=== PATIENT | female | born 1940 | race Caucasian/White ===

== ENCOUNTER 2021-11-22 10:44 | Outpatient (CLI) | payer MEDICARE, SELFPAY ==
--- NOTE | 2021-11-22 10:45 | CRLHL7_ITS ---
For Patients: As a result of the Century Cures Act, medical imaging exams and procedure reports are released immediately into your electronic medical record. You may view this report before your referring provider. If you have questions, please contact your health care provider. Indication: Follow-up right axillary lymph nodes Technique: Grayscale and color Doppler ultrasound of the right axilla performed Comparison: CT 08/29/2021 Findings: Decreased prominence right axillary lymph nodes noted. Two lymph nodes are visualized measuring 1.4 x 0.6 x 0.8 cm and 1.6 x 0.5 x 1.5 cm. Normal central fatty bossman noted. Normal vascularity. Impression: Normal-appearing right axillary lymph nodes, diminished compared to the prior study, likely representing reactive lymph nodes in the setting of COVID vaccine. Attention on subsequent CT surveillance examination is suggested. Dictated by Terrence Mcdaniel MD @ 11/22/2021 11:42:41 AM (Electronically Signed)
--- NOTE | 2021-11-22 11:30 | CRLHL7_ITS ---
For Patients: As a result of the Century Cures Act, medical imaging exams and procedure reports are released immediately into your electronic medical record. You may view this report before your referring provider. If you have questions, please contact your health care provider. Indication: Colorectal cancer follow-up Technique: Postcontrast CT chest, abdomen and pelvis. Oral water. 62 cc Isovue 370 intravenous contrast. Please note that all CT scans at this facility use dose modulation, iterative reconstruction, and/or weight-based dosing when appropriate to reduce radiation dose to as low as reasonably achievable. Comparison: 08/29/2021 Findings: In the chest, normal right axillary lymph nodes are now present. No concerning intrathoracic adenopathy. Stable appearance of the esophagus. No thyroid mass. No suspicious pulmonary nodule. No pleural effusion or infiltrate. No fracture. In the abdomen, stable benign lesions throughout the liver. Chronic stone associated with the gallbladder measuring 1 centimeter. Pancreas normal. Normal spleen. No adrenal mass. Nonobstructing stone left kidney measuring 8 millimeters. Left extrarenal pelvis. Normal left ureter. Right kidney absent. No retroperitoneal or mesenteric adenopathy. Vascular calcifications. No aneurysm. In the pelvis, stable appearance of the left lower quadrant ostomy with peristomal hernia containing non inflamed loops of bowel and omental fat. No bowel obstruction or free air. No free fluid or abscess. Bladder normal. Normal uterus. No adnexal lesion. No fracture. Stable benign bone island within L3. Impression: No evidence of metastatic disease. Normal right axillary lymph nodes. Please note that all CT scans at this facility use dose modulation, iterative reconstruction, and/or weight-based dosing when appropriate to reduce radiation dose to as low as reasonably achievable. Dictated by Terrence Mcdaniel MD @ 11/23/2021 9:01:24 AM (Electronically Signed)
--- NOTE | 2021-11-27 10:14 | ONC.NURNOTE ---
Authorization: User: Margaret HuitronTyler Maradiaga Date: 06/10/21 11:21 Type: Eligibility Determination Note... Request received from [facility] for prior authorization of Bevacizumab J9035. Patient carries Medicare [employer] as primary insurance. Per CMS.gov LCD O97046 no prior authorization is required as services are based on medical necessity and follow medicare guidelines
== END 2021-11-22 10:45 | disposition home or self-care (01) ==
LOC: US 10:47
PROVIDERS: PCP Physician Assistant Medical; Visit Provider Internal Medicine Hematology & Oncology
DX: C18.9 Malignant neoplasm of colon, unspecified (principal); R59.0 Localized enlarged lymph nodes
CPT/HCPCS: 71260; 74177; 76882; Q9967

== ENCOUNTER 2021-11-29 09:54 | Outpatient (RCR) | payer MEDICARE, SELFPAY ==
--- NOTE | 2021-11-29 11:10 | ONC.NURNOTE ---
Copied forward for dose/frequency clarification. Patient: Angle Kennedy : 1940 Age/Sex: 81/F Unit#: [id number] Account#: Multiple Room/Bed: User: Lulu Martinez Date: 04/21/21 18:53 Type: Clinical Nurse Specialist Note... Reentered treatment plan: avastin Cycles without avastin drug assigned. Treatment plan reentered, starting with cycle 7. Due 04/26/21. Avastin 7.5mg/kg q 4 weeks. Every other 2 week cycle discontinued/modified treatment plan to pt schedule.
--- NOTE | 2021-12-14 13:12 | ONC.NURNOTE ---
Lore seen by PCP today- noted untreated UTI from 11/27/21 UA done in the [facility] Ad Murray to start patient on Keflex as she has not responded to Nitrofuran in the past Ad was checking if there was a reason not to treat- lead technical writer states that she should go ahead and treat as seems appropriate
--- NOTE | 2021-12-15 10:19 | ONC.NURNOTE ---
Patient called and said that when she attempted to refill her capecitabine that a note popped up on the screen with an estimate of >$99,000. Instructed patient to call pharmacy to check on this, as may be an error. If she finds that this will be her charge to call our office back with the provider number to contact.
== END 2021-12-17 23:59 | disposition home or self-care (01) ==
LOC: CCIC 09:54
PROVIDERS: PCP Physician Assistant Medical; Visit Provider Internal Medicine Hematology & Oncology
DX: Z51.11 Encounter for antineoplastic chemotherapy (principal); C19 Malignant neoplasm of rectosigmoid junction; C78.7 Secondary malignant neoplasm of liver and intrahepatic bile duct; R59.0 Localized enlarged lymph nodes; I10 Essential (primary) hypertension; Z90.5 Acquired absence of kidney; Z93.3 Colostomy status; L27.1 Localized skin eruption due to drugs and medicaments taken internally
CPT/HCPCS: 96413; 99212; 99215; J9035

== ENCOUNTER 2022-01-23 08:11 | Outpatient (CLI) | payer MEDICARE, SELFPAY ==
[2022-01-23 14:19] LABS: Albumin* 4.8 g/dL (3.3-5.0); Chloride* 106 mmol/L (96-114); Potassium* 3.9 mmol/L (3.6-5.1); Sodium* 142 mmol/L (135-149)
[2022-01-23 14:21] LABS: Alkaline Phosphatase* 78 U/L (40-150); Aspartate Amino Transferase* 29 U/L (12-35); Bilirubin Total* 0.8 mg/dL (0.1-1.5); Blood Urea Nitrogen* 12 mg/dL (7-30); Carbon Dioxide* 24 mmol/L (20-32); Creatinine* 0.7 mg/dL (0.5-1.5); Estimated Glomerular Filt Rate 86 ml/min; Total Protein* 7.4 g/dL (6.0-8.3)
[2022-01-23 14:22] LABS: Alanine Aminotransferase* 17 U/L (4-35); Calcium* 9.5 mg/dL (8.4-10.6); Glucose* 125 mg/dL (60-115)
[2022-01-24 15:10] LABS: Carcinoembryonic Antigen 2.6 ng/mL
== END 2022-01-23 08:12 | disposition home or self-care (01) ==
PROVIDERS: PCP Physician Assistant Medical; Visit Provider Internal Medicine Hematology & Oncology
DX: C18.9 Malignant neoplasm of colon, unspecified (principal); R82.71 Bacteriuria
CPT/HCPCS: 80053; 82378; 87086; 87186

== ENCOUNTER 2022-02-14 09:45 | Outpatient (CLI) | payer MEDICARE, SELFPAY ==
[2022-02-14 10:25] LABS: Creatinine* 0.7 mg/dL (0.5-1.5); Estimated Glomerular Filt Rate 86 ml/min
== END 2022-02-14 09:46 | disposition home or self-care (01) ==
PROVIDERS: PCP Physician Assistant Medical; Visit Provider Internal Medicine Hematology & Oncology
DX: C19 Malignant neoplasm of rectosigmoid junction (principal); R59.0 Localized enlarged lymph nodes; K80.20 Calculus of gallbladder without cholecystitis without obstruction; C78.7 Secondary malignant neoplasm of liver and intrahepatic bile duct; Z90.5 Acquired absence of kidney
CPT/HCPCS: 36415; 71260; 74177; 82565; Q9967

== ENCOUNTER 2022-03-19 14:05 | Outpatient (REF) | payer MEDICARE, SELFPAY ==
[2022-03-19 15:30] LABS: Basophils Absolute Auto 0.01 K/uL (0.00-0.30); Basophils Percent Auto 0.2 % (0.0-3.0); Eosinophils Absolute Auto 0.01 K/uL (0.00-0.50); Eosinophils Percent Auto 0.2 % (0.0-7.0); Hematocrit 44.6 % (33.0-51.0); Hemoglobin* 14.6 gm/dL (12.0-16.0); Immature Granulocytes Abs Auto 0.02 K/uL (0.00-0.30); Lymphocytes Absolute Auto 1.43 K/uL (0.90-2.90); Lymphocytes Percent Auto 31.2 % (20-44); Mean Corpuscular HGB Conc 33 gm/dL (32-36); Mean Corpuscular Hemoglobin 34 pg (26-34); Mean Corpuscular Volume 103 fL (80-100); Monocytes Percent Auto 7.6 % (0.0-11.0); Neutrophils Absolute Auto 2.77 K/uL (1.7-7.0); Neutrophils Percent Auto 60.4 % (42.0-72.0); Platelet Count* 218 K/uL (140-440); RDW Coefficient of Variation % 16.5 % (11.5-15.5); Red Blood Count 4.35 m/uL (4.00-5.20); White Blood Count* 4.59 K/uL (4.50-11.00)
[2022-03-19 15:40] LABS: Slide Review Reflex No
[2022-03-19 15:42] LABS: Appearance Urine Clear (Clear); Bilirubin Urine Negative (Negative); Blood Urine Trace-lysed (Negative); Color Urine Yellow (Yellow); Glucose Urine Negative (Negative); Ketones Urine Negative (Negative); Leukocyte Esterase Urine 1+ (Negative); Nitrite Urine Positive (Negative); Protein Urine 2+ (Negative); Specific Gravity Urine <= 1.005 (1.000-1.030); Urobilinogen Urine 0.2 (0.2-1.0); pH Urine 5.5 (5.0-8.5)
[2022-03-19 15:48] LABS: Albumin* 4.7 g/dL (3.3-5.0)
[2022-03-19 15:49] LABS: Chloride* 107 mmol/L (96-114); Potassium* 3.6 mmol/L (3.6-5.1); Sodium* 142 mmol/L (135-149)
[2022-03-19 15:51] LABS: Aspartate Amino Transferase* 28 U/L (12-35); Bilirubin Total* 0.5 mg/dL (0.1-1.5); Carbon Dioxide* 25 mmol/L (20-32); Creatinine* 0.6 mg/dL (0.5-1.5); Estimated Glomerular Filt Rate 90 ml/min; Total Protein* 7.2 g/dL (6.0-8.3)
[2022-03-19 15:51] LABS: Bacteria Urine Moderate
[2022-03-19 15:52] LABS: Alanine Aminotransferase* 19 U/L (4-35); Alkaline Phosphatase* 76 U/L (40-150); Blood Urea Nitrogen* 12 mg/dL (7-30); Calcium* 9.5 mg/dL (8.4-10.6); Glucose* 113 mg/dL (60-115)
[2022-03-21 14:28] LABS: Carcinoembryonic Antigen 3.1 ng/mL
== END 2022-03-19 14:06 | disposition home or self-care (01) ==
LOC: NPINS 14:05
PROVIDERS: PCP Physician Assistant Medical; Visit Provider Internal Medicine Hematology & Oncology
DX: C19 Malignant neoplasm of rectosigmoid junction (principal); C18.9 Malignant neoplasm of colon, unspecified; N39.0 Urinary tract infection, site not specified; B96.20 Unspecified Escherichia coli [E. coli] as the cause of diseases classified elsewhere
CPT/HCPCS: 80053; 81003; 81015; 82378; 85025; 87086; 87186

== ENCOUNTER 2022-05-17 10:00 | Outpatient (RCR) | payer MEDICARE, SELFPAY ==
[2021-12-27 10:13] VITALS: BP 178/82; PULSE 81; RESP 16; TEMP 35.9; O2SAT 98
[2022-01-24 10:00] VITALS: BP 127/81; PULSE 73; RESP 16; TEMP 36.6; O2SAT 98
[2022-01-24] MEDS: 0.9 % SODIUM CHLORIDE 250 ml IV (10:45)
--- NOTE | 2022-01-24 10:50 | ONC.NURNOTE ---
Treatment plan modification: Avastin. Please note pt has been receiving avastin 7.5mg/m2 q 4 weeks. Her current treatment plan is a 21 day cycle. Cycles are being manually moved to 28 days.
[2022-02-19 14:01] LABS: Basophils Absolute Auto 0.01 K/uL (0.00-0.30); Basophils Percent Auto 0.2 % (0.0-3.0); Eosinophils Absolute Auto 0.02 K/uL (0.00-0.50); Eosinophils Percent Auto 0.4 % (0.0-7.0); Hematocrit 43.3 % (33.0-51.0); Hemoglobin* 14.2 gm/dL (12.0-16.0); Immature Granulocytes Abs Auto 0.04 K/uL (0.00-0.30); Lymphocytes Absolute Auto 1.43 K/uL (0.90-2.90); Lymphocytes Percent Auto 30.2 % (20-44); Mean Corpuscular HGB Conc 33 gm/dL (32-36); Mean Corpuscular Hemoglobin 34 pg (26-34); Mean Corpuscular Volume 104 fL (80-100); Monocytes Percent Auto 7.8 % (0.0-11.0); Neutrophils Absolute Auto 2.87 K/uL (1.7-7.0); Neutrophils Percent Auto 60.6 % (42.0-72.0); Platelet Count* 228 K/uL (140-440); RDW Coefficient of Variation % 16.4 % (11.5-15.5); Red Blood Count 4.18 m/uL (4.00-5.20); White Blood Count* 4.74 K/uL (4.50-11.00)
[2022-02-19 14:03] LABS: Slide Review Reflex No
[2022-02-19 14:17] LABS: Appearance Urine Clear (Clear); Bilirubin Urine Negative (Negative); Blood Urine Trace-intact (Negative); Color Urine Yellow (Yellow); Glucose Urine Negative (Negative); Ketones Urine Negative (Negative); Leukocyte Esterase Urine 1+ (Negative); Nitrite Urine Positive (Negative); Protein Urine 1+ (Negative); Specific Gravity Urine <= 1.005 (1.000-1.030); Urobilinogen Urine 0.2 (0.2-1.0); pH Urine 5.5 (5.0-8.5)
[2022-02-19 14:25] LABS: Bacteria Urine Many; RBC Urine 0-2 (0-2); Squamous Epithelial Cell Urine Few (None-Few)
[2022-02-19 15:22] LABS: Albumin* 4.6 g/dL (3.3-5.0); Chloride* 107 mmol/L (96-114); Potassium* 3.7 mmol/L (3.6-5.1); Sodium* 141 mmol/L (135-149)
[2022-02-19 15:24] LABS: Creatinine* 0.6 mg/dL (0.5-1.5); Estimated Glomerular Filt Rate 90 ml/min
[2022-02-19 15:25] LABS: Alanine Aminotransferase* 16 U/L (4-35); Alkaline Phosphatase* 80 U/L (40-150); Aspartate Amino Transferase* 26 U/L (12-35); Bilirubin Total* 0.6 mg/dL (0.1-1.5); Blood Urea Nitrogen* 14 mg/dL (7-30); Calcium* 9.6 mg/dL (8.4-10.6); Carbon Dioxide* 24 mmol/L (20-32); Glucose* 141 mg/dL (60-115); Total Protein* 7.2 g/dL (6.0-8.3)
[2022-02-21 10:52] LABS: Carcinoembryonic Antigen 2.9 ng/mL
[2022-02-21] MEDS: SODIUM CHLORIDE 0.9 % (FLUSH) 10 ML SYRINGE IVF (12:38)
[2022-02-21] MEDS: 0.9 % SODIUM CHLORIDE 250 ml IV (12:38)
--- NOTE | 2022-03-20 16:18 | ONC.NURNOTE ---
Pt called to review labs. Elevated urine protein to 2+; Avastin held for tomorrow. Nsg to review next steps with Dr. Mari and call pt back. Pt agreeable to this plan.
--- NOTE | 2022-03-21 12:05 | ONC.NURNOTE ---
Dr. Mari reviewed pt's labs and urine(which had 2+ protein). Per Dr. Mari, pt should hold the Avastin for 4 weeks, but can continue xeloda. Senior Java Software Engineer called pt with Dr. Mari's recommendation and pt verbalized understanding of plan of care.
[2022-04-16 14:05] LABS: Appearance Urine Cloudy (Clear); Bilirubin Urine Negative (Negative); Blood Urine Trace-intact (Negative); Color Urine Yellow (Yellow); Glucose Urine Negative (Negative); Ketones Urine Negative (Negative); Leukocyte Esterase Urine 1+ (Negative); Nitrite Urine Positive (Negative); Protein Urine 2+ (Negative); Specific Gravity Urine <= 1.005 (1.000-1.030); Urobilinogen Urine 0.2 (0.2-1.0); pH Urine 5.5 (5.0-8.5)
[2022-04-16 14:10] LABS: Basophils Absolute Auto 0.01 K/uL (0.00-0.30); Basophils Percent Auto 0.2 % (0.0-3.0); Eosinophils Absolute Auto 0.01 K/uL (0.00-0.50); Eosinophils Percent Auto 0.2 % (0.0-7.0); Hematocrit 44.6 % (33.0-51.0); Hemoglobin* 14.6 gm/dL (12.0-16.0); Immature Granulocytes Abs Auto 0.01 K/uL (0.00-0.30); Immature Granulocytes Pct Auto 0.2 %; Lymphocytes Absolute Auto 1.42 K/uL (0.90-2.90); Lymphocytes Percent Auto 28.1 % (20-44); Mean Corpuscular HGB Conc 33 gm/dL (32-36); Mean Corpuscular Hemoglobin 34 pg (26-34); Mean Corpuscular Volume 103 fL (80-100); Monocytes Percent Auto 7.9 % (0.0-11.0); Neutrophils Absolute Auto 3.21 K/uL (1.7-7.0); Neutrophils Percent Auto 63.4 % (42.0-72.0); Platelet Count* 213 K/uL (140-440); RDW Coefficient of Variation % 16.7 % (11.5-15.5); Red Blood Count 4.32 m/uL (4.00-5.20); White Blood Count* 5.06 K/uL (4.50-11.00)
[2022-04-16 14:13] LABS: Albumin* 4.6 g/dL (3.3-5.0); Chloride* 111 mmol/L (96-114)
[2022-04-16 14:14] LABS: Potassium* 3.5 mmol/L (3.6-5.1); Sodium* 144 mmol/L (135-149)
[2022-04-16 14:16] LABS: Alkaline Phosphatase* 68 U/L (40-150); Aspartate Amino Transferase* 26 U/L (12-35); Bilirubin Total* 0.7 mg/dL (0.1-1.5); Carbon Dioxide* 25 mmol/L (20-32); Creatinine* 0.7 mg/dL (0.5-1.5); Estimated Glomerular Filt Rate 86 ml/min; Total Protein* 7.1 g/dL (6.0-8.3)
[2022-04-16 14:17] LABS: Alanine Aminotransferase* 19 U/L (4-35); Blood Urea Nitrogen* 14 mg/dL (7-30); Calcium* 9.5 mg/dL (8.4-10.6); Glucose* 111 mg/dL (60-115); RBC Urine 0-2 (0-2)
[2022-04-16 14:18] LABS: Bacteria Urine Many; WBC Urine 50-100 (0-5)
[2022-04-16 14:27] LABS: Slide Review Reflex No
[2022-04-17 10:52] LABS: Carcinoembryonic Antigen 2.9 ng/mL
--- NOTE | 2022-04-18 09:16 | ONC.NURNOTE ---
Avastin to be held today per Dr Mari due to 2+ protein in her urine labs with in parameters to start the capecitabine denies any signs or symptoms of bladder infection no fever, urgency, frequency or pain
--- NOTE | 2022-04-18 13:23 | ONC.NURNOTE ---
Dr. Mari reviewed pt's urine results. Script sent to pt's pharmacy for Levaquin, order also entered for 24 hr urine. Coating And Embossing Unit Operator called pt to instruct her to start Levaquin and informed pt that 24 hour urine is needed. Pt will citrus picker 24 hr urine container from [facility]. Pt verbalized understanding of plan of care.
[2022-04-23 15:14] LABS: Total Protein Urine 43 mg/dL
[2022-04-23 15:16] LABS: Creatinine Urine 48.2 mg/dL
[2022-04-23 15:28] LABS: Collection Time Urine 24 Hours; Total Protein 24 Hour Urine 645 mg/dL; Total Volume 24 Hour Urine 1500 ml; Urine Creatinine mg/24 Hour 0 mg/Day (400-1300)
[2022-05-15 15:01] LABS: Appearance Urine Clear (Clear); Bilirubin Urine Negative (Negative); Blood Urine Negative (Negative); Color Urine Yellow (Yellow); Glucose Urine Negative (Negative); Ketones Urine Negative (Negative); Leukocyte Esterase Urine Negative (Negative); Nitrite Urine Negative (Negative); Protein Urine 2+ (Negative); Urobilinogen Urine 0.2 (0.2-1.0); pH Urine 5.5 (5.0-8.5)
[2022-05-15 15:03] LABS: Albumin* 4.5 g/dL (3.3-5.0); Chloride* 107 mmol/L (96-114)
[2022-05-15 15:04] LABS: Potassium* 3.4 mmol/L (3.6-5.1); Sodium* 141 mmol/L (135-149)
[2022-05-15 15:05] LABS: Basophils Absolute Auto 0.01 K/uL (0.00-0.30); Basophils Percent Auto 0.2 % (0.0-3.0); Eosinophils Absolute Auto 0.02 K/uL (0.00-0.50); Eosinophils Percent Auto 0.3 % (0.0-7.0); Hematocrit 42.9 % (33.0-51.0); Lymphocytes Absolute Auto 1.69 K/uL (0.90-2.90); Lymphocytes Percent Auto 29.5 % (20-44); Mean Corpuscular HGB Conc 33 gm/dL (32-36); Mean Corpuscular Hemoglobin 34 pg (26-34); Mean Corpuscular Volume 104 fL (80-100); Neutrophils Absolute Auto 3.43 K/uL (1.7-7.0); Platelet Count* 245 K/uL (140-440); RDW Coefficient of Variation % 16.6 % (11.5-15.5); Red Blood Count 4.14 m/uL (4.00-5.20); White Blood Count* 5.72 K/uL (4.50-11.00)
[2022-05-15 15:06] LABS: Alkaline Phosphatase* 70 U/L (40-150); Aspartate Amino Transferase* 26 U/L (12-35); Bilirubin Total* 0.6 mg/dL (0.1-1.5); Blood Urea Nitrogen* 12 mg/dL (7-30); Carbon Dioxide* 26 mmol/L (20-32); Creatinine* 0.6 mg/dL (0.5-1.5); Estimated Glomerular Filt Rate 89 ml/min; Total Protein* 6.9 g/dL (6.0-8.3)
[2022-05-15 15:07] LABS: Alanine Aminotransferase* 20 U/L (4-35); Calcium* 10.1 mg/dL (8.4-10.6); Glucose* 102 mg/dL (60-115)
[2022-05-15 15:21] LABS: Calcium Oxalate Crystals Urine Many; RBC Urine 0-2 (0-2); Slide Review Reflex No
[2022-05-15 15:22] LABS: Hyaline Casts Urine Few (None-Few)
--- NOTE | 2022-05-16 08:28 | ONC.NURNOTE ---
Patient called yesterday for lab results and they were not resulted. Called patient to let her know that protein is still 2+, so will continue to hold avastin at this time. Email sent to Dr. Leigh to find out if patient should be seen on his schedule tomorrow or will just discuss plan for patient over lunch hour tomorrow. Nursing to call patient with a plan if not going to be seen.
[2022-05-17 14:40] LABS: Carcinoembryonic Antigen 2.7 ng/mL
--- NOTE | 2022-05-25 09:42 | ONC.NURNOTE ---
Addendum entered by Inez Menjivar RN 06/11/22 11:12: Received a phone call from patient stating that she never received her capecitabine. She is requesting that our office contact [facility]. Informatics Application Analyst contacted them and was told that they will REORDER the drug STAT through another site since they currently are unable to obtain the drug. Informatics Application Analyst asked for a timeline and was told by end of day it should ship. Patient was given number to call and check on order this afternoon: [phone]. Addendum entered by Halley Giron RN 05/31/22 09:50: Several more calls to [facility] 05/30- sign writer letterer or painter was informed that RX has been moved out of insurance verification and is now eligiable to be set up for shipment for arrival tomorrow- patient was informed 05/31 Lore called this sign writer letterer or painter - capecitabine has not been shipped and per her online portal requires referral verification by provider Call to [facility]- capecitabine is on back order until 06/08/22- they are able to do a partial fill of #42 tabs but require patient consent Lore was given ph # to call to schedule delivery [phone] Original Note: Lore called, due for capecitabine refill and has not yet been able to reorder sign writer letterer or painter spoke with [facility]- due to the new year, next RX is under insurance verification, sign writer letterer or painter asked that it be expedited requires return call on Saturday Lore notified of this response discussed that she may need to hold off starting next cycle of cape if delivery is delayed
--- NOTE | 2022-06-12 10:17 | ONC.NURNOTE ---
[facility] was contacted - 49 minutes spent monument mason there has been multiple calls to [facility] with report that capecitabine will shipped out for next day delivery patient has not had capecitabine since the last week apr She missed her treatment the week of 05/28 and now the week of 06/11 There has been barriers with insurance verification and now with drug shortage, capecitabine on back order Today Radha Pharmacist states she will try a different fondant cooker and will call patient in the next 2 hours with info about shipment possibility
--- NOTE | 2022-06-12 10:58 | URNOTE ---
Received request for prior auth for Bevacizumab (J9035). Pt has Medicare primary. Prior authorization is not required as services are based on medical necessity and follow medicare guidelines.
--- NOTE | 2022-06-14 16:23 | ONC.NURNOTE ---
Helmet Hat Puncher spent greater than 30 minutes on phone with [facility] today according to customer service clerk- Medicare part B is declining Capecitabine claim From what this loan underwriter understands- capecitabine is not available from the current site that she has been receiving capecitabine- [place] [address] there is capecitabine available at [place] [address] and [place] [address], but medicare is denying these claims Helmet Hat Puncher was instructed to call Medicare at [phone] to appeal
--- NOTE | 2022-06-18 10:04 | ONC.NURNOTE ---
Lore received her capecitabine this weekend Lore reports that there was an error with the copay Lore thinks it will be about at $29 copay She is restarting her capecitabine today 1500 mg BID last doses of capecitabine was 4 weeks ago appt will continue as previously scheduled
== END 2022-06-25 23:59 | disposition home or self-care (01) ==
LOC: CCIC 10:00
PROVIDERS: Internal Medicine Hematology & Oncology; PCP Physician Assistant Medical; Referring Provider Physician Assistant Medical; Visit Provider Internal Medicine Medical Oncology
DX: C19 Malignant neoplasm of rectosigmoid junction (principal); R80.9 Proteinuria, unspecified; I10 Essential (primary) hypertension
CPT/HCPCS: 36415; 80053; 81003; 81015; 82378; 84156; 85025; 87086; 87186; 96376; 96413; 99212; 99214; 99215; J7050; J9035

== ENCOUNTER 2022-06-11 22:18 | Outpatient (REF) | payer MEDICARE, SELFPAY ==
[2022-06-12 01:19] LABS: Basophils Absolute Auto 0.03 K/uL (0.00-0.30); Basophils Percent Auto 0.4 % (0.0-3.0); Eosinophils Absolute Auto 0.04 K/uL (0.00-0.50); Eosinophils Percent Auto 0.6 % (0.0-7.0); Hematocrit 46.2 % (33.0-51.0); Hemoglobin* 14.7 gm/dL (12.0-16.0); Immature Granulocytes Abs Auto 0.02 K/uL (0.00-0.30); Immature Granulocytes Pct Auto 0.3 %; Lymphocytes Absolute Auto 1.79 K/uL (0.90-2.90); Lymphocytes Percent Auto 26.8 % (20-44); Mean Corpuscular HGB Conc 32 gm/dL (32-36); Mean Corpuscular Hemoglobin 33 pg (26-34); Mean Corpuscular Volume 105 fL (80-100); Monocytes Percent Auto 8.1 % (0.0-11.0); Neutrophils Absolute Auto 4.26 K/uL (1.7-7.0); Neutrophils Percent Auto 63.8 % (42.0-72.0); Platelet Count* 218 K/uL (140-440); RDW Coefficient of Variation % 15.2 % (11.5-15.5); Red Blood Count 4.41 m/uL (4.00-5.20); White Blood Count* 6.68 K/uL (4.50-11.00)
[2022-06-12 01:25] LABS: Slide Review Reflex No
[2022-06-12 01:26] LABS: Albumin* 4.5 g/dL (3.3-5.0); Chloride* 107 mmol/L (96-114); Potassium* 3.8 mmol/L (3.6-5.1); Sodium* 142 mmol/L (135-149)
[2022-06-12 01:28] LABS: Creatinine* 0.7 mg/dL (0.5-1.5); Estimated Glomerular Filt Rate 86 ml/min
[2022-06-12 01:29] LABS: Alanine Aminotransferase* 20 U/L (4-35); Alkaline Phosphatase* 76 U/L (40-150); Aspartate Amino Transferase* 26 U/L (12-35); Bilirubin Total* 0.6 mg/dL (0.1-1.5); Blood Urea Nitrogen* 15 mg/dL (7-30); Carbon Dioxide* 27 mmol/L (20-32); Glucose* 161 mg/dL (60-115); Total Protein* 7.3 g/dL (6.0-8.3)
[2022-06-12 01:41] LABS: Appearance Urine Clear (Clear); Bilirubin Urine Negative (Negative); Blood Urine Negative (Negative); Color Urine Yellow (Yellow); Glucose Urine Negative (Negative); Ketones Urine Negative (Negative); Leukocyte Esterase Urine Negative (Negative); Nitrite Urine Negative (Negative); Protein Urine 2+ (Negative); Specific Gravity Urine 1.015 (1.000-1.030); Urobilinogen Urine 0.2 (0.2-1.0)
[2022-06-12 01:48] LABS: Bacteria Urine Few; RBC Urine 0-2 (0-2); Squamous Epithelial Cell Urine Few (None-Few); WBC Urine 0-2 (0-5)
== END 2022-06-11 22:19 | disposition home or self-care (01) ==
LOC: LAB 22:18
PROVIDERS: PCP Physician Assistant Medical
DX: C18.9 Malignant neoplasm of colon, unspecified (principal); R80.9 Proteinuria, unspecified; N39.0 Urinary tract infection, site not specified
CPT/HCPCS: 36415; 80053; 81001; 85025; 87086; 87186

== ENCOUNTER 2022-06-14 12:02 | Outpatient (CLI) | payer MEDICARE, SELFPAY | END 2022-06-14 12:03 | disposition home or self-care (01) | LOC: FRMREF 13:51 | PROVIDERS: PCP Physician Assistant Medical; Visit Provider Physician Assistant Medical | DX: N39.0 Urinary tract infection, site not specified (principal); R80.9 Proteinuria, unspecified | CPT/HCPCS: 87086 ==

== ENCOUNTER 2022-07-04 08:56 | Outpatient (CLI) | payer MEDICARE, SELFPAY ==
--- NOTE | 2022-07-04 10:00 | CRLHL7_ITS ---
For Patients: As a result of the Century Cures Act, medical imaging exams and procedure reports are released immediately into your electronic medical record. You may view this report before your referring provider. If you have questions, please contact your health care provider. Indication: MALIGNANT NEOPLASM OF COLON Technique: Postcontrast CT chest, abdomen and pelvis. 61 cc Isovue 370 intravenous contrast. Please note that all CT scans at this facility use dose modulation, iterative reconstruction, and/or weight-based dosing when appropriate to reduce radiation dose to as low as reasonably achievable. Comparison: 02/14/2022 Findings: In the chest, the axillary lymph nodes on the left appear improved compared to the prior study. No enlarged axillary, mediastinal or hilar lymph nodes on the current exam. Normal breast tissue. Atherosclerotic disease within the aorta with associated tortuosity of the descending thoracic aorta. No aneurysm. The heart is not enlarged. Gaseous distention of the esophagus is unchanged. Few scattered tiny calcified nodules are present. No suspicious pulmonary nodule. No infiltrate or edema. No effusion or pneumothorax. No fracture or destructive osseous lesion. In the abdomen, stable benign areas of decreased attenuation throughout the liver. Stable gallstone within the gallbladder lumen measuring 9 millimeters. Spleen is normal. Normal pancreas. No adrenal mass. Postop changes right nephrectomy. Chronic stones within the left kidney measuring up to 4.4 millimeters. Normal left ureter. No abdominal adenopathy. Left lower quadrant ostomy appears similar with herniation of multiple loops of small bowel and omental fat. No bowel obstruction. In the pelvis, the bladder is normal. Uterus is unremarkable for age. No adnexal mass. Postop changes partial colectomy again noted. No free air or free fluid. No abscess. No adenopathy. Degenerative changes without fracture. Atherosclerotic disease. Changes of chronic sigmoid diverticulosis. Impression: Improved appearance of the left axillary lymph nodes compared to the prior exam. No suspicious pulmonary nodule. Similar appearance of the left lower quadrant ostomy containing loops of small bowel, large bowel and fat. Chronic sigmoid diverticulosis. Please note that all CT scans at this facility use dose modulation, iterative reconstruction, and/or weight-based dosing when appropriate to reduce radiation dose to as low as reasonably achievable. Dictated by Terrence Mcdaniel MD @ 07/04/2022 12:53:49 PM (Electronically Signed)
== END 2022-07-04 08:57 | disposition home or self-care (01) ==
LOC: CT 08:59
PROVIDERS: PCP Physician Assistant Medical; Visit Provider Internal Medicine Medical Oncology
DX: C18.9 Malignant neoplasm of colon, unspecified (principal); K57.30 Diverticulosis of large intestine without perforation or abscess without bleeding
CPT/HCPCS: 71260; 74177; Q9967

== ENCOUNTER 2022-08-03 11:39 | Outpatient (RCR) | payer MEDICARE, SELFPAY ==
[2021-11-27 15:48] LABS: Eosinophils Absolute Auto 0.01 K/uL (0.00-0.50); Eosinophils Percent Auto 0.2 % (0.0-7.0); Hematocrit 44.7 % (33.0-51.0); Hemoglobin* 14.1 gm/dL (12.0-16.0); Immature Granulocytes Abs Auto 0.01 K/uL (0.00-0.30); Lymphocytes Absolute Auto 1.54 K/uL (0.90-2.90); Lymphocytes Percent Auto 30.9 % (20-44); Mean Corpuscular HGB Conc 32 gm/dL (32-36); Mean Corpuscular Hemoglobin 33 pg (26-34); Mean Corpuscular Volume 104 fL (80-100); Neutrophils Absolute Auto 2.97 K/uL (1.7-7.0); Neutrophils Percent Auto 59.7 % (42.0-72.0); Platelet Count* 196 K/uL (140-440); RDW Coefficient of Variation % 17.1 % (11.5-15.5); Red Blood Count 4.28 m/uL (4.00-5.20); White Blood Count* 4.98 K/uL (4.50-11.00)
[2021-11-27 15:59] LABS: Color Urine Yellow (Yellow)
[2021-11-27 16:00] LABS: Appearance Urine Clear (Clear); Bilirubin Urine Negative (Negative); Blood Urine Trace-lysed (Negative); Glucose Urine Negative (Negative); Ketones Urine Negative (Negative); Slide Review Reflex No; Specific Gravity Urine <= 1.005 (1.000-1.030)
[2021-11-27 16:01] LABS: Leukocyte Esterase Urine 3+ (Negative); Nitrite Urine Negative (Negative); Protein Urine Negative (Negative); Urobilinogen Urine 0.2 (0.2-1.0)
[2021-11-27 16:08] LABS: Bacteria Urine Many; RBC Urine 0-2 (0-2); Squamous Epithelial Cell Urine Few (None-Few); WBC Urine 25-50 (0-5)
[2021-11-27 16:51] LABS: Albumin* 4.3 g/dL (3.3-5.0); Chloride* 107 mmol/L (96-114); Sodium* 140 mmol/L (135-149)
[2021-11-27 16:52] LABS: Potassium* 4.2 mmol/L (3.6-5.1)
[2021-11-27 16:54] LABS: Alkaline Phosphatase* 69 U/L (40-150); Aspartate Amino Transferase* 24 U/L (12-35); Bilirubin Total* 0.8 mg/dL (0.1-1.5); Blood Urea Nitrogen* 11 mg/dL (7-30); Carbon Dioxide* 27 mmol/L (20-32); Creatinine* 0.8 mg/dL (0.5-1.5); Estimated Glomerular Filt Rate 73.52; Glucose* 123 mg/dL (60-115); Total Protein* 6.7 g/dL (6.0-8.3)
[2021-11-27 16:55] LABS: Alanine Aminotransferase* 15 U/L (4-35); Calcium* 9.3 mg/dL (8.4-10.6)
[2021-11-29 14:45] LABS: Carcinoembryonic Antigen 2.8 ng/mL
[2021-12-25 15:38] LABS: Albumin* 4.2 g/dL (3.3-5.0); Chloride* 107 mmol/L (96-114); Sodium* 141 mmol/L (135-149)
[2021-12-25 15:39] LABS: Potassium* 3.6 mmol/L (3.6-5.1)
[2021-12-25 15:41] LABS: Alanine Aminotransferase* 16 U/L (4-35); Alkaline Phosphatase* 73 U/L (40-150); Aspartate Amino Transferase* 28 U/L (12-35); Bilirubin Total* 0.8 mg/dL (0.1-1.5); Blood Urea Nitrogen* 12 mg/dL (7-30); Carbon Dioxide* 24 mmol/L (20-32); Creatinine* 0.7 mg/dL (0.5-1.5); Estimated Glomerular Filt Rate 86 ml/min; Glucose* 143 mg/dL (60-115); Total Protein* 6.9 g/dL (6.0-8.3)
[2021-12-25 15:42] LABS: Calcium* 9.1 mg/dL (8.4-10.6)
[2021-12-25 15:44] LABS: Basophils Absolute Auto 0.01 K/uL (0.00-0.30); Basophils Percent Auto 0.2 % (0.0-3.0); Eosinophils Absolute Auto 0.01 K/uL (0.00-0.50); Eosinophils Percent Auto 0.2 % (0.0-7.0); Hematocrit 42.1 % (33.0-51.0); Hemoglobin* 14.1 gm/dL (12.0-16.0); Immature Granulocytes Abs Auto 0.02 K/uL (0.00-0.30); Lymphocytes Absolute Auto 1.28 K/uL (0.90-2.90); Lymphocytes Percent Auto 22.5 % (20-44); Mean Corpuscular HGB Conc 34 gm/dL (32-36); Mean Corpuscular Hemoglobin 34 pg (26-34); Mean Corpuscular Volume 101 fL (80-100); Neutrophils Percent Auto 66.7 % (42.0-72.0); Platelet Count* 185 K/uL (140-440); RDW Coefficient of Variation % 16.5 % (11.5-15.5); Red Blood Count 4.16 m/uL (4.00-5.20); White Blood Count* 5.69 K/uL (4.50-11.00)
[2021-12-25 16:03] LABS: Slide Review Reflex No
[2021-12-25 18:11] LABS: Appearance Urine Clear (Clear); Bilirubin Urine Negative (Negative); Blood Urine Trace-intact (Negative); Color Urine Yellow (Yellow); Glucose Urine Negative (Negative); Ketones Urine Negative (Negative); Leukocyte Esterase Urine Negative (Negative); Nitrite Urine Negative (Negative); Protein Urine Trace (Negative); Specific Gravity Urine <= 1.005 (1.000-1.030); Urobilinogen Urine 0.2 (0.2-1.0)
[2021-12-25 18:33] LABS: RBC Urine 0-2 (0-2); WBC Urine 0-2 (0-5)
[2022-07-06 12:40] LABS: Basophils Absolute Auto 0.01 K/uL (0.00-0.30); Basophils Percent Auto 0.2 % (0.0-3.0); Hematocrit 47.1 % (33.0-51.0); Hemoglobin* 14.8 gm/dL (12.0-16.0); Lymphocytes Absolute Auto 1.96 K/uL (0.90-2.90); Lymphocytes Percent Auto 31.4 % (20-44); Mean Corpuscular HGB Conc 31 gm/dL (32-36); Mean Corpuscular Hemoglobin 33 pg (26-34); Mean Corpuscular Volume 104 fL (80-100); Monocytes Percent Auto 6.4 % (0.0-11.0); Neutrophils Absolute Auto 3.87 K/uL (1.7-7.0); Platelet Count* 248 K/uL (140-440); RDW Coefficient of Variation % 14.8 % (11.5-15.5); Red Blood Count 4.55 m/uL (4.00-5.20); White Blood Count* 6.24 K/uL (4.50-11.00)
[2022-07-06 12:44] LABS: Albumin* 4.4 g/dL (3.3-5.0)
[2022-07-06 12:45] LABS: Chloride* 108 mmol/L (96-114); Sodium* 145 mmol/L (135-149)
[2022-07-06 12:47] LABS: Aspartate Amino Transferase* 25 U/L (12-35); Bilirubin Total* 0.6 mg/dL (0.1-1.5); Carbon Dioxide* 30 mmol/L (20-32); Creatinine* 0.8 mg/dL (0.5-1.5); Estimated Glomerular Filt Rate 73 ml/min; Total Protein* 7.1 g/dL (6.0-8.3)
[2022-07-06 12:48] LABS: Alanine Aminotransferase* 20 U/L (4-35); Alkaline Phosphatase* 71 U/L (40-150); Blood Urea Nitrogen* 18 mg/dL (7-30); Calcium* 9.8 mg/dL (8.4-10.6); Glucose* 126 mg/dL (60-115)
[2022-07-06 12:49] LABS: Slide Review Reflex No
[2022-07-06 13:02] LABS: Appearance Urine Clear (Clear); Bilirubin Urine Negative (Negative); Blood Urine Trace-intact (Negative); Color Urine Yellow (Yellow); Glucose Urine Negative (Negative); Ketones Urine Negative (Negative); Leukocyte Esterase Urine Negative (Negative); Nitrite Urine Negative (Negative); Protein Urine 1+ (Negative); Urobilinogen Urine 0.2 (0.2-1.0)
[2022-07-06 13:07] LABS: Calcium Oxalate Crystals Urine Moderate; Squamous Epithelial Cell Urine Few (None-Few); WBC Urine 0-2 (0-5)
[2022-07-07 14:08] LABS: Carcinoembryonic Antigen 2.9 ng/mL
[2022-08-03 11:54] LABS: Basophils Absolute Auto 0.01 K/uL (0.00-0.30); Basophils Percent Auto 0.1 % (0.0-3.0); Hematocrit 46.9 % (33.0-51.0); Immature Granulocytes Abs Auto 0.01 K/uL (0.00-0.30); Immature Granulocytes Pct Auto 0.1 %; Lymphocytes Percent Auto 21.2 % (20-44); Mean Corpuscular HGB Conc 32 gm/dL (32-36); Mean Corpuscular Hemoglobin 33 pg (26-34); Mean Corpuscular Volume 103 fL (80-100); Monocytes Percent Auto 7.9 % (0.0-11.0); Neutrophils Absolute Auto 5.99 K/uL (1.7-7.0); Neutrophils Percent Auto 70.7 % (42.0-72.0); Platelet Count* 263 K/uL (140-440); RDW Coefficient of Variation % 15.7 % (11.5-15.5); Red Blood Count 4.54 m/uL (4.00-5.20); White Blood Count* 8.48 K/uL (4.50-11.00)
[2022-08-03 11:55] LABS: Appearance Urine Slightly Cloudy (Clear); Bilirubin Urine Negative (Negative); Blood Urine Negative (Negative); Color Urine Yellow (Yellow); Glucose Urine Negative (Negative); Ketones Urine Negative (Negative); Leukocyte Esterase Urine Negative (Negative); Nitrite Urine Negative (Negative); Protein Urine 2+ (Negative); Urobilinogen Urine 0.2 (0.2-1.0); pH Urine 5.5 (5.0-8.5)
[2022-08-03 11:56] LABS: Slide Review Reflex No
[2022-08-03 11:58] LABS: Albumin* 4.6 g/dL (3.3-5.0)
[2022-08-03 11:59] LABS: Chloride* 105 mmol/L (96-114); Potassium* 4.1 mmol/L (3.6-5.1); Sodium* 143 mmol/L (135-149)
[2022-08-03 12:01] LABS: Aspartate Amino Transferase* 25 U/L (12-35); Carbon Dioxide* 28 mmol/L (20-32); Creatinine* 0.8 mg/dL (0.5-1.5); Estimated Glomerular Filt Rate 73 ml/min
[2022-08-03 12:02] LABS: Alanine Aminotransferase* 22 U/L (4-35); Alkaline Phosphatase* 78 U/L (40-150); Blood Urea Nitrogen* 20 mg/dL (7-30); Calcium* 10.3 mg/dL (8.4-10.6); Glucose* 94 mg/dL (60-115); Total Protein* 7.4 g/dL (6.0-8.3)
[2022-08-03 12:05] LABS: RBC Urine 0-2 (0-2); WBC Urine 0-2 (0-5)
[2022-08-04 13:26] LABS: Carcinoembryonic Antigen 2.8 ng/mL
--- NOTE | 2022-08-14 13:48 | ONC.NURNOTE ---
capecitabine received this am- will restart her medication tomorrow 1500 mg BID 7 day on and 7 day off
--- NOTE | 2022-08-17 11:05 | ONC.NURNOTE ---
RX sent to [facility] and canceled at [facility] due to multiple administrative issues at [facility] that resulted in delivery delays [facility] delivery [facility]
== END 2023-07-19 08:34 | disposition home or self-care (01) ==
LOC: LAB 11:39
PROVIDERS: PCP Physician Assistant Medical; Visit Provider Internal Medicine Hematology & Oncology
DX: R19.7 Diarrhea, unspecified (principal); C18.9 Malignant neoplasm of colon, unspecified
CPT/HCPCS: 36415; 80053; 81001; 81003; 81015; 82378; 85025; 87086; 87186

== ENCOUNTER 2022-09-06 08:52 | Outpatient (CLI) | payer MEDICARE, SELFPAY | END 2022-09-06 08:53 | disposition home or self-care (01) | LOC: NFLDREF 21:55 | PROVIDERS: PCP Physician Assistant Medical; Referring Provider Physician Assistant Medical; Visit Provider Internal Medicine Hematology & Oncology | DX: C18.7 Malignant neoplasm of sigmoid colon (principal); I15.9 Secondary hypertension, unspecified | CPT/HCPCS: 80053 ==

== ENCOUNTER 2022-10-30 09:25 | Outpatient (CLI) | payer MEDICARE, SELFPAY ==
--- NOTE | 2022-10-30 10:00 | CRLHL7_ITS ---
For Patients: As a result of the Century Cures Act, medical imaging exams and procedure reports are released immediately into your electronic medical record. You may view this report before your referring provider. If you have questions, please contact your health care provider. INDICATION: Follow-up colon malignancy. History of nephrectomy and bowel resection. COMPARISON: CT of the chest, abdomen, and pelvis from 07/04/2022. TECHNIQUE: CT examination of the chest, abdomen, and pelvis was performed with the uneventful intravenous administration of 100 cc of Omnipaque 350 while 3 mm thick axial sections were obtained from above the apices of the lungs through the symphysis pubis. Oral contrast was not administered. Please note that all CT scans at this facility use dose modulation, iterative reconstruction, and/or weight-based dosing when appropriate to reduce radiation dose to as low as reasonably achievable. FINDINGS: : In the chest, the lungs are clear with no sign of significant infiltrate or mass. There is excellent enhancement of the pulmonary arteries with no sign of pulmonary embolism. There is no sign of mediastinal or hilar mass or adenopathy. Again seen is mild calcification of the mitral valve annulus. The heart is otherwise normal in appearance for the patient`s age. There is age appropriate appearance of the thoracic aorta and ascending great vessels. There is no sign of supraclavicular or axillary mass or adenopathy. Again seen are changes of a diverting colostomy in the right anterior upper pelvic wall. There is no change in a large peristomal hernia containing multiple loops of nonobstructed small bowel. In the abdomen, the liver has stable heterogeneous linear low-density in the posterior aspect of the right lobe, involving both segments 6 and 7, suggesting previous resection or scarring from trauma. There is stable appearance of low-density small linear structures in the medial segment of the left lobe in the anterior segment of the right lobe, segments 4A and 8 which are nonspecific. Again seen are several tiny low-density structures in the rest of the liver consistent with 20 cysts. The spleen, pancreas, and adrenals are normal in appearance. Again seen are surgical clips in the right renal fossa from nephrectomy. The left kidney mildly enlarged, measuring 12.4 centimeters in length, probably compensatory hypertrophy. There are multiple stable parapelvic cysts. The previously seen nonobstructive 4 millimeter calculus in the upper pole is no longer present. There is no sign of left hydronephrosis or hydroureter. There is no sign of ureterolithiasis. There is stable mild cholelithiasis, with single 9 millimeter dependent calcified gallstone in the gallbladder. There is no sign of gallbladder wall thickening or pericholecystic fluid. The abdominal aorta is normal in caliber with no sign of dilatation. There is no sign of retroperitoneal mass or adenopathy. The stomach, loops of small bowel, and right colon in the abdomen are normal in appearance. In the pelvis, the appendix is nonvisualized, but there is no sign of an inflammatory process in the area of the appendix. The loops of small bowel in the pelvis are normal in appearance. There is a patent rectosigmoid anastomosis. There continues to be mild mucosal thickening of the sigmoid colon and rectum, nonspecific. This could simply be from underdistention, but mild colitis and proctitis cannot be excluded. The uterus and adnexal regions are normal in appearance. The urinary bladder is normal in appearance. There is no sign of pelvic or inguinal mass or adenopathy. There is no sign of free air or free fluid in the abdomen or pelvis. Again seen is mild scoliosis of the thoracic spine convex towards the left. Again seen is moderate scoliosis of the lumbar spine convex towards the right. Again seen is moderate disc degenerative disease from L3 through S1 related to the scoliosis. 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 IMPRESSION: No evidence of metastatic disease to the chest or pelvis. Normal CT of the chest with contrast. CT of the abdomen shows a stable appearance of small, low-density regions scattered throughout both lobes and more confluent linear lesions in the posterior aspect of the right lobe. Stable appearance of right nephrectomy. Interval passage of previously seen nonobstructive 4 millimeter calculus from the left renal collecting system. CT of the pelvis shows stable appearance of a left upper pelvic wall diverting colostomy with large peristomal hernia containing multiple loops of nondistended small bowel. Stable satisfactory appearance of rectal colonic anastomosis with stable moderate mucosal thickening of the collapsed sigmoid colon and rectum. Cannot exclude distal colitis and proctitis. Please note that all CT scans at this facility use dose modulation, iterative reconstruction, and/or weight-based dosing when appropriate to reduce radiation dose to as low as reasonably achievable. Dictated by Conor Lima MD @ 10/30/2022 5:02:45 PM (Electronically Signed)
== END 2022-10-30 09:26 | disposition home or self-care (01) ==
LOC: CT 09:25
PROVIDERS: PCP Physician Assistant Medical; Visit Provider Physician Assistant
DX: C18.9 Malignant neoplasm of colon, unspecified (principal)
CPT/HCPCS: 71260; 74177; Q9967

== ENCOUNTER 2022-11-01 08:15 | Outpatient (CLI) | payer MEDICARE, SELFPAY | END 2022-11-01 08:16 | disposition home or self-care (01) | LOC: NFLDREF 11-02 15:20 | PROVIDERS: PCP Physician Assistant Medical; Referring Provider Physician Assistant Medical; Visit Provider Physician Assistant Medical | DX: C18.7 Malignant neoplasm of sigmoid colon (principal); I15.9 Secondary hypertension, unspecified | CPT/HCPCS: 80053 ==

== ENCOUNTER 2022-11-08 14:42 | Outpatient (RCR) | payer MEDICARE, SELFPAY ==
--- NOTE | 2022-10-04 14:00 | ONC.NURNOTE ---
CBC noted and called to [facility] pending no reported hand foot symptoms this is her week off capecitabine, restarts 10/11/22 plans to get next lab a little earlier, day 5 of week off and day of her CT Scan on 11/02/22
--- NOTE | 2022-11-26 08:57 | ONC.NURNOTE ---
Received phone call from patients daughter, Sobia. They were seen by Dr. Mari on 11/08 and there was talk of a referral to the ostomy nurse. They have not heard from anyone and are following up. Associate Director Finance called the wound care clinic and they will add her to the patient list to be seen. Ostomy patients are seen on Fridays. Number for patients daughter was given to wound clinic to call to set this appointment up: [phone] (Sobia).
== END 2023-01-05 23:59 | disposition home or self-care (01) ==
LOC: CCIC 14:42
PROVIDERS: PCP Physician Assistant Medical; Referring Provider Physician Assistant Medical; Visit Provider Internal Medicine Hematology & Oncology
DX: C18.7 Malignant neoplasm of sigmoid colon (principal); I10 Essential (primary) hypertension; L27.1 Localized skin eruption due to drugs and medicaments taken internally; Z93.3 Colostomy status
CPT/HCPCS: 99212; 99214; 99215

== ENCOUNTER 2022-11-26 11:27 | Emergency (ER) | payer MEDICARE, SELFPAY ==
[2022-11-26] VITALS (29 sets, daily range): BP systolic 111–137; BP diastolic 61–85; PULSE 90–101; RESP 18; TEMP 36.6; O2SAT 91–99; BMI 24.4
--- NOTE | 2022-11-26 11:43 | ED.NEUROSD ---
HPI - Neuro Symptoms/Deficit General Time Seen by Provider: 11:43 Date Seen: 11/26/22 Chief Complaint: Neuro Symptoms/Altered Deficit Stated Complaint: Slurred speech last night--needs stroke evaluation Time Seen by Provider: 11/26/22 11:43 Source: patient, RN notes reviewed and old records reviewed Mode of arrival: ambulatory Limitations: no limitations History of Present Illness HPI Narrative: Angle is a very pleasant 82-year-old female with a history of stage IV colon cancer status post colectomy and ostomy, currently on oral chemotherapy who comes to the emergency room for evaluation regarding a alteration of speech. Patient had a 5-10 minute episode of difficulty with word finding, stating inappropriate words and slurring of speech well talking to her son yesterday on the phone. This was not accompanied by any other symptoms and patient denies chest pain shortness of breath headache visual symptoms or numbness or tingling. This is never happened in the past and has not recurred since yesterday. She has not had cough cold or congestion. She denies recent fall. Related Data Home Medications Medication Instructions Recorded Confirmed acetaminophen 325 mg capsule 325 mg PO Q6H PRN 11/27/21 11/08/22 bevacizumab 11/27/21 11/08/22 bisacodyl 5 mg tablet 5 mg PO DAILY 11/27/21 11/08/22 cetirizine 10 mg tablet 10 mg PO DAILY PRN 11/27/21 11/26/22 multivitamin 1 tab PO DAILY 11/27/21 11/08/22 lisinopril 20 mg tablet 5 mg PO BID 11/08/22 11/26/22 Previous Rx's Medication Instructions Recorded amlodipine 10 mg tablet 10 mg PO QDAY #90 tabs 08/02/22 capecitabine 500 mg tablet 1,500 mg (3 x 500 mg) PO BID #84 08/20/22 tabs metoprolol succinate 50 mg 50 mg PO QDAY #90 tabs 11/06/22 tablet,extended release 24 hr Allergies Allergy/AdvReac Type Severity Reaction Status Date / Time ragweed pollen Allergy Mild Sneezing Verified 11/26/22 17:24 Review of Systems Status of ROS: Reports: 10 or more systems reviewed and unremarkable except as noted in History and below Const: Denies: fever or chills Eyes: Denies: change in vision ENMT: Denies: neck pain, throat swelling, difficulty swallowing or vertigo Cardio: Denies: chest pain or shortness of breath with exertion Resp: Denies: shortness of breath or cough GI: Denies: abdominal pain, nausea, vomiting, difficulty swallowing or blood in stool : Denies: painful urination Musculo: Denies: neck pain Integ/Breast: Denies: rash Neuro: Reports: slurred speech and difficulty communicating thoughts; Denies: headache, numbness in extremities, weakness in extremities, dizziness or vertigo Allergy/Immuno: Denies: throat swelling PFSH PFS Medical History (Updated 11/26/22 @ 18:51 by Shanel Moseley MD) 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 - Localized skin eruption due to drugs and medicaments taken internally (ICD-10) Urinary tract infection ?N39.0 - Urinary tract infection, site not specified (ICD-10) Surgical History (Updated 11/06/22 @ 09:41 by Darlene Murray PA-C) History of nephrectomy ?Z90.5 - Acquired absence of kidney (ICD-10) History of bowel resection ?Z90.49 - Acquired absence of other specified parts of digestive tract (ICD-10) History of creation of ostomy ?Z93.9 - Artificial opening status, unspecified (ICD-10) Family History (Updated 11/24/21 @ 08:26 by Sandip Barker) Mother Diabetes Brother Diabetes Social History (Updated 07/09/22 @ 12:30 by Preeti Delacruz PA-C) Narrative: Health care directive on file- Health care directive completed on 11/08/2005. Reviewed and sent for scanning 12/29/2019. 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 Smoking Status: Never smoker How often do you have a drink containing alcohol: never AUDIT-C Alcohol total score: 0 Non-prescribed substance use: denies use Exam Narrative: Exam Narrative: Alert and oriented. Appropriate speech with a GCS of 15. EOM is full. Pupils equal round and reactive. There seem to be a somewhat if a field cut in the upper right peripheral vision but we could not recreate this with 2nd exam. Otherwise visual finch intact. Eyebrow raise smile symmetrical and tongue is midline. Upper extremity strength and motor intact. Heart with a regular rate and rhythm and lungs are clear bilaterally. Abdomen soft. Mild protruding of the lower abdomen. No significant pain. Rather diffuse discomfort around this area. Lower extremities without edema. Able to raise both legs off the gurney. Romberg is negative. Const: Vital Signs, click to edit/add: Vital Signs - 24 hr 11/26/22 11:31 11/26/22 12:30 11/26/22 12:56 Temperature 98 F Pulse Rate 93 Pulse Rate [Pulse Oximeter] 101 H Respiratory Rate 18 Blood Pressure Blood Pressure [Ri ght Upper Arm] 117/76 111/67 Pulse Oximetry 96 99 Oxygen Delivery Me thod Room Air 11/26/22 13:00 11/26/22 13:02 11/26/22 13:30 Temperature Pulse Rate 92 93 94 Pulse Rate [Pulse Oximeter] Respiratory Rate Blood Pressure 114/68 Blood Pressure [Ri ght Upper Arm] Pulse Oximetry 97 98 98 Oxygen Delivery Me thod 11/26/22 13:31 11/26/22 13:32 11/26/22 14:00 Temperature Pulse Rate 92 93 94 Pulse Rate [Pulse Oximeter] Respiratory Rate Blood Pressure 114/68 Blood Pressure [Ri ght Upper Arm] Pulse Oximetry 97 99 98 Oxygen Delivery Me thod 11/26/22 14:02 11/26/22 14:03 11/26/22 14:30 Temperature Pulse Rate 93 93 94 Pulse Rate [Pulse Oximeter] Respiratory Rate Blood Pressure 114/69 Blood Pressure [Ri ght Upper Arm] Pulse Oximetry 98 99 98 Oxygen Delivery Me thod 11/26/22 14:31 11/26/22 15:00 11/26/22 15:02 Temperature Pulse Rate 93 96 94 Pulse Rate [Pulse Oximeter] Respiratory Rate Blood Pressure 115/73 113/70 Blood Pressure [Ri ght Upper Arm] Pulse Oximetry 98 95 95 Oxygen Delivery Me thod 11/26/22 15:03 11/26/22 15:36 11/26/22 16:00 Temperature Pulse Rate 95 101 H 94 Pulse Rate [Pulse Oximeter] Respiratory Rate Blood Pressure Blood Pressure [Ri ght Upper Arm] Pulse Oximetry 94 91 96 Oxygen Delivery Me thod 11/26/22 16:02 11/26/22 16:30 11/26/22 16:32 Temperature Pulse Rate 94 95 96 Pulse Rate [Pulse Oximeter] Respiratory Rate Blood Pressure 111/66 111/61 Blood Pressure [Ri ght Upper Arm] Pulse Oximetry 95 96 96 Oxygen Delivery Me thod 11/26/22 17:13 11/26/22 17:19 11/26/22 17:30 Temperature Pulse Rate 97 91 90 Pulse Rate [Pulse Oximeter] Respiratory Rate Blood Pressure 134/85 Blood Pressure [Ri ght Upper Arm] Pulse Oximetry 96 99 98 Oxygen Delivery Me thod 11/26/22 17:32 11/26/22 18:00 11/26/22 18:02 Temperature Pulse Rate 92 95 97 Pulse Rate [Pulse Oximeter] Respiratory Rate Blood Pressure 123/66 116/62 Blood Pressure [Ri ght Upper Arm] Pulse Oximetry 96 97 98 Oxygen Delivery Me thod 11/26/22 18:30 11/26/22 18:31 Temperature Pulse Rate 101 H 99 Pulse Rate [Pulse Oximeter] Respiratory Rate Blood Pressure 137/69 Blood Pressure [Ri ght Upper Arm] Pulse Oximetry 97 97 Oxygen Delivery Me thod Documenting provider has reviewed patient's vital signs: yes Course Course Hospital Course: Patient is very suspicious for TIA but given history of stage IV cancer cannot rule out metastases or even seizure. Will have patient undergo head CT and if that is reassuring MRI. Will also check labs to include CBC, comprehensive, troponin, urinalysis. Reevaluation(s) Reevaluation #1: Patient appears to have leukocytosis but no evidence of UTI, lungs are clear. Head CT reassuring and thus MRI is ordered. Reevaluation #2: I did discuss this patient with our neurologist. He does suggest brain and neck CTA given the fact that the MRI and CT are reassuring. If this is reassuring and normal he is wondering about the possibility of focal seizures. Would suggest placing patient on aspirin 81 mg and then outpatient follow-up for both KYUNG as well as EEG. Anlge and her daughter are feeling inpatient at this point as this they have had an extended stay in the emergency room I certainly understand their frustration. Alternatively they could follow up as outpatients but that would delay any potential treatment that they may need. They do agree to this CTA is here. Vital Signs Vital signs: Initial Vital Signs Temperature 98 F 11/26/22 11:31 Temperature Source Temporal Artery Scan 11/26/22 11:31 Pulse Rate 101 H 11/26/22 11:31 Respiratory Rate 18 11/26/22 11:31 Blood Pressure 117/76 11/26/22 11:31 Blood Pressure Mean 89 11/26/22 11:31 Blood Pressure Position Supine 11/26/22 11:31 Pulse Oximetry 96 11/26/22 11:31 Oxygen Delivery Method Room Air 11/26/22 11:31 Vital Signs Temperature 98 F 11/26/22 11:31 Pulse Rate 101 H 11/26/22 11:31 Respiratory Rate 18 11/26/22 11:31 Blood Pressure 117/76 11/26/22 11:31 Pulse Oximetry 96 11/26/22 11:31 Oxygen Delivery Method Room Air 11/26/22 11:31 Temperature 98 F 11/26/22 11:31 Pulse Rate 99 11/26/22 18:31 Respiratory Rate 18 11/26/22 11:31 Blood Pressure 137/69 11/26/22 18:31 Pulse Oximetry 97 11/26/22 18:31 Oxygen Delivery Method Room Air 11/26/22 11:31 MDM - Neuro Symptoms/Deficit MDM Narrative Medical decision making narrative: 1. TIA-5-10 minute episode of word-finding difficulty yesterday. Head CT unremarkable. MRI shows no evidence of acute stroke. CTAs all reassuring. No evidence of significant stenosis. Therefore, will give patient 1st dose of aspirin 81 mg and I would like her to continue this daily. She denies a history of GI bleed, ulcers or problems with aspirin. Patient will follow-up with neuro an Neurology for neurological consultation, EEG as well as scheduling of KYUNG as the [facility] system would not be able to offer this. Until we are able to ascertain etiology of patient's episode it is suggested that she not drive a car. Sinus rhythm on monitor and regular rate and rhythm auscultated. 2. Leukocytosis-Unknown reason for leukocytosis this patient does not appear to have surgical abdomen, pneumonia, fever, urinary tract infection. I did let family know that this was a finding today earlier in the course of the visit. At the end of the day they both wanted to go and I was unable to discussed at length this finding. 2. History of colon cancer with ostomy and ongoing chemotherapy-no evidence of brain metastases. 3. Disposition-home at this time. Again brief discussion as family was anxious to go. I sympathize with them because they have had an extended stay in the emergency room today. Medical Records Attestation: I reviewed the patient's medical records. Lab Data Attestation: I reviewed the patient's lab results. Labs: Lab Results 11/26/22 11/26/22 Range/Units 12:30 14:20 WBC 14.01 H (4.50-11.00) K/uL RBC 3.59 L (4.00-5.20) m/uL Hgb 11.7 L (12.0-16.0) gm/dL Hct 36.8 (33.0-51.0) % MCV 103 H (80-100) fL MCH 33 (26-34) pg MCHC 32 (32-36) gm/dL RDW Coeff of Jumana 17.1 H (11.5-15.5) % Plt Count 231 (140-440) K/uL Neut % (Auto) 81.4 H (42.0-72.0) % Lymph % (Auto) 11.8 L (20-44) % Butts % (Auto) 6.5 (0.0-11.0) % Eos % (Auto) 0.0 (0.0-7.0) % Baso % (Auto) 0.1 (0.0-3.0) % Neut # (Auto) 11.40 H (1.7-7.0) K/uL Lymph # (Auto) 1.70 (0.90-2.90) K/uL Butts # (Auto) 0.90 (0.00-0.90) K/UL Eos # (Auto) 0.00 (0.00-0.50) K/uL Baso # (Auto) 0.00 (0.00-0.30) K/uL Abs Immat Gran (auto) 0.00 (0.00-0.30) K/uL Imm/Tot Granulo (auto) 0.2 % Sodium 139 (135-149) mmol/L Potassium 3.3 L (3.6-5.1) mmol/L Chloride 103 (96-114) mmol/L Carbon Dioxide 27 (20-32) mmol/L BUN 20 (7-30) mg/dL Creatinine 0.9 (0.5-1.5) mg/dL Estimated Creat Clear 30.62 Estimated GFR 63 ml/min Glucose 102 (60-115) mg/dL Calcium 9.4 (8.4-10.6) mg/dL Total Bilirubin 1.1 (0.1-1.5) mg/dL AST 24 (12-35) U/L ALT 20 (4-35) U/L Alkaline Phosphatase 114 (40-150) U/L Total Protein 6.7 (6.0-8.3) g/dL Albumin 3.5 (3.3-5.0) g/dL Urine Color Yellow (Yellow) Urine Appearance Clear (Clear) Urine pH 5.5 (5.0-8.5) Ur Specific [place] 1.010 (1.000-1.030) Urine Protein 2+ A (Negative) Urine Glucose (UA) Negative (Negative) Urine Ketones Trace A (Negative) Urine Blood Trace-lysed A (Negative) Urine Nitrite Negative (Negative) Urine Bilirubin Negative (Negative) Urine Urobilinogen 0.2 (0.2-1.0) Ur Leukocyte Esterase Negative (Negative) Urine RBC 0-2 (0-2) Urine WBC 2-5 (0-5) Ur Squamous Epith Cells Few (None-Few) Urine Bacteria Few A (None) POC Troponin I 0.01 (0.01-0.04) ng/ml Imaging Data CT scan - head: Attestation: I have reviewed the pertinent imaging results. My impression: No obvious abnormality Radiologist's impression: No acute intracranial hemorrhage or extraaxial collection. No evidence of acute cortical infarction. No mass effect or midline shift. Mild generalized cerebral and cerebellar parenchymal volume loss. Mild regions of decreased attenuation within the periventricular and subcortical white matter of both cerebral hemispheres most likely reflects chronic microvascular ischemic disease and age related change in this patient. Vascular calcifications within the carotid siphons. Orbital contents are normal. No calvarial fractures. No lytic or sclerotic osseous lesions within the calvarium or skull base. Scalp and other imaged soft tissue structures are normal. Mastoid air cells are clear. Mild opacification of a right ethmoid air cell. IMPRESSION: No acute intracranial abnormality. MR Brain: Attestation: I have reviewed the pertinent imaging results. Radiologist's impression: Prominence of the ventricles and sulci compatible with [id number] diffuse cerebral volume loss. No mass effect or midline shift. Scattered FLAIR hyperintensities in the supratentorial white matter, typical for mild chronic microvascular ischemic changes. No intracranial hemorrhage or pathologic extra-axial fluid collection. No diffusion restriction to suggest acute infarction. The major arterial flow voids of the skullbase are preserved. The globes are symmetric. Mild opacification of the right ethmoid air cells. Small bilateral mastoid effusions. IMPRESSION: 1. No acute infarction, mass effect, or intracranial hemorrhage. 2. Mild chronic microvascular ischemic changes and mild to moderate diffuse cerebral volume loss. Discharge Plan Discharge Clinical Impression: Brain TIA Patient Disposition: Home, Self-Care Condition: Unchanged Additional Instructions: Continue baby aspirin daily. This is 81 mg Suggest follow-up with Neuro and neurology:[phone] for scheduling with neurologist, EEG and KYUNG also known as a transesophageal endoscopy. They may defer you to your primary clinic to set up the KYUNG. Let them know that traditionally our hospital does not do this sort of study and perhaps they can suggest alternative way to get that study. Return to the emergency room for worsening symptoms. I would hold off on driving until we can figure this out at this time. Thank you for your patients today. Prescriptions: No Action capecitabine 500 mg tablet 1,500 mg PO BID Qty: 84 3RF Rx Instructions: Take 3 tablets in the morning and 3 tablets in the evening; 1 week on and 1 week off. amlodipine 10 mg tablet 10 mg PO QDAY Qty: 90 3RF lisinopril 20 mg tablet 5 mg PO BID metoprolol succinate 50 mg tablet extended release 24 hr 50 mg PO QDAY Qty: 90 0RF acetaminophen 325 mg capsule 325 mg PO Q6H PRN Rx Instructions: 1-2 tabs every 4 hrs as needed bevacizumab bisacodyl 5 mg tablet 5 mg PO DAILY cetirizine 10 mg tablet 10 mg PO DAILY PRN multivitamin Tablet 1 tab PO DAILY Rx Instructions: [facility] Adults Follow Up/Referrals: Darlene Murray PA-C [Primary Care Provider] - Stand Alone Forms: [facility] Info Instructions
--- NOTE | 2022-11-26 11:57 | CRLHL7_ITS ---
For Patients: As a result of the Century Cures Act, medical imaging exams and procedure reports are released immediately into your electronic medical record. You may view this report before your referring provider. If you have questions, please contact your health care provider. INDICATION: 5-10 MINUTE EPISODE OF WORD SALAD LAST NIGHT TECHNIQUE: CT of the head without contrast. Coronal and sagittal reformats. Bone and soft tissue algorithms. COMPARISON: No prior studies available for comparison at this institution. FINDINGS: No acute intracranial hemorrhage or extraaxial collection. No evidence of acute cortical infarction. No mass effect or midline shift. Mild generalized cerebral and cerebellar parenchymal volume loss. Mild regions of decreased attenuation within the periventricular and subcortical white matter of both cerebral hemispheres most likely reflects chronic microvascular ischemic disease and age related change in this patient. Vascular calcifications within the carotid siphons. Orbital contents are normal. No calvarial fractures. No lytic or sclerotic osseous lesions within the calvarium or skull base. Scalp and other imaged soft tissue structures are normal. Mastoid air cells are clear. Mild opacification of a right ethmoid air cell. IMPRESSION: No acute intracranial abnormality. Please note that all CT scans at this facility use dose modulation, iterative reconstruction, and/or weight-based dosing when appropriate to reduce radiation dose to as low as reasonably achievable. Dictated by Terrence Hanna MD @ 11/26/2022 1:26:45 PM (Electronically Signed)
[2022-11-26 12:36] LABS: Basophils Percent Auto 0.1 % (0.0-3.0); Hematocrit 36.8 % (33.0-51.0); Hemoglobin* 11.7 gm/dL (12.0-16.0); Immature Granulocytes Pct Auto 0.2 %; Lymphocytes Percent Auto 11.8 % (20-44); Mean Corpuscular HGB Conc 32 gm/dL (32-36); Mean Corpuscular Hemoglobin 33 pg (26-34); Mean Corpuscular Volume 103 fL (80-100); Monocytes Percent Auto 6.5 % (0.0-11.0); Neutrophils Percent Auto 81.4 % (42.0-72.0); Platelet Count* 231 K/uL (140-440); RDW Coefficient of Variation % 17.1 % (11.5-15.5); Red Blood Count 3.59 m/uL (4.00-5.20); White Blood Count* 14.01 K/uL (4.50-11.00)
[2022-11-26 12:39] LABS: Slide Review Reflex No
[2022-11-26 12:41] LABS: Troponin, Point-of-Care* 0.01 ng/ml (0.01-0.04)
--- NOTE | 2022-11-26 12:42 | CRLHL7_ITS ---
For Patients: As a result of the Century Cures Act, medical imaging exams and procedure reports are released immediately into your electronic medical record. You may view this report before your referring provider. If you have questions, please contact your health care provider. INDICATION: Slurred speech. TECHNIQUE: Multiplanar multisequence noncontrast MR images acquired through the brain. COMPARISON: CT brain 11/26/2022. FINDINGS: Prominence of the ventricles and sulci compatible with [id number] diffuse cerebral volume loss. No mass effect or midline shift. Scattered FLAIR hyperintensities in the supratentorial white matter, typical for mild chronic microvascular ischemic changes. No intracranial hemorrhage or pathologic extra-axial fluid collection. No diffusion restriction to suggest acute infarction. The major arterial flow voids of the skullbase are preserved. The globes are symmetric. Mild opacification of the right ethmoid air cells. Small bilateral mastoid effusions. IMPRESSION: 1. No acute infarction, mass effect, or intracranial hemorrhage. 2. Mild chronic microvascular ischemic changes and mild to moderate diffuse cerebral volume loss. Dictated by Mark Adorno MD @ 11/26/2022 3:55:57 PM (Electronically Signed)
[2022-11-26 13:10] LABS: Albumin* 3.5 g/dL (3.3-5.0); Chloride* 103 mmol/L (96-114); Potassium* 3.3 mmol/L (3.6-5.1); Sodium* 139 mmol/L (135-149)
[2022-11-26 13:13] LABS: Alanine Aminotransferase* 20 U/L (4-35); Alkaline Phosphatase* 114 U/L (40-150); Aspartate Amino Transferase* 24 U/L (12-35); Bilirubin Total* 1.1 mg/dL (0.1-1.5); Blood Urea Nitrogen* 20 mg/dL (7-30); Calcium* 9.4 mg/dL (8.4-10.6); Carbon Dioxide* 27 mmol/L (20-32); Creatinine* 0.9 mg/dL (0.5-1.5); Est. Creatinine Clearance* 30.62; Estimated Glomerular Filt Rate 63 ml/min; Glucose* 102 mg/dL (60-115); Total Protein* 6.7 g/dL (6.0-8.3)
[2022-11-26 14:34] LABS: Appearance Urine Clear (Clear); Bilirubin Urine Negative (Negative); Blood Urine Trace-lysed (Negative); Color Urine Yellow (Yellow); Glucose Urine Negative (Negative); Ketones Urine Trace (Negative); Leukocyte Esterase Urine Negative (Negative); Nitrite Urine Negative (Negative); Protein Urine 2+ (Negative); Urobilinogen Urine 0.2 (0.2-1.0); pH Urine 5.5 (5.0-8.5)
[2022-11-26 14:47] LABS: Bacteria Urine Few; RBC Urine 0-2 (0-2); Squamous Epithelial Cell Urine Few (None-Few)
--- NOTE | 2022-11-26 16:44 | CRLHL7_ITS ---
For Patients: As a result of the Century Cures Act, medical imaging exams and procedure reports are released immediately into your electronic medical record. You may view this report before your referring provider. If you have questions, please contact your health care provider. DATE: 11/26/2022 CLINICAL HISTORY: Patient with focal neurological deficits. TECHNIQUE: Standard helical CT image acquisition of the neck up to the skull base after bolus intravenous contrast enhancement. 2D and 3D MIP images for post-processing were performed and interpreted on an independent workstation and 3D images were permanently archived. COMPARISON: CT same day. FINDINGS: The origins of the great vessels from the aortic arch are patent. The origin of the right vertebral artery is patent. The origin of the left vertebral artery is patent. The common carotid arteries are patent. There is no stenosis at the origin of the right internal carotid artery. There is no stenosis at the origin of the left internal carotid artery. The rest of the cervical segments of the internal carotid arteries are patent up to the skull base. The vertebral arteries are codominant. The cervical segments of the vertebral arteries are patent up to the skull base. The visualized lung apices are unremarkable. The thyroid gland is unremarkable. The soft tissues of the neck are unremarkable. There are degenerative changes in the cervical spine. IMPRESSION: Normal CT angiogram of the neck. Please note that all CT scans at this facility use dose modulation, iterative reconstruction, and/or weight-based dosing when appropriate to reduce radiation dose to as low as reasonably achievable. Dictated by Nanette Hui MD @ 11/27/2022 9:15:43 AM (Electronically Signed)
--- NOTE | 2022-11-26 16:44 | CRLHL7_ITS ---
For Patients: As a result of the Century Cures Act, medical imaging exams and procedure reports are released immediately into your electronic medical record. You may view this report before your referring provider. If you have questions, please contact your health care provider. DATE: 11/26/2022 CLINICAL HISTORY: Patient with slurred speech. TECHNIQUE: Standard helical CT image acquisition through the intracranial circulation following intravenous administration of contrast material with bolus tracking. 2D and 3D MIP images for post-processing were performed and interpreted on an independent workstation and 3D images were permanently archived. COMPARISON: CT same day. FINDINGS: There is no cerebral aneurysm or large vessel occlusion. The right internal carotid artery is normal. The right middle cerebral artery and its branches are normal. The right anterior cerebral artery and its branches are normal. The left internal carotid artery is normal. The left middle cerebral artery and its branches are normal. The left anterior cerebral artery and its branches are normal. The anterior communicating artery is well visualized and appears normal. The right vertebral artery and PICA are normal. The left vertebral artery and PICA are normal. The left vertebral artery is dominant. The basilar artery is patent and appears normal. The right posterior cerebral artery is normal. The left posterior cerebral artery is normal. The visualized venous structures are patent. IMPRESSION: Normal CT angiogram of the head without intracranial aneurysm or other neurovascular abnormality. Please note that all CT scans at this facility use dose modulation, iterative reconstruction, and/or weight-based dosing when appropriate to reduce radiation dose to as low as reasonably achievable. Dictated by Nanette Hui MD @ 11/27/2022 9:18:48 AM (Electronically Signed)
[2022-11-26] MEDS: ASPIRIN 81 MG TAB.CHEW PO (18:57)
== END 2022-11-26 19:07 | disposition home or self-care (01) ==
PROVIDERS: Emergency Provider Family Medicine; PCP Physician Assistant Medical
DX: G45.9 Transient cerebral ischemic attack, unspecified (principal)
CPT/HCPCS: 36415; 70450; 70496; 70498; 70551; 80053; 81001; 84484; 85025; 87086; 99284; A9270; Q9967

== ENCOUNTER 2022-12-11 13:30 | Outpatient (CLI) | payer MEDICARE, SELFPAY | END 2022-12-11 13:31 | disposition home or self-care (01) | LOC: NFLDREF 12-12 11:13 | PROVIDERS: PCP Physician Assistant Medical; Referring Provider Physician Assistant Medical; Visit Provider Physician Assistant Medical | DX: I15.9 Secondary hypertension, unspecified (principal); R80.9 Proteinuria, unspecified; C18.9 Malignant neoplasm of colon, unspecified; Z78.0 Asymptomatic menopausal state | CPT/HCPCS: 80053; 82378 ==

== ENCOUNTER 2023-01-10 08:24 | Outpatient (CLI) | payer MEDICARE, SELFPAY | END 2023-01-10 08:25 | disposition home or self-care (01) | LOC: NFLDREF 01-12 10:57 | PROVIDERS: PCP Physician Assistant Medical; Referring Provider Physician Assistant Medical; Visit Provider Physician Assistant Medical | DX: C18.9 Malignant neoplasm of colon, unspecified (principal) | CPT/HCPCS: 80053 ==

== ENCOUNTER 2023-02-04 12:21 | Outpatient (CLI) | payer MEDICARE, SELFPAY | END 2023-02-04 12:22 | disposition home or self-care (01) | LOC: OP CLINIC 12:22 | PROVIDERS: PCP Physician Assistant Medical; Visit Provider Surgery | DX: K92.1 Melena (principal); C20 Malignant neoplasm of rectum; K62.89 Other specified diseases of anus and rectum; K56.691 Other complete intestinal obstruction | CPT/HCPCS: 45331; 88305 ==

== ENCOUNTER 2023-02-25 08:05 | Outpatient (CLI) | payer MEDICARE, SELFPAY | END 2023-02-25 08:06 | disposition home or self-care (01) | LOC: NFLDREF 02-27 12:50 | PROVIDERS: PCP Physician Assistant Medical; Referring Provider Physician Assistant Medical; Visit Provider Internal Medicine Hematology & Oncology | DX: C18.9 Malignant neoplasm of colon, unspecified (principal) | CPT/HCPCS: 80053; 82378 ==

== ENCOUNTER 2023-02-27 13:49 | Outpatient (CLI) | payer MEDICARE, SELFPAY ==
--- NOTE | 2023-02-27 14:00 | CRLHL7_ITS ---
For Patients: As a result of the Century Cures Act, medical imaging exams and procedure reports are released immediately into your electronic medical record. You may view this report before your referring provider. If you have questions, please contact your health care provider. DXA BONE MINERAL DENSITY STUDY Current height (in): 60.0. Weight (lb): 120.0. Menopause age: 53. Ethnicity: White. Reason for exam: Asymptomatic menopausal state. 1. Have you had a previous hip or vertebral fracture? No. 2. Have you had any fractures during your adult life which did not result from significant trauma (e.g., auto accident)? No. 3. Did either of your parents have a hip fracture? No. 4. Do you smoke? No. 5. Have you ever taken Glucocorticoids? No. 6. Do you have rheumatoid arthritis? No. 7. Do you have secondary osteoporosis? No. 8. Do you drink 3 or more alcoholic drinks per day? No. 9. Are you being treated for osteoporosis? No. 10. Have you ever taken any of the following medications: Actonel, Evista, Fosamax, Miacalcin, Reclast, Boniva, Forteo, HRT (i.e. estrogen/hormone therapy), Protelos, Prolia, Vitamin D, Calcium, other ??? please specify. ANSWER: No. 11. Do you have any of the following medical conditions: Anorexia or bulimia, asthma or emphysema, end stage renal disease, hyperparathyroidism, any seizure disorders, cancer, inflammatory bowel diseases, hysterectomy, other ??? please specify. ANSWER: Yes, cancer. 12. What was your maximum height (inches)? 62. 13. Do you perform weight bearing exercise regularly? No. 14. Do you regularly consume dairy products? Yes. 15. Do you drink caffeinated beverages? No. 16. At what age did your period start? 9. 17. Are you premenopausal? No. 18. How many full term pregnancies have you had? 4. 19. Have you ever missed your period for more than 6 months in a row (not including or menopause)? No. TECHNIQUE: Bone mineral density study was performed using the [employer]. FINDINGS: The results of the study expressed as bone mineral density (BMD) are as follows: Lumbar spine L1 to L3: BMD: 0.835 g/cm2. T-score: -1.7. Z-score: 1.1. Neck Left: BMD: 0.625 g/cm2. T-score: -2.0. Z-score: 0.5. Right: BMD: 0.632 g/cm2. T-score: -2.0. Z-score: 0.5. Total Left: BMD: 0.648 g/cm2. T-score: -2.4. Z-score: -0.1. Right: BMD: 0.569 g/cm2. T-score: -3.1. Z-score: -0.8. IMPRESSION: Osteoporosis. Terrence Mcdaniel M.D. Diagnostic Radiologist [email or web address] Transcribed: 8:41 am DW/Dictated by: Terrence Mcdaniel MD @ 02/28/2023 6:19:00 AM (Electronically Signed)
--- NOTE | 2023-02-27 15:00 | CRLHL7_ITS ---
For Patients: As a result of the Century Cures Act, medical imaging exams and procedure reports are released immediately into your electronic medical record. You may view this report before your referring provider. If you have questions, please contact your health care provider. Indication: MALIGNANT NEOPLASM OF COLON Technique: Postcontrast CT chest, abdomen and pelvis. 59 cc Isovue 370 intravenous contrast. Please note that all CT scans at this facility use dose modulation, iterative reconstruction, and/or weight-based dosing when appropriate to reduce radiation dose to as low as reasonably achievable. Comparison: 10/30/2022 Findings: In the chest, there is no mediastinal, hilar or axillary adenopathy. No thyroid mass. No pleural or pericardial effusion. Normal breast tissue. Linear dependent subsegmental atelectasis or scarring noted within the lower lobes. No infiltrate or edema. No pneumothorax. 2 millimeter calcified granuloma within the right middle lobe again noted. Tiny nodular density within the right lung measuring 2.7 millimeters, 3/38, is unchanged. Additional similar nodule within the lingula measuring 2.4 millimeters, 3/36. The esophagus is patulous, as before. Atherosclerotic changes. No aortic aneurysm. No new pulmonary nodule. Also stable is a calcified nodule within the right upper lobe, 4/51. No vertebral body compression fracture. In the abdomen, stable subtle areas of decreased attenuation scattered throughout the liver. The gallbladder is similar with a calcified stone present measuring 9 millimeters. The common bile duct is not dilated. Normal pancreas. Normal spleen. Adrenal glands normal. Postop changes of right nephrectomy. No enlarged retroperitoneal lymph nodes. Nonobstructing stone within the left kidney measuring 2.4 millimeters. In the pelvis, persistent wall thickening of the distal colon noted with the wall measuring up to 1.9 cm. Diverting ostomy left lower quadrant again noted with large parastomal hernia containing fat and loops of bowel. The hernia measures approximately 16.5 x 6.4 cm. No mechanical bowel obstruction. No free air. No free fluid or abscess. Similar appearance of the inguinal canal bilaterally. Normal bladder. Increased size of left pelvic sidewall lymph nodes compared to prior studies, measuring 1.1 cm and 1.3 cm, series 2, image 176. These are located adjacent to the mucosal wall thickening. Additional mildly prominent pelvic lymph nodes are present more centrally. Degenerative changes throughout the lower spine without compression fracture or suspicious osseous lesion. Impression: Increased wall thickening of the distal colonic mucosa with increased adjacent adenopathy within the left side and midline of the pelvis. Similar appearance of the large left lower quadrant parastomal hernia containing numerous loops of bowel and fat. Similar appearance of the liver with multiple ill-defined areas of decreased attenuation. Stable tiny bilateral pulmonary nodules. Please note that all CT scans at this facility use dose modulation, iterative reconstruction, and/or weight-based dosing when appropriate to reduce radiation dose to as low as reasonably achievable. Dictated by Terrence Mcdaniel MD @ 02/28/2023 10:51:14 AM (Electronically Signed)
== END 2023-02-27 13:50 | disposition home or self-care (01) ==
LOC: RAD 13:50
PROVIDERS: PCP Physician Assistant Medical; Visit Provider Physician Assistant Medical
DX: C18.9 Malignant neoplasm of colon, unspecified (principal); K46.9 Unspecified abdominal hernia without obstruction or gangrene; R91.8 Other nonspecific abnormal finding of lung field; Z78.0 Asymptomatic menopausal state; M81.0 Age-related osteoporosis without current pathological fracture
CPT/HCPCS: 71260; 74177; 77080; Q9967

== ENCOUNTER 2023-04-18 09:14 | Outpatient (CLI) | payer MEDICARE, SELFPAY ==
--- NOTE | 2023-04-18 09:15 | CRLHL7_ITS ---
For Patients: As a result of the Century Cures Act, medical imaging exams and procedure reports are released immediately into your electronic medical record. You may view this report before your referring provider. If you have questions, please contact your health care provider. INDICATION: Colon cancer. Persistent rectal bleeding. TECHNIQUE: Pelvic MRI focusing on the rectum with T1, T2, and postcontrast images. Intravenous gadolinium administered. COMPARISON: CT scan of the chest, abdomen, and pelvis dated 27 February 2023. FINDINGS: Rectal mass located 10 cm above the anal verge involving 5 cm of the proximal rectum. The mass is near circumferential with extension beyond the muscularis and into the mesorectal fat. The mass does not appear to involve the mesorectal fascia. Enlarged mesorectal lymph nodes measuring up to 1.2 cm in short axis. No pelvic sidewall adenopathy. No other bony or soft tissue abnormalities identified. IMPRESSION: 1. Rectal mass located 10 cm above the anal verge. T3 lesion. 2. Mesorectal adenopathy. N2 disease. Dictated by Luis Eduardo Beebe MD @ 04/23/2023 11:53:11 AM (Electronically Signed)
== END 2023-04-18 09:15 | disposition home or self-care (01) ==
LOC: MRI 09:14
PROVIDERS: PCP Physician Assistant Medical; Visit Provider Internal Medicine Hematology & Oncology
DX: C18.9 Malignant neoplasm of colon, unspecified (principal); K62.5 Hemorrhage of anus and rectum
CPT/HCPCS: 72197; A9575

== ENCOUNTER 2023-05-29 08:01 | Outpatient (CLI) | payer MEDICARE, SELFPAY ==
--- OUTSIDE RECORDS SUMMARY | 2023-05-31 08:14 | XMS_ITS | Encounter Summary ---
Author Name Unknown Organization [facility] Address [address] [place] [id number] Care Team Providers Care Street Cleaning Equipment Operator Name Role Phone Unavailable Primary Care Provider Unavailabl e Encounter Details Date Type Department Care Team (Late st Contact Info) Description 05/30/2023 9:07 AM [facility] Hospital Encounter Department of Radiation Oncology in [address] [phone] Sosa Nayak M.D. [address] [place] [phone] Social History Tobacco Use Types Packs/Day Years Used Date Smoking Tobacco: Never Nutrition Answer Date Recorded Nutrition: EVOO Fat Source Unknown 05/18 Nutrition: Servings of Fruits/Vegetables per Day Not on file 05/18/2022 Dental Answer Date Recorded Dental: Regular Dentist Unknown 05/18/20 22 Sex and Gender Information Value Date Recorded Sex Assigned at Not on file Gender Identity Not on file Sexual Orientation Not on file documented as of this encounter Plan of Treatment Upcoming Encounters Date Type Department Care Team (Late st Contact Info) Description 05/31/2023 9:30 AM [facility] Appointment Department of Radiation Oncology in [address] [phone] Sosa Nayak M.D. [address] [place] [phone] 06/03/2023 9:30 AM [facility] Appointment Department of Radiation Oncology in [address] [place] [address] Sosa Nayak M.D. [address] [place] [phone] 06/04/2023 9:30 AM [facility] Appointment Department of Radiation Oncology in [address] [phone] Sosa Nayak M.D. 200 [place] [address] 06/05/2023 9:15 AM [facility] Appointment Department of Radiation Oncology in [address] [phone] Sosa Nayak M.D. 200 [place] [address] 06/05/2023 9:30 AM [facility] Appointment Department of Radiation Oncology in [address] [address] Sosa Nayak M.D. [address] [place] [phone] documented as of this encounter Visit Diagnoses Not on filedocumented in this encounter Additional Health Concerns Infection Onset Date Last Indicated Resolved Time Protective Environment 04/23/2023 04/23/2023 documented as of this encounter
--- OUTSIDE RECORDS SUMMARY | 2023-05-31 08:14 | XMS_ITS ---
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 Past Plans No past plan information found. Radiation Treatments * Plan Last Treated On Elapsed Days Fractions Treated Prescribed Fraction Dose Prescribed Total Dose [id number] 05/30/2023 0 1 of 5 500 cGy 2,500 cGy Reference Point Last Treated On Elapsed Days Session Dose Total Dose [id number] 05/30/2023 0 500 cGy 500 cGy
--- OUTSIDE RECORDS SUMMARY | 2023-05-31 08:14 | XMS_ITS | Referral Summary ---
Author Name Unknown Organization [facility] Address [address] [place] [address] Care Team Providers Care Shuttle Car Operator Name Role Phone Unavailable Primary Care Provider Unavailabl e Source Comments Patient records contain information from all sites at [facility]. For routine questions regarding patient records, call [phone] during business hours, M-F 8:00 AM - 5:00 PM Central Time. Record requests for emergency care only can be directed to [phone] at any time.[facility] Encounters Date Type Department Care Team Description 05/30/2023 9:07 AM CHIEF CRNA Hospital Encounter Department of Radiation Oncology in [address] [phone] Sosa Nayak M.D. 05/23/2023 9:20 AM CHIEF CRNA - 05/23/2023 3:21 PM CHIEF CRNA Hospital Encounter Department of Radiation Oncology in [address] [phone] Sosa Nayak M.D. 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 Take within 30 minutes after a meal. Swallow whole with water. Do not crush or cut. 0 Active alendronate (FOSAMAX) 35 mg tablet Take 35 mg by mouth once a week. Take with 8oz of water, on an empty stomach. Remain upright for 30min. 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 Social History Tobacco Use Types Packs/Day Years Used Date Smoking Tobacco: Never Tobacco Cessation:Counseling Given: Not Answered Nutrition Answer Date Recorded Nutrition: EVOO Fat Source Unknown 05/18 Nutrition: Servings of Fruits/Vegetables per Day Not on file 05/18/2022 Dental Answer Date Recorded Dental: Regular Dentist Unknown 05/18/20 Sex and Gender Information Value Date Recorded Sex Assigned at Not on file Gender Identity Not on file Sexual Orientation Not on file Last Filed Vital Signs Vital Sign Reading Time Taken Comments Blood Pressure 130/65 05/23/2023 8:55 AM CHIEF CRNA Pulse 80 05/23/2023 8:55 AM CHIEF CRNA Temperature 36.3 ??C (97.3 ??F) 05/23/2023 8:55 AM CS T Respiratory Rate - - Oxygen Saturation - - Inhaled Oxygen Concentration - - Weight 56.4 kg (124 lb 5.4 oz) 05/23/2023 8:55 A M CHIEF CRNA Height - - Body Mass Index - - Plan of Treatment Upcoming Encounters Date Type Department Care Team (Late st Contact Info) Description 05/31/2023 9:30 AM CHIEF CRNA Appointment Department of Radiation Oncology in [address] [phone] Sosa Nayak M.D. [address] [place] [phone] 06/03/2023 9:30 AM CHIEF CRNA Appointment Department of Radiation Oncology in [address] [phone] Sosa Nayak M.D. [address] [place] [phone] 06/04/2023 9:30 AM CHIEF CRNA Appointment Department of Radiation Oncology in [address] [phone] Sosa Nayak M.D. [address] [place] [phone] 06/05/2023 9:15 AM CHIEF CRNA Appointment Department of Radiation Oncology in [address] [address] Sosa Nayak M.D. [address] [place] [phone] 06/05/2023 9:30 AM CHIEF CRNA Appointment Department of Radiation Oncology in [address] [phone] Sosa Nayak M.D. 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) OUTSIDE MR BODY Routine 04/18/2023 9:35 AM CHIEF CRNA from Last 3 Months Results * Aria Daily Treatment Information (05/30/2023 9:48 AM CHIEF CRNA) Course ID 1xRectum OTTO ARIA Course Start Date 4 09:14 CHIEF CRNA OTTO ARIA First Treatment Date 4 09:46 CHIEF CRNA OTTO ARIA Last Treatment Date 4 09:48 CHIEF CRNA OTTO ARIA Treatment Elapsed Days 0 OTTO ARIA Reference Point [id number] OTTO ARIA Dosage Given to Date cGy 500 OTTO ARIA Session Dosage Given 500 OTTO ARIA Plan ID [id number] OTTO ARIA Fractions Treated to Date 1 OTTO ARIA Planned Total Fractions 5 OTTO ARIA Prescribed Dose Per Fraction 500 OTTO ARIA Prescription Dose in cGy 2500 OTTO ARIA Plan Primary Reference Point [id number] OTTO ARIA 05/30/2023 9:48 AM CHIEF CRNA Provider Not In System RADIATION ONCOLOG Y ORDERABLES FAM RANGEL na * Initial Rad Onc Treatment Planning CT Simulation (05/23/2023 9:30 AM CHIEF CRNA) Narrative OTTO ARIA - 05/23/2023 9:30 AM CHIEF CRNA Angelika Melendez R, RTT ? 05/23/2023 ??9:46 AM Initial Rad Onc Treatment Planning CT Simulation Performed by: Sosa Nayak M.D. Authorized by: Sosa Nayak M.D. ?? Sosa Nayak M.D. RADIATION ONCOLOG Y ORDERABLES FAM RANGEL na * MR pelvis wo/w con-Outside MR Body (04/18/2023 9:35 AM CHIEF CRNA) Narrative IIMS - 04/23/2023 10:39 AM CHIEF CRNA This order has been created and auto-finalized to support the import of outside images. If available, original interpretation can be found on the Media Tab in Chart Review, in Document Viewer, or as an image in QREADS. If a re-interpretation or overread is required please follow defined workflow. ?? Provider Not In System IMG MRI PROCEDURE S IIMS NA from Last 3 Months Additional Health Concerns Infection Onset Date Last Indicated Protective Environment 04/23/2023 3
--- OUTSIDE RECORDS SUMMARY | 2023-05-31 08:14 | XMS_ITS | Clinical Summary ---
Author Name Unknown Organization [facility] Address [address] [place] [address] Care Team Providers Care Party Coordinator Name Role Phone Unavailable Primary Care Provider Unavailabl e Source Comments Patient records contain information from all sites at [facility]. For routine questions regarding patient records, call [phone] during business hours, M-F 8:00 AM - 5:00 PM Central Time. Record requests for emergency care only can be directed to [phone] at any time.[facility] Medications Medication Sig Dispensed Refills Start Date [...] Neoplasm Of Colon Rectosigmoid Junctio n 04/15/2023 Encounters Date Type Department Care Team Description 05/30/2023 9:07 AM [facility] Hospital Encounter Department of Radiation Oncology in [address] [phone] Sosa Nayak M.D. 05/23/2023 9:20 AM VICE INVESTIGATOR - 05/23/2023 3:21 PM [facility] Hospital Encounter Department of Radiation Oncology in [address] [phone] Sosa Nayak M.D. 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) (Primary Dx) from Last 3 Months Family History Medical History Relation Name Comments Bone cancer Father Relation Name Status Comments Father Social History Tobacco Use Types Packs/Day Years [...] Comments Blood Pressure 130/65 05/23/2023 8:55 AM VICE INVESTIGATOR Pulse 80 05/23/2023 8:55 AM VICE INVESTIGATOR Temperature 36.3 ??C (97.3 ??F) 05/23/2023 8:55 AM CS T Respiratory Rate - - Oxygen Saturation - - Inhaled Oxygen Concentration - - Weight 56.4 kg (124 lb 5.4 oz) 05/23/2023 8:55 A M VICE INVESTIGATOR Height - - Body Mass Index - - Plan of Treatment Upcoming Encounters Date Type Department Care Team (Late st Contact Info) Description 05/31/2023 9:30 AM VICE INVESTIGATOR Appointment Department of Radiation Oncology in [address] [phone] Sosa Nayak M.D. [address] [place] [phone] 06/03/2023 9:30 AM VICE INVESTIGATOR Appointment Department of Radiation Oncology in [address] [phone] Sosa Nayak M.D. [address] [place] [phone] 06/04/2023 9:30 AM VICE INVESTIGATOR Appointment Department of Radiation Oncology in [address] [phone] Sosa Nayak M.D. [address] [place] [phone] 06/05/2023 9:15 AM VICE INVESTIGATOR Appointment Department of Radiation Oncology in [address] [phone] Sosa Nayak M.D. [address] [place] [phone] 06/05/2023 9:30 AM VICE INVESTIGATOR Appointment Department of Radiation Oncology in [address] [phone] Sosa Nayak M.D. [address] [place] [phone] Health Maintenance Due Date Last Done Comments Creatinine Level (Kidney Function Test) 1940 Potassium Level 1940 Sodium Level 1940 DTaP,Tdap,and Td Vaccines (1 - Tdap) 1958 Zoster Vaccines (1 of 2) 1958 Pneumococcal vaccine (65+ years) (2 of 2 - PPSV23 or PCV20) 04/23/2016 02/27/2016 Depression Screening (Annual PHQ-2) 05/20/2023 Fall Risk Screen (Annual) 05/20/2023 COVID-19 Vaccine Completed 02/21/2023, , 08/22/2021, Additional history exists Influenza Vaccine Completed 02/21/2023, , 02/21/2021, Additional history exists HPV Vaccines Aged Out No longer eligi ble based on patient's age to complete this topic Procedures Procedure Name Priority Date/Time Associated Diagnosis Comments ARIA DAILY TREATMENT INFORMATION Routine 05/30/2023 9:48 AM VICE INVESTIGATOR INITIAL RAD ONC TREATMENT PLANNING CT SIMULATION Routine 05/23/2023 9:30 AM VICE INVESTIGATOR 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) OUTSIDE MR BODY Routine 04/18/2023 9:35 AM VICE INVESTIGATOR from Last 3 Months Results * Aria Daily Treatment Information (05/30/2023 9:48 AM VICE INVESTIGATOR) Course ID 1xRectum OTTO ARIA Course Start Date 4 09:14 VICE INVESTIGATOR OTTO ARIA First Treatment Date 4 09:46 VICE INVESTIGATOR OTTO ARIA Last Treatment Date 4 09:48 VICE INVESTIGATOR OTTO ARIA Treatment Elapsed Days 0 OTTO ARIA Reference Point [id number] OTTO ARIA Dosage Given to Date cGy 500 OTTO ARIA Session Dosage Given 500 OTTO ARIA Plan ID [id number] OTTO ARIA Fractions Treated to Date 1 OTTO ARIA Planned Total Fractions 5 OTTO ARIA Prescribed Dose Per Fraction 500 OTTO ARIA Prescription Dose in cGy 2500 OTTO ARIA Plan Primary Reference Point [id number] [facility] 05/30/2023 9:48 AM VICE INVESTIGATOR Provider Not In System RADIATION ONCOLOG Y ORDERABLES Performing Organization Address City/[facility]/ZIP Co de Phone Number FAM RANGEL na * Initial Rad Onc Treatment Planning CT Simulation (05/23/2023 9:30 AM VICE INVESTIGATOR) Narrative FAM RANGEL - 05/23/2023 9:30 AM VICE INVESTIGATOR Angelika Melendez R, RTT ? 05/23/2023 ??9:46 AM Initial Rad Onc Treatment Planning CT Simulation Performed by: Sosa Nayak M.D. Authorized by: Sosa Nayak M.D. ?? Sosa Nayak M.D. RADIATION ONCOLOG Y ORDERABLES Performing Organization Address [facility] Co de Phone Number FAM shah * MR pelvis wo/w con-Outside MR Body (04/18/2023 9:35 AM VICE INVESTIGATOR) Narrative IIMS - 04/23/2023 10:39 AM VICE INVESTIGATOR This order has been created and auto-finalized to support the import of outside images. If available, original interpretation can be found on the Media Tab in Chart Review, in Document Viewer, or as an image in QREADS. If a re-interpretation or overread is required please follow defined workflow. ?? Provider Not In System IMG MRI PROCEDURE S Performing Organization Address [facility] Co de Phone Number II NA from Last 3 Months Additional Health Concerns Infection Onset Date Last Indicated Protective Environment 04/23/2023 3
--- OUTSIDE RECORDS SUMMARY | 2023-05-31 08:14 | XMS_ITS ---
Author Name Unknown Organization [facility] Address [address] [place] [address] Care Team Providers Care Emergency Department Clinician Name Role Phone Unavailable Unavailable Unavailable Surgery Details Not on file Complications Check Surgery Details section. Procedure Estimated Blood Loss Check Surgery Details section. Procedure Findings Check Surgery Details section. Procedure Specimens Taken Check Surgery Details section.
--- OUTSIDE RECORDS SUMMARY | 2023-05-31 08:15 | XMS_ITS | Encounter Summary ---
Author Name Unknown Organization [facility] Address [address] [place] [id number] Care Team Providers Care Wire Rope Sales Representative Name Role Phone Unavailable Primary Care Provider Unavailabl e Reason for Referral * Outpatient (Routine) - Closed Specialty Diagnoses / Procedures Referred By Contac t Referred To Contact Radiation Oncology Casandra Gutierrez P.A.-C., M.S. [address] [place] [phone] Sosa Nayak M.D. [address] [place] [phone] Referral ID Status Reason Start Date Expiration Date Visits Re quested Visits Authorized [id number] Closed 04/23/2023 04/22/2026 1 1 Scheduling Instructions YIG to call - afternoon ID OPERATOR Reason for Visit * Appointment Request (Routine) - Closed Specialty Diagnoses / Procedures Referred By Contac t Referred To Contact Radiation Oncology Diagnoses Malignant Neoplasm Of Colon (HCC) Dina Mari M.D. [address] [place] [address] Referral ID Status Reason Start Date Expiration Date Visits Re quested Visits Authorized [id number] Closed 04/02/2023 04/01/2024 1 1 Encounter Details Date Type Department Care Team (Latest Contact Info) Description 04/23/2023 10:17 AM EUCLID OPERATOR - 04/23/2023 4:48 PM EUCLID OPERATOR Hospital Encounter Department of Radiation Oncology in [place], [place] [address] [place] [phone] Sosa Nayak M[address]D. 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) Social History Tobacco Use Types Packs/Day Years [...] on file documented as of this encounter Last Filed Vital Signs Vital Sign Reading Time Taken Comments Blood Pressure 148/72 04/23/2023 10:28 AM EUCLID OPERATOR Pulse 88 04/23/2023 10:28 AM EUCLID OPERATOR Temperature 36.9 ??C (98.5 ??F) 04/23/2023 1 0:28 AM EUCLID OPERATOR Respiratory Rate - - Oxygen Saturation - - Inhaled Oxygen Concentration - - Weight 55.2 kg (121 lb 12.8 oz) 023 10:28 AM EUCLID OPERATOR Height - - Body Mass Index - - documented in this encounter Medications at Time of Discharge Medication Sig Dispensed Refills Start Date End Date alendronate (FOSAMAX) 35 mg tablet Take 35 mg by mouth once a week. Take with 8oz of water, on an empty stomach. Remain upright for 30min. 0 amLODIPine (NORVASC) 5 mg tablet 0 01/04/2021 capecitabine (XELODA) 150 mg tablet Take 150 mg by mouth 2 (two) times a day. Take within 30 minutes after a meal. Swallow whole with water. Do not crush or cut. 0 lisinopriL (PRINIVIL,ZESTRIL) 20 mg tablet 0 03/02/2021 documented as of this encounter Consult Notes * Casandra Gutierrez P.A.-C., M.S. - 04/23/2023 10:30 AM CST SUBJECTIVE REQUESTING PROVIDER Dina Mari M.D. REASON FOR CONSULT 1. 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 HISTORY OF PRESENT ILLNESS Mrs. Angle Kennedy is an 83-year-old female with metastatic rectal cancer, who presents today for an opinion regarding the role of radiation therapy in the management of the patient's disease. 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 11/26/2019 Critical Imaging EGD and colonoscopy performed. Normal small bowel mucosa from duodenum, negative for celiac diseaseand enteropathy. Stomach normal gastric mucosa, negative for Helicobacter. Stomach polypectomy, polypoid foveolar hyperplasia. Esophageal biopsy normal, esophageal squamous mucosa. Colon hepatic flexure polypectomy consistent tubular adenoma, negative for high-grade dysplasia and malignancy, size 5cm. Colon sigmoid polypectomy, tubular adenomas at least 1 of which is consistent with the advancedadenoma due to size. Colon sigmoid distal biopsy consistent with adenocarcinoma low-grade moderately differentiated, DNA mismatch repair enzymes intact by IHC 12/04/[address] chest abdomen and pelvis consistent with innumerable low-density masses present throughout all segments of liver measuring up to 5 cm. Calcified gallstone present. Intrahepatic biliary duct distention noted particularly within the left hepatic lobe. Postoperative changes of right nephrectomy. 3.3 cm primary rectal/colon cancer without bowel obstruction. 6 cm right perirectal lymph node. Previously biopsied colonic adenoma with post biopsy change 12/18/2019 Surgery and Procedures Laparoscopic loop sigmoid ostomy created 01/06/2020 - Chemotherapy Xeloda under the care of Dr. Mair 01/06/2020: CEA 143.4 06/22/2020: Initiated Avastin with Xeloda 02/2022: Discontinued Avastin 01/23/2020 Genetic Testing and Tumor Genotyping CARIS testing -KRAS/NRAS/BRAF: Mutation not detected -ERBB2/HER2 Emma: Negative -MSI stable/proficient -NTRK 1/2/3: Fusion not detected -TMB: Low 4 mut/mb -PIK3CA: Mutation not detected -PTEN positive 100% -PDL1 negative 0% 08/17/[address] chest abdomen and pelvis continues to show improvement in the liver lesions, 1 spots decreased to 1.4 cm, previously 2.4 cm. Right hilar lymph node continues to be stable or slightly improved 11/15/[address] chest abdomen and pelvis demonstrated continued decrease in liver metastases. CEA 4.6 02/20/[address] chest abdomen and pelvis unremarkable in February and April 2021 05/18/2021: CEA 2.7 07/10/2021: CEA 2.7 08/07/2021: CEA 2.8 08/29/[address] chest abdomen and pelvis consistent with new lymph nodes in the right axilla, 1.4 cm and 8 mm 09/04/2021: CEA 2.7 10/02/2021: CEA 3.0 11/22/[address] chest abdomen and pelvis Impression: No evidence of metastatic disease. Ultrasound right axillary lymph nodes demonstrated normal right axillary lymph nodes. 02/14/[address] chest abdomen and pelvis impression: Mildly prominent left axillary lymph nodes are now present measuring up to 9 mm. Stable appearance of the liver with multiple low-density structures, unchanged Stable appearance of left lower quadrant ostomy. No bowel obstruction or inflammatory change 07/04/[address] chest abdomen and pelvis Impression: Improved appearance of the left axillary lymph nodes compared to the prior exam. No suspicious pulmonary nodule. Similar appearance of the left lower quadrant ostomy containing loops of small bowel, large bowel and fat. Chronic sigmoid diverticulosis. 10/30/[address] chest abdomen and pelvis IMPRESSION: No evidence of metastatic disease to the chest or pelvis. CT of the abdomen shows a stable appearance of small, low-density regions scattered throughout bothlobes and more confluent linear lesions in the posterior aspect of the right lobe. Stable appearance of right nephrectomy. Interval passage of previously seen nonobstructive 4 millimeter calculus from the left renal collecting system. CT of the pelvis shows stable appearance of a left upper pelvic wall diverting colostomy with largeperistomal hernia containing multiple loops of nondistended small bowel. Stable satisfactory appearance of rectal colonic anastomosis with stable moderate mucosal thickening of the collapsed sigmoid colon and rectum. Cannot exclude distal colitis and proctitis. 01/11/2023 Other Evaluated by an ostomy nurse where patient reported 2 tbsp of rectal bleeding for the past 6 weeks.Suspected proctitis. Recommended sucralfate enemas 01/24/2023 Other Follow up with Dr. Isaura Avendano regarding new onset rectal bleeding. Patient completed a 30 day course of sucralfate enemas with no clinical improvement. Recommended flexible sigmoidoscopy and furtherevaluation by Colorectal surgery. 02/04/2023 Critical Imaging Flexible sigmoidoscopy performed and demonstrated a completely obstructing large mass found in the rectum that was circumferential, measuring 4 cm with oozing. There was also a diffuse area of mildlyerythematous mucosa found in the rectum. Final diagnosis: A) RECTUM, BIOPSY: 1. Rectal mucosa with no diagnostic abnormality 2. Negative for microscopic, active, and chronic proctitis 3. Negative for neoplasm 02/27/2023 Critical Imaging 02/25/2023: CEA 4.7 CT chest abdomen and pelvis Impression: Increased wall thickening of the distal colonic mucosa measuring 1.9 cm with increased adjacent adenopathy within the left side and midline of the pelvis, now measuring 1.1 cm and 1.3 cm. Similar appearance of the large left lower quadrant parastomal hernia containing numerous loops of bowel and fat. Similar appearance of the liver with multiple ill-defined areas of decreased attenuation. Stable tiny bilateral pulmonary nodules. 04/01/[address] Dina Gibson, [facility]. She recommended MRI of the pelvis to assess location extent of the rectal tumor in the presence of metastatic lymph nodes, MRI of the liver, referral to Radiation Oncology for palliative treatment for bleeding, and possible PET to evaluate active disease. She did not recommend any endoscopic treatment since tumor burden is too large. If radiationis unsuccessful, then proceeding with IR embolization could be considered. Patient was unclear what she wanted to proceed with. After discussion with Dr. Mari, she was willing to proceed with an MRI of the pelvis. Patient continues to experienced rectal bleeding, 4-5 tbspper day. She continues on Xeloda. 04/18/2023 Critical Imaging MR pelvis demonstrated a rectal mass located 10 cm above the anal verge involving 5 cm of the proximal rectum. The mass was near circumferential with extension beyond the muscularis and into the mesorectal fat. The mass did not appear to involve the mesorectal fascia. Enlarged mesorectal lymph nodes measuring up to 1.2 cm. No pelvic sidewall adenopathy. No other bony or soft tissue abnormalities identified. T3 N2 This report was not available at the time of the patient's visit today. INTERVAL HISTORY The patient was seen and examined today with Dr. Nayak. The patient reports doing well overall. She reports experiencing rectal bleeding for the past year.She states that the quantity of bleeding has remained stable. She did comment on a granular component and thinks that there may be stool passage from the rectum as well. She estimates 4-5 Tbsp. of bleeding per day. She reports normal ostomy output without any concerns. She denies rectal pain. She denies abdominal bloating or discomfort. She reports dryness of her hands and feet as the primary side effect with Xeloda. She reports good appetite and states that her weight has been stable. The patient denies a history of prior radiation therapy, connective tissue disorders, or inflammatory bowel disease. Her ECOG performance status is 1. REVIEW OF SYSTEMS Review of systems was negative except as documented above. PAST MEDICAL HISTORY Past Medical History: Diagnosis Date Hernia Hypertension Essential Primary Malignant Neoplasm Of Rectum (HCC) PAST SURGICAL HISTORY Past Surgical History: Procedure Laterality Date NEPHRECTOMY Right SIGMOIDECTOMY 12/18/2019 SIGMOIDOSCOPY 12/18/2019 FAMILY HISTORY Family History Problem Relation Age of Onset Bone cancer Father SOCIAL HISTORY Social History Socioeconomic History Marital status: Occupational History Employer: RETIRED Tobacco Use Smoking status: Never Substance and Sexual Activity Drug use: Never Social History Narrative She lives by herself. She has 4 children, 8 grandchildren, and 4 great-grandchildren. OBJECTIVE BP 148/72 (BP Location: Left arm, Patient Position: Sitting, Cuff Size: Regular) Pulse 88 Temp 36.9 ??C (Temporal) Wt 55.2 kg PHYSICAL EXAM General: Patient is alert and oriented in no apparent distress. The patient is here today with her daughter. Lungs: Clear to auscultation bilaterally. Heart: Regular rate and rhythm. ASSESSMENT / PLAN #1 Metastatic rectal cancer with liver metastases #2 Laparoscopic loop sigmoid ostomy created on December 18, 2019 #3 Xeloda initiated in December 2019; Avastin was added from June 2020 through February 2022 #4 Rectal bleeding I had a detailed discussion with the patient and her daughter regarding her metastatic rectal cancer diagnosis. We reviewed her oncologic history as detailed above. Unfortunately, we discussed that the images and report from her pelvic MRI last week were not yet available for review, but that our DOS staff was working on obtaining this information for us as soon as possible. We reviewed the patient's ongoing symptom of rectal bleeding. We discussed the risks, benefits, andalternatives of palliative radiotherapy in this setting. I discussed the logistics as well as the acute and chronic side effects of treatment in detail. The acute side effects are common and include,but are not limited to, fatigue, skin irritation, urinary frequency and urgency, gaseous bloating/discomfort, and increased frequency and urgency of bowel movements. Long-term side effects could include, but are not limited to, infertility, increased frequency of bowel movements and/or urination, vaginal dryness, more frequent urinary tract infections, stool incontinence, rectal bleeding, rectal n arrowing, arthritis of the hips, and secondary malignancy. We discussed these side effects in relation to the patient's ostomy. The patient was provided with a written summary of recommendations. Herquestions were answered to her verbalized satisfaction. Dr. Nayak also met with the patient today, please see her attestation for details. The patient hasa follow-up visit with Dr. Mari on Saturday. After discussion, it was agreed that Dr. Nayak will call the patient on Saturday afternoon to finalize her plan of care. The patient was provided with our c ontact information. She will contact us with questions or concerns. She verbally expressed her understanding of the plan. EDUCATION Ready to learn, no apparent learning barriers were identified; learning preferences include listening. Explained diagnosis and treatment plan; patient expressed understanding of the content. PRIMARY PROVIDER Darlene Murray P.A.-C. I personally spent 52 minutes in care of the patient today. Time includes both non face to face andface to face patient care. Signed by: Casandra Gutierrez P.A.-C., M.S. 04/23/2023 4:30 PM [facility] [address] [place] [address] ADDENDUM: We received the report of the MRI pelvis after the patient's visit was completed today. This will be discussed with the patient at her follow-up visits next week. 04/18/23 MRI Pelvis IMPRESSION: Rectal mass located 10 cm above the anal verge. T3 lesion. Mesorectal adenopathy. N2 disease. ID OPERATOR Associated attestation - Sosa Nayak M.D. - 04/23/2023 4:47 PM EUCLID OPERATOR RADIATION ONCOLOGY CONSULT I saw and evaluated the patient and participated in the [place] portions of the service. I reviewed thedocumentation of Ms. Casandra Gutierrez PA-C, and agree with the findings and plan. Please see Ms. Carof's detailed note for the patient's initial presentation and work-up. Briefly, Mrs. Kennedy is a very pleasant 83 year old female with metastatic rectal cancer (liver metastasis) who underwent laparoscopic loop sigmoidostomy in November of 2019 and was treated initially with Xeloda and Avastin. Avastin was discontinued in February of 2022. She has had almost daily rectal bleeding of about 2-4 tablespoons of blood per rectum. She has not required any blood transfusions and has no rectal pain. She underwent flexible sigmoidoscopy on 02/04/23 that showed a large almost completely obstructing rectal mass that was 4cm. The biopsy was negative. She was colorectal surgery who discussed with her options of restaging with MRI pelvis, liver and/or PET/CT. She wants less treatment and elected to have MRI of the pelvis. The MRI was done on 04/17/23 and is not yet read out. I have reviewedher imaging, operative and pathology reports. On exam, she appears well. Detailed exam as per Ms. Gutierrez. We discussed the findings above and below in this note with the patient and her daughter. We discussed her treatment alternatives including continued xeloda with no radiation vs adding radiation to the rectal tumor. We discussed 5 radiation treatments to help decrease or stop her bleeding. We discussed either adding this now or at a later date as well. We discussed the rationale, risks, side effects and palliative goals of radiation therapy. We discussed the acute as well as intermediate teacher risks, including, but not limited to fatigue, skin erythema, bowel/bladder changes (she should have very little bladder in the field), bone health, and risk of bonefracture in the future. They understood and their questions were answered. We tentatively plan on delivering 2500 cGy in 5 fractions starting 3-5 days after her simulation. I will call her on Saturday afternoon. Hopefully, by then we will have the MRI read and she will haveseen Dr. Mari back in the morning of April 29. We can then see if she wants to add the radiation at this time or continue on Xeloda. My thanks to Juan Alberto Bach, Arthur, and Gisell Murray PA-C for the opportunity to participate in this patient's care. EDUCATION Ready to learn, no apparent learning barriers were identified; learning preferences include listening. Explained diagnosis and treatment plan; patient expressed understanding of the content. DIAGNOSIS #1 Metastatic rectal cancer with liver metastases #2 Laparoscopic loop sigmoid ostomy created on December 18, 2019 #3 Xeloda initiated in December 2019; Avastin was added from June 2020 through February 2022 #4 Rectal bleeding Signed by: Sosa Nayak M.D. 04/23/2023 documented in this encounter Plan of Treatment Upcoming Encounters Date Type Department Care Team (Late st Contact Info) Description 05/31/2023 9:30 AM EUCLID OPERATOR Appointment Department of Radiation Oncology in [address] [phone] Sosa Nayak M.D. [address] [place] [phone] 06/03/2023 9:30 AM EUCLID OPERATOR Appointment Department of Radiation Oncology in [address] [phone] Sosa Nayak M.D. [address] [place] [phone] 06/04/2023 9:30 AM EUCLID OPERATOR Appointment Department of Radiation Oncology in [address] [phone] Sosa Nayak M.D. [address] [place] [phone] 06/05/2023 9:15 AM EUCLID OPERATOR Appointment Department of Radiation Oncology in [place] [address] [place] [address] Sosa Nayak M.D. [address] [place] [address] 06/05/2023 9:30 AM EUCLID OPERATOR Appointment Department of Radiation Oncology in [place], [place] [address] [place] [address] Sosa Nayak M.D. 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
--- OUTSIDE RECORDS SUMMARY | 2023-05-31 08:15 | XMS_ITS | Encounter Summary ---
Author Name Unknown Organization [facility] Address [address] [place] [address] Care Team Providers Care Can Capper Name Role Phone Unavailable Primary Care Provider Unavailabl e Reason for Referral * Outpatient (Routine) - Closed Specialty Diagnoses / Procedures Referred By Contac t Referred To Contact Radiation Oncology Sosa Nayak M.D. 200 [place] [address] [facility] Referral ID Status Reason Start Date Expiration Date Visits Re quested Visits Authorized [id number] Closed 04/29/2023 04/28/2026 1 1 ITAL EDUCATION COORDINATOR Reason for Visit * Outpatient (Routine) - Closed Specialty Diagnoses / Procedures Referred By Kwabena andersen Referred To Contact Radiation Oncology Sosa Nayak M.D. 200 [place] [address] [facility] Referral ID Status Reason Start Date Expiration Date Visits Re quested Visits Authorized [id number] Closed 04/29/2023 04/28/2026 1 1 Encounter Details Date Type Department Care Team (Latest Contact Info) Description 05/23/2023 8:37 AM HOSPITAL EDUCATION COORDINATOR - 05/23/2023 9:19 AM HOSPITAL EDUCATION COORDINATOR Hospital Encounter Department of Radiation Oncology in [place], [place] [address] [place] [phone] Sosa Nayak M.D. 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 - 05/23/2023 9:00 AM CST SUBJECTIVE REQUESTING PROVIDER Sosa Nayak M.D. REASON FOR CONSULT 1. 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 HISTORY OF PRESENT ILLNESS Mrs. Angle Kennedy is a 83 y.o. female with metastatic rectal cancer. She returns to undergo CT planning scan to initiate radiation treatment. Her oncologic history is as follows: Oncology [...] Chemotherapy Xeloda under the care of Dr. Mari 01/06/2020: CEA 143.4 06/22/2020: Initiated Avastin with [...] or soft tissue abnormalities identified. T3 N2 05/27/2023 - Radiation Therapy Radiation Therapy Treatment Details (Noted on 04/29/2023) Site: Rectum Technique: No technique specified Goal: Palliative Planned Treatment Start Date: 05/27/2023 INTERVAL HISTORY The patient was seen and examined today with Dr. Nayak. The patient reports feeling well overall. She reports her rectal bleeding is about the same since when we saw her in April. She denies any blood clots. She denies any discharge from her rectum. She does experience occasional rectal urge, which is about the same as prior. She reports her ostomy output is comparable to previously, with no blood. She denies any abdominal pain. She does experienceurinary urgency, this is not new. Her ECOG performance status is 1. REVIEW OF SYSTEMS Review of systems was negative except as documented above. PATIENT REPORTED SYMPTOM SCREEN FATIGUE (Scale: 0 = no fatigue; 10 = worst fatigue you can imagine): 0 PAIN (Scale: 0 = no pain; 10 = worst pain you can imagine): 0 OVERALL QUALITY OF LIFE (Scale: 0 = as bad as can be; 10 = as good as can be): 9 OBJECTIVE BP 130/65 (BP Location: Right arm, Patient Position: Sitting, Cuff Size: Regular) Pulse 80 Temp36.3 ??C (Temporal) Wt 56.4 kg PHYSICAL EXAM General: Patient is alert and oriented in no apparent distress. ASSESSMENT / PLAN #1 Metastatic rectal cancer with liver metastases #2 Laparoscopic loop sigmoid ostomy created on December 18, 2019 #3 Xeloda initiated in December 2019; Avastin was added from June 2020 through February 2022 #4 Rectal bleeding It was a pleasure to meet with Angle today. She is doing well with no significant changes to her rectal bleeding. Output is comparable to when we initially saw her in April. I reviewed the risks,benefits, and alternatives of radiotherapy in the setting of her bleeding rectal cancer. We discussed the recommendation for radiation treatment to her rectum in 5 fractions. I discussed the logistics, as well as, the acute and chronic side effects of treatment in detail. For full list of those details please refer to her original consult note dated April 23, 2023. Her questions were answered to their verbalized satisfaction. She continues on oral Xeloda under the care of Dr. Mari. She is scheduled for follow up later this month. She will undergo CT simulation today. We anticipate starting radiation therapy on May 30. Patient seen in collaboration with Dr. Nayak, please review her attestation for additional information. The patient was provided with our contact information. She was asked to contact us with questions or concerns. She verbally expressed her understanding of the plan. EDUCATION Ready to learn, no apparent learning barriers were identified; learning preferences include listening. Explained diagnosis and treatment plan; patient expressed understanding of the content. CONSENT Discussed the risks, benefits, alternatives, and the necessity of other members of the healthcare team participating in the procedure. All questions answered and consent given. I personally spent 20 minutes in care of the patient today. Time includes both non face to face andface to face patient care. Signed by: Charity Carl APRN, C.N.P., D.N.P. 05/23/2023 9:23 AM HOSPITAL EDUCATION COORDINATOR [facility] Rad[facility] [address] [place] [address] ITAL EDUCATION COORDINATOR Associated attestation - Sosa Nayak M.D. - 05/23/2023 3:20 PM HOSPITAL EDUCATION COORDINATOR RADIATION ONCOLOGY FOLLOW-UP VISIT I saw and evaluated the patient and participated in the stratton portions of the service. I reviewed thedocumentation of Ms. Charity Carl APRN and agree with the findings and plan. Mrs. Angle Kennedy is an 83 year old female with metastatic rectal [...] pelvis. The MRI was done on 04/17/23 shows a T3 tumor 10cm from the verge involving 5cm of the proximal rectum with a 1.2cm mesorectal lymph node. Her bleeding is unchanged and she is ready to start palliative treatments. We discussed the rationale, risks, side effects and palliative goals of radiation therapy. We discussed the acute as well as halfway risks, including, but not limited to fatigue, skin erythema, bowel/bladder changes (she should have very little bladder in the field), bone health, and risk of bonefracture in the future. She understood and her questions were answered. We tentatively plan on delivering 2500 cGy in 5 fractions starting May 30, 2023. My thanks to Juan Alberto Bach, Arthur, and Gisell Murray PA-C for the opportunity to participate in this patient's care. EDUCATION Ready to learn, no apparent learning barriers were identified; learning preferences include listening. Explained diagnosis and treatment plan; patient expressed understanding of the content. CONSENT Discussed the risks, benefits, alternatives, and the necessity of other members of the healthcare team participating in the procedure. All questions answered and consent given. DIAGNOSIS #1 Metastatic rectal cancer with liver metastases #2 Laparoscopic loop sigmoid ostomy created on December 18, 2019 #3 Xeloda initiated in December 2019; Avastin was added from June 2020 through February 2022 #4 Rectal bleeding Signed by: Sosa Nayak M.D. 05/23/2023 3:10 PM HOSPITAL EDUCATION COORDINATOR Radiation Oncology [facility] [address] [place] [phone] documented in this encounter Plan of Treatment Upcoming Encounters Date Type Department Care Team (Late st Contact Info) Description 05/31/2023 9:30 AM HOSPITAL EDUCATION COORDINATOR Appointment Department of Radiation Oncology in [address] [address] Sosa Nayak M.D. [address] [place] [phone] 06/03/2023 9:30 AM HOSPITAL EDUCATION COORDINATOR Appointment Department of Radiation Oncology in [address] [address] Sosa Nayak M.D. [address] [place] [phone] 06/04/2023 9:30 AM HOSPITAL EDUCATION COORDINATOR Appointment Department of Radiation Oncology in [address] [place] [address] Sosa Nayak M.D. 200 [place] [address] 06/05/2023 9:15 AM HOSPITAL EDUCATION COORDINATOR Appointment Department of Radiation Oncology in [address] [address] Sosa Nayak M.D. 200 [place] [address] 06/05/2023 9:30 AM HOSPITAL EDUCATION COORDINATOR Appointment Department of Radiation Oncology in [place] [address] [place] [address] Sosa Nayak M.D. 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
--- OUTSIDE RECORDS SUMMARY | 2023-05-31 08:15 | XMS_ITS | Encounter Summary ---
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 200 [place] [address] [facility] Region Referral ID Status Reason Start Date Expiration Date Visits Re quested Visits Authorized [id number] Closed 04/29/2023 04/28/2024 1 1 Encounter Details Date Type Department Care Team (Latest Contact Info) Description 05/23/2023 9:20 AM BIOLOGY INSTRUCTOR - 05/23/2023 3:21 PM BIOLOGY INSTRUCTOR Hospital Encounter Department of Radiation Oncology in [address] [place] [address] Sosa Nayak M.D. 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 Authorized by: Sosa Nayak M.D. Simulation was performed under physician supervision based on physician order in preparation for radiation therapy. Physician was immediately available to provide assistance and direction throughout the procedure. Written consent for treatment was completed or confirmed. The patient was appropriately identified and placed in the treatment position using the necessary immobilization to ensure a reproducible treatment position. Reference shaver were placed to facilitate marking of isocenter. Area scanned:pelvis Contrast used for the simulation procedure: Oral Patient position:head first supine Custom immobilization: Vac-domitila Motion management: None Bolus: No CT guidance: Following positioning of the patient, a series of slices was obtained to be utilized in treatment planning. CT images were transferred to the Eclipse treatment planning system, after a reference isocenter was determined and marked. Segmentation and treatment planning will take place prior to treatment delivery. Patient set up and imaging was appropriate and completed without incident. Sales Appointment Coordinator use:No OGY INSTRUCTOR Associated attestation - Sosa Nayak M.D. - 05/23/2023 3:21 PM BIOLOGY INSTRUCTOR I was present during all critical and stratton portions of the procedure(s) and immediately available [facility] the entire duration. See note for details. documented in this encounter Plan of Treatment Upcoming Encounters Date Type Department Care Team (Late st Contact Info) Description 05/31/2023 9:30 AM BIOLOGY INSTRUCTOR Appointment Department of Radiation Oncology in [address] [phone] Sosa Nayak M.D. [address] [place] [phone] 06/03/2023 9:30 AM BIOLOGY INSTRUCTOR Appointment Department of Radiation Oncology in [address] [address] Sosa Nayak M.D. [address] [place] [phone] 06/04/2023 9:30 AM BIOLOGY INSTRUCTOR Appointment Department of Radiation Oncology in [address] [address] Sosa Nayak M.D. [address] [place] [phone] 06/05/2023 9:15 AM BIOLOGY INSTRUCTOR Appointment Department of Radiation Oncology in [place], [place] [address] [place] [address] Sosa Nayak M.D. [address] [place] [address] 06/05/2023 9:30 AM BIOLOGY INSTRUCTOR Appointment Department of Radiation Oncology in [place], [place] [address] [place] [address] Sosa Nayak M.D. 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 05/23/2023 ??9:46 AM Initial Rad Onc Treatment Planning CT Simulation Performed by: Sosa Nayak M.D. Authorized by: Sosa Nayak M.D. ?? Sosa Nayak M.D. 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
--- OUTSIDE RECORDS SUMMARY | 2023-05-31 08:15 | XMS_ITS | Encounter Summary ---
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 [address] [place] [phone] [facility] Region Referral ID Status Reason Start Date Expiration Date Visits Re quested Visits Authorized [id number] Closed 04/29/2023 04/28/2024 1 1 ESS CONTROL BOARD OPERATOR * Outpatient (Routine) - Closed Specialty Diagnoses / Procedures Referred By Contac t Referred To Contact Radiation Oncology Sosa Nayak M.D. [address] [place] [phone] [facility] Region Referral ID Status Reason Start Date Expiration Date Visits Re quested Visits Authorized [id number] Closed 04/29/2023 04/28/2026 1 1 ESS CONTROL BOARD OPERATOR * Outpatient (Routine) - Closed Specialty Diagnoses / Procedures Referred By Contac t Referred To Contact Radiation Oncology Casandra Gutierrez P.A.-C., M.STyler [address] [place] [phone] Sosa Nayak M.D. [address] [place] [phone] Referral ID Status Reason Start Date Expiration Date Visits Re quested Visits Authorized [id number] Closed 04/23/2023 04/22/2026 1 1 Scheduling Instructions YIG to call - afternoon ESS CONTROL BOARD OPERATOR Reason for Visit * Outpatient (Routine) - Closed Specialty Diagnoses / Procedures Referred By Contac t Referred To Contact Radiation Oncology Casandra Gutierrez P.A.-C., M.STyler [address] [place] [phone] Sosa Nayak M.D. [address] [place] [address] Referral ID Status Reason Start Date Expiration Date Visits Re quested Visits Authorized [id number] Closed 04/23/2023 04/22/2026 1 1 Encounter Details Date Type Department Care Team (Latest Contact Info) Description 04/29/2023 1:00 PM PROCESS CONTROL BOARD OPERATOR - 04/29/2023 5:03 PM PROCESS CONTROL BOARD OPERATOR Hospital Encounter Department of Radiation Oncology in [place], [place] [address] [place] [address] Sosa Nayak M.D. 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 - 04/29/2023 1:00 PM CST RADIATION ONCOLOGY FOLLOW-UP NOTE SUBJECTIVE REQUESTING PROVIDER Established patient DIAGNOSIS 1. Metastatic rectal cancer CHIEF COMPLAINT/REASON FOR VISIT Mrs. Angle Kennedy is an 83 year [...] rectum with a 1.2cm mesorectal lymph node. She has no new complaints sinceI saw her last week. She saw Dr. Mari this morning and has decided to proceed, but wants to wait until May. INTERVAL HISTORY: Since I last saw Mrs. Angle Kennedy she reports no new symptoms. OBJECTIVE There were no vitals taken for this phone visit. General: Mrs. Angle Kennedy sounded well on the phone. DIAGNOSTICS: I have reviewed the available imaging, operative and pathology reports as described above and reviewed in the EMR. ASSESSMENT / PLAN #1 Metastatic rectal cancer with liver metastases #2 Laparoscopic loop sigmoid ostomy created on December 18, 2019 #3 Xeloda initiated in December 2019; Avastin was added from June 2020 through February 2022 #4 Rectal bleeding Mrs. Kennedy has decided to proceed with palliative radiation therapy, but she would like to wait until May. I told her that I think this is fine, but that if her bleeding should worsen to call me.We will reach out to her daughter Sobia who helps her with her appointments. She knows that I wouldlike her to fill her bladder for our planning CT and that we will give her oral contrast to drink ab out an hour before the simulation. Mrs. Angle Kennedy knows to contact us at any point should any questions or concerns arise. EDUCATION Ready to learn, no apparent learning barriers were identified; learning preferences include listening. Explained diagnosis and treatment plan; patient expressed understanding of the content. I personally spent 12 minutes in care of the patient today. Time includes both non face to face andface to face patient care. Signed by: Sosa Nayak M.D. 04/29/2023 4:57 PM PROCESS CONTROL BOARD OPERATOR Radiation Oncology [facility] [address] [place] [phone] ESS CONTROL BOARD OPERATOR documented in this encounter Plan of Treatment Upcoming Encounters Date Type Department Care Team (Late st Contact Info) Description 05/31/2023 9:30 AM PROCESS CONTROL BOARD OPERATOR Appointment Department of Radiation Oncology in [address] [phone] Sosa Nayak M.D. [address] [place] [phone] 06/03/2023 9:30 AM PROCESS CONTROL BOARD OPERATOR Appointment Department of Radiation Oncology in [address] [phone] Sosa Nayak M.D. [address] [place] [phone] 06/04/2023 9:30 AM PROCESS CONTROL BOARD OPERATOR Appointment Department of Radiation Oncology in [address] [address] Sosa Nayak M.D. [address] [place] [phone] 06/05/2023 9:15 AM PROCESS CONTROL BOARD OPERATOR Appointment Department of Radiation Oncology in [address] [address] Sosa Nayak M.D. [address] [place] [phone] 06/05/2023 9:30 AM PROCESS CONTROL BOARD OPERATOR Appointment Department of Radiation Oncology in [place], [place] [address] [place] [address] Sosa Nayak M.D. 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) 10 Occurrences starting 04/29/2023 until 04/29/2024 Scheduled Referrals Name Type Priority Associated Diagnoses Order Schedule Radiation Oncology office visit (clinic) Outpatient Referral Routine Once for 1 Occurrences starting 04/29/2023 until 04/29/2023 Radiation Oncology office visit (clinic) Outpatient Referral Routine Expected: (Approximate), Expires: 04/29/2024 documented as of this encounter Results * Initial Rad Onc Treatment Planning CT Simulation (05/23/2023 9:30 AM PROCESS CONTROL BOARD OPERATOR) Narrative FAM RANGEL - 05/23/2023 9:30 AM PROCESS CONTROL BOARD OPERATOR Angelika Melendez, RTT ? 05/23/2023 ??9:46 AM Initial Rad Onc Treatment Planning CT Simulation Performed by: Sosa Nayak M.D. Authorized by: Sosa Nayak M.D. ?? Sosa Nayak M.D. 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
--- OUTSIDE RECORDS SUMMARY | 2023-05-31 08:15 | XMS_ITS | Clinical Summary ---
Author Name Unknown Organization [employer] [facility] Address [place], [place] [address] Care Team Providers Care Director Medicaid Name Role Phone Pcp, No Primary Care Provider Unavailabl e Allergies No known active allergies Medications Medication Sig Dispensed Refills Start Date End Date Status amLODIPine (NORVASC) 5 mg tablet 0 01/04/2021 Active lisinopriL (PRINIVIL; ZESTRIL) 20 mg tablet 0 03/02/2021 Active Active Problems No known active problems Family History Medical History Relation Name Comments Cancer-breast No Family History Social History Tobacco Use Types Packs/Day Years Used Date Smoking Tobacco: Never Smokeless Tobacco: Never Social Connections Answer Date Recorded Frequency of Communication with Friends and Fami ly Not on file 05/11/2021 Financial Resource Strain Answer Date R ecorded Difficulty of Paying Living Expenses Not on file 05/11/2021 Difficulty of Paying Living Expenses Not on file 05/11/2021 Sex and Gender Information Value Date Recorded Sex Assigned at Not on file Gender Identity Not on file Sexual Orientation Not on file Obstetrics History Last Filed Vital Signs Vital Sign Reading Time Taken Comments Blood Pressure 162/98 03/03/2021 8:42 AM CDT Pulse 106 03/03/2021 8:42 AM CDT Temperature 36.6 ??C (97.9 ??F) 03/03/2021 8:42 AM CD T Respiratory Rate - - Oxygen Saturation 99% 03/03/2021 8:42 AM CDT Inhaled Oxygen Concentration - - Weight 55.2 kg (121 lb 12.8 oz) 03/03/2021 8:42 AM CDT Height - - Body Mass Index - - Plan of Treatment Health Maintenance Due Date Last Done Comments Tdap 1950 Depression screening for age 12+ 1951 BMI (ht and wt on same day) for age 18+ 1957 Tetanus booster 1959 Zoster (shingles) series for age 50+ (1 of 2) 1989 DEXA/DXA scan for age 65+ 2004 Medicare Wellness for age 65+ 2004 Pneumococcal series for age 65+ (1 of 1 - PCV) 2004 COVID-19 vaccine series (4 - 2022-24 season) 2023 02/08/2021, 06/30/2020, 06/10/2020 Influenza for age 65+ 01/18/2023 Advance Directives Documents on File Type Date Recorded Patient Sleep Lab Technologist Expl anation Healthcare Directive 04/20/2011 SIGNED - 11/08/2005 Care Teams Director Medicaid Relationship Specialty Start Date End Date Pcp, No . PCP - General 05/01/23
== END 2023-05-29 08:02 | disposition home or self-care (01) ==
LOC: NFLDREF 05-31 08:13
PROVIDERS: PCP Physician Assistant Medical; Referring Provider Physician Assistant Medical; Visit Provider Internal Medicine Hematology & Oncology
DX: C18.9 Malignant neoplasm of colon, unspecified (principal)
CPT/HCPCS: 80053; 82378

== ENCOUNTER 2023-07-05 08:15 | Outpatient (CLI) | payer MEDICARE, SELFPAY ==
--- OUTSIDE RECORDS SUMMARY | 2023-07-05 20:33 | XMS_ITS | Encounter Summary ---
Author Name Unknown Organization [facility] Address [address] [place] [address] Care Team Providers Care Moving Worker Name Role Phone Unavailable Primary Care Provider Unavailabl e Encounter Details Date Type Department Care Team (Late st Contact Info) Description 06/05/2023 Documentation Department of Radiation Oncology in [place], [place] [address] [place] [phone] Sosa Nayak M.D. [address] [place] [address] Social History Tobacco Use Types Packs/Day Years [...] on file documented as of this encounter Miscellaneous Notes * Radiation Completion Notes - Zara Cope R.N. - 06/05/2023 11:59 PM CST DIAGNOSIS: 1. 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 Treatment Intent: Palliative Concomitant Therapy: None Single Plan Treatment Course: 1xRectum Plan ID Fractions Dose / Fraction (cGy) Dose Treated (cGy) Dose Planned (cGy) First Treatment Last Treatment Elapsed Days [id number] 5 / 5 500 2500 2500 05/30/2023 06/05/2023 6 Course Summary 05/30/2023 06/05/2023 6 Radiation Modality: Photons CLINICAL SUMMARY Mrs. Angle Kennedy completed radiation treatment as planned without interruptions. The course of treatment was tolerated well. The patient experienced toxicities of grade 1 diarrhea during radiationtreatment. TREATMENT RESPONSE: Response to treatment will be determined by post-treatment imaging and/or laboratory work. RECOMMENDED FOLLOW UP: Primary Medical Oncologist. Dr. 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
--- OUTSIDE RECORDS SUMMARY | 2023-07-05 20:33 | XMS_ITS ---
Author Name Unknown Organization [facility] Address [address] [place] [address] Care Team Providers Care Medical Delivery Technician Name Role Phone Unavailable Unavailable Unavailable Surgery Details Not on file Complications Check Surgery Details section. Procedure Estimated Blood Loss Check Surgery Details section. Procedure Findings Check Surgery Details section. Procedure Specimens Taken Check Surgery Details section.
--- OUTSIDE RECORDS SUMMARY | 2023-07-05 20:33 | XMS_ITS | Encounter Summary ---
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 [address] [place] [address] [facility] Region Referral ID Status Reason Start Date Expiration Date V isits Requested Visits Authorized [id number] Authorized 04/29/2023 04/28/2024 10 10 Encounter Details Date Type Department Care Team (Latest Contact Info) Description 06/05/2023 8:52 AM STORAGE ENGINEER - 06/05/2023 1:20 PM STORAGE ENGINEER Hospital Encounter Department of Radiation Oncology in [address] [address] Sosa Nayak M.D. 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 - 06/05/2023 9:30 AM CST ATTESTATION FOR MANAGEMENT VISIT I saw and evaluated the patient and participated in the stratton portions of the service as noted below.I reviewed the documentation of Ms. Jessica Luevano RN and agree with the findings and plan. The patient appears well on exam. I congratulated her on completing her treatments today. She tells me that the bleeding is still present but might be waste management specialist. Mrs. Angle Kennedy completed radiation treatment as planned without interruptions. The course of treatment was tolerated well. The patient experienced toxicities of grade 1 diarrhea during radiationtreatment. Follow-up will be with Dr. Mari and we will see her again as needed. Sosa Nayak M.D., 06/05/2023 SUBJECTIVE REASON FOR VISIT Evaluation for side effects while receiving radiation treatment for 1. 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 HISTORY OF PRESENT ILLNESS Mrs. Angle Kennedy is a 83 y.o. female with metastatic rectal cancer (liver metastasis) who underwent laparoscopic loop sigmoidostomy in November of 2019 and was treated initially with Xeloda and Avastin. Avastin was discontinued in February of 2022. She has been having daily rectal bleeding. She is now undergoing palliative radiation therapy to rectum. Treatment Course: 1xRectum Plan ID Fractions Dose / Fraction (cGy) Dose Treated (cGy) Dose Planned (cGy) First Treatment Last Treatment Elapsed Days [id number] / 500 2500 2500 05/30/2023 06/05/2023 6 Course Summary 05/30/2023 06/05/2023 6 The patient was seen and examined today with Dr. Nayak. The patient reports that rectal bleeding remains the same in nature compared to before starting radiation therapy. Patient denies nausea, vomiting, dysuria or hematuria. Patient does report watery stools in ostomy this morning. PATIENT REPORTED SYMPTOM SCREEN FATIGUE (Scale: 0 = no fatigue; 10 = worst fatigue you can imagine): 3 PAIN (Scale: 0 = no pain; 10 = worst pain you can imagine): 0 OVERALL QUALITY OF LIFE (Scale: 0 = as bad as can be; 10 = as good as can be): 9 OBJECTIVE BP 138/59 (BP Location: Right arm, Patient Position: Sitting, Cuff Size: Regular) Pulse 93 Temp36.1 ??C (Temporal) Wt 56.8 kg PHYSICAL EXAM General: Alert and oriented in no apparent distress. ASSESSMENT / PLAN #1 Metastatic rectal cancer with liver metastases #2 Laparoscopic loop sigmoid ostomy created on December 18, 2019 #3 Xeloda initiated in December 2019; Avastin was added from June 2020 through February 2022 #4 Rectal bleeding #5 Palliative radiation therapy to tumor in rectum and nodes initiated on May 30, 2023; completed on June 05, 2023 The patient is tolerating radiation treatment well overall. We expect in the coming days to next week that patient will notice decrease in bleeding. Patient will follow up with Dr. Mari on June 19, 2023. We will keep Radiation Oncology follow up to an as needed basis only. She will contact us with any questions or concerns. We will continue with radiation treatment as planned. Signed by: Jessica Luevano R.N. 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
--- OUTSIDE RECORDS SUMMARY | 2023-07-05 20:33 | XMS_ITS | Clinical Summary ---
Author Name Unknown Organization [facility] Address [address] [place] [address] Care Team Providers Care Senior Technical Business Analyst Name Role Phone Unavailable Primary Care Provider Unavailabl e Source Comments Patient records contain information from all sites at [facility]. For routine questions regarding patient records, call [phone] during business hours, M-F 8:00 AM - 5:00 PM Central Time. Record requests for emergency care only can be directed to [phone] at any time.[facility] Medications Medication Sig Dispensed Refills Start Date [...] Encounters Date Type Department Care Team Description 06/05/2023 8:52 AM COLLATERAL SPECIALIST - 06/05/2023 1:20 PM [facility] Hospital Encounter Department of Radiation Oncology in [place], [place] [address] [place] [phone] Sosa Nayak M.D. 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 06/05/2023 Documentation Department of Radiation Oncology in [address] [address] Sosa Nayak M.D. 06/04/2023 9:13 AM COLLATERAL SPECIALIST - 06/04/2023 11:59 PM COLLATERAL SPECIALIST Hospital Encounter Department of Radiation Oncology in [address] [address] Sosa Nayak M.D. Discharge Disposition: Home or Self Care 06/03/2023 9:10 AM COLLATERAL SPECIALIST - 06/03/2023 11:59 PM COLLATERAL SPECIALIST Hospital Encounter Department of Radiation Oncology in [address] [address] Sosa Nayak M.D. Discharge Disposition: Home or Self Care 05/31/2023 9:10 AM COLLATERAL SPECIALIST - 05/31/2023 11:59 PM COLLATERAL SPECIALIST Hospital Encounter Department of Radiation Oncology in [address] [address] Sosa Nayak M.D. Discharge Disposition: Home or Self Care 05/30/2023 9:07 AM COLLATERAL SPECIALIST - 05/30/2023 11:59 PM COLLATERAL SPECIALIST Hospital Encounter Department of Radiation Oncology in [address] [address] Sosa Nayak M.D. Discharge Disposition: Home or Self Care 05/23/2023 9:20 AM COLLATERAL SPECIALIST - 05/23/2023 3:21 PM COLLATERAL SPECIALIST Hospital Encounter Department of Radiation Oncology in [address] [address] Sosa Nayak M.D. 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 Malignant Neoplasm Of Colon [...] Comments Blood Pressure 138/59 06/05/2023 9:29 AM COLLATERAL SPECIALIST Pulse 93 06/05/2023 9:29 AM COLLATERAL SPECIALIST Temperature 36.1 ??C (97 ??F) 06/05/2023 9:29 AM COLLATERAL SPECIALIST Respiratory Rate - - Oxygen Saturation - - Inhaled Oxygen Concentration - - Weight 56.8 kg (125 lb 3.5 oz) 06/05/2023 9:29 A M COLLATERAL SPECIALIST Height - - Body Mass Index - [...] Name Priority Date/Time Associated Diagnosis Comments ARIA COURSE COMPLETE TREATMENT INFORMATION Routine 06/05/2023 9:13 AM COLLATERAL SPECIALIST [facility] DAILY TREATMENT INFORMATION Routine 06/05/2023 9:13 AM COLLATERAL SPECIALIST [facility] DAILY TREATMENT INFORMATION Routine 06/04/2023 9:26 AM COLLATERAL SPECIALIST [facility] DAILY TREATMENT INFORMATION Routine 06/03/2023 9:37 AM COLLATERAL SPECIALIST [facility] DAILY TREATMENT INFORMATION Routine 05/31/2023 9:27 AM COLLATERAL SPECIALIST [facility] DAILY TREATMENT INFORMATION Routine 05/30/2023 9:48 AM COLLATERAL SPECIALIST INITIAL RAD ONC TREATMENT PLANNING CT SIMULATION Routine 05/23/2023 9:30 AM COLLATERAL SPECIALIST 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) OUTSIDE MR BODY Routine 04/18/2023 9:35 AM COLLATERAL SPECIALIST from Last 3 Months Results * [facility] Course Complete Treatment Information (06/05/2023 9:13 AM COLLATERAL SPECIALIST) Course ID 1xRectum [facility] Course Start Date 4 09:14 COLLATERAL SPECIALIST [facility] Course End Date 4 14:45 COLLATERAL SPECIALIST O[facility]O [facility] First Treatment Date 4 09:46 COLLATERAL SPECIALIST [facility] Last Treatment Date 4 09:13 COLLATERAL SPECIALIST [facility] Treatment Elapsed Days 6 O[facility] Reference Point [id number] [facility] Dosage Given to Date cGy 2500 [facility] Plan ID [id number] [facility] Fractions Treated to Date 5 [facility] Planned Total Fractions 5 O[facility]O [facility] Prescribed Dose Per Fraction 500 O[facility] Prescription Dose in cGy 2500 O[facility] Plan Primary Reference Point [id number] [facility] 06/05/2023 9:13 AM COLLATERAL SPECIALIST Provider Not In System RADIATION ONCOLOG Y ORDERABLES FAM RANGEL na * Aria Daily Treatment Information (06/05/2023 9:13 AM COLLATERAL SPECIALIST) Only the most recent of5 resultswithin the time period is included. Course ID 1xRectum [facility] Course Start Date 4 09:14 COLLATERAL SPECIALIST [facility] First Treatment Date 4 09:46 COLLATERAL SPECIALIST OTTO [facility] Last Treatment Date 4 09:13 COLLATERAL SPECIALIST O[facility] Treatment Elapsed Days 6 OTTO ARIA Reference Point [id number] OTTO ARIA Dosage Given to Date cGy 2500 OTT[facility] Session Dosage Given 500 [facility] Plan ID [id number] [facility]TTO [facility] Fractions Treated to Date 5 OTTO ARIA Planned Total Fractions 5 OTTO ARIA Prescribed Dose Per Fraction 500 OTTO ARIA Prescription Dose in cGy 2500 OTTO ARIA Plan Primary Reference Point [id number] [facility]O [facility] 06/05/2023 9:13 AM COLLATERAL SPECIALIST Provider Not In System RADIATION ONCOLOG Y ORDERABLES FAM RANGEL na * Initial Rad Onc Treatment Planning CT Simulation (05/23/2023 9:30 AM COLLATERAL SPECIALIST) Narrative OTTO ARIA - 05/23/2023 9:30 AM COLLATERAL SPECIALIST Angelika Melendez, RTT ? 05/23/2023 ??9:46 AM Initial Rad Onc Treatment Planning CT Simulation Performed by: Sosa Nayak M.D. Authorized by: Sosa Nayak M.D. ?? Sosa Nayak M.D. RADIATION ONCOLOG Y ORDERABLES Performing Organization Address City/[facility]/ZIP Co de Phone Number FAM RANGEL na * MR pelvis wo/w con-Outside MR Body (04/18/2023 9:35 AM COLLATERAL SPECIALIST) Narrative [facility] - 04/23/2023 10:39 AM COLLATERAL SPECIALIST This order has been created and auto-finalized to support the import of outside images. If available, original interpretation can be found on the Media Tab in Chart Review, in Document Viewer, or as an image in QREADS. If a re-interpretation or overread is required please follow defined workflow. ?? Provider Not In System IMG MRI PROCEDURE S Performing Organization Address [facility] de Phone Number IIIA NA from Last 3 Months Additional Health Concerns Infection Onset Date Last Indicated Protective Environment 04/23/2023 3
--- OUTSIDE RECORDS SUMMARY | 2023-07-05 20:33 | XMS_ITS | Referral Summary ---
Author Name Unknown Organization [facility] Address [address] [place] [address] Care Team Providers Care Nuclear Officer Name Role Phone Unavailable Primary Care Provider Unavailabl e Source Comments Patient records contain information from all sites at [facility]. For routine questions regarding patient records, call [phone] during business hours, M-F 8:00 AM - 5:00 PM Central Time. Record requests for emergency care only can be directed to [phone] at any time.[facility] Encounters Date Type Department Care Team Description 06/05/2023 Documentation Department of Radiation Oncology in [address] [address] Sosa Nayak M.D. 06/05/2023 8:52 AM ONLINE RETAILER - 06/05/2023 1:20 PM ONLINE RETAILER Hospital Encounter Department of Radiation Oncology in [address] [address] Sosa Nayak M.D. 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 06/04/2023 9:13 AM ONLINE RETAILER - 06/04/2023 11:59 PM ONLINE RETAILER Hospital Encounter Department of Radiation Oncology in [address] [address] Sosa Nayak M.D. Discharge Disposition: Home or Self Care 06/03/2023 9:10 AM ONLINE RETAILER - 06/03/2023 11:59 PM ONLINE RETAILER Hospital Encounter Department of Radiation Oncology in [address] [address] Sosa Nayak M.D. Discharge Disposition: Home or Self Care 05/31/2023 9:10 AM ONLINE RETAILER - 05/31/2023 11:59 PM ONLINE RETAILER Hospital Encounter Department of Radiation Oncology in [address] [address] Sosa Nayak M.D. Discharge Disposition: Home or Self Care 05/30/2023 9:07 AM ONLINE RETAILER - 05/30/2023 11:59 PM ONLINE RETAILER Hospital Encounter Department of Radiation Oncology in [address] [address] Sosa Nayak M.D. Discharge Disposition: Home or Self Care 05/23/2023 9:20 AM ONLINE RETAILER - 05/23/2023 3:21 PM ONLINE RETAILER Hospital Encounter Department of Radiation Oncology in [address] [address] Sosa Nayak M.D. 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 Malignant Neoplasm Of Colon [...] Comments Blood Pressure 138/59 06/05/2023 9:29 AM ONLINE RETAILER Pulse 93 06/05/2023 9:29 AM ONLINE RETAILER Temperature 36.1 ??C (97 ??F) 06/05/2023 9:29 AM ONLINE RETAILER Respiratory Rate - - Oxygen Saturation - - Inhaled Oxygen Concentration - - Weight 56.8 kg (125 lb 3.5 oz) 06/05/2023 9:29 A M ONLINE RETAILER Height - - Body Mass Index - - Plan of Treatment Not on file Procedures Procedure Name Priority Date/Time Associated Diagnosis Comments ARIA COURSE COMPLETE TREATMENT INFORMATION Routine 06/05/2023 9:13 AM ONLINE RETAILER ARIA DAILY TREATMENT INFORMATION Routine 06/05/2023 9:13 AM ONLINE RETAILER ARIA DAILY TREATMENT INFORMATION Routine 06/04/2023 9:26 AM ONLINE RETAILER ARIA DAILY TREATMENT INFORMATION Routine 06/03/2023 9:37 AM ONLINE RETAILER ARIA DAILY TREATMENT INFORMATION Routine 05/31/2023 9:27 AM ONLINE RETAILER ARIA DAILY TREATMENT INFORMATION Routine 05/30/2023 9:48 AM ONLINE RETAILER INITIAL RAD ONC TREATMENT PLANNING CT SIMULATION Routine 05/23/2023 9:30 AM ONLINE RETAILER 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) OUTSIDE MR BODY Routine 04/18/2023 9:35 AM ONLINE RETAILER from Last 3 Months Results * Aria Course Complete Treatment Information (06/05/2023 9:13 AM ONLINE RETAILER) Course ID 1xRectum OTTO ARIA Course Start Date 4 09:14 ONLINE RETAILER OTTO ARIA Course End Date 4 14:45 ONLINE RETAILER OTTO ARIA First Treatment Date 4 09:46 ONLINE RETAILER OTTO ARIA Last Treatment Date 4 09:13 ONLINE RETAILER OTTO ARIA Treatment Elapsed Days 6 OTTO ARIA Reference Point [id number] OTTO ARIA Dosage Given to Date cGy 2500 OTTO ARIA Plan ID [id number] OTTO ARIA Fractions Treated to Date 5 OTTO ARIA Planned Total Fractions 5 OTTO ARIA Prescribed Dose Per Fraction 500 OTTO ARIA Prescription Dose in cGy 2500 OTTO ARIA Plan Primary Reference Point [id number] OTTO ARIA 06/05/2023 9:13 AM ONLINE RETAILER Provider Not In System RADIATION ONCOLOG Y ORDERABLES FAM RANGEL na * Aria Daily Treatment Information (06/05/2023 9:13 AM ONLINE RETAILER) Only the most recent of5 resultswithin the time period is included. Course ID 1xRectum OTTO ARIA Course Start Date 4 09:14 ONLINE RETAILER OTTO ARIA First Treatment Date 4 09:46 ONLINE RETAILER OTTO ARIA Last Treatment Date 4 09:13 ONLINE RETAILER OTTO ARIA Treatment Elapsed Days 6 OTTO ARIA Reference Point [id number] OTTO ARIA Dosage Given to Date cGy 2500 OTTO ARIA Session Dosage Given 500 OTTO ARIA Plan ID [id number] OTTO ARIA Fractions Treated to Date 5 OTTO ARIA Planned Total Fractions 5 OTTO ARIA Prescribed Dose Per Fraction 500 OTTO ARIA Prescription Dose in cGy 2500 OTTO ARIA Plan Primary Reference Point [id number] OTTO ARIA 06/05/2023 9:13 AM ONLINE RETAILER Provider Not In System RADIATION ONCOLOG Y ORDERABLES FAM RANGEL na * Initial Rad Onc Treatment Planning CT Simulation (05/23/2023 9:30 AM ONLINE RETAILER) Narrative OTTO ARIA - 05/23/2023 9:30 AM ONLINE RETAILER Angelika Melendez R, RTT ? 05/23/2023 ??9:46 AM Initial Rad Onc Treatment Planning CT Simulation Performed by: Sosa Nayak M.D. Authorized by: Sosa Nayak M.D. ?? Sosa Nayak M.D. RADIATION ONCOLOG Y ORDERABLES FAM RANGEL na * MR pelvis wo/w con-Outside MR Body (04/18/2023 9:35 AM ONLINE RETAILER) Narrative [facility]IMS - 04/23/2023 10:39 AM ONLINE RETAILER This order has been created and auto-finalized [...]
--- OUTSIDE RECORDS SUMMARY | 2023-07-05 20:33 | XMS_ITS | Encounter Summary ---
Author Name Unknown Organization [facility] Address [address] [place] [address] Care Team Providers Care Supervisor Sandblaster Name Role Phone Unavailable Primary Care Provider Unavailabl e Encounter Details Date Type Department Care Team (Late st Contact Info) Description 06/05/2023 8:51 AM [facility] Hospital Encounter Department of Radiation Oncology in [place], [place] [address] [place] [phone] Sosa Nayak M.D. [address] [place] [address] Social History Tobacco Use Types Packs/Day Years [...] as of this encounter Plan of Treatment Not on file documented as of this encounter Visit Diagnoses Not on filedocumented in this encounter Additional Health Concerns Infection Onset Date Last Indicated Resolved Time Protective Environment 04/23/2023 04/23/2023 documented as of this encounter
--- OUTSIDE RECORDS SUMMARY | 2023-07-05 20:33 | XMS_ITS ---
Author Name Unknown Organization [facility] Address [address] [place] [address] Care Team Providers Care Comb Winder Name Role Phone Unavailable Primary Care Provider Unavailabl e Active Problems Problem Noted Date Diagnosed Date Malignant Neoplasm Of Colon Rectosigmoid Junctio n 04/15/2023 Current Oncology Plans No current plan information found. Past Plans No past plan information found. Radiation Treatments * Plan Last Treated On Elapsed Days Fractions Treated Prescribed Fraction Dose Prescribed Total Dose [id number] 06/05/2023 6 5 of 5 500 cGy 2,500 cGy Reference Point Last Treated On Elapsed Days Session Dose Total Dose [id number] 06/05/2023 6 500 cGy 2,500 cGy
--- OUTSIDE RECORDS SUMMARY | 2023-07-05 20:34 | XMS_ITS | Clinical Summary ---
Author Name Unknown Organization [email or web address] Address [place], [place] [address] Care Team Providers Care Office Machine Technician Name Role Phone Pcp, No Primary Care [...] Documents on File Type Date Recorded Patient Pillow Filler Expl anation Healthcare Directive 04/20/2011 SIGNED - 11/08/2005 Care Teams Office Machine Technician Relationship Specialty Start Date End Date Pcp, No . PCP - General 05/01/23
--- OUTSIDE RECORDS SUMMARY | 2023-07-05 20:34 | XMS_ITS | Encounter Summary ---
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 [address] [place] [address] 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 [address] [place] [address] [facility] Region Referral ID Status Reason Start Date Expiration Date Visits Re quested Visits Authorized [id number] Closed 04/29/2023 04/28/2024 1 1 Encounter Details Date Type Department Care Team (Latest Contact Info) Description 05/23/2023 9:20 AM SEDIMENTATIONIST - 05/23/2023 3:21 PM SEDIMENTATIONIST Hospital Encounter Department of Radiation Oncology in [address] [place] [address] Sosa Nayak M.D. 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 Wireless Technician use:No MENTATIONIST Associated attestation - Sosa Nayak M.D. - 05/23/2023 3:21 PM SEDIMENTATIONIST I was present during all critical and stratton portions of the procedure(s) and immediately available [facility] the entire duration. See note for details. 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 05/23/2023 ??9:46 AM [...]
--- OUTSIDE RECORDS SUMMARY | 2023-07-05 20:34 | XMS_ITS | Encounter Summary ---
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 [address] [place] [phone] [facility] Region Referral ID Status Reason Start Date Expiration Date Visits Re quested Visits Authorized [id number] Closed 04/29/2023 04/28/2024 1 1 ING ROOM CHECKER * Outpatient (Routine) - Closed Specialty Diagnoses / Procedures Referred By Contac t Referred To Contact Radiation Oncology Sosa Nayak M.D. [address] [place] [phone] [facility] Region Referral ID Status Reason Start Date Expiration Date Visits Re quested Visits Authorized [id number] Closed 04/29/2023 04/28/2026 1 1 ING ROOM CHECKER * Outpatient (Routine) - Closed Specialty Diagnoses / Procedures Referred By Contac t Referred To Contact Radiation Oncology Casandra Gutierrez P.A.-C., M.STyler [address] [place] [phone] Sosa Nayak M.D. [address] [place] [phone] Referral ID Status Reason Start Date Expiration Date Visits Re quested Visits Authorized [id number] Closed 04/23/2023 04/22/2026 1 1 Scheduling Instructions YIG to call - afternoon ING ROOM CHECKER Reason for Visit * Outpatient (Routine) - Closed Specialty Diagnoses / Procedures Referred By Contac t Referred To Contact Radiation Oncology Casandra Gutierrez P.A.-C., M.STyler [address] [place] [phone] Sosa Nayak M.D. [address] [place] [address] Referral ID Status Reason Start Date Expiration Date Visits Re quested Visits Authorized [id number] Closed 04/23/2023 04/22/2026 1 1 Encounter Details Date Type Department Care Team (Latest Contact Info) Description 04/29/2023 1:00 PM FITTING ROOM CHECKER - 04/29/2023 5:03 PM FITTING ROOM CHECKER Hospital Encounter Department of Radiation Oncology in [place], [place] [address] [place] [address] Sosa Nayak M.D. 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 04/29/2023 4:57 PM FITTING ROOM CHECKER Radiation Oncology [facility] [address] [place] [address] ING ROOM CHECKER documented in this encounter Plan of Treatment [...] Treatment Planning CT Simulation (05/23/2023 9:30 AM FITTING ROOM CHECKER) Narrative FAM RANGEL - 05/23/2023 9:30 AM FITTING ROOM CHECKER Angelika Melendez, RTT ? 05/23/2023 ??9:46 AM [...]
--- OUTSIDE RECORDS SUMMARY | 2023-07-05 20:34 | XMS_ITS | Encounter Summary ---
Author Name Unknown Organization [facility] Address [address] [place] [address] Care Team Providers Care Coater Carbon Paper Name Role Phone Unavailable Primary Care Provider Unavailabl e Reason for Referral * Outpatient (Routine) - Closed Specialty Diagnoses / Procedures Referred By Contac t Referred To Contact Radiation Oncology Sosa Nayak M.D. [address] [place] [address] [facility] Referral ID Status Reason Start Date Expiration Date Visits Re quested Visits Authorized [id number] Closed 04/29/2023 04/28/2026 1 1 LLATE LAW CLERK Reason for Visit * Outpatient (Routine) - Closed Specialty Diagnoses / Procedures Referred By Kwabena andersen Referred To Contact Radiation Oncology Sosa Nayak M.D. [address] [place] [address] [facility] Referral ID Status Reason Start Date Expiration Date Visits Re quested Visits Authorized [id number] Closed 04/29/2023 04/28/2026 1 1 Encounter Details Date Type Department Care Team (Latest Contact Info) Description 05/23/2023 8:37 AM APPELLATE LAW CLERK - 05/23/2023 9:19 AM APPELLATE LAW CLERK Hospital Encounter Department of Radiation Oncology in [place], [place] [address] [place] [phone] Sosa Nayak M.D. 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 05/23/2023 9:23 AM APPELLATE LAW CLERK [facility] [address] [place] [address] LLATE LAW CLERK Associated attestation - Sosa Nayak M.D. 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 She understood and her questions were answered. We tentatively plan on delivering 2500 cGy in 5 fractions starting May 30, 2023. My thanks to Juan Alberto Bach Lee, and Gisell Murray PA-C for the opportunity [...] by: Sosa Nayak M.D. 05/23/2023 3:10 PM APPELLATE LAW CLERK Radiation Oncology [facility] [address] [place] [address] documented in this encounter Plan of Treatment Scheduled Referrals Name Type Priority Associated Diagnoses [...]
--- OUTSIDE RECORDS SUMMARY | 2023-07-05 20:34 | XMS_ITS | Encounter Summary ---
Author Name Unknown Organization [facility] Address [address] [place] [address] Care Team Providers Care Traveling Passenger Agent Name Role Phone Unavailable Primary Care Provider Unavailabl e Encounter Details Date Type Department Care Team (Latest Contact Info) Description 05/30/2023 9:07 AM SOFTBALL UMPIRE - 05/30/2023 11:59 PM [facility] Hospital Encounter Department of Radiation Oncology in [place], [place] [address] [place] [phone] Sosa Nayak M.D. [address] [place] [address] Discharge Disposition: Home or Self Care Social History Tobacco Use Types Packs/Day Years [...] 0 03/02/2021 documented as of this encounter Plan of Treatment Not on file documented as of this encounter Visit Diagnoses Not on filedocumented in this encounter Additional Health Concerns Infection Onset Date Last Indicated Resolved Time Protective Environment 04/23/2023 04/23/2023 documented as of this encounter
--- OUTSIDE RECORDS SUMMARY | 2023-07-05 20:34 | XMS_ITS | Encounter Summary ---
Author Name Unknown Organization [facility] Address [address] [place] [address] Care Team Providers Care French Edge Operator Name Role Phone Unavailable Primary Care Provider Unavailabl e Encounter Details Date Type Department Care Team (Latest Contact Info) Description 06/04/2023 9:13 AM WIND FIELD SERVICE MANAGER - 06/04/2023 11:59 PM [facility] Hospital Encounter Department of Radiation Oncology in [place], [place] [address] [place] [phone] Sosa Nayak M.D. [address] [place] [address] Discharge Disposition: Home or Self Care Social [...]
--- OUTSIDE RECORDS SUMMARY | 2023-07-05 20:34 | XMS_ITS | Encounter Summary ---
Author Name Unknown Organization [facility] Address [address] [place] [address] Care Team Providers Care Stamp Pad Maker Name Role Phone Unavailable Primary Care Provider Unavailabl e Reason for Referral * Outpatient (Routine) - Closed Specialty Diagnoses / Procedures Referred By Contac t Referred To Contact Radiation Oncology Casandra Gutierrez P.A.-C., M.S. [address] [place] [phone] Sosa Nayak M.D. [address] [place] [phone] Referral ID Status Reason Start Date Expiration Date Visits Re quested Visits Authorized [id number] Closed 04/23/2023 04/22/2026 1 1 Scheduling Instructions YIG to call - afternoon ETCHER Reason for Visit * Appointment Request (Routine) - Closed Specialty Diagnoses / Procedures Referred By Contac t Referred To Contact Radiation Oncology Diagnoses Malignant Neoplasm Of Colon (HCC) Dina Mari M.D. [address] [place] [address] Referral ID Status Reason Start Date Expiration Date Visits Re quested Visits Authorized [id number] Closed 04/02/2023 04/01/2024 1 1 Encounter Details Date Type Department Care Team (Latest Contact Info) Description 04/23/2023 10:17 AM HAND ETCHER - 04/23/2023 4:48 PM HAND ETCHER Hospital Encounter Department of Radiation Oncology in [place], [place] [address] [place] [phone] [address] M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 04/23/2023 4:30 PM [facility] [address] [place] [address] ADDENDUM: We received the report of the MRI pelvis after the patient's visit was completed today. This will be discussed with the patient at her follow-up visits next week. 04/18/23 MRI Pelvis IMPRESSION: Rectal mass located 10 cm above the anal verge. T3 lesion. Mesorectal adenopathy. N2 disease. ETCHER Associated attestation - Sosa Nayak M.D. - 04/23/2023 4:47 PM HAND ETCHER RADIATION ONCOLOGY CONSULT I saw and evaluated the patient and participated in the stratton portions of the service. I reviewed thedocumentation of Ms. Casandra Gutierrez PA-C, and agree with the findings and plan. Please see Ms. Carof's detailed note for the patient's initial presentation and work-up. Briefly, Mrs. 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 My thanks to Juan Alberto Bach Lee, [...]
--- OUTSIDE RECORDS SUMMARY | 2023-07-05 20:34 | XMS_ITS | Encounter Summary ---
Author Name Unknown Organization [facility] Address [address] [place] [address] Care Team Providers Care Electrical Engineer Name Role Phone Unavailable Primary Care Provider Unavailabl e Encounter Details Date Type Department Care Team (Latest Contact Info) Description 06/03/2023 9:10 AM CERTIFIED COATINGS INSPECTOR - 06/03/2023 11:59 PM [facility] Hospital Encounter Department of Radiation Oncology in [place], [place] [address] [place] [phone] Sosa Nayak M.D. [address] [place] [address] Discharge Disposition: Home or Self Care Social [...]
--- OUTSIDE RECORDS SUMMARY | 2023-07-05 20:34 | XMS_ITS | Encounter Summary ---
Author Name Unknown Organization [facility] Address [address] [place] [address] Care Team Providers Care Director Medical Science Name Role Phone Unavailable Primary Care Provider Unavailabl e Encounter Details Date Type Department Care Team (Latest Contact Info) Description 05/31/2023 9:10 AM LINE PRODUCER - 05/31/2023 11:59 PM [facility] Hospital Encounter Department of Radiation Oncology in [place], [place] [address] [place] [phone] Sosa Nayak M.D. [address] [place] [address] Discharge Disposition: Home or Self Care Social [...]
== END 2023-07-05 08:16 | disposition home or self-care (01) ==
LOC: NFLDREF 20:31
PROVIDERS: PCP Physician Assistant Medical; Referring Provider Physician Assistant Medical; Visit Provider Internal Medicine Hematology & Oncology
DX: C18.7 Malignant neoplasm of sigmoid colon (principal); K62.89 Other specified diseases of anus and rectum
CPT/HCPCS: 80053; 82378

== ENCOUNTER 2023-07-18 08:29 | Outpatient (CLI) | payer MEDICARE, SELFPAY ==
--- NOTE | 2023-07-18 09:00 | CT_ITS ---
Patient: LATOYA GAY Facility:?[facility] RIS Patient ID:?[id number] Site Patient ID:?[id number]. Site :?[id number] Study:?CT-Chest/Abd/Pelvis 59CC ISOVUE 370 AND WATER PREP-07/18/2023 9:37:34 AM Ordering Physician:?DR. PABLO Final Report: Indication: FOLLOW UP COLON CANCER Technique: CT Chest/Abd/Pelvis 59CC ISOVUE 370 AND WATER PREP Please note that all CT scans at this facility use dose modulation, iterative reconstruction, and/or weight-based dosing when appropriate to reduce radiation dose to as low as reasonably achievable. Comparison: 02/27/2023 Findings: In the chest, the esophagus is similar in morphology with fluid present distally. Stable appearance of the thoracic inlet including the thyroid gland. No enlarged mediastinal, hilar or axillary lymph nodes. Linear subsegmental scarring is present in both lower lobes. Small calcified pulmonary nodules are present on the right. Stable 3 millimeter nodule within the left upper lobe, series 3, image 32. No infiltrate or edema. No effusion or pneumothorax there is no fracture. No suspicious osseous lesion. In the abdomen, small hypodense lesion is present within the right hepatic lobe measuring 9 millimeters. Other smaller hypodensities are likely similar. These are more conspicuous when compared to prior studies. Right nephrectomy. Gallstone. No biliary obstruction. Pancreas normal. Normal spleen. No adrenal lesion. Extrarenal pelvis regarding the left kidney. Vascular calcifications. No adenopathy. In the pelvis, postop changes of partial colectomy with left lower quadrant peristomal hernia, as before. No bowel obstruction or free air. No free fluid or abscess. Heterogeneous uterus. No adnexal mass. No fracture is present. No suspicious osseous lesion. Impression: 9 millimeter hypodensity within the right hepatic lobe appears more conspicuous compared to prior studies. Other smaller hypodensities are probably similar. MRI liver recommended for further evaluation. Stable tiny pulmonary nodules. Stable postop changes. Please note that all CT scans at this facility use dose modulation, iterative reconstruction, and/or weight-based dosing when appropriate to reduce radiation dose to as low as reasonably achievable. Dictated by Francisco Carson MD @ 07/18/2023 12:00:44 PM Signed by: Francisco Carson @ 07/18/2023 12:00:44 PM (Electronic Signature) ----ADDENDUM---- Addendum: Improved appearance of the distal colonic mucosa. Lymph nodes are also decreased in conspicuity within the pelvis compared to the prior study. FRANCISCO CARSON M.D. Diagnostic Radiologist [email or web address]/[email or web address] D& Transcribed: 12:18 p.m. Signed by:?Francisco Carson MD @07/18/2023 1:46:51 PM (Electronic Signature)
== END 2023-07-18 08:30 | disposition home or self-care (01) ==
LOC: CT 08:30
PROVIDERS: PCP Physician Assistant Medical; Visit Provider Internal Medicine Hematology & Oncology
DX: C18.9 Malignant neoplasm of colon, unspecified (principal); K76.9 Liver disease, unspecified; R91.8 Other nonspecific abnormal finding of lung field
CPT/HCPCS: 71260; 74177; Q9967

== ENCOUNTER 2023-07-31 08:17 | Outpatient (CLI) | payer MEDICARE, SELFPAY | END 2023-07-31 08:18 | disposition home or self-care (01) | LOC: NFLDREF 08-09 12:19 | PROVIDERS: PCP Physician Assistant Medical; Referring Provider Physician Assistant Medical; Visit Provider Internal Medicine Hematology & Oncology | DX: C18.7 Malignant neoplasm of sigmoid colon (principal) | CPT/HCPCS: 80053; 82378 ==

== ENCOUNTER 2023-08-02 08:04 | Outpatient (CLI) | payer MEDICARE, SELFPAY ==
--- NOTE | 2023-08-02 08:15 | MR_ITS ---
Patient: LATOYA GAY Facility:?[facility] Patient ID:?[id number] Site Patient ID:?[id number]. Site :?[id number] Study:?MRI-Abdomen W/ and W/O Cont 15 CC DOTAREM LIVER-08/02/2023 10:38:24 AM Ordering Physician:DUSTY COOPER Final Report: INDICATION: Colon cancer ; liver lesion; further assessment. COMPARISON: CT abdomen and pelvis 07/04/2022, 10/30/2022, 02/27/2023 and 07/18/2023. TECHNIQUE: Precontrast T1 and T2 weighted imaging; T2 haste imaging; diffusion-weighted imaging; in and out of phase imaging; postcontrast imaging; 15 cc Dotarem contrast was injected. FINDINGS: A 1.5 cm lesion identified in segment 4B highly concerning for metastatic deposit. A sub cm cyst in segment 3 of the liver. No other focal hepatic or splenic pathology. No pancreatic pathology. Gallstone. No adrenal pathology. Post right nephrectomy. No retroperitoneal lymphadenopathy. Colostomy with parastomal hernia in the left lower quadrant of the abdomen. IMPRESSION: 1. A 1.5 cm lesion in segment 4 B; highly concerning for metastatic disease of the liver; this can be biopsied under ultrasound or CT guidance for histological diagnosis. 2. Gallstone 3. Small cyst segment 3 of the liver. 4. Status post right nephrectomy. 5. Colostomy with a parastomal hernia left lower quadrant of the abdomen. Dictated by Leticia Leal MD @ 08/03/2023 1:58:24 PM Signed by:?Leticia Leal MD @08/03/2023 1:58:24 PM (Electronic Signature)
== END 2023-08-02 08:05 | disposition home or self-care (01) ==
PROVIDERS: PCP Physician Assistant Medical; Visit Provider Internal Medicine Hematology & Oncology
DX: C18.9 Malignant neoplasm of colon, unspecified (principal); K76.9 Liver disease, unspecified; K80.20 Calculus of gallbladder without cholecystitis without obstruction; K76.89 Other specified diseases of liver
CPT/HCPCS: 74183; A9575

== ENCOUNTER 2023-08-13 09:30 | Outpatient (RCR) | payer MEDICARE, SELFPAY ==
[2023-04-02 10:37] LABS: Basophils Absolute Auto 0.01 K/uL (0.00-0.30); Basophils Percent Auto 0.2 % (0.0-3.0); Hematocrit 40.3 % (33.0-51.0); Hemoglobin* 12.5 gm/dL (12.0-16.0); Immature Granulocytes Abs Auto 0.01 K/uL (0.00-0.30); Immature Granulocytes Pct Auto 0.2 %; Lymphocytes Absolute Auto 1.16 K/uL (0.90-2.90); Lymphocytes Percent Auto 20.8 % (20-44); Mean Corpuscular HGB Conc 31 gm/dL (32-36); Mean Corpuscular Hemoglobin 31 pg (26-34); Mean Corpuscular Volume 99 fL (80-100); Monocytes Percent Auto 8.8 % (0.0-11.0); Neutrophils Absolute Auto 3.91 K/uL (1.7-7.0); Platelet Count* 224 K/uL (140-440); Red Blood Count 4.06 m/uL (4.00-5.20); White Blood Count* 5.58 K/uL (4.50-11.00)
[2023-04-02 10:38] LABS: Slide Review Reflex No
[2023-04-02 10:41] LABS: Albumin* 4.6 g/dL (3.3-5.0); Chloride* 105 mmol/L (96-114); Potassium* 4.2 mmol/L (3.6-5.1); Sodium* 142 mmol/L (135-149)
[2023-04-02 10:44] LABS: Alanine Aminotransferase* 17 U/L (4-35); Alkaline Phosphatase* 83 U/L (40-150); Anion Gap 11 mEq/L (7-15); Aspartate Amino Transferase* 30 U/L (12-35); Bilirubin Total* 0.5 mg/dL (0.1-1.5); Blood Urea Nitrogen* 22 mg/dL (7-30); Carbon Dioxide* 26 mmol/L (20-32); Creatinine* 0.8 mg/dL (0.5-1.5); Estimated Glomerular Filt Rate 73 ml/min; Glucose* 115 mg/dL (60-115); Total Protein* 7.9 g/dL (6.0-8.3)
[2023-04-02 10:45] LABS: Calcium* 10.1 mg/dL (8.4-10.6)
[2023-04-04 12:57] LABS: Carcinoembryonic Antigen 5.5 ng/mL
--- NOTE | 2023-07-01 12:53 | ONC.NURNOTE ---
abstract writer phoned Juan to schedule monthly lab draw upcoming appts CT 07/18/23 and Kamaljit 07/22/23 patient was expecting to get lab on 07/22/23 abstract writer explained that she is due for her monthly lab for capecitabine monitoring and will also need lab within [address] scan options given to get lab before CT on 07/18/23 or in [place] at any time between now and 07/17/23 patient expressed some confusion about the plan as this is different that what she was told at her appt but decided that she will come in later this week or early next week to [place] for lab she was told that she will not need additional lab when she sees Dr Mari on 07/22/23
--- NOTE | 2023-08-01 10:55 | ONC.NURNOTE ---
Labs reviewed by this nurse as stable, called to Lore she is due to start her week on of capecitabine today reviewed dosing and denies any adverse effects- hands/feet without redness, tenderness or pain, no watery stools, no pain swallowing next appts reviewed
--- NOTE | 2023-09-02 15:01 | ONC.NURNOTE ---
Patients daughter called stating patient is having a liver ablation down at [place] on 09/16 and would like to reschedule her appointment to 10/06. This change was made.
== END 2023-09-02 23:59 | disposition home or self-care (01) ==
LOC: CCIC 09:30
PROVIDERS: PCP Physician Assistant Medical; Referring Provider Physician Assistant Medical; Visit Provider Internal Medicine Hematology & Oncology
DX: C18.7 Malignant neoplasm of sigmoid colon (principal); I10 Essential (primary) hypertension; Z93.3 Colostomy status
CPT/HCPCS: 36415; 80053; 82378; 85025; 99212; 99214; 99215; G0463

== ENCOUNTER 2023-09-05 08:27 | Outpatient (CLI) | payer MEDICARE, SELFPAY ==
--- OUTSIDE RECORDS SUMMARY | 2023-09-06 07:10 | XMS_ITS | Referral Summary ---
Author Name Unknown Organization [facility] Address [address] [place] [address] Care Team Providers Care Track Fitter Name Role Phone Unavailable Primary Care Provider Unavailabl e Source Comments Patient records contain information from all sites at [facility]. For routine questions regarding patient records, call [phone] during business hours, M-F 8:00 AM - 5:00 PM Central Time. Record requests for emergency care only can be directed to [phone] at any time.[facility] Encounters Date Type Department Care Team Description 09/05/2023 Orders Only Department of Radiology, [facility] in [address] [address] Rikki Bowers, R.N. 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 09/02/2023 Orders Only Department of Radiology, [facility], in [address] [address] Skye Mohan R.N., C.M.S.R.N. 09/02/2023 Orders Only Department of Radiology, [facility], in [address] [phone] Skye Mohan R.N., C.M.S.R.N. 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 Preoperative Exam (Primary Dx) 09/02/2023 Clinical Communication Department of Radiation Oncology in [place], [place] [address] [place] [address] Mandie Cruz APRN C.N.P., D.N.P. 09/02/2023 Orders Only Department of Radiology, [facility] in [place], [place] [address] [place] [phone] Skye Mohan R.N., C.M.S.R.N. 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 Loga, Laura A, APRN, C.N.P., M.S.N. Gonzalez Garcia M.D. 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 Pre-Ablation 08/13/2023 Orders Only Department of Oncology in [place], [place] [address] [place] [address] Dina Mari M.D. Malignant Neoplasm [...] Comments Blood Pressure 138/59 06/05/2023 9:29 AM CLAIMS ASSOCIATE Pulse 93 06/05/2023 9:29 AM CLAIMS ASSOCIATE Temperature 36.1 ??C (97 ??F) 06/05/2023 9:29 AM CLAIMS ASSOCIATE Respiratory Rate - - Oxygen Saturation - - Inhaled Oxygen Concentration - - Weight 56.8 kg (125 lb 3.5 oz) 06/05/2023 9:29 A M CLAIMS ASSOCIATE Height - - Body Mass Index - - Plan of Treatment Upcoming Encounters Date Type Department Care Team (Late st Contact Info) Description 09/17/2023 8:00 AM CDT Appointment Department of Radiology in [address] [address] Gonzalez Garcia M.D. 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
--- OUTSIDE RECORDS SUMMARY | 2023-09-06 07:10 | XMS_ITS | Encounter Summary ---
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 [address] [place] [phone] [facility] Referral ID Status Reason Start Date Expiration Date V isits Requested Visits Authorized [id number] Authorized 09/02/2023 03/03/2025 1 1 Encounter Details Date Type Department Care Team (Late st Contact Info) Description 09/02/2023 Orders Only Department of Radiology, [facility], in [place], [place] [address] [place] [address] Skye Mohan RVi, C.M.S.R.N. 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 [address] [place] [phone] 09/18/2023 9:30 AM CDT Virtual Visit Department of Radiology, [facility], in [place], [place] [address] [place] [phone] Dania Hemphill P.A.-C. [address] [place] [phone] Scheduled Referrals Name Type Priority Associated Diagnoses [...]
--- OUTSIDE RECORDS SUMMARY | 2023-09-06 07:10 | XMS_ITS | Encounter Summary ---
Author Name Unknown Organization 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 [address] [place] [address] [facility] Referral ID Status Reason Start Date Expiration Date Visits Re quested Visits Authorized [id number] Closed 08/15/2023 08/14/2024 1 1 Encounter Details Date Type Department Care Team (Latest Contact Info) Description 09/02/2023 11:00 AM CDT - 09/02/2023 11:59 PM CDT Hospital Encounter Department of Radiology, [facility] in [place], [place] [address] [place] [phone] Gonzalez Garcia M.D. 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 [address] [place] [phone] 09/18/2023 9:30 AM CDT Virtual Visit Department of Radiology, [facility], in [place], [place] [address] [place] [phone] Dania Hemphill P.A.-C. [address] [place] [phone] documented as of this encounter Procedures Procedure [...]
--- OUTSIDE RECORDS SUMMARY | 2023-09-06 07:10 | XMS_ITS | Encounter Summary ---
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 [address] [place] [address] [facility] Referral ID Status Reason Start Date Expiration Date Visits Re quested Visits Authorized [id number] Closed 08/13/2023 02/11/2025 1 1 Encounter Details Date Type Department Care Team (Latest Contact Info) Description 09/02/2023 12:00 PM CDT Comprehensive Visit Department of Radiology, Located Within [facility], in [place], [place] [address] [place] [phone] Dina Mari M.D. [address] [place] [address] Eleonora Briscoe APRN, C.N.P., M.S.N. [address] [place] [phone] Gonzalez Garcia M.D. 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 Mari Approving provider: Dr. Menon/Reviewed again today with Dr. Garcia We discussed [...] the patient stay at local lodging with personal care service provider present the evening post procedure. CONSENT: Discussed [...] patient please call the Ablation Nurses at [phone] Saturday through Saturday 7 a.m. to 5 [...] AM CDT Appointment Department of Radiology in [address] [phone] Gonzalez Garcia M.D. [address] [place] [phone] 09/18/2023 9:30 AM CDT Virtual Visit Department of Radiology, Located [facility], in [address] [phone] Dania Hemphill P.A.-C. 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
--- OUTSIDE RECORDS SUMMARY | 2023-09-06 07:10 | XMS_ITS ---
Author Name Unknown Organization [facility] Address [address] [place] [address] Care Team Providers Care Button Sawyer Name Role Phone Unavailable Primary Care Provider Unavailabl e Active Problems Problem Noted Date Diagnosed Date Hypertension Essential Primary 09/02/2023 Malignant Neoplasm Of Colon Rectosigmoid Junctio n 04/15/2023 Current Oncology Plans No current plan information found. Past Plans No past plan information found. Radiation Treatments * Plan Last Treated On Elapsed Days Fractions Treated Prescribed Fraction Dose Prescribed Total Dose [id number] 06/05/2023 6 5 of 5 500 cGy 2,500 cGy Reference Point Last Treated On Elapsed Days Session Dose Total Dose [id number] 06/05/2023 6 500 cGy 2,500 cGy
--- OUTSIDE RECORDS SUMMARY | 2023-09-06 07:10 | XMS_ITS | Encounter Summary ---
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 [address] [place] [address] [facility] Referral ID Status Reason Start Date Expiration Date V isits Requested Visits Authorized [id number] Authorized 08/19/2023 02/17/2025 1 1 Scheduling Instructions Case reviewed with Dr Anthony Mendes. Thanks. Encounter Details Date Type Department Care Team (Late st Contact Info) Description 08/19/2023 Orders Only Department of Oncology in [place], [place] [address] [place] [phone] Dina Mari M.D. [address] [place] [address] Malignant Neoplasm Of Colon Rectosigmoid [...] AM CDT Appointment Department of Radiology in [address] [phone] Gonzalez Garcia M.D. [address] [place] [phone] 09/18/2023 9:30 AM CDT Virtual Visit Department of Radiology, [facility], in [address] [address] Dania Hemphill, PGloria [address] [place] [phone] Scheduled Referrals Name Type Priority Associated Diagnoses [...]
--- OUTSIDE RECORDS SUMMARY | 2023-09-06 07:10 | XMS_ITS | Encounter Summary ---
Author Name Unknown Organization [facility] Address [address] [place] [address] Care Team Providers Care Biomedical Engineering Supervisor Name Role Phone Unavailable Primary Care Provider Unavailabl e Encounter Details Date Type Department Care Team (Late st Contact Info) Description 06/05/2023 Documentation Department of Radiation Oncology in [place], [place] [address] [place] [phone] Sosa Nayak M.D. [address] [place] [address] Social History Tobacco Use Types Packs/Day Years [...] (cGy) First Treatment Last Treatment Elapsed Days [id number] 5 / 5 500 2500 2500 05/30/2023 [...] by: Zara Cope R.N., 06/18/2023 2:29 PM RESEARCH PROFESSOR OF BIOSTATISTICS [facility] [address] [place], [place] [phone] ARCH PROFESSOR OF BIOSTATISTICS documented in this encounter Plan of Treatment Upcoming Encounters Date Type Department Care Team (Late st Contact Info) Description 09/17/2023 8:00 AM CDT Appointment Department of Radiology in [address] [phone] Gonzalez Garcia M.D. 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
--- OUTSIDE RECORDS SUMMARY | 2023-09-06 07:10 | XMS_ITS | Encounter Summary ---
Author Name Unknown Organization [facility] Address [address] [place] [address] Care Team Providers Care Director Of Informatics Name Role Phone Unavailable Primary Care Provider Unavailabl e Reason for Visit * Reason Onset Date Comments Pre-Ablation 08/13/2023 Encounter Details Date Type Department Care Team (Late st Contact Info) Description 08/13/2023 Clinical Communication Department of Radiology in [address] [phone] Skye Mohan R.N., C.M.S.R.N. [address] [place] [phone] Pre-Ablation Social History Tobacco Use Types Packs/Day [...] CDT Appointment Department of Radiology in [address] [phone] Gonzalez Garcia M.D. [address] [place] [phone] 09/18/2023 9:30 AM CDT Virtual Visit Department of Radiology, [facility] in [place], [place] [address] [place] [address] Dania Hemphill P.A.-Samantha. [address] [place] [address] documented as of this encounter Visit Diagnoses Not on filedocumented in this encounter Additional Health Concerns Infection Onset Date Last Indicated Resolved Time Protective Environment 04/23/2023 04/23/2023 documented as of this encounter
--- OUTSIDE RECORDS SUMMARY | 2023-09-06 07:10 | XMS_ITS | Encounter Summary ---
Author Name Unknown Organization [facility] Address [address] [place] [address] Care Team Providers Care Contract Serviceman Name Role Phone Unavailable Primary Care Provider Unavailabl e Encounter Details Date Type Department Care Team (Late st Contact Info) Description 09/05/2023 Orders Only Department of Radiology, [facility] in [address] [address] Rikki Bowers R.N. 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 [address] [place] [phone] 09/18/2023 9:30 AM CDT Virtual Visit Department of Radiology, [facility], in [address] [place] [address] Dania Hemphill P.A.-C. [address] [place] [address] Scheduled Orders Name Type Priority Associated Diagnoses [...]
--- OUTSIDE RECORDS SUMMARY | 2023-09-06 07:10 | XMS_ITS | Encounter Summary ---
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 [address] [place] [address] [facility] Referral ID Status Reason Start Date Expiration Date V isits Requested Visits Authorized [id number] Authorized 08/13/2023 02/11/2025 [address] Tim Jensen Plmalik call daughter at [phone] Encounter Details Date Type Department Care Team (Late Contact Info) Description 08/13/2023 Orders Only Department of Oncology in [place], [place] [address] [place] [phone] Dina Mari M.D. 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 [address] [place] [phone] 09/18/2023 9:30 AM CDT Virtual Visit Department of Radiology, [facility], in [address] [address] Dania Hemphill P.A.-C. [address] [place] [phone] Scheduled Referrals Name Type Priority Associated Diagnoses [...]
--- OUTSIDE RECORDS SUMMARY | 2023-09-06 07:10 | XMS_ITS | Encounter Summary ---
Author Name Unknown Organization [facility] Address [address] [place] [address] Care Team Providers Care Carbon Furnace Operator Helper Name Role Phone Unavailable Primary Care Provider Unavailabl e Encounter Details Date Type Department Care Team (Late st Contact Info) Description 09/02/2023 Orders Only Preoperative Evaluation Center in [place], [place] [address] [place] [address] Dania Watt APRN, C.N.P., D.N.P. [address] [place] [phone] Preoperative Exam (Primary Dx) Social History Tobacco [...] AM CDT Appointment Department of Radiology in [place], [place] [address] [place] [address] Gonzalez Garcia M.D. [address] [place] [phone] 09/18/2023 9:30 AM CDT Virtual Visit Department of Radiology, [facility], in [place], [place] [address] [place] [address] Dania Hemphill P.A.-C. [address] [place] [address] Scheduled Orders Name Type Priority Associated Diagnoses [...]
--- OUTSIDE RECORDS SUMMARY | 2023-09-06 07:10 | XMS_ITS ---
Author Name Unknown Organization [facility] Address [address] [place] [address] Care Team Providers Care Management Planner Name Role Phone Unavailable Unavailable Unavailable Surgery Details Not on file Complications Check Surgery Details section. Procedure Estimated Blood Loss Check Surgery Details section. Procedure Findings Check Surgery Details section. Procedure Specimens Taken Check Surgery Details section.
--- OUTSIDE RECORDS SUMMARY | 2023-09-06 07:10 | XMS_ITS | Encounter Summary ---
Author Name Unknown Organization [facility] Address [address] [place] [address] Care Team Providers Care Registered Clinical Dietitian Name Role Phone Unavailable Primary Care Provider Unavailabl e Encounter Details Date Type Department Care Team ([facility] st Contact Info) Description 09/02/2023 Clinical Communication Department of Radiation Oncology in [place], [place] [address] [place] [phone] Mandie Cruz APRN, C.N.P., D.N.P. [address] [place] [phone] Social History Tobacco Use Types Packs/Day Years [...] or concerns. * Telephone Encounter - Mandie Cruz APRN, [...] to discuss this at her phone number: [phone]. Thank you, Eric Bobo Radiation Oncology documented in this encounter Plan of Treatment Upcoming Encounters Date Type Department Care Team (Late st Contact Info) Description 09/17/2023 8:00 AM CDT Appointment Department of Radiology in [place], [place] [address] [place] [phone] Gonzalez Garcia M.D. [address] [place] [address] 09/18/2023 9:30 AM CDT Virtual Visit Department of Radiology, [facility], in [place], [place] [address] [place] [address] Dania Hemphill P.A.-C. [address] [place] [address] documented as of this encounter Visit Diagnoses Not on filedocumented in this encounter Additional Health Concerns Infection Onset Date Last Indicated Resolved Time Protective Environment 04/23/2023 04/23/2023 documented as of this encounter
--- OUTSIDE RECORDS SUMMARY | 2023-09-06 07:10 | XMS_ITS | Encounter Summary ---
Author Name Unknown Organization [facility] Address [address] [place] [address] Care Team Providers Care Livestock Farm Manager Name Role Phone Unavailable Primary Care Provider Unavailabl e Encounter Details Date Type Department Care Team (Late Contact Info) Description 09/04/2023 Clinical Communication Department of Radiology in [address] [address] Skye Mohan R.N., C.M.S.R.N. [address] [place] [phone] Social History Tobacco Use Types Packs/Day Years [...] AM CDT Appointment Department of Radiology in [address] [phone] Gonzalez Garcia M.D. [address] [place] [phone] 09/18/2023 9:30 AM CDT Virtual Visit Department of Radiology, [facility], in [address] [phone] Dania Hemphill P.A.-C. [address] [place] [address] documented as of this encounter Visit Diagnoses Not on filedocumented in this encounter Additional Health Concerns Infection Onset Date Last Indicated Resolved Time Protective Environment 04/23/2023 04/23/2023 documented as of this encounter
--- OUTSIDE RECORDS SUMMARY | 2023-09-06 07:10 | XMS_ITS | Encounter Summary ---
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 [address] [place] [phone] [facility] Referral ID Status Reason Start Date Expiration Date Visits Re quested Visits Authorized [id number] Closed 08/15/2023 08/14/2024 1 1 Encounter Details Date Type Department Care Team (Late st Contact Info) Description 08/15/2023 Orders Only Department of Radiology, [facility], in [place], [place] [address] [place] [phone] Skye Mohan RVi, C.M.S.R.N. 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 [address] [place] [phone] 09/18/2023 9:30 AM CDT Virtual Visit Department of Radiology, [facility], in [place], [place] [address] [place] [phone] Dania Hemphill P.A.-C. [address] [place] [phone] documented as of this encounter Results * [...]
--- OUTSIDE RECORDS SUMMARY | 2023-09-06 07:10 | XMS_ITS | Clinical Summary ---
Author Name Unknown Organization [facility] Address [address] [place] [address] Care Team Providers Care Die Storage Worker Name Role Phone Unavailable Primary Care Provider Unavailabl e Source Comments Patient records contain information from all sites at [facility]. For routine questions regarding patient records, call [phone] during business hours, M-F 8:00 AM - 5:00 PM Central Time. Record requests for emergency care only can be directed to [phone] at any time.[facility] Allergies Active Allergy Reactions Criticality Noted Date [...] Description 09/05/2023 Orders Only Department of Radiology, [address] [phone] Rikki Bowers R.N. 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 09/02/2023 12:00 PM CDT Comprehensive Visit Department of Radiology, [address] [phone] Dina Mari M.D. Loga, Laura A, APRN C.N.P., M.S.N. Gonzalez Garcia M.D. 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 09/02/2023 Orders Only Department of Radiology, [facility], in [address] [phone] Skye Mohan R.N., C.M.S.R.N. 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 Preoperative Exam (Primary Dx) 09/02/2023 Clinical Communication Department of Radiation Oncology in [place], [place] [address] [place] [phone] Mandie Cruz APRN, C.N.P., D.N.P. 09/02/2023 Orders Only Department of Radiology, [facility], in [address] [phone] Skye Mohan R.N., C.M.S.R.N. 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 Pre-Ablation 08/13/2023 Orders Only Department of Oncology in [place], [place] [address] [place] [phone] Dina Mari M.D. Malignant Neoplasm Of Colon [...] Comments Blood Pressure 138/59 06/05/2023 9:29 AM INGREDIENT SCALER HELPER Pulse 93 06/05/2023 9:29 AM INGREDIENT SCALER HELPER Temperature 36.1 ??C (97 ??F) 06/05/2023 9:29 AM INGREDIENT SCALER HELPER Respiratory Rate - - Oxygen Saturation - - Inhaled Oxygen Concentration - - Weight 56.8 kg (125 lb 3.5 oz) 06/05/2023 9:29 A M INGREDIENT SCALER HELPER Height - - Body Mass Index - - Plan of Treatment Upcoming Encounters Date Type Department Care Team (Late st Contact Info) Description 09/17/2023 8:00 AM CDT Appointment Department of Radiology in [address] [phone] Gonzalez Garcia M.D. [address] [place] [phone] 09/18/2023 9:30 AM CDT Virtual Visit Department of Radiology, [facility], in [address] [phone] Dania Hemphill PTylerASusieCTyler [address] [place] [phone] Health Maintenance Due Date Last Done Comments [...] OUTSIDE CT BODY Routine 07/18/2023 9:10 AM INGREDIENT SCALER HELPER from Last 3 Months Results * US [...] IMG MRI PROCEDURE S Performing Organization Address [facility] Co de Phone Number IIMS NA * CT chest abdomen pelv w con-Outside CT Body (07/18/2023 9:10 AM INGREDIENT SCALER HELPER) Narrative [facility] - 08/14/2023 4:09 PM CDT This order [...] System IMG CT PROCEDURES Performing Organization Address [facility] Co de Phone Number IIMS NA from Last 3 Months Additional Health Concerns Infection Onset Date Last Indicated Protective Environment 04/23/2023 3
--- OUTSIDE RECORDS SUMMARY | 2023-09-06 07:10 | XMS_ITS | Encounter Summary ---
Author Name Unknown Organization [facility] Address [address] [place] [address] Care Team Providers Care Cloth Neutralizer Name Role Phone Unavailable Primary Care Provider Unavailabl e Reason for Referral * MRI/CAT/PET Scan (Routine) - Authorized Specialty Diagnoses / Procedures Referred By Kwabena andersen Referred To Contact Radiology Diagnoses Lesion Liver Procedures CT Abdomen Ablation Gonzalez Garcia M.D. [address] [place] [phone] [facility] Referral ID Status Reason Start Date Expiration Date V isits Requested Visits Authorized [id number] Authorized 09/02/2023 09/01/2024 1 1 * Outpatient (Routine) - Authorized Specialty Diagnoses / Procedures Referred By Kwabena andersen Referred To Contact Diagnoses Lesion Liver Procedures US Assisted Guidance Gonzalez Garcia M.D. [address] [place] [phone] [facility] Referral ID Status Reason Start Date Expiration Date V isits Requested Visits Authorized [id number] Authorized 09/02/2023 09/01/2024 1 1 Encounter Details Date Type Department Care Team (Late st Contact Info) Description 09/02/2023 Orders Only Department of Radiology, [facility], in [place], [place] [address] [place] [phone] Skye Mohan R.N., C.M.S.R.N. 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 [address] [place] [phone] 09/18/2023 9:30 AM CDT Virtual Visit Department of Radiology, [facility], in [address] [phone] Dania Hemphill, PTylerASusieCTyler [address] [place] [phone] Scheduled Orders Name Type Priority Associated Diagnoses [...]
--- OUTSIDE RECORDS SUMMARY | 2023-09-06 07:10 | XMS_ITS | Encounter Summary ---
Author Name Unknown Organization [facility] Address [address] [place] [address] Care Team Providers Care Corn Husker Name Role Phone Unavailable Primary Care Provider Unavailabl e Reason for Referral * Outpatient (Routine) - Authorized Specialty Diagnoses / Procedures Referred By Kwabena t Referred To Contact Radiology Dania Hemphill P.A.-C. [address] [place] [phone] [facility] Referral ID Status Reason Start Date Expiration Date V isits Requested Visits Authorized [id number] Authorized 09/02/2023 03/03/2025 1 1 Encounter Details Date Type Department Care Team (Late st Contact Info) Description 09/02/2023 Orders Only Department of Radiology, [facility], in [place], [place] [address] [place] [phone] Skye Mohan R.N., C.M.S.R.N. [address] [place] [phone] Social History Tobacco Use Types Packs/Day Years [...] AM CDT Appointment Department of Radiology in [address] [phone] Gonzalez Garcia M.D. [address] [place] [phone] 09/18/2023 9:30 AM CDT Virtual Visit Department of Radiology, [facility], in [address] [phone] Dania Hemphill P.A.-C. [address] [place] [phone] Scheduled Referrals Name Type Priority Associated Diagnoses Order Schedule Interventional Radiology office visit (clinic) Outpatient Referral Routine Expected: 09/18/2023, Expires: 12/01/2024 documented as of this encounter Visit Diagnoses Not on filedocumented in this encounter Additional Health Concerns Infection Onset Date Last Indicated Resolved Time Protective Environment 04/23/2023 04/23/2023 documented as of this encounter
--- OUTSIDE RECORDS SUMMARY | 2023-09-06 07:11 | XMS_ITS | Encounter Summary ---
Author Name Unknown Organization [facility] Address [address] [place] [address] Care Team Providers Care Subscription Agent Name Role Phone Unavailable Primary Care Provider Unavailabl e Encounter Details Date Type Department Care Team (Latest Contact Info) Description 06/03/2023 9:10 AM SENSITOMETRIST - 06/03/2023 11:59 PM SENSITOMETRIST Hospital Encounter Department of Radiation Oncology in [place], [place] [address] [place] [phone] Sosa Nayak M.D. [address] [place] [phone] Discharge Disposition: Home or Self Care Social [...] CDT Appointment Department of Radiology in [address] [phone] Gonzalez Garcia M.D. [address] [place] [phone] 09/18/2023 9:30 AM CDT Virtual Visit Department of Radiology, [facility], in [address] [phone] Dania Hemphill, PTylerADarling [address] [place] [phone] documented as of this encounter Visit Diagnoses Not on filedocumented in this encounter Additional Health Concerns Infection Onset Date Last Indicated Resolved Time Protective Environment 04/23/2023 04/23/2023 documented as of this encounter
--- OUTSIDE RECORDS SUMMARY | 2023-09-06 07:11 | XMS_ITS | Encounter Summary ---
Author Name Unknown Organization [facility] Address [address] [place] [address] Care Team Providers Care Cnc Mill And Lathe Operator Name Role Phone Unavailable Primary Care Provider Unavailabl e Encounter Details Date Type Department Care Team (Latest Contact Info) Description 05/31/2023 9:10 AM FINANCE MGR - 05/31/2023 11:59 PM [facility] Hospital Encounter Department of Radiation Oncology in [place], [place] [address] [place] [phone] Sosa Nayak M.D. [address] [place] [phone] Discharge Disposition: Home or Self Care Social [...] CDT Appointment Department of Radiology in [address] [phone] Gonzalez Garcia M.D. [address] [place] [phone] 09/18/2023 9:30 AM CDT Virtual Visit Department of Radiology, [facility], in [address] [phone] Dania Hemphill, PTylerADarling [address] [place] [phone] documented as of this encounter Visit Diagnoses Not on filedocumented in this encounter Additional Health Concerns Infection Onset Date Last Indicated Resolved Time Protective Environment 04/23/2023 04/23/2023 documented as of this encounter
--- OUTSIDE RECORDS SUMMARY | 2023-09-06 07:11 | XMS_ITS | Encounter Summary ---
Author Name Unknown Organization [facility] Address [address] [place] [address] Care Team Providers Care Crime Victim Specialist Name Role Phone Unavailable Primary Care Provider Unavailabl e Encounter Details Date Type Department Care Team (Latest Contact Info) Description 05/30/2023 9:07 AM BAND HEAD SAW OPERATOR - 05/30/2023 11:59 PM BAND HEAD SAW OPERATOR Hospital Encounter Department of Radiation Oncology in [place], [place] [address] [place] [phone] Sosa Nayak M.D. [address] [place] [phone] Discharge Disposition: Home or Self Care Social [...] AM CDT Appointment Department of Radiology in [address] [phone] Gonzalez Garcia M.D. [address] [place] [phone] 09/18/2023 9:30 AM CDT Virtual Visit Department of Radiology, [facility], in [address] [phone] Dania Hemphill, PTylerADarling [address] [place] [phone] documented as of this encounter Visit Diagnoses Not on filedocumented in this encounter Additional Health Concerns Infection Onset Date Last Indicated Resolved Time Protective Environment 04/23/2023 04/23/2023 documented as of this encounter
--- OUTSIDE RECORDS SUMMARY | 2023-09-06 07:11 | XMS_ITS | Encounter Summary ---
Author Name Unknown Organization [facility] Address [address] [place] [address] Care Team Providers Care Change Management Manager Name Role Phone Unavailable Primary Care Provider Unavailabl e Encounter Details Date Type Department Care Team (Latest Contact Info) Description 06/04/2023 9:13 AM COMMISSION CLERK - 06/04/2023 11:59 PM COMMISSION CLERK Hospital Encounter Department of Radiation Oncology in [place], [place] [address] [place] [phone] Sosa Nayak M.D. [address] [place] [phone] Discharge Disposition: Home or Self Care Social [...] AM CDT Appointment Department of Radiology in [address] [phone] Gonzalez Garcia M.D. [address] [place] [phone] 09/18/2023 9:30 AM CDT Virtual Visit Department of Radiology, [facility], in [address] [phone] Dania Hemphill, PTylerADarling [address] [place] [phone] documented as of this encounter Visit Diagnoses Not on filedocumented in this encounter Additional Health Concerns Infection Onset Date Last Indicated Resolved Time Protective Environment 04/23/2023 04/23/2023 documented as of this encounter
--- OUTSIDE RECORDS SUMMARY | 2023-09-06 07:11 | XMS_ITS | Encounter Summary ---
Author Name Unknown Organization [facility] Address [address] [place] [address] Care Team Providers Care Hydrogen Braze Furnace Operator Name Role Phone Unavailable Primary Care Provider Unavailabl e Encounter Details Date Type Department Care Team (Latest Contact Info) Description 06/05/2023 8:51 AM [facility] Hospital Encounter Department of Radiation Oncology in [place], [place] [address] [place] [phone] Sosa Nayak M.D. [address] [place] [address] Discharge Disposition: Home or Self Care Social [...] AM CDT Appointment Department of Radiology in [address] [phone] Gonzalez Garcia M.D. [address] [place] [phone] 09/18/2023 9:30 AM CDT Virtual Visit Department of Radiology, [facility], in [address] [phone] Dania Hemphill P.A.-C. [address] [place] [phone] documented as of this encounter Visit Diagnoses Not on filedocumented in this encounter Additional Health Concerns Infection Onset Date Last Indicated Resolved Time Protective Environment 04/23/2023 04/23/2023 documented as of this encounter
--- OUTSIDE RECORDS SUMMARY | 2023-09-06 07:11 | XMS_ITS | Encounter Summary ---
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 [address] [place] [address] [facility] Region Referral ID Status Reason Start Date Expiration Date V isits Requested Visits Authorized [id number] Authorized 04/29/2023 04/28/2024 10 10 Encounter Details Date Type Department Care Team (Latest Contact Info) Description 06/05/2023 8:52 AM ANALYTICAL LAB ANALYST - 06/05/2023 1:20 PM ANALYTICAL LAB ANALYST Hospital Encounter Department of Radiation Oncology in [address] [phone] Sosa Nayak M.D. 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 Mrs. Angle Kennedy completed radiation treatment as [...] (cGy) First Treatment Last Treatment Elapsed Days [id number] 5 / 5 500 2500 2500 05/30/2023 [...] by: Jessica Luevano R.N. 06/05/2023 9:47 AM ANALYTICAL LAB ANALYST YTICAL LAB ANALYST documented in this encounter Plan of Treatment Upcoming Encounters Date Type Department Care Team (Late st Contact Info) Description 09/17/2023 8:00 AM CDT Appointment Department of Radiology in [address] [phone] Gonzalez Garcia M.D. [address] [place] [phone] 09/18/2023 9:30 AM CDT Virtual Visit Department of Radiology, [facility], in [place], [place] [address] [place] [phone] Dania Hemphill P.A.-C. [address] [place] [phone] Scheduled Orders Name Type Priority Associated Diagnoses [...]
--- OUTSIDE RECORDS SUMMARY | 2023-09-06 07:11 | XMS_ITS | Clinical Summary ---
Author Name Unknown Organization [facility] Address [place], [place] [address] Care Team Providers Care Creative Perfumer Name Role Phone Pcp, No Primary Care [...] Documents on File Type Date Recorded Patient Tinning Equipment Tender Expl anation Healthcare Directive 04/20/2011 SIGNED - 11/08/2005 Care Teams Creative Perfumer Relationship Specialty Start Date End Date Pcp, No . PCP - General 05/01/23
== END 2023-09-05 08:28 | disposition home or self-care (01) ==
LOC: NFLDREF 09-06 07:08
PROVIDERS: PCP Physician Assistant Medical; Referring Provider Physician Assistant Medical; Visit Provider Internal Medicine Hematology & Oncology
DX: C18.9 Malignant neoplasm of colon, unspecified (principal); C18.7 Malignant neoplasm of sigmoid colon
CPT/HCPCS: 80053

== ENCOUNTER 2023-09-05 14:19 | Outpatient (REF) | payer MEDICARE, SELFPAY ==
--- OUTSIDE RECORDS SUMMARY | 2023-09-05 14:25 | XMS_ITS | Clinical Summary ---
Author Name Unknown Organization [facility] Address [address] [place] [address] Care Team Providers Care Global Expansion Sales Director Name Role Phone Unavailable Primary Care Provider Unavailabl e Source Comments Patient records contain information from all sites at [facility]. For routine questions regarding patient records, call [phone] during business hours, M-F 8:00 AM - 5:00 PM Central Time. Record requests for emergency care only can be directed to [phone] at any time.[facility] Allergies Active Allergy Reactions Criticality Noted Date Comments Ragweed Pollen Other (see comments) Low 07/18/2023 Medications Medication Sig Dispensed Refills Start Date End Date Status lisinopriL (PRINIVIL,ZESTRIL) 20 mg tablet 03/02/2021 Active capecitabine (XELODA) 150 mg tablet Take 150 mg by mouth 2 (two) times a day. Take within 30 minutes after a meal. Swallow whole with water. Do not crush or cut. Active alendronate (FOSAMAX) 35 mg tablet Take 35 mg by mouth once a week. Take with 8oz of water, on an empty stomach. Remain upright for 30min. Active multivit with calcium,iron,min (WOMEN'S DAILY MULTIVITAMIN ORAL) Take 1 tablet by mouth. 11/27/2021 Active cetirizine 10 mg capsule Take 10 mg by mouth. 11/27/2021 Active cholecalciferol, vitamin D3, 25 mcg (1,000 Unit) tablet Take 25 mcg by mouth. 04/29/2023 Active calcium carbonate 1,500 mg (600 mg calcium) tablet Take 600 mg by mouth. 04/02/2023 Active bisacodyL 5 mg tablet Take 5 mg by mouth. 11/27/2021 Active acetaminophen (TYLENOL) 500 mg tablet Take 325 mg by mouth. 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 09/02/2023 12:00 PM CDT Comprehensive Visit Department of Radiology, [address] [phone] Dina Mari M.D. Loga, Laura A, APRN C.N.P., M.S.N. Gonzalez Garcia M.D. 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 09/02/2023 Orders Only Department of Radiology, [facility], in [address] [address] Skye Mohan R.N., C.M.S.R.N. 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 Preoperative Exam (Primary Dx) 09/02/2023 Clinical Communication Department of Radiation Oncology in [place], [place] [address] [place] [phone] Mandie Cruz APRN, C.N.P., D.N.P. 09/02/2023 Orders Only Department of Radiology, [facility], in [address] [address] Skye Mohan R.N., C.M.S.R.N. 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 Pre-Ablation 08/13/2023 Orders Only Department of Oncology in [place], [place] [address] [place] [phone] Dina Mari M.D. Malignant Neoplasm Of Colon Rectosigmoid Junction [...] Comments Blood Pressure 138/59 06/05/2023 9:29 AM CABLE TOOL OPERATOR Pulse 93 06/05/2023 9:29 AM CABLE TOOL OPERATOR Temperature 36.1 ??C (97 ??F) 06/05/2023 9:29 AM CABLE TOOL OPERATOR Respiratory Rate - - Oxygen Saturation - - Inhaled Oxygen Concentration - - Weight 56.8 kg (125 lb 3.5 oz) 06/05/2023 9:29 A M CABLE TOOL OPERATOR Height - - Body Mass Index - - Plan of Treatment Upcoming Encounters Date Type Department Care Team (Late st Contact Info) Description 09/17/2023 8:00 AM CDT Appointment Department of Radiology in [address] [phone] Gonzalez Garcia M.D. [address] [place] [phone] 09/18/2023 9:30 AM CDT Virtual Visit Department of Radiology, [facility], in [address] [phone] Dania Hemphill PTylerASusieCTyler [address] [place] [phone] Health Maintenance Due Date Last Done Comments Creatinine Level (Kidney Function Test) 1940 Office Visit for Blood Pressure Check / Re-check 1940 Potassium Level 1940 Sodium Level 1940 DTaP,Tdap,and Td Vaccines (1 - Tdap) 1959 Depression Screening (Annual PHQ-2) 05/20/2023 Fall Risk Screen (Annual) 05/20/2023 COVID-19 Vaccine Completed 02/21/2023, , 08/22/2021, Additional history exists Influenza Vaccine Completed 02/21/2023, , 02/21/2021, Additional history exists Pneumococcal vaccine (65+ years) Completed 03/11/2023, 02/27/2016 Zoster Vaccines Completed 06/21/2023, 03/11/2023 HPV Vaccines Aged Out No longer eligi ble based on patient's age to complete this topic Procedures Procedure Name Priority Date/Time Associated Diagnosis Comments US ABDOMEN LIMITED LIVER RAD - Routine (most inpatients and all outpatients) 09/02/2023 11:33 AM CDT 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 This mass is amenable to percutaneous ablation. Narrative 09/02/2023 11:46 AM CDT EXAM: US ABDOMEN LIMITED LIVER COMPARISON: MRI 08/02/2023 Procedure Note Gonzalez Garcia M.D. - 09/02/2023 EXAM: US ABDOMEN LIMITED LIVER COMPARISON: MRI 08/02/2023 IMPRESSION: 1.5 cm metastasis in the right liver centrally is well seen in both supineand LPO positions via subcostal approach with tidal breathing. This massis amenable to percutaneous ablation. Gonzalez Garcia M.D. IMG US PROCEDURES * MR abdomen wo/w con-Outside MR Body (08/02/2023 8:40 AM CDT) Narrative [facility] - 08/14/2023 4:09 PM CDT This order has been created and auto-finalized to support the import of outside images. If available, original interpretation can be found on the Media Tab in Chart Review, in Document Viewer, or as an image in QREADS. If a re-interpretation or overread is required please follow defined workflow. ?? Provider Not In System IMG MRI PROCEDURE S Performing Organization Address [facility] Co de Phone Number [facility]S NA * CT chest abdomen pelv w con-Outside CT Body (07/18/2023 9:10 AM CABLE TOOL OPERATOR) Narrative [facility] - 08/14/2023 4:09 PM CDT This order has been created and auto-finalized to support the import of outside images. If available, original interpretation can be found on the Media Tab in Chart Review, in Document Viewer, or as an image in QREADS. If a re-interpretation or overread is required please follow defined workflow. ?? Provider Not In System IMG CT PROCEDURES Performing Organization Address [facility] Co de Phone Number IIMS NA from Last 3 Months Additional Health Concerns Infection Onset Date Last Indicated Protective Environment 04/23/2023 3
--- OUTSIDE RECORDS SUMMARY | 2023-09-05 14:26 | XMS_ITS | Encounter Summary ---
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 [address] [place] [phone] [facility] Referral ID Status Reason Start Date Expiration Date V isits Requested Visits Authorized [id number] Authorized 09/02/2023 03/03/2025 1 1 Encounter Details Date Type Department Care Team (Late st Contact Info) Description 09/02/2023 Orders Only Department of Radiology, [facility], in [place], [place] [address] [place] [phone] Skye Mohan RVi, C.M.S.R.N. 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 [address] [place] [phone] 09/18/2023 9:30 AM CDT Virtual Visit Department of Radiology, [facility], in [place], [place] [address] [place] [phone] Dania Hemphill P.A.-C. 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
--- OUTSIDE RECORDS SUMMARY | 2023-09-05 14:26 | XMS_ITS ---
Author Name Unknown Organization [facility] Address [address] [place] [address] Care Team Providers Care Power Station Operator Name Role Phone Unavailable Unavailable Unavailable Surgery Details Not on file Complications Check Surgery Details section. Procedure Estimated Blood Loss Check Surgery Details section. Procedure Findings Check Surgery Details section. Procedure Specimens Taken Check Surgery Details section.
--- OUTSIDE RECORDS SUMMARY | 2023-09-05 14:26 | XMS_ITS | Encounter Summary ---
Author Name Unknown Organization [facility] Address [address] [place] [address] Care Team Providers Care Agricultural Production Engineer Name Role Phone Unavailable Primary Care Provider Unavailabl e Encounter Details Date Type Department Care Team (Latest Contact Info) Description 05/30/2023 9:07 AM BONDING SUPERVISOR - 05/30/2023 11:59 PM BONDING SUPERVISOR Hospital Encounter Department of Radiation Oncology in [place], [place] [address] [place] [phone] Sosa Nayak M.D. [address] [place] [phone] Discharge Disposition: Home or Self Care Social [...] Sig Dispensed Refills Start Date End Date acetaminophen (TYLENOL) 500 mg tablet Take 325 mg by mouth. 11/27/2021 alendronate (FOSAMAX) 35 mg tablet Take 35 mg by mouth once a week. Take with 8oz of water, on an empty stomach. Remain upright for 30min. bisacodyL 5 mg tablet Take 5 mg by mouth. 11/27/2021 calcium carbonate 1,500 mg (600 mg calcium) tablet Take 600 mg by mouth. 04/02/2023 capecitabine (XELODA) 150 mg tablet Take 150 mg by mouth 2 (two) times a day. Take within 30 minutes after a meal. Swallow whole with water. Do not crush or cut. cetirizine 10 mg capsule Take 10 mg by mouth. 11/28/19 cholecalciferol, vitamin D3, 25 mcg (1,000 Unit) tablet Take 25 mcg by mouth. 04/29/2023 lisinopriL (PRINIVIL,ZESTRIL) 20 mg tablet 03/02/2021 multivit with calcium,iron,min (WOMEN'S DAILY MULTIVITAMIN ORAL) Take 1 tablet by mouth. 11/27/2021 amLODIPine (NORVASC) 5 mg tablet 01/04/2021 09/02/2023 documented as of this encounter Plan of Treatment Upcoming Encounters Date Type Department Care Team (Late st Contact Info) Description 09/17/2023 8:00 AM CDT Appointment Department of Radiology in [address] [phone] Gonzalez Garcia M.D. [address] [place] [phone] 09/18/2023 9:30 AM CDT Virtual Visit Department of Radiology, [facility], in [address] [phone] Dania Hemphill, PTylerADarling [address] [place] [phone] documented as of this encounter Visit Diagnoses Not on filedocumented in this encounter Additional Health Concerns Infection Onset Date Last Indicated Resolved Time Protective Environment 04/23/2023 04/23/2023 documented as of this encounter
--- OUTSIDE RECORDS SUMMARY | 2023-09-05 14:26 | XMS_ITS | Encounter Summary ---
Author Name Unknown Organization [facility] Address [address] [place] [address] Care Team Providers Care Mud Logger Name Role Phone Unavailable Primary Care Provider Unavailabl e Reason for Visit * Reason Onset Date Comments Pre-Ablation 08/13/2023 Encounter Details Date Type Department Care Team (Late st Contact Info) Description 08/13/2023 Clinical Communication Department of Radiology in [address] [phone] Skye Mohan R.N., C.M.S.R.N. [address] [place] [phone] Pre-Ablation Social History Tobacco Use Types Packs/Day Years [...] AM CDT Appointment Department of Radiology in [address] [phone] Gonzalez Garcia M.D. [address] [place] [phone] 09/18/2023 9:30 AM CDT Virtual Visit Department of Radiology, [facility] in [place], [place] [address] [place] [address] Dania Hemphill P.A.-Samantha. [address] [place] [phone] documented as of this encounter Visit Diagnoses Not on filedocumented in this encounter Additional Health Concerns Infection Onset Date Last Indicated Resolved Time Protective Environment 04/23/2023 04/23/2023 documented as of this encounter
--- OUTSIDE RECORDS SUMMARY | 2023-09-05 14:26 | XMS_ITS | Encounter Summary ---
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 [address] [place] [address] [facility] Referral ID Status Reason Start Date Expiration Date V isits Requested Visits Authorized [id number] Authorized 08/19/2023 02/17/2025 1 1 Scheduling Instructions Case reviewed with Dr Anthony Mendes. Thanks. Encounter Details Date Type Department Care Team (Late st Contact Info) Description 08/19/2023 Orders Only Department of Oncology in [place], [place] [address] [place] [phone] Dina Mari M.D. 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
--- OUTSIDE RECORDS SUMMARY | 2023-09-05 14:26 | XMS_ITS | Encounter Summary ---
Author Name Unknown Organization [facility] Address [address] [place] [address] Care Team Providers Care Underwater Photographer Name Role Phone Unavailable Primary Care Provider Unavailabl e Encounter Details Date Type Department Care Team ([facility] st Contact Info) Description 09/02/2023 Clinical Communication Department of Radiation Oncology in [place], [place] [address] [place] [phone] Mandie Cruz APRN, C.N.P., D.N.P. [address] [place] [phone] Social History Tobacco Use Types Packs/Day Years [...] as of this encounter Miscellaneous Notes * Telephone Encounter - Mandie Cruz APRN, C.N.P., D.N.P. - 09/02/2023 11:25 AM CDT I called Mrs. Kennedy and her daughter Scarlett back. I briefly discussed that when considering radiation to the liver that liver fiducials (outpatient procedure) are often necessary prior to doing treatment planning/starting radiation therapy. I reviewed that if lesion is amenable to ablation that this sometimes is option is favored as it can limit additional appointments/burden while still having a successful treatment. I reviewed that the radiation oncology consult was cancelled as her care was discussed amongst the team and percutaneous ablation was favored and she is scheduled to see ablation team today. I reviewed that we would happily see the patient in the future if percutaneous ablation is not feasible and/or further areas would benefit from RT in the future. Mrs. Kennedy and her daughter Scarlett appreciate the call and had no additional questions or concerns. * Telephone Encounter - Mandie Crzu APRN, C.N.P., D.N.P. - 09/02/2023 11:25 AM CDT ----- Message from Mandie Cruz APRN, C.N.P., Lilli.N.PTyler sent at 09/02/2023 10:20 AM CDT ----- Regarding: Missed Call Good morning, I've update Mrs. Kennedy and her daughter, Scarlett, about the cancelled consultation. I did the best I could to explain the reasoning behind the cancellation, but Scarlett is confused and needs morea more in-depth discussion about what her mother's plan of care is going to be. She is insistent toreceive a phone call from the care team to discuss this at her phone number: [phone]. Thank you, Eric Bobo Radiation Oncology documented in this encounter Plan of Treatment Upcoming Encounters Date Type Department Care Team (Late st Contact Info) Description 09/17/2023 8:00 AM CDT Appointment Department of Radiology in [place], [place] [address] [place] [phone] Gonzalez Garcia M.D. [address] [place] [address] 09/18/2023 9:30 AM CDT Virtual Visit Department of Radiology, [facility], in [place], [place] [address] [place] [address] Dania Hemphill P.A.-C. [address] [place] [phone] documented as of this encounter Visit Diagnoses Not on filedocumented in this encounter Additional Health Concerns Infection Onset Date Last Indicated Resolved Time Protective Environment 04/23/2023 04/23/2023 documented as of this encounter
--- OUTSIDE RECORDS SUMMARY | 2023-09-05 14:26 | XMS_ITS ---
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 Past Plans No past plan information found. Radiation Treatments * Plan Last Treated On Elapsed Days Fractions Treated Prescribed Fraction Dose Prescribed Total Dose [id number] 06/05/2023 6 5 of 5 500 cGy 2,500 cGy Reference Point Last Treated On Elapsed Days Session Dose Total Dose [id number] 06/05/2023 6 500 cGy 2,500 cGy
--- OUTSIDE RECORDS SUMMARY | 2023-09-05 14:26 | XMS_ITS | Encounter Summary ---
Author Name Unknown Organization [facility] Address [address] [place] [address] Care Team Providers Care Press Tender Name Role Phone Unavailable Primary Care Provider Unavailabl e Encounter Details Date Type Department Care Team (Latest Contact Info) Description 06/04/2023 9:13 AM HIDE DROPPER - 06/04/2023 11:59 PM HIDE DROPPER Hospital Encounter Department of Radiation Oncology in [place], [place] [address] [place] [phone] Sosa Nayak M.D. [address] [place] [address] Discharge Disposition: Home or Self Care Social [...] AM CDT Appointment Department of Radiology in [address] [phone] Gonzalez Garcia M.D. [address] [place] [phone] 09/18/2023 9:30 AM CDT Virtual Visit Department of Radiology, [facility], in [address] [phone] Dania Hemphill, PTylerADarling [address] [place] [phone] documented as of this encounter Visit Diagnoses Not on filedocumented in this encounter Additional Health Concerns Infection Onset Date Last Indicated Resolved Time Protective Environment 04/23/2023 04/23/2023 documented as of this encounter
--- OUTSIDE RECORDS SUMMARY | 2023-09-05 14:26 | XMS_ITS | Encounter Summary ---
Author Name Unknown Organization [facility] Address [address] [place] [address] Care Team Providers Care Oil Spot Washer Name Role Phone Unavailable Primary Care Provider Unavailabl e Encounter Details Date Type Department Care Team (Late st Contact Info) Description 06/05/2023 Documentation Department of Radiation Oncology in [place], [place] [address] [place] [phone] Sosa Nayak M.D. [address] [place] [address] Social History Tobacco Use Types Packs/Day Years [...] (cGy) First Treatment Last Treatment Elapsed Days [id number] 5 / 5 500 2500 2500 05/30/2023 [...] by: Zara Cope R.N., 06/18/2023 2:29 PM MOTOR ELECTRICIAN [facility] [address] [place], [place] [id number] R ELECTRICIAN documented in this encounter Plan of Treatment Upcoming Encounters Date Type Department Care Team (Late st Contact Info) Description 09/17/2023 8:00 AM CDT Appointment Department of Radiology in [address] [phone] Gonzalez Garcia M.D. 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
--- OUTSIDE RECORDS SUMMARY | 2023-09-05 14:26 | XMS_ITS | Encounter Summary ---
Author Name Unknown Organization [facility] Address [address] [place] [address] Care Team Providers Care Galley Boy Name Role Phone Unavailable Primary Care Provider Unavailabl e Encounter Details Date Type Department Care Team (Latest Contact Info) Description 06/05/2023 8:51 AM [facility] Hospital Encounter Department of Radiation Oncology in [place], [place] [address] [place] [phone] Sosa Nayak M.D. [address] [place] [address] Discharge Disposition: Home or Self Care Social [...] AM CDT Appointment Department of Radiology in [address] [phone] Gonzalez Garcia M.D. [address] [place] [phone] 09/18/2023 9:30 AM CDT Virtual Visit Department of Radiology, [facility], in [address] [phone] Dania Hemphill P.A.-C. [address] [place] [phone] documented as of this encounter Visit Diagnoses Not on filedocumented in this encounter Additional Health Concerns Infection Onset Date Last Indicated Resolved Time Protective Environment 04/23/2023 04/23/2023 documented as of this encounter
--- OUTSIDE RECORDS SUMMARY | 2023-09-05 14:26 | XMS_ITS | Encounter Summary ---
Author Name Unknown Organization [facility] Address [address] [place] [address] Care Team Providers Care Family Development Specialist Name Role Phone Unavailable Primary Care Provider Unavailabl e Encounter Details Date Type Department Care Team (Latest Contact Info) Description 06/03/2023 9:10 AM DIGITAL ART DIRECTOR - 06/03/2023 11:59 PM DIGITAL ART DIRECTOR Hospital Encounter Department of Radiation Oncology in [place], [place] [address] [place] [phone] Sosa Nayak M.D. [address] [place] [address] Discharge Disposition: Home or Self Care Social [...] AM CDT Appointment Department of Radiology in [address] [phone] Gonzalez Garcia M.D. [address] [place] [phone] 09/18/2023 9:30 AM CDT Virtual Visit Department of Radiology, [facility], in [address] [phone] Dania Hemphill, PTylerADarling [address] [place] [phone] documented as of this encounter Visit Diagnoses Not on filedocumented in this encounter Additional Health Concerns Infection Onset Date Last Indicated Resolved Time Protective Environment 04/23/2023 04/23/2023 documented as of this encounter
--- OUTSIDE RECORDS SUMMARY | 2023-09-05 14:26 | XMS_ITS | Encounter Summary ---
Author Name Unknown Organization [facility] Address [address] [place] [address] Care Team Providers Care Tax Manager Cpa Name Role Phone Unavailable Primary Care Provider Unavailabl e Reason for Referral * Outpatient (Routine) - Closed Specialty Diagnoses / Procedures Referred By Kwabena andersen Referred To Contact Diagnoses 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) Procedures US Abdomen Limited Liver Gonzalez Garcia M.D. [address] [place] [phone] [facility] Referral ID Status Reason Start Date Expiration Date Visits Re quested Visits Authorized [id number] Closed 08/15/2023 08/14/2024 1 1 Encounter Details Date Type Department Care Team (Late st Contact Info) Description 08/15/2023 Orders Only Department of Radiology, [facility], in [place], [place] [address] [place] [address] Skye Mohan RVi, C.M.S.R.N. [address] [place] [phone] 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) [...] AM CDT Appointment Department of Radiology in [place], [place] [address] [place] [phone] Gonzalez Garcia M.D. [address] [place] [phone] 09/18/2023 9:30 AM CDT Virtual Visit Department of Radiology, [facility], in [place], [place] [address] [place] [phone] Dania Hemphill P.A.-C. [address] [place] [phone] documented as of this encounter Results * US Abdomen Limited Liver (09/02/2023 [...] ablation. Gonzalez Garcia M.D. 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
--- OUTSIDE RECORDS SUMMARY | 2023-09-05 14:26 | XMS_ITS | Referral Summary ---
Author Name Unknown Organization [facility] Address [address] [place] [address] Care Team Providers Care Tester Operator Name Role Phone Unavailable Primary Care Provider Unavailabl e Source Comments Patient records contain information from all sites at [facility]. For routine questions regarding patient records, call [phone] during business hours, M-F 8:00 AM - 5:00 PM Central Time. Record requests for emergency care only can be directed to [phone] at any time.[facility] Encounters Date Type Department Care Team Description 09/05/2023 Orders Only Department of Radiology, [facility] in [address] [phone] Rikki Bowers, R.N. 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) (Primary Dx) 09/04/2023 Clinical Communication Department of Radiology in [address] [phone] Skye Mohan R.N., C.M.S.R.N. 09/02/2023 Orders Only Department of Radiology, [facility], in [address] [phone] Skye Mohan R.N., C.M.S.R.N. 09/02/2023 Orders Only Department of Radiology, [facility], in [address] [phone] Skye Mohan R.N., C.M.S.R.N. 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) (Primary Dx); Lesion Liver 09/02/2023 Orders Only Preoperative Evaluation Center in [place], [place] [address] [place] [address] Dania Watt APRN, C.N.P., D.N.P. Preoperative Exam (Primary Dx) 09/02/2023 Clinical Communication Department of Radiation Oncology in [place], [place] [address] [place] [address] Mandie Cruz APRN C.N.P., D.N.P. 09/02/2023 Orders Only Department of Radiology, [facility] in [place], [place] [address] [place] [phone] Skye Mohan R.N., C.M.S.R.N. 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) (Primary Dx) 09/02/2023 11:00 AM CDT - 09/02/2023 11:59 PM CDT Hospital Encounter Department of Radiology, [facility] in [place], [place] [address] [place] [phone] Gonzalez Garcia M.D. 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) Discharge Disposition: Home or Self Care 09/02/2023 12:00 PM CDT Comprehensive Visit Department of Radiology, [facility] in [address] [address] Dina Mari M.D. Loga, Laura A, APRN, C.N.P., M.S.N. Gonzalez Garcia M.D. 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) 08/19/2023 Orders Only Department of Oncology in [place], [place] [address] [place] [address] Dina Mari M.D. 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, in [place], [place] [address] [place] [address] Skye Mohan R.N., C.M.S.R.N. 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) (Primary Dx) 08/13/2023 Clinical Communication Department of Radiology in [place], [place] [address] [place] [address] Skye Mohan R.N., C.M.S.R.N. Pre-Ablation 08/13/2023 Orders Only Department of Oncology in [place], [place] [address] [place] [address] Dina Mari M.D. 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) (Primary Dx) from Last 3 Months Allergies Active Allergy Reactions Criticality Noted Date [...] Comments Blood Pressure 138/59 06/05/2023 9:29 AM FARMWORKER MACHINE Pulse 93 06/05/2023 9:29 AM FARMWORKER MACHINE Temperature 36.1 ??C (97 ??F) 06/05/2023 9:29 AM FARMWORKER MACHINE Respiratory Rate - - Oxygen Saturation - - Inhaled Oxygen Concentration - - Weight 56.8 kg (125 lb 3.5 oz) 06/05/2023 9:29 A M FARMWORKER MACHINE Height - - Body Mass Index - - Plan of Treatment Upcoming Encounters Date Type Department Care Team (Late st Contact Info) Description 09/17/2023 8:00 AM CDT Appointment Department of Radiology in [address] [phone] Gonzalez Garcia M.D. [address] [place] [phone] 09/18/2023 9:30 AM CDT Virtual Visit Department of Radiology, [facility], in [address] [phone] Dania Hemphill, PTylerATyler-CTyler [address] [place] [phone] Procedures Procedure Name Priority Date/Time Associated Diagnosis Comments US ABDOMEN LIMITED LIVER RAD - Routine (most inpatients and all outpatients) 09/02/2023 11:33 AM CDT 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) OUTSIDE MR BODY Routine 08/02/2023 8:[address] BODY Routine 07/18/2023 9:10 AM FARMWORKER MACHINE from Last 3 Months Results * US [...] MR Body (08/02/2023 8:40 AM CDT) Narrative IIMS - 08/14/2023 4:09 PM CDT This order [...] System IMG MRI PROCEDURE S IIMS NA * CT chest abdomen pelv w con-Outside CT Body (07/18/2023 9:10 AM FARMWORKER MACHINE) Narrative II - 08/14/2023 4:09 PM CDT This order has been created and auto-finalized to support the import of outside images. If available, original interpretation can be found on the Media Tab in Chart Review, in Document Viewer, or as an image in QREADS. If a re-interpretation or overread is required please follow defined workflow. ?? Provider Not In System IMG CT PROCEDURES IIMS NA from Last 3 Months Additional Health Concerns Infection Onset Date Last Indicated Protective Environment 04/23/2023 3
--- OUTSIDE RECORDS SUMMARY | 2023-09-05 14:26 | XMS_ITS | Encounter Summary ---
Author Name Unknown Organization [facility] Address [address] [place] [address] Care Team Providers Care Fixed Income Manager Name Role Phone Unavailable Primary Care Provider Unavailabl e Reason for Referral * MRI/CAT/PET Scan (Routine) - Authorized Specialty Diagnoses / Procedures Referred By Kwabena andersen Referred To Contact Radiology Diagnoses Lesion Liver Procedures CT Abdomen Ablation Gonzalez aGrcia M.D. [address] [place] [phone] [facility] Referral ID Status Reason Start Date Expiration Date V isits Requested Visits Authorized [id number] Authorized 09/02/2023 09/01/2024 1 1 * Outpatient (Routine) - Authorized Specialty Diagnoses / Procedures Referred By Kwabena andersen Referred To Contact Diagnoses Lesion Liver Procedures US Assisted Guidance Gonzalez Garcia M.D. [address] [place] [phone] [facility] Referral ID Status Reason Start Date Expiration Date V isits Requested Visits Authorized [id number] Authorized 09/02/2023 09/01/2024 1 1 Encounter Details Date Type Department Care Team (Late st Contact Info) Description 09/02/2023 Orders Only Department of Radiology, [facility], in [place], [place] [address] [place] [phone] Skye Mohan R.N., C.M.S.R.N. [address] [place] [phone] 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) (Primary Dx); Lesion Liver Social History Tobacco Use Types Packs/Day Years [...] AM CDT Appointment Department of Radiology in [address] [phone] Gonzalez Garcia M.D. [address] [place] [phone] 09/18/2023 9:30 AM CDT Virtual Visit Department of Radiology, [facility], in [address] [phone] Dania Hemphill, PTylerASusieCTyler [address] [place] [phone] Scheduled Orders Name Type Priority Associated Diagnoses Orde r Schedule US Assisted Guidance Imaging RAD - Routine (most inpatients and all outpatients) Lesion Liver Expected: 09/17/2023, Expires: 12/01/2024 CT Abdomen Ablation Imaging RAD - Routin e (most inpatients and all outpatients) Lesion Liver Expected: 09/17/2023, Expires: 12/01/2024 documented as of this encounter Visit Diagnoses Diagnosis 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
--- OUTSIDE RECORDS SUMMARY | 2023-09-05 14:26 | XMS_ITS | Encounter Summary ---
Author Name Unknown Organization [facility] Address [address] [place] [address] Care Team Providers Care Client Experience Manager Name Role Phone Unavailable Primary Care Provider Unavailabl e Reason for Referral * Outpatient (Routine) - Authorized Specialty Diagnoses / Procedures Referred By Kwabena t Referred To Contact Radiology Dania Hemphill P.A.-C. [address] [place] [phone] [facility] Referral ID Status Reason Start Date Expiration Date V isits Requested Visits Authorized [id number] Authorized 09/02/2023 03/03/2025 1 1 Encounter Details Date Type Department Care Team (Late st Contact Info) Description 09/02/2023 Orders Only Department of Radiology, [facility], in [place], [place] [address] [place] [phone] Skye Mohan R.N., C.M.S.R.N. [address] [place] [phone] Social History Tobacco Use Types Packs/Day Years [...] AM CDT Appointment Department of Radiology in [address] [phone] Gonzalez Garcia M.D. [address] [place] [phone] 09/18/2023 9:30 AM CDT Virtual Visit Department of Radiology, [facility], in [address] [phone] Dania Hemphill P.A.-C. [address] [place] [phone] Scheduled Referrals Name Type Priority Associated Diagnoses Order Schedule Interventional Radiology office visit (clinic) Outpatient Referral Routine Expected: 09/18/2023, Expires: 12/01/2024 documented as of this encounter Visit Diagnoses Not on filedocumented in this encounter Additional Health Concerns Infection Onset Date Last Indicated Resolved Time Protective Environment 04/23/2023 04/23/2023 documented as of this encounter
--- OUTSIDE RECORDS SUMMARY | 2023-09-05 14:26 | XMS_ITS | Encounter Summary ---
Author Name Unknown Organization [facility] Address [address] [place] [address] Care Team Providers Care Senior Graduate Advisor Name Role Phone Unavailable Primary Care Provider Unavailabl e Reason for Referral * Outpatient (Routine) - Closed Specialty Diagnoses / Procedures Referred By Kwabena andersen Referred To Contact Radiology / Interventional Radiology Diagnoses 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) Dina Mari M.D. [address] [place] [address] [facility] Referral ID Status Reason Start Date Expiration Date Visits Re quested Visits Authorized [id number] Closed 08/13/2023 02/11/2025 1 1 Scheduling Instructions Lenka call daughter at [phone] Anthony Mendes * Outpatient (Routine) - Authorized Specialty Diagnoses / Procedures Referred By Kwabena t Referred To Contact Radiation Oncology Diagnoses 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) Dina Mari M.D. [address] [place] [address] [facility] Referral ID Status Reason Start Date Expiration Date V isits Requested Visits Authorized [id number] Authorized 08/13/2023 02/11/2025 [address] Tim Jensen Plmalik call daughter at [phone] Encounter Details Date Type Department Care Team (Late Contact Info) Description 08/13/2023 Orders Only Department of Oncology in [place], [place] [address] [place] [phone] Dina Mari M.D. [address] [place] [phone] 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) [...] AM CDT Appointment Department of Radiology in [address] [phone] Gonzalez Garcia M.D. [address] [place] [phone] 09/18/2023 9:30 AM CDT Virtual Visit Department of Radiology, [facility], in [address] [phone] Dania Hemphill P.A.-C. 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
--- OUTSIDE RECORDS SUMMARY | 2023-09-05 14:26 | XMS_ITS | Encounter Summary ---
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 [address] [place] [address] [facility] Referral ID Status Reason Start Date Expiration Date Visits Re quested Visits Authorized [id number] Closed 08/13/2023 02/11/2025 1 1 Encounter Details Date Type Department Care Team (Latest Contact Info) Description 09/02/2023 12:00 PM CDT Comprehensive Visit Department of Radiology, [facility], in [place], [place] [address] [place] [phone] Dina Mari M.D. [address] [place] [address] Eleonora Briscoe APRN, C.N.P., M.S.N. [address] [place] [phone] Gonzalez Garcia M.D. 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 - 09/02/2023 2:00 PM CDT IR ABLATION CONSULT SUBJECTIVE REASON FOR CONSULT Chief Complaint/Reason for Consult: Consult and consideration of percutaneous ablation. HISTORY OF PRESENT ILLNESS Angle Kennedy is a 83 y.o. female referred for consideration of ablation for a liver mass. Patient presents with her adult daughter. PMH significant for metastatic rectal cancer, hypertension Referring provider: Dr. Mari Approving provider: Dr. Mneon/Reviewed again today with Dr. Garcia We discussed the expected course of ablation procedure including the day of, recovery, and follow-up recommendations. Discussed risks and benefits including, but not limited to bleeding, infection, potential for injury to adjacent structures. Discussed risk of numbness and tingling and muscle laxity. Discussed expected discomfort and recovery given lesion location. Answered questions from the patient. Discussed follow-up recommendations including repeat imaging in 3-6 months to re-establish baseline, or as deemed appropriate by referring provider. Patient would like to take time to consider her options and discuss with her family. She is tentatively scheduled for ablation, but may cancel if she decides it does not align with her wishes. Angle Kennedy denies any anti-platelet or anticoagulative medications. Updated labs needed. MALLY needs to be scheduled. Current Outpatient Medications: alendronate (FOSAMAX) 35 mg tablet, Take 35 mg by mouth once a week. Take with 8oz of water, on an empty stomach. Remain upright for 30min., Disp: , Rfl: amLODIPine (NORVASC) 5 mg tablet, , Disp: , Rfl: capecitabine (XELODA) 150 mg tablet, Take 150 mg by mouth 2 (two) times a day. Take within 30 minutes after a meal. Swallow whole with water. Do not crush or cut., Disp: , Rfl: lisinopriL (PRINIVIL,ZESTRIL) 20 mg tablet, , Disp: , Rfl: Not on File Past Medical History: Diagnosis Date Hernia Hypertension Essential Primary Malignant Neoplasm Of Rectum (HCC) Past Surgical History: Procedure Laterality Date NEPHRECTOMY Right SIGMOIDECTOMY 12/18/2019 SIGMOIDOSCOPY 12/18/2019 OBJECTIVE VITAL SIGNS Temp Readings from Last 1 Encounters: 06/05/23 36.1 ??C (Temporal) BP Readings from Last 2 Encounters: 06/05/23 138/59 05/23/23 130/65 Pulse Readings from Last 2 Encounters: 06/05/23 93 05/23/23 80 PHYSICAL EXAMINATION General: Well-appearing, well-nourished, in no acute distress. HEENT: Mucous membranes moist. Conjunctivae anicteric. Skin: No jaundice or pallor. Extremities : No lower extremity edema. Neuro: Alert and oriented x3. ASSESSMENT / PLAN #1 Solitary liver mass prior to ablation - Mass appears amenable to ablation. Discussed risks and benefits of procedure. Patient would like to take time to consider if she wants to proceed with procedure.She will need consent signed prior to procedure. - Discussed anticipated post-procedure course with puncture site care including keeping bandage clean and dry for 24 hours, then okay to shower. Keep from avoiding submerging in gleason, bath or hot tubfor 1 week and limit lifting to <10 lbs for one week. - Discussed recommendation for f/u in 3-6 months with referring provider for imaging post procedure. - Patient is not on anticoagulation, DADA/ARB's or DMII medications. Discussed that Aspirin should be avoided for the week prior to the procedure. - Will need MALLY clearance. #2 Disposition - Patient scheduled for ablation procedure 09/17/23-- but may decide to cancel. She was given our contact information to reach out with further questions or cancellation. - Anticipate same-day procedure, although discussed the possibility of having to stay overnight in the hospital. Patient is from out of town, and we discussed that it is recommended that the patient stay at local lodging with child care center administrator present the evening post procedure. CONSENT: Discussed risks and benefits of procedure. Risks include infection, bleeding risk, damage to adjacent organs, vessels or nerves, , and risks with anesthesia. Benefits include curative procedure to ablate the tumor. All questions pertaining to the procedure and these risks were answered and the patient agreed to proceed. Written informed consent to procedure and blood product administration needs to be obtained. For any questions or concerns regarding this patient please call the Ablation Nurses at [phone] Saturday through Saturday 7 a.m. to 5 p.m. or contact the note author. We spent over half of a total 60 minutes with chart review, patient in counseling and discussion and/or coordination of care as described above. documented in this encounter Plan of Treatment Upcoming Encounters Date Type Department Care Team (Late st Contact Info) Description 09/17/2023 8:00 AM CDT Appointment Department of Radiology in [address] [phone] Gonzalez Garcia M.D. [address] [place] [phone] 09/18/2023 9:30 AM CDT Virtual Visit Department of Radiology, [facility], in [address] [phone] Dania Hemphill P.A.-C. 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
--- OUTSIDE RECORDS SUMMARY | 2023-09-05 14:26 | XMS_ITS | Encounter Summary ---
Author Name Unknown Organization [facility] Address [address] [place] [address] Care Team Providers Care Shoe Sewing Machine Operator And Tender Name Role Phone Unavailable Primary Care Provider Unavailabl e Encounter Details Date Type Department Care Team (Late Contact Info) Description 09/04/2023 Clinical Communication Department of Radiology in [address] [phone] Skye Mohan R.N., C.M.S.R.N. [address] [place] [phone] Social History Tobacco Use Types Packs/Day Years [...] Encounters Date Type Department Care Team (Late Contact Info) Description 09/17/2023 8:00 AM CDT Appointment Department of Radiology in [address] [phone] Gonzalez Garcia M.D. [address] [place] [phone] 09/18/2023 9:30 AM CDT Virtual Visit Department of Radiology, [facility], in [address] [phone] Dania Hemphill P.A.-C. [address] [place] [phone] documented as of this encounter Visit Diagnoses Not on filedocumented in this encounter Additional Health Concerns Infection Onset Date Last Indicated Resolved Time Protective Environment 04/23/2023 04/23/2023 documented as of this encounter
--- OUTSIDE RECORDS SUMMARY | 2023-09-05 14:26 | XMS_ITS | Clinical Summary ---
Author Name Unknown Organization [facility] Address [place], [place] [address] Care Team Providers Care Bottling Supervisor Name Role Phone Pcp, No Primary Care Provider Unavailabl e Allergies No known active allergies Medications Medication Sig Dispensed Refills Start Date End Date Status amLODIPine (NORVASC) 5 mg tablet 01/04/2021 Active lisinopriL (PRINIVIL; ZESTRIL) 20 mg tablet 03/02/2021 Active Active Problems No known active [...] 02/08/2021, 06/30/2020, 06/10/2020 Influenza for age 65+ 01/19/2024 Advance Directives Documents on File Type Date Recorded Patient Computer Meteorologist Expl anation Healthcare Directive 04/20/2011 SIGNED - 11/08/2005 Care Teams Bottling Supervisor Relationship Specialty Start Date End Date Pcp, No . PCP - General 05/01/23
--- OUTSIDE RECORDS SUMMARY | 2023-09-05 14:26 | XMS_ITS | Encounter Summary ---
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 [address] [place] [address] [facility] Referral ID Status Reason Start Date Expiration Date Visits Re quested Visits Authorized [id number] Closed 08/15/2023 08/14/2024 1 1 Encounter Details Date Type Department Care Team (Latest Contact Info) Description 09/02/2023 11:00 AM CDT - 09/02/2023 11:59 PM CDT Hospital Encounter Department of Radiology, [facility] in [place], [place] [address] [place] [phone] Gonzalez Garcia M.D. 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 Remain upright for 30min. alendronate (FOSAMAX) 70 mg tablet 07/30/2023 amLODIPine (NORVASC) 10 mg tablet 07/26/2023 bisacodyL 5 mg tablet Take 5 mg by mouth. 11/27/2021 calcium carbonate 1,500 mg (600 mg calcium) tablet Take 600 mg by mouth. 04/02/20 23 capecitabine (XELODA) 150 mg tablet Take 150 mg by mouth 2 (two) times a day. Take within 30 minutes after a meal. Swallow whole with water. Do not crush or cut. cetirizine 10 mg capsule Take 10 mg by mouth. 11/28/19 22 cholecalciferol, vitamin D3, 25 mcg (1,000 Unit) tablet Take 25 mcg by mouth. 04/29/2023 lisinopriL (PRINIVIL,ZESTRIL) 20 mg tablet 03/02/2021 multivit with calcium,iron,min (WOMEN'S DAILY MULTIVITAMIN ORAL) Take 1 tablet by mouth. 11/27/2021 documented as of this encounter Plan of Treatment Upcoming Encounters Date Type Department Care Team (Late st Contact Info) Description 09/17/2023 8:00 AM CDT Appointment Department of Radiology in [place], [place] [address] [place] [phone] Gonzalez Garcia M.D. [address] [place] [phone] 09/18/2023 9:30 AM CDT Virtual Visit Department of Radiology, [facility], in [place], [place] [address] [place] [phone] Dania Hemphill P.A.-C. 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
--- OUTSIDE RECORDS SUMMARY | 2023-09-05 14:26 | XMS_ITS | Encounter Summary ---
Author Name Unknown Organization [facility] Address [address] [place] [address] Care Team Providers Care Billing Representative Name Role Phone Unavailable Primary Care Provider Unavailabl e Encounter Details Date Type Department Care Team (Late st Contact Info) Description 09/05/2023 Orders Only Department of Radiology, [facility] in [address] [phone] Rikki Bowers R.N. 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 [address] [place] [phone] 09/18/2023 9:30 AM CDT Virtual Visit Department of Radiology, [facility], in [address] [place] [address] Dania Hemhpill P.A.-C. 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
--- OUTSIDE RECORDS SUMMARY | 2023-09-05 14:26 | XMS_ITS | Encounter Summary ---
Author Name Unknown Organization [facility] Address [address] [place] [address] Care Team Providers Care [facility] Name Role Phone Unavailable Primary Care Provider Unavailabl e Encounter Details Date Type Department Care Team (Latest Contact Info) Description 05/31/2023 9:10 AM TECHNOLOGY INTERN - 05/31/2023 11:59 PM [facility] Hospital Encounter Department of Radiation Oncology in [place], [place] [address] [place] [phone] Sosa Nayak M.D. [address] [place] [address] Discharge Disposition: Home or Self Care Social [...] AM CDT Appointment Department of Radiology in [address] [phone] Gonzalez Garcia M.D. [address] [place] [phone] 09/18/2023 9:30 AM CDT Virtual Visit Department of Radiology, [facility], in [address] [phone] Dania Hemphill, PTylerADarling [address] [place] [phone] documented as of this encounter Visit Diagnoses Not on filedocumented in this encounter Additional Health Concerns Infection Onset Date Last Indicated Resolved Time Protective Environment 04/23/2023 04/23/2023 documented as of this encounter
--- OUTSIDE RECORDS SUMMARY | 2023-09-05 14:26 | XMS_ITS | Encounter Summary ---
Author Name Unknown Organization [facility] Address [address] [place] [address] Care Team Providers Care Personal Security Specialist Name Role Phone Unavailable Primary Care Provider Unavailabl e Encounter Details Date Type Department Care Team (Late st Contact Info) Description 09/02/2023 Orders Only Preoperative Evaluation Center in [place], [place] [address] [place] [address] Dnaia Watt APRN, C.N.P., D.N.P. [address] [place] [phone] Preoperative Exam (Primary Dx) Social History Tobacco Use Types [...] AM CDT Appointment Department of Radiology in [place], [place] [address] [place] [address] Gonzalez Garcia M.D. [address] [place] [phone] 09/18/2023 9:30 AM CDT Virtual Visit Department of Radiology, [facility], in [place], [place] [address] [place] [address] Dania Hemphill P.A.-C. [address] [place] [address] Scheduled Orders Name Type Priority Associated Diagnoses Orde r Schedule Basic Metabolic Panel Lab Routine Preoperative Exam Expected: 09/02/2023, Expires: 12/01/2024 CBC with Differential, Blood Lab Routine Preoperative Exam Expected: 09/02/2023, Expires: 09/01/2024 documented as of this encounter Visit Diagnoses Diagnosis Preoperative Exam- Primary documented in this encounter Additional Health Concerns Infection Onset Date Last Indicated Resolved Time Protective Environment 04/23/2023 04/23/2023 documented as of this encounter
--- OUTSIDE RECORDS SUMMARY | 2023-09-05 14:26 | XMS_ITS | Encounter Summary ---
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 [address] [place] [address] [facility] Region Referral ID Status Reason Start Date Expiration Date V isits Requested Visits Authorized [id number] Authorized 04/29/2023 04/28/2024 10 10 Encounter Details Date Type Department Care Team (Latest Contact Info) Description 06/05/2023 8:52 AM FARM PRODUCTS SHIPPER - 06/05/2023 1:20 PM FARM PRODUCTS SHIPPER Hospital Encounter Department of Radiation Oncology in [address] [phone] Sosa Nayak M.D. 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 Mrs. Angle Kennedy completed radiation treatment as [...] (cGy) First Treatment Last Treatment Elapsed Days X0Auneyx 5 / 5 500 2500 2500 05/30/2023 [...] by: Jessica Luevano R.N. 06/05/2023 9:47 AM FARM PRODUCTS SHIPPER PRODUCTS SHIPPER documented in this encounter Plan of Treatment Upcoming Encounters Date Type Department Care Team (Late st Contact Info) Description 09/17/2023 8:00 AM CDT Appointment Department of Radiology in [address] [phone] Gonzalez Garcia M.D. [address] [place] [phone] 09/18/2023 9:30 AM CDT Virtual Visit Department of Radiology, [facility], in [place], [place] [address] [place] [phone] Dania Hemphill P.A.-C. [address] [place] [phone] Scheduled Orders Name Type Priority Associated Diagnoses [...]
[2023-09-05 16:56] LABS: INR 0.89 (0.91-1.10); Prothrombin Time 12.5 Seconds
== END 2023-09-05 14:20 | disposition home or self-care (01) ==
LOC: NPINS 14:19
PROVIDERS: PCP Physician Assistant Medical; Visit Provider Student in an Organized Health Care Education/Training Program
DX: C19 Malignant neoplasm of rectosigmoid junction (principal)
CPT/HCPCS: 80053; 85610

== ENCOUNTER 2023-10-03 08:04 | Outpatient (CLI) | payer MEDICARE, SELFPAY ==
--- OUTSIDE RECORDS SUMMARY | 2023-10-04 12:59 | XMS_ITS ---
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 Past Plans No past plan information found. Radiation Treatments * Plan Last Treated On Elapsed Days Fractions Treated Prescribed Fraction Dose Prescribed Total Dose [id number] 06/05/2023 6 5 of 5 500 cGy 2,500 cGy Reference Point Last Treated On Elapsed Days Session Dose Total Dose [id number] 06/05/2023 6 500 cGy 2,500 cGy
--- OUTSIDE RECORDS SUMMARY | 2023-10-04 12:59 | XMS_ITS ---
Author Name Unknown Organization [facility] Address [address] [place] [address] Care Team Providers Care Special Officer Automat Name Role Phone Unavailable Unavailable Unavailable Surgery Details Not on file Complications Check Surgery Details section. Procedure Estimated Blood Loss Check Surgery Details section. Procedure Findings Check Surgery Details section. Procedure Specimens Taken Check Surgery Details section.
--- OUTSIDE RECORDS SUMMARY | 2023-10-04 12:59 | XMS_ITS | Clinical Summary ---
Author Name Unknown Organization [facility] Address [address] [place] [address] Care Team Providers Care Telecommunications Field Engineer Name Role Phone Unavailable Primary Care Provider Unavailabl e Source Comments Patient records contain information from all sites at [facility]. For routine questions regarding patient records, call [phone] during business hours, M-F 8:00 AM - 5:00 PM Central Time. Record requests for emergency care only can be directed to [phone] at any time.[facility] Allergies Active Allergy Reactions Criticality Noted Date [...] amLODIPine (NORVASC) 10 mg tablet 07/26/2023 Active ciprofloxacin (CIPRO) 500 mg tablet Take 1 tablet (500 mg total) by mouth 2 (two) times a day before breakfast and dinner for 10 days. 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 in [address] [address] Dania Hemphill P.A.-C. Loga, Laura A, APRN C.N.P., M.S.N. Mass Hepatic (Primary Dx) 09/17/2023 11:02 AM CDT Anesthesia Event Department of Radiology in [address] [phone] Rose Brink APRN, CRNA Walsh, Emily E, M.D. 09/17/2023 8:33 AM CDT - 09/17/2023 2:00 PM CDT Hospital Encounter Department of Radiology in [address] [address] Gonzalez Garcia M.D. Lesion Liver Discharge Disposition: Home or Self Care 09/17/2023 8:31 AM CDT Hospital Encounter Department of Radiology, [address] [address] Gonzalez Garcia M.D. Lesion Liver Discharge Disposition: Home or Self Care 09/16/2023 Clinical Communication Department of Radiology, [address] [address] Margaret Archibald R.N. Pre-Ablation 09/12/2023 Clinical Communication Department of Radiology, [facility] in [address] [address] Margaret Archibald R.N. Appointment 09/10/2023 Clinical Communication Department of Radiology in [address] [phone] Skye Mohan R.N., C.M.S.R.N. 09/05/2023 Orders Only Department of Radiology, [facility] in [address] [address] Rikki Bowers R.N. 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) (Primary Dx) 09/04/2023 Clinical Communication Department of Radiology in [address] [address] Skye Mhoan R.N., C.M.S.R.N. 09/02/2023 12:00 PM CDT Comprehensive Visit Department of Radiology, [facility] in [address] [address] Dina Mari M.D. Loga, Laura A, APRN, C.N.P., M.S.N. Gonzalez Garcia M.D. 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) 09/02/2023 11:00 AM CDT - 09/02/2023 11:59 PM CDT Hospital Encounter Department of Radiology, [facility] in [address] [address] Gonzalez Garcia M.D. 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) Discharge Disposition: Home or Self Care 09/02/2023 Orders Only Department of Radiology, [facility] in [address] [address] Skye Mohan R.N., C.M.S.R.N. 09/02/2023 Orders Only Department of Radiology, [facility], in [place], [place] [address] [place] [phone] Skye Mohan R.N., C.M.S.R.N. 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) (Primary Dx); Lesion Liver 09/02/2023 Orders Only Preoperative Evaluation Center in [place], [place] [address] [place] [address] Dania Watt APRN, C.N.P., D.N.P. Preoperative Exam (Primary Dx) 09/02/2023 Clinical Communication Department of Radiation Oncology in [place], [place] [address] [place] [phone] Mandie Cruz APRN, C.N.P., D.N.P. 09/02/2023 Orders Only Department of Radiology, [facility], in [address] [address] Skye Mohan R.N., C.M.S.R.N. 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) (Primary Dx) 08/19/2023 Orders Only Department of Oncology in [place] [address] [place] [address] Dina Mari M.D. 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) (Primary Dx) 08/15/2023 Orders Only Department of Radiology, [facility], in [place], [place] [address] [place] [phone] Skye Mohan R.N., C.M.S.R.N. 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) (Primary Dx) 08/13/2023 Clinical Communication Department of Radiology in [address] [address] Skye Mohan R.N., C.M.S.R.N. Pre-Ablation 08/13/2023 Orders Only Department of Oncology in [place], [place] [address] [place] [address] Dina Mari M.D. 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) (Primary Dx) from Last 3 Months Family History Medical History Relation Name Comments Bone cancer Father Relation Name Status Comments Father Social History Tobacco Use Types Packs/Day Years Used Date Smoking Tobacco: Never Smokeless Tobacco: Never Tobacco Cessation:Counseling Given: Not Answered Dental Answer Date Recorded Dental: Regular Dentist Unknown 05/18/20 Sex and Gender Information Value Date Recorded Sex Assigned at Not on file Gender Identity Not on file Sexual Orientation Not on file Last Filed Vital Signs Vital Sign Reading Time Taken Comments Blood Pressure 168/86 09/17/2023 1:30 PM CDT Pulse 83 09/17/2023 1:30 PM CDT Temperature 36.5 ??C (97.7 ??F) 09/17/2023 1:30 PM CD T Respiratory Rate 16 09/17/2023 1:30 PM CDT Oxygen Saturation 99% 09/17/2023 1:30 PM CDT Inhaled Oxygen Concentration - - Weight 54.4 kg (119 lb 14.9 oz) 09/17/2023 9:15 AM CDT Height - - Body Mass Index - - Plan of Treatment Health Maintenance Due Date Last Done Comments Creatinine Level (Kidney Function Test) 1940 Office Visit for Blood Pressure Check / Re-check 1940 Potassium Level 1940 Sodium Level 1939 DTaP,Tdap,and Td Vaccines (1 - Tdap) 1958 Hepatitis A Vaccines (1 of 2 - Risk 2-dose series) 1958 Hepatitis B Vaccines (1 of 3 - Risk 3-dose series) 1999 COVID-19 Vaccine ( season) 2023 02/21/2023, 02/12/2022, 08/22/2021, Additional history exists Depression Screening (Annual PHQ-2) 05/20/2023 Influenza Vaccine Completed 02/21/2023, , 02/21/2021, Additional history exists Pneumococcal vaccine (65+ years) Completed 03/11/2023, 02/27/2016 Zoster Vaccines Completed 06/21/2023, 03/11/2023 Fall Risk Screen (Annual) Completed 09/17/2023 HPV Vaccines Aged Out No longer eligi ble based on patient's age to complete this topic Procedures Procedure Name Priority Date/Time Associated Diagnosis Comments US ASSISTED GUIDANCE RAD - Routine (most inpatients and all outpatients) 09/17/2023 1:09 [address]ion Liver CT ABDOMEN WITHOUT AND WITH IV CONTRAST RAD - Routine (most inpatients and all outpatients) 09/17/2023 12:[address] ABDOMEN ABLATION RAD - Routine (most inpatients and all outpatients) 09/17/2023 12:26 PM CDT Lesion Liver LDA ANE ENDOTRACHEAL AIRWAY Routine 09/17/2023 11:12 AM CDT PROTHROMBIN TIME (PT), P STAT 09/17/2023 9:10 AM CDT US ABDOMEN LIMITED LIVER RAD - Routine (most inpatients and all outpatients) 09/02/2023 11:33 AM CDT 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) OUTSIDE MR BODY Routine 08/02/2023 8:[address] BODY Routine 07/18/2023 9:10 AM SAS PROGRAMMER ANALYST from Last 3 Months Results * US Assisted Guidance (09/17/2023 1:09 PM CDT) Anatomical Region Laterality Modality Procedural, Ultrasound RST L OS, Ultrasound ARZ LOS, Procedure FLA LOS, Procedural NWWI LOS N/A Ultrasound Impressions 09/17/2023 12:41 PM CDT Successful image-guided microwave ablation of the right liver metastasis. NR Narrative 09/17/2023 12:41 PM CDT EXAM: ??CT ABDOMEN ABLATION, US ASSISTED GUIDANCE, CT ABDOMEN WITHOUT AND WITH IV CONTRAST PROCEDURE: Percutaneous US/CT guided microwave ablation of the right liver metastasis. PRE-PROCEDURE: Patient seen and evaluated. Allergies, pertinent medications, and history reviewed. Discussed risks, benefits, alternatives for procedure, and obtained informed consent. Patient understands information and questions answered. Immediately prior to starting the procedure, in the presence of the assisting personnel, procedural pause was conducted to verify correct patient identity and verification of procedure to be performed, and as applicable, correct side and site, correct patient position, availability of implants, special equipment, or special requirements, and all image and specimen identification data. The roles and responsibilities of care team members, residents, and fellows were discussed. General anesthesia and/or sedation provided by Anesthesiology. TECHNIQUE: Using sterile technique, combined ultrasound and CT guidance, and general anesthesia provided by the Department of Anesthesiology, percutaneous microwave ablation was performed. Anesthesia: General Anesthesia Imaging Guidance: Combined CT/US Approach: Standard Adjunctive Procedures: None Target Lesion: 1 Location: Right liver centrally Biopsy: Not performed today. Size: 1.5 x 1.4 x 1.2 cm Probes: Two x Neuwave ME 15 XT Ablation Parameters: 7 minute ablation at [address] Probe Removal: Tract ablation. COMPLICATIONS: None. POST-PROCEDURE TECHNICAL EVALUATION: Zone of ablation encompassed tumor(s) completely. OTHER POST-PROCEDURE FINDINGS: Unchanged. ?? Procedure Note Gonzalez Garcia M.D. - 09/17/2023 EXAM: CT ABDOMEN ABLATION, US ASSISTED GUIDANCE, CT ABDOMEN WITHOUT ANDWITH IV CONTRAST PROCEDURE: Percutaneous US/CT guided microwave ablation of the right livermetastasis. PRE-PROCEDURE: Patient seen and evaluated. Allergies, pertinentmedications, and history reviewed. Discussed risks, benefits, alternativesfor procedure, and obtained informed consent. Patient understandsinformation and questions answered. Immediately prior to starting the procedure, in the presence of the assistingpersonnel, procedural pause was conducted to verify correct patientidentity and verification of procedure to be performed, and as applicable,correct side and site, correct patient position, availability of implants, special equipment, or specialrequirements, and all image and specimen identification data. The rolesand responsibilities of care team members, residents, and fellows werediscussed. General anesthesia and/or sedation provided by Anesthesiology. TECHNIQUE: Using sterile technique, combined ultrasound and CT guidance,and general anesthesia provided by the Department of Anesthesiology,percutaneous microwave ablation was performed. Anesthesia: General Anesthesia Imaging Guidance: Combined CT/US Approach: Standard Adjunctive Procedures: None Target Lesion: 1 Location: Right liver centrally Biopsy: Not performed today. Size: 1.5 x 1.4 x 1.2 cm Probes: Two x Neuwave ME 15 XT Ablation Parameters: 7 minute ablation at [address] Probe Removal: Tract ablation. COMPLICATIONS: None. POST-PROCEDURE TECHNICAL EVALUATION: Zone of ablation encompassed tumor(s)completely. OTHER POST-PROCEDURE FINDINGS: Unchanged. 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 NR Gonzalez RUIZ US PROCEDURES * CT Abdomen Ablation (09/17/2023 12:26 PM CDT) Anatomical Region Laterality Modality Abdomen, Abdominal RST LOS, Vascular Interventional ARZ LOS, Vascular Interventional FLA LOS, Procedural, Procedural NWWI LOS N/A Computed Tomography 09/17/2023 11:3 3 AM CDT Impressions 09/17/2023 12:41 PM CDT Successful image-guided microwave ablation of the right liver metastasis. NR Narrative 09/17/2023 12:41 PM CDT EXAM: ??CT ABDOMEN ABLATION, US ASSISTED GUIDANCE, CT ABDOMEN WITHOUT AND WITH IV CONTRAST PROCEDURE: Percutaneous US/CT guided microwave ablation of the right liver metastasis. PRE-PROCEDURE: Patient seen and evaluated. Allergies, pertinent medications, and history reviewed. Discussed risks, benefits, alternatives for procedure, and obtained informed consent. Patient understands information and questions answered. Immediately prior to starting the procedure, in the presence of the assisting personnel, procedural pause was conducted to verify correct patient identity and verification of procedure to be performed, and as applicable, correct side and site, correct patient position, availability of implants, special equipment, or special requirements, and all image and specimen identification data. The roles and responsibilities of care team members, residents, and fellows were discussed. General anesthesia and/or sedation provided by Anesthesiology. TECHNIQUE: Using sterile technique, combined ultrasound and CT guidance, and general anesthesia provided by the Department of Anesthesiology, percutaneous microwave ablation was performed. Anesthesia: General Anesthesia Imaging Guidance: Combined CT/US Approach: Standard Adjunctive Procedures: None Target Lesion: 1 Location: Right liver centrally Biopsy: Not performed today. Size: 1.5 x 1.4 x 1.2 cm Probes: Two x Neuwave ME 15 XT Ablation Parameters: 7 minute ablation at [address] Probe Removal: Tract ablation. COMPLICATIONS: None. POST-PROCEDURE TECHNICAL EVALUATION: Zone of ablation encompassed tumor(s) completely. OTHER POST-PROCEDURE FINDINGS: Unchanged. ?? Procedure Note Gonzalez Garcia M.D. - 09/17/2023 EXAM: CT ABDOMEN ABLATION, US ASSISTED GUIDANCE, CT ABDOMEN WITHOUT ANDWITH IV CONTRAST PROCEDURE: Percutaneous US/CT guided microwave ablation of the right livermetastasis. PRE-PROCEDURE: Patient seen and evaluated. Allergies, pertinentmedications, and history reviewed. Discussed risks, benefits, alternativesfor procedure, and obtained informed consent. Patient understandsinformation and questions answered. Immediately prior to starting the procedure, in the presence of the assistingpersonnel, procedural pause was conducted to verify correct patientidentity and verification of procedure to be performed, and as applicable,correct side and site, correct patient position, availability of implants, special equipment, or specialrequirements, and all image and specimen identification data. The rolesand responsibilities of care team members, residents, and fellows werediscussed. General anesthesia and/or sedation provided by Anesthesiology. TECHNIQUE: Using sterile technique, combined ultrasound and CT guidance,and general anesthesia provided by the Department of Anesthesiology,percutaneous microwave ablation was performed. Anesthesia: General Anesthesia Imaging Guidance: Combined CT/US Approach: Standard Adjunctive Procedures: None Target Lesion: 1 Location: Right liver centrally Biopsy: Not performed today. Size: 1.5 x 1.4 x 1.2 cm Probes: Two x Neuwave ME 15 XT Ablation Parameters: 7 minute ablation at [address] Probe Removal: Tract ablation. COMPLICATIONS: None. POST-PROCEDURE TECHNICAL EVALUATION: Zone of ablation encompassed tumor(s)completely. OTHER POST-PROCEDURE FINDINGS: Unchanged. 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 NR Gonzalez Garcia M.D. IMG CT PROCEDURES * CT Abdomen without and with IV Contrast (09/17/2023 12:26 PM CDT) Anatomical Region Laterality Modality Abdomen, Abdominal RST LOS, Abdominal ARZ LOS, Abdominal FLA LOS N/A Computed Tomography Impressions 09/17/2023 12:41 PM CDT Successful image-guided microwave ablation of the right liver metastasis. NR Narrative 09/17/2023 12:41 PM CDT EXAM: ??CT ABDOMEN ABLATION, US ASSISTED GUIDANCE, CT ABDOMEN WITHOUT AND WITH IV CONTRAST PROCEDURE: Percutaneous US/CT guided microwave ablation of the right liver metastasis. PRE-PROCEDURE: Patient seen and evaluated. Allergies, pertinent medications, and history reviewed. Discussed risks, benefits, alternatives for procedure, and obtained informed consent. Patient understands information and questions answered. Immediately prior to starting the procedure, in the presence of the assisting personnel, procedural pause was conducted to verify correct patient identity and verification of procedure to be performed, and as applicable, correct side and site, correct patient position, availability of implants, special equipment, or special requirements, and all image and specimen identification data. The roles and responsibilities of care team members, residents, and fellows were discussed. General anesthesia and/or sedation provided by Anesthesiology. TECHNIQUE: Using sterile technique, combined ultrasound and CT guidance, and general anesthesia provided by the Department of Anesthesiology, percutaneous microwave ablation was performed. Anesthesia: General Anesthesia Imaging Guidance: Combined CT/US Approach: Standard Adjunctive Procedures: None Target Lesion: 1 Location: Right liver centrally Biopsy: Not performed today. Size: 1.5 x 1.4 x 1.2 cm Probes: Two x Neuwave ME 15 XT Ablation Parameters: 7 minute ablation at [address] Probe Removal: Tract ablation. COMPLICATIONS: None. POST-PROCEDURE TECHNICAL EVALUATION: Zone of ablation encompassed tumor(s) completely. OTHER POST-PROCEDURE FINDINGS: Unchanged. ?? Procedure Note Gonzalez Garcia M.D. - 09/17/2023 EXAM: CT ABDOMEN ABLATION, US ASSISTED GUIDANCE, CT ABDOMEN WITHOUT ANDWITH IV CONTRAST PROCEDURE: Percutaneous US/CT guided microwave ablation of the right livermetastasis. PRE-PROCEDURE: Patient seen and evaluated. Allergies, pertinentmedications, and history reviewed. Discussed risks, benefits, alternativesfor procedure, and obtained informed consent. Patient understandsinformation and questions answered. Immediately prior to starting the procedure, in the presence of the assistingpersonnel, procedural pause was conducted to verify correct patientidentity and verification of procedure to be performed, and as applicable,correct side and site, correct patient position, availability of implants, special equipment, or specialrequirements, and all image and specimen identification data. The rolesand responsibilities of care team members, residents, and fellows werediscussed. General anesthesia and/or sedation provided by Anesthesiology. TECHNIQUE: Using sterile technique, combined ultrasound and CT guidance,and general anesthesia provided by the Department of Anesthesiology,percutaneous microwave ablation was performed. Anesthesia: General Anesthesia Imaging Guidance: Combined CT/US Approach: Standard Adjunctive Procedures: None Target Lesion: 1 Location: Right liver centrally Biopsy: Not performed today. Size: 1.5 x 1.4 x 1.2 cm Probes: Two x Neuwave ME 15 XT Ablation Parameters: 7 minute ablation at [address] Probe Removal: Tract ablation. COMPLICATIONS: None. POST-PROCEDURE TECHNICAL EVALUATION: Zone of ablation encompassed tumor(s)completely. OTHER POST-PROCEDURE FINDINGS: Unchanged. 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 NR Gonzalez Garcia M.D. IMG CT PROCEDURES * LDA ANE ENDOTRACHEAL AIRWAY (09/17/2023 11:12 AM CDT) Narrative Rose Brink APRN, CRNA - 09/17/2023 11:12 AM CDT Rose Brink APRN, CRNA ? 09/17/2023 11:27 AM Airway Date/Time: 09/17/2023 11:12 AM Performed by: Rose Brink APRN, CRNA Authorized by: Rose Brink APRN, CRNA ?? Patient location during procedure: OR / Procedure Area PROCEDURE DETAILS: Mask difficulty assessment: easy mask Final airway type: video laryngoscope Laryngeal Manipulation: no ?? Final best view of glottic structures - Cormack/Lehane Score: grade 1 ETT location: oral VL device: glide scope Etta scope blade size: 3 Tube size: 6.5 ETT distance at teeth/gum: 21 Oral tube type: standard ETT Cuffed: yes Leak Test Performed: no ?? Number of attempt to successful placement: 1 Airway confirmation: bilateral breath sounds, positive ETCO2 and bilateral chest rise Other previous techniques attempted: none PRE PROCEDURE DETAILS: Pre evaluation for airway management: procedure Urgency: elective Preop assessment of probable difficulty: no difficulty anticipated Preoxygenation: bag valve mask SEDATION / ANESTHESIA Anesthesia method: anesthesia POST PROCEDURE DETAILS: ? Procedure outcome: successful ?? Notable Events: no complications Rose Brink APRN, CRNA ANESTHESIA ORD ERABLES * Prothrombin Time (PT) (09/17/2023 9:10 AM CDT) Prothrombin Time, P 10.6 9.4 - 12.5 sec 09/17/2023 9:24 AM CDT STMA INR 1.0 0.9 - 1.1 09/17/2023 9:24 AM CDT STMA Comment: ----ADDITIONAL INFORMATION---- Standard intensity warfarin therapeutic range: 2.0 to 3.0 ?? High intensity warfarin therapeutic range: 2.5 to 3.5 Blood (Blood, Venous) 09/17/2023 9:10 AM CDT 09/17/2023 9:16 AM CDT Gonzalez Garcia M.D. LAB BLOOD ADD-ON [facility] [address] [place] [address], [facility] [address] [place] [address] * US Abdomen Limited Liver (09/02/2023 11:33 [...] IMG MRI PROCEDURE S Performing Organization Address [facility] de Phone Number IIMS NA * CT chest abdomen pelv w con-Outside CT Body (07/18/2023 9:10 AM SAS PROGRAMMER ANALYST) Narrative IITX - 08/14/2023 4:09 PM CDT This order [...] System IMG CT PROCEDURES Performing Organization Address [facility] de Phone Number IIMS NA from Last 3 Months Additional Health Concerns Infection Onset Date Last Indicated Protective Environment 04/23/2023 3
--- OUTSIDE RECORDS SUMMARY | 2023-10-04 12:59 | XMS_ITS | Referral Summary ---
Author Name Unknown Organization [facility] Address [address] [place] [address] Care Team Providers Care Second Butler Name Role Phone Unavailable Primary Care Provider Unavailabl e Source Comments Patient records contain information from all sites at [facility]. For routine questions regarding patient records, call [phone] during business hours, M-F 8:00 AM - 5:00 PM Central Time. Record requests for emergency care only can be directed to [phone] at any time.[facility] Encounters Date Type Department Care Team Description 09/18/2023 9:30 AM CDT Virtual Visit Department of Radiology, [facility], in [address] [phone] Dania Hemphill P.A.-C. Eleonora Briscoe APRN, C.N.P., M.S.N. Mass Hepatic (Primary Dx) 09/17/2023 11:02 AM CDT Anesthesia Event Department of Radiology in [address] [phone] Rose Brink APRN, CRNA Walsh, Emily E, M.D. 09/17/2023 8:31 AM CDT Hospital Encounter Department of Radiology, [facility] in [address] [address] Gonzalez Garcia M.D. Lesion Liver Discharge Disposition: Home or Self Care 09/17/2023 8:33 AM CDT - 09/17/2023 2:00 PM CDT Hospital Encounter Department of Radiology in [address] [address] Gonzalez Garcia M.D. Lesion Liver Discharge Disposition: Home or Self Care 09/16/2023 Clinical Communication Department of Radiology, [address] [address] Margaret Archibald R.N. Pre-Ablation 09/12/2023 Clinical Communication Department of Radiology, [address] [phone] Margaret Archibald R.N. Appointment 09/10/2023 Clinical Communication Department of Radiology in [address] [address] Skye Mohan R.N., C.M.S.R.N. 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 09/02/2023 Orders Only Department of Radiology, [facility] in [address] [address] Skye Mohan R.N., C.M.S.R.N. 09/02/2023 Orders Only Department of Radiology, [address] [address] Skye Mohan R.N., C.M.S.R.N. 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 Preoperative Exam (Primary Dx) 09/02/2023 Clinical Communication Department of Radiation Oncology in [place], [place] [address] [place] [address] Mandie Cruz APRN, C.N.P., D.N.P. 09/02/2023 Orders Only Department of Radiology, [place], [place] [address] [place] [phone] Skye Mohan R.N., C.M.S.R.N. 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) Discharge Disposition: Home or Self Care 09/02/2023 12:00 PM CDT Comprehensive Visit Department of Radiology, [facility] in [address] [address] Dina Mari M.D. Loga, Laura A, APRN, Samantha.N.P., M.S.N. Gonzalez Garcia M.D. 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) 08/19/2023 Orders Only Department of Oncology in [place], [place] [address] [place] [phone] Dina aMri M.D. 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 in [address] [address] Skye Mohan R.N., C.M.S.R.N. 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 Pre-Ablation 08/13/2023 Orders Only Department of Oncology in [place], [place] [address] [place] [address] Dina Mari M.D. Malignant Neoplasm [...] OUTSIDE CT BODY Routine 07/18/2023 9:10 AM REMEDIATION PROJECT ENGINEER from Last 3 Months Results * US [...] x 1.2 cm Probes: Two x Neuwave WI 15 XT Ablation Parameters: 7 minute ablation [...] x 1.2 cm Probes: Two x Neuwave WI 15 XT Ablation Parameters: 7 minute ablation at [address] Probe Removal: Tract ablation. COMPLICATIONS: None. POST-PROCEDURE TECHNICAL EVALUATION: Zone of ablation encompassed tumor(s)completely. OTHER POST-PROCEDURE FINDINGS: Unchanged. 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 NR Gonzalez Garcia M.D. IMG US PROCEDURES * CT Abdomen Ablation (09/17/2023 [...] x 1.2 cm Probes: Two x Neuwave WI 15 XT Ablation Parameters: 7 minute ablation [...] x 1.2 cm Probes: Two x Neuwave WI 15 XT Ablation Parameters: 7 minute ablation [...] x 1.2 cm Probes: Two x Neuwave WI 15 XT Ablation Parameters: 7 minute ablation [...] x 1.2 cm Probes: Two x Neuwave WI 15 XT Ablation Parameters: 7 minute ablation at [address] Probe Removal: Tract ablation. COMPLICATIONS: None. POST-PROCEDURE TECHNICAL EVALUATION: Zone of ablation encompassed tumor(s)completely. OTHER POST-PROCEDURE FINDINGS: Unchanged. 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 NR Gonzalez Garcia M.D. IMG CT PROCEDURES * LDA ANE ENDOTRACHEAL AIRWAY (09/17/2023 11:12 AM CDT) Narrative Rose Brink APRN, DISABILITY INSURANCE CLAIM EXAMINER - 09/17/2023 11:12 AM CDT Rose Brink APRN, DISABILITY INSURANCE CLAIM EXAMINER ? 09/17/2023 11:27 AM Airway Date/Time: 09/17/2023 [...] ETT location: oral VL device: glide scope Cutler scope blade size: 3 Tube size: 6.5 [...] - 12.5 sec 09/17/2023 9:24 AM CDT [facility]9 - 1.1 09/17/2023 9:24 AM CDT [facility] Comment: ----ADDITIONAL INFORMATION---- Standard intensity warfarin therapeutic range: 2.0 to 3.0 ?? High intensity warfarin therapeutic range: 2.5 to 3.5 Blood (Blood, Venous) 09/17/2023 9:10 AM CDT 09/17/2023 9:16 AM CDT Gonzalez Garcia M.D. LAB BLOOD ADD-ON [facility] [address] [place] [address], [place] [facility] [address] * US Abdomen Limited Liver (09/02/2023 11:33 [...] MR Body (08/02/2023 8:40 AM CDT) Narrative [facility] - 08/14/2023 4:09 PM CDT This order [...] w con-Outside CT Body (07/18/2023 9:10 AM REMEDIATION PROJECT ENGINEER) Narrative [facility] - 08/14/2023 4:09 PM CDT [...]
--- OUTSIDE RECORDS SUMMARY | 2023-10-04 13:00 | XMS_ITS | Encounter Summary ---
Author Name Unknown Organization [facility] Address [address] [place] [address] Care Team Providers Care Mortgage Sales Manager Name Role Phone Unavailable Primary Care Provider Unavailabl e Reason for Visit * Reason Onset Date Comments Pre-Ablation 08/13/2023 Encounter Details Date Type Department Care Team (Late st Contact Info) Description 08/13/2023 Clinical Communication Department of Radiology in [place], [place] [address] [place] [address] Skye Mohan, RTylerN., C.M.S.R.N. [address] [place] [phone] Pre-Ablation Social History Tobacco Use Types Packs/Day Years Used Date Smoking Tobacco: Never Dental Answer Date Recorded Dental: Regular Dentist [...]
--- OUTSIDE RECORDS SUMMARY | 2023-10-04 13:00 | XMS_ITS | Encounter Summary ---
Author Name Unknown Organization [facility] Address [address] [place] [address] Care Team Providers Care Filter Washer And Presser Name Role Phone Unavailable Primary Care Provider Unavailabl e Reason for Referral * Outpatient (Routine) - Closed Specialty Diagnoses / Procedures Referred By Kwabena andersen Referred To Contact Radiology / Interventional Radiology Diagnoses 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) Dina Mari M.D. [address] [place] [address] [facility] Referral ID Status Reason Start Date Expiration Date Visits Re quested Visits Authorized [id number] Closed 08/13/2023 02/11/2025 1 1 Scheduling Instructions Lenka call daughter at [phone] Anthony Mendes * Outpatient (Routine) - Authorized Specialty Diagnoses / Procedures Referred By Kwabena t Referred To Contact Radiation Oncology Diagnoses 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) Dina Mari M.D. [address] [place] [address] [facility] Referral ID Status Reason Start Date Expiration Date V isits Requested Visits Authorized [id number] Authorized 08/13/2023 02/11/2025 1 [address] Tim Jensen Plmalik call daughter at [phone] Encounter Details Date Type Department Care Team (Late st Contact Info) Description 08/13/2023 Orders Only Department of Oncology in [place], [place] [address] [place] [phone] Dina Mari M.D. 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
--- OUTSIDE RECORDS SUMMARY | 2023-10-04 13:00 | XMS_ITS | Encounter Summary ---
Author Name Unknown Organization [facility] Address [address] [place] [address] Care Team Providers Care Regulator Mechanic Name Role Phone Unavailable Primary Care Provider Unavailabl e Encounter Details Date Type Department Care Team (Late st Contact Info) Description 09/10/2023 Clinical Communication Department of Radiology in [place], [place] [address] [place] [address] Skye Mohan, RTylerN., C.M.S.R.N. [address] [place] [phone] Social History Tobacco Use Types Packs/Day Years [...]
--- OUTSIDE RECORDS SUMMARY | 2023-10-04 13:00 | XMS_ITS | Encounter Summary ---
Author Name Unknown Organization [facility] Address [address] [place] [address] Care Team Providers Care Bd Special Education Teacher Name Role Phone Unavailable Primary Care Provider Unavailabl e Reason for Referral * Outpatient (Routine) - Authorized Specialty Diagnoses / Procedures Referred By Kwabena t Referred To Contact Radiology Diagnoses 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) Dina Mari M.D. [address] [place] [address] [facility] Referral ID Status Reason Start Date Expiration Date V isits Requested Visits Authorized [id number] Authorized 08/19/2023 02/17/2025 1 1 Scheduling Instructions Case reviewed with Dr Anthony Mendes. Thanks. Encounter Details Date Type Department Care Team (Late st Contact Info) Description 08/19/2023 Orders Only Department of Oncology in [place], [place] [address] [place] [phone] Dina Mari M.D. [address] [place] [address] Malignant Neoplasm Of Colon Rectosigmoid [...]
--- OUTSIDE RECORDS SUMMARY | 2023-10-04 13:00 | XMS_ITS | Encounter Summary ---
Author Name Unknown Organization [facility] Address [address] [place] [address] Care Team Providers Care Product Safety Manager Name Role Phone Unavailable Primary Care Provider Unavailabl e Encounter Details Date Type Department Care Team (Late st Contact Info) Description 09/04/2023 Clinical Communication Department of Radiology in [place], [place] [address] [place] [address] Skye Mohan, RTylerN., C.M.S.R.N. [address] [place] [phone] Social History Tobacco Use Types Packs/Day Years [...]
--- OUTSIDE RECORDS SUMMARY | 2023-10-04 13:00 | XMS_ITS | Encounter Summary ---
Author Name Unknown Organization [facility] Address [address] [place] [id number] Care Team Providers Care Slicing Machine Operator Name Role Phone Unavailable Primary Care Provider Unavailabl e Reason for Referral * MRI/CAT/PET Scan (Routine) - Closed Specialty Diagnoses / Procedures Referred By Kwabena adnersen Referred To Contact Radiology Diagnoses Lesion Liver Procedures CT Abdomen Ablation Gonzalez Garcia M.D. 200 [place] [address] [facility] Referral ID Status Reason Start Date Expiration Date Visits Re quested Visits Authorized [id number] Closed 09/02/2023 09/01/2024 1 1 Reason for Visit * MRI/CAT/PET Scan (Routine) - Closed Specialty Diagnoses / Procedures Referred By Kwabena andersen Referred To Contact Radiology Diagnoses Lesion Liver Procedures CT Abdomen Ablation Gonzalez Garcia M.D. 200 [place] [address] [facility] Referral ID Status Reason Start Date Expiration Date Visits Re quested Visits Authorized [id number] Closed 09/02/2023 09/01/2024 1 1 Encounter Details Date Type Department Care Team (Latest Contact Info) Description 09/17/2023 8:33 AM CDT - 09/17/2023 2:00 PM CDT Hospital Encounter Department of Radiology in [place], [place] [address] [place] [phone] Gonzalez Garcia M.D. [address] [place] [phone] Lesion Liver Discharge Disposition: Home or Self Care Social [...] Index - - documented in this encounter Discharge Instructions * Discharge Instr - Activity* Dania Hemphill P.A.-C. - 09/16/2023 2:41 PM CDT Post Anesthesia: After being sedated, it is common to have lapses of memory, slowed reaction time and impaired judgment. For these reasons, for 24 hours after being sedated: * Do not drive or operate motorized vehicles or equipment. * If you leave the hospital the same day as your procedure, stay within 30 miles of the hospital for one night. Have someone drive you to local lodging or home if within 30 miles. * Have a responsible adult stay with you the first 24 hours. * Do not return to work. * Do not take responsibility for small children or anyone who depends on your care. * Do not use exercise equipment, take part in rough play or in sports. * Do not drink alcoholic beverages. * Do not make important decisions or sign legal documents. Pain: It is common to have pain after an ablation. Unless you have been advised otherwise, consider taking acetaminophen/Tylenol on a scheduled for the next 24 hours or so. If you were given prescription pain medicine, use this for pain not adequately relieved by acetaminophen/Tylenol. If you have not been advised otherwise, you may begin using NSAIDs (i.e. Advil, ibuprofen, Motrin, Aleve) 24 hours after the ablation. Application of ice/cold may also be helpful. If you develop pain that is intolerable, seek emergency medical care. Care for the percutaneous site: Keep dressing in place over site for 24 hours. 24 hours after procedure it is okay to shower. Remove the dressing, clean and rinse puncture site gently with soap and water and dry thoroughly. Reapply Band-Aid to the site or leave open to air. Do not submerge puncture site in water such as tub bathing, hot tub or swimming until completely healed. Activity: No vigorous activities for 24-48 hours, then advance activity as tolerated. Do not lift, push, or pull anything greater than 10 lb for 1 week. Seeking emergency care: Contact your health care provider immediately or seek emergency care for the following symptoms: A temperature of 101 degrees Fahrenheit (38.3 degrees Celsius) or higher Severe abdominal or flank pain Drainage that has blood in it for more than 24 hours. For nonemergent questions or concerns: If you have questions related to the procedure, please contact the [facility] shrinking machine operator ([phone]) and ask to be connected to the non-vascular interventional radiology fellow paving contractor. documented in this encounter Medications at Time [...] capsule Take 10 mg by mouth. 11/27/2021 cholecalciferol, vitamin D3, 25 mcg (1,000 Unit) tablet Take 25 mcg by mouth. 04/29/2023 lisinopriL (PRINIVIL,ZESTRIL) 20 mg tablet 03/02/2021 multivit with calcium,iron,min (WOMEN'S DAILY MULTIVITAMIN ORAL) Take 1 tablet by mouth. 11/27/2021 ciprofloxacin (CIPRO) 500 mg tablet Take 1 tablet (500 mg total) by mouth 2 (two) times a day before breakfast and dinner for 10 days. 20 tablet 09/17/2023 09/27/2023 documented as of this encounter Progress Notes * Dania Hemphill P.A.-C. - 09/17/2023 12:[address] ABLATION NOTE - Post Ablation Note CHIEF COMPLAINT / PURPOSE FOR VISIT S/P successful percutaneous image-guided ablation of a 1.5 cm metastatic colorectal lesion in the right liver HISTORY OF PRESENT ILLNESS Angle Kennedy is a 83 y.o. female from [place], [place] with metastatic rectal cancer (liver metastasis) who underwent laparoscopic loop sigmoidostomy in November of 2019 and was treated initially with Xeloda and Avastin. Avastin was discontinued in February of 2022. Flexible sigmoidoscopy on 02/04/23 showed a large almost completely obstructing 4 cm rectal mass treated with palliative radiation therapy. 08/02/23 MRI noted seg 4B 1.5 cm liver lesion and she was referred for ablation of this lesion. Ms. Kennedy underwent successful image guided ablation of the 1.5 cm metastatic colorectal lesion in the right liver earlier today without complication. She is doing well in the postprocedure area without pain. She is ambulatory and p.o. well prior to discharge. CURRENT MEDICATIONS No current facility-administered medications on file prior to encounter. Current Outpatient Medications on File Prior to Encounter Medication Sig Dispense Refill acetaminophen (TYLENOL) 500 mg tablet Take 325 mg by mouth. alendronate (FOSAMAX) 35 mg tablet Take 35 mg by mouth once a week. Take with 8oz of water, on an empty stomach. Remain upright for 30min. alendronate (FOSAMAX) 70 mg tablet amLODIPine (NORVASC) 10 mg tablet capecitabine (XELODA) 150 mg tablet Take 150 mg by mouth 2 (two) times a day. Take within 30 minutes after a meal. Swallow whole with water. Do not crush or cut. cetirizine 10 mg capsule Take 10 mg by mouth. lisinopriL (PRINIVIL,ZESTRIL) 20 mg tablet bisacodyL 5 mg tablet Take 5 mg by mouth. calcium carbonate 1,500 mg (600 mg calcium) tablet Take 600 mg by mouth. cholecalciferol, vitamin D3, 25 mcg (1,000 Unit) tablet Take 25 mcg by mouth. multivit with calcium,iron,min (WOMEN'S DAILY MULTIVITAMIN ORAL) Take 1 tablet by mouth. VITAL SIGNS Vitals: 09/17/23 0913 BP: 134/84 Pulse: 80 Temp: 36.4 ??C SpO2: 100% ALLERGIES Allergies Allergen Reactions Ragweed Pollen Other (see comments) ASSESSMENT/PLAN #1 S/P successful percutaneous image guided ablation of 1.5 cm metastatic colorectal liver lesion - Post-procedure care: Puncture site care per AVS. - Antibiotics - Cefazolin given prior to procedure. Rx sent for Cipro 500 mg po bid X 10 days - Anticoagulation - Hold X 24 hours, then as needed. - Diet: as tolerated - Activity: Out of bed as tolerated. No vigorous activities for 24 hours, then advance activity as tolerated. Limit lifting to less than 10 pounds for one week. - Pain: Tylenol 1 gm po q 6 hr as needed. #2 Disposition - Pt dismissed from [facility] area after meeting dismissal criteria with ability to safely ambulate, urinate and tolerate po - Message sent to Dr. Dina Mari in [facility] regarding patient's post-ablation status and follow-up recommendations - Follow-up imaging recommended, specifically multiphasic CT or MRI in 3 months or per referring provider preference. - For any questions or concerns regarding this patient please page Ablation Radiology nurse at [phone] Saturday through Saturday 7 a.m. to 5 p.m. or the [facility] shrinking machine operator ([phone]) and ask to be connected to the non-vascular interventional radiology fellow paving contractor. documented in this encounter Plan of Treatment Scheduled Orders Name Type Priority Associated Diagnoses Orde r Schedule ECG 12 Lead ECG Routine Once for 1 Oc currences starting 09/17/2023 until 09/17/2023 documented as of this encounter Procedures Procedure Name Priority Date/Time Associated Diagnosis Comments CT ABDOMEN ABLATION RAD - Routine (most inpatients and all outpatients) 09/17/2023 12:[address] ABDOMEN WITHOUT AND WITH IV CONTRAST RAD - Routine (most inpatients and all outpatients) 09/17/2023 12:26 PM CDT PROTHROMBIN TIME (PT), P STAT 09/17/2023 9:10 AM CDT documented in this encounter Results * CT Abdomen without and with IV [...] x 1.2 cm Probes: Two x Neuwave OH 15 XT Ablation Parameters: 7 minute ablation [...] x 1.2 cm Probes: Two x Neuwave OH 15 XT Ablation Parameters: 7 minute ablation at [address] Probe Removal: Tract ablation. COMPLICATIONS: None. POST-PROCEDURE TECHNICAL EVALUATION: Zone of ablation encompassed tumor(s)completely. OTHER POST-PROCEDURE FINDINGS: Unchanged. 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 NR Gonzalez Garcia M.D. IMG CT PROCEDURES * CT Abdomen Ablation (09/17/2023 12:26 [...] x 1.2 cm Probes: Two x Neuwave OH 15 XT Ablation Parameters: 7 minute ablation [...] 1.4 x 1.2 cm Probes: Two x Thrillwave OH 15 XT Ablation Parameters: 7 minute ablation at [address] Probe Removal: Tract ablation. COMPLICATIONS: None. POST-PROCEDURE TECHNICAL EVALUATION: Zone of ablation encompassed tumor(s)completely. OTHER POST-PROCEDURE FINDINGS: Unchanged. 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 NR Gonzalez Garcia M.D. IMG CT PROCEDURES * Prothrombin Time (PT) (09/17/2023 9:10 AM CDT) Prothrombin Time, P 10.6 9.4 - 12.5 sec 09/17/2023 9:24 AM CDT [facility]0 0.9 - 1.1 09/17/2023 9:24 AM CDT [facility] Comment: ----ADDITIONAL INFORMATION---- Standard intensity warfarin therapeutic range: 2.0 to 3.0 ?? High intensity warfarin therapeutic range: 2.5 to 3.5 Blood (Blood, Venous) 09/17/2023 9:10 AM CDT 09/17/2023 9:16 AM CDT Gonzalez Garcia M.D. LAB BLOOD ADD-ON [facility] [address] [place] [address], [place] [facility] [address] documented in this encounter Visit Diagnoses Diagnosis Lesion Liver documented in this encounter Administered Medications Inactive Administered Medications - up to 3 most recent administrations Medication Order MAR Action Action Date Dose Rate Site acetaminophen tablet 650 mg (TYLENOL) 650 mg, oral, Once, On Sat09/17/23 at 0915, For 1 dose, Pre-Op Given 09/17/2023 9:18 AM CDT 650 mg iohexoL 350 mg iodine/mL solution (OMNIPAQUE) As needed, Starting on Sat09/17/23 at 1130, Intra-Op Given 09/17/2023 11:30 AM CDT 75 mL iohexoL 350 mg iodine/mL solution (OMNIPAQUE) As needed, Starting on Sat09/17/23 at 1206, Intra-Op Given 09/17/2023 12:06 PM CDT 75 mL NaCl 0.9 % bolus Administer over 1 Hours, Continuous Infusion: Per Instructions PRN, Starting on Sat09/17/23 at 1130, Intra-Op New Bag 09/17/2023 11:30 AM CDT 50 mL NaCl 0.9 % bolus Administer over 1 Hours, Continuous Infusion: Per Instructions PRN, Starting on Sat09/17/23 at 1206, Intra-Op New Bag 09/17/2023 12:06 PM CDT 50 mL documented in this encounter Active and Recently Administered Medications Times are shown in CDT. Scheduled Medication Order 09/15/2023 09/16/2023 09/17/2023 acetaminophen tablet 650 mg (TYLENOL) (COMPLETED) 650 mg, oral, Once, On Sat09/17/23 at 0915, For 1 dose, Pre-Op 0918 (Given - [facility] er: Isa Montiel R.N.) PRN Medication Order 09/15/2023 09/16/2023 09/17/2023 fentaNYL injection 25 mcg (SUBLIMAZE) 25 mcg, intravenous, Every 2 min PRN, For pain 4 or greater (maximum 100 mcg). If max dose of Fentanyl is reached and if pain is greater than 4, discontinue Fentanyl: give Hydromorphone, Starting on Sat09/17/23 at 1246, PACU (only) granisetron (PF) injection 1 mg (KYTRIL) 1 mg, intravenous, Once as needed, nausea, vomiting, Starting on e 09/17/23 at 1246, For 1 dose, PACU (only), If patient does not respond to ondansetron or haloperidol. (order of antiemetic administration - ondansetron then haloperidol then granisetron) haloperidol lactate injection 1 mg (HALDOL) 1 mg, intravenous, Every 6 hours PRN, nausea, vomiting, Starting on e 09/17/23 at 1246, PACU (only), Total of 3 doses in 24 hour period. RASS must be -2 or higher to administer. If nausea and vomiting persists, move to granisteron. (order of antiemetic administration - ondansetron then haloperidol then granisetron) HYDROmorphone (PF) injection 0.2 mg (DILAUDID) 0.2 mg, intravenous, Every 5 min PRN, moderate pain or score 4-6 of 10, severe pain or score 7-10 of 10, Starting on Sat09/17/23 at 1246, PACU (only), Up to maximum total dose of 2 mg iohexoL 350 mg iodine/mL solution (OMNIPAQUE) (COMPLETED) As needed, Starting on e 09/17/23 at 1130, Intra-Op 1130 (Given - Provid er: Francisco Marr, R.T.(R)(CT)) iohexoL 350 mg iodine/mL solution (OMNIPAQUE) (COMPLETED) As needed, Starting on e 09/17/23 at 1206, Intra-Op 1206 (Given - Provid er: Francisco Marr, R.T.(R)(CT)) NaCl 0.9 % bolus (COMPLETED) Administer over 1 Hours, Continuous Infusion: Per Instructions PRN, Starting on e 09/17/23 at 1130, Intra-Op 1130 (New Bag - Prov ider: Francisco Marr, R.T.(R)(CT)) NaCl 0.9 % bolus (COMPLETED) Administer over 1 Hours, Continuous Infusion: Per Instructions PRN, Starting on e 09/17/23 at 1206, Intra-Op 1206 (New Bag - Prov ider: Francisco Marr R.T.(R)(CT)) ondansetron (PF) injection 4 mg (ZOFRAN) 4 mg, intravenous, Every 6 hours PRN, nausea, vomiting, (If patient has not received in the previous 6 hours), Starting on Sat09/17/23 at 1246, PACU (only), Administer first. If nausea and vomiting persists, proceed with haloperidol. (order of antiemetic administration - ondansetron then haloperidol then granisetron) oxyCODONE IR tablet 5 mg (ROXICODONE) 5 mg, oral, Once as needed, For pain 4 or greater, Starting on Sat09/17/23 at 1246, For 1 dose, PACU (only) documented in this encounter Additional Health Concerns Infection Onset Date Last Indicated Resolved Time Protective Environment 04/23/2023 04/23/2023 documented as of this encounter
--- OUTSIDE RECORDS SUMMARY | 2023-10-04 13:00 | XMS_ITS | Encounter Summary ---
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 [address] [place] [phone] [facility] Referral ID Status Reason Start Date Expiration Date Visits Re quested Visits Authorized [id number] Closed 08/15/2023 08/14/2024 1 1 Encounter Details Date Type Department Care Team (Late st Contact Info) Description 08/15/2023 Orders Only Department of Radiology, [facility], in [place], [place] [address] [place] [phone] Skye Mohan RVi, C.M.S.R.N. 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
--- OUTSIDE RECORDS SUMMARY | 2023-10-04 13:00 | XMS_ITS | Encounter Summary ---
Author Name Unknown Organization [facility] Address [address] [place] [address] Care Team Providers Care Marketing Manager Name Role Phone Unavailable Primary Care Provider Unavailabl e Encounter Details Date Type Department Care Team ([facility] st Contact Info) Description 09/17/2023 11:02 AM CDT Anesthesia Event Department of Radiology in [place], [place] [address] [place] [phone] Rose Brink APRN, FRUIT SPRAYER [address] [place] [phone] Miladis Sauceda M.D. [address] [place] [phone] Anesthesia Record Procedure Summary Procedure Name Responsible Anesthesiologist Anesthesia Start Time Anesthesia Stop Time CT ABDOMEN ABLATION Rose Brink APR N, FRUIT SPRAYER 09/17/23 1102 09/17/23 1241 Events Date Time Event Comment 09/17/2023 0859 1102 An Start Machine/Equipme nt Checked Infection Precautions Followed Procedure/Site Verified NPO Status Verified Supine Standard ASA Monitors Applied 1106 An Induction 1112 An Intubation 1115 Turnover to Proceduralist 1135 Anesthesia Time Out 1136 Image Start 1137 Proc Start 1154 Quick Note Ablation begin 1202 Quick Note Ablation end 1211 Image End 1214 Proc Fin 1214 Turnover to ANE Staff 1230 Airway Removal Criteria Met 1230 Extubation/Airway Removed 1230 an stop data 1241 An End I completed my handoff to the receiving staff during which we 1. Identified the patient 2. Identified the responsible provider 3. Reviewed the pertinent medical history 4. Discussed the surgical course 5. Reviewed intra-op anesthesia management and issues during anesthesia 6. Set expectations for post-procedure period 7. Allowed opportunity for questions and acknowledgement of understanding. Meds Name Total fentanyl injection 50 mcg/mL 125 mcg lidocaine 2% (mg) injection 60 mg sugammadex 100 mg/mL injection 200 mg propofol 10 mg/mL injection 130 mg rocuronium 10 mg/mL injection 60 mg dexAMETHasone (DECADRON) injection 4 mg/ mL 4 mg ceFAZolin 2 g Lactated Ringers Free Drip 300 mL lactated ringers free drip 400 mL * Agents No agents on file. * Blood No blood administrations on file. Lines, Drains, and Airways Type Details Placement Removal Peripheral IV Placement Date: 08/20 ; Placement Time: 09; Catheter Size: 20 G; Orientation: Right; Location: Antecubital; Site Prep: Chlorhexidine (Preferred); Technique: Anatomical landmarks; Insertion Attempts: 1 09/17/23 0912 by Alice Cope Wound 09/17/23; 1141; N; A bdomen; Right, Upper 09/17/23 1141 by Francisco Marr, R.T.(R)(CT) ETT Placement Date: 08/20 ; Placement Time: 111 (created via procedure documentation); Mask Ventilation: Easy mask; Technique: Video laryngoscopy; Type: Standard ETT; Single Lumen Tube Size: 6.5 mm; Cuffed: Yes; Location: Oral; Grade View: Grade 1; Insertion Attempts: 1; Placement Verification: Bilateral breath sounds, Positive ETCO2, Symmetrical chest wall movement; Removal Date: 09/17/23; Removal Time: 1230 09/17/23 1112 by Rose Brink APRN, FRUIT SPRAYER 09/17/23 1230 by Rose Brink APRN, FRUIT SPRAYER Peripheral IV Placement Date: 08/20 ; Placement Time: 1114; Catheter Size: 18 G; Orientation: Right; Location: Wrist; Inserted by: MD Isauro; Removal Date: 09/17/23; Removal Time: 1348; Removal Reason: Completion of therapy 09/17/23 1114 by Rose Brink APRN, FRUIT SPRAYER 09/17/23 1348 by Lena Burk, R.N. documented in this encounter Social History Tobacco Use Types Packs/Day Years Used Date Smoking Tobacco: Never Smokeless Tobacco: Never Dental Answer Date Recorded Dental: Regular Dentist Unknown 05/18/20 22 Sex and Gender Information Value Date Recorded Sex Assigned at Not on file Gender Identity Not on file Sexual Orientation Not on file documented as of this encounter OR Notes * Anesthesia Postprocedure Evaluation - Rose Brink APRN, CRNA - 09/17/2023 12:41 PM CDT Patient: Angle Kennedy Procedure Summary Date: 09/17/23 Room / Location: Department of Radiology in [place], [place] Anesthesia Start: 1102 Anesthesia Stop: 1241 Procedures: CT ABDOMEN ABLATION CT ABDOMEN WITHOUT AND WITH IV CONTRAST Diagnosis: Lesion Liver Lesion Liver Lesion Liver (liver lesion) (post liver ablation) Scheduled Providers: Gonzalez Garcia M.D. Responsible Provider: Rose Brink APRN, CRNA Anesthesia Type: general ASA Status: 3 Anesthesia Type: general Last vitals Vitals Value Taken Time BP Temp Pulse Resp SpO2 Please reference Vitals flowsheet for most recent vital signs. Anesthesia Post Evaluation Patient Disposition: dismissal Cardiovascular status: hemodynamics (HR & BP) acceptable Respiratory status: patent airway with spontaneous effort Temperature: normothermic Oxygen requirements: room air Level of consciousness: awake Pain score: pain adequately controlled and/or at baseline Post Op nausea/vomiting: none Hydration status: euvolemic * Anesthesia Procedure Notes - Rose Brink APRN, CRNA - 09/17/2023 11:26 AM CDTAssociated Order(s): Airway Airway Date/Time: 09/17/2023 11:12 AM Performed by: Rose Brink APRN, CRNA Authorized by: Rose Brink APRN, CRNA Patient location during procedure: OR / Procedure Area PROCEDURE DETAILS: Mask difficulty assessment: easy mask Final airway type: video laryngoscope Laryngeal Manipulation: no Final best view of glottic structures - Cormack/Lehane Score: grade 1 ETT location: oral VL device: glide scope [place] scope blade size: 3 Tube size: 6.5 ETT distance at teeth/gum: 21 Oral tube type: standard ETT Cuffed: yes Leak Test Performed: no Number of attempt to successful placement: 1 Airway confirmation: bilateral breath sounds, positive ETCO2 and bilateral chest rise Other previous techniques attempted: none PRE PROCEDURE DETAILS: Pre evaluation for airway management: procedure Urgency: elective Preop assessment of probable difficulty: no difficulty anticipated Preoxygenation: bag valve mask SEDATION / ANESTHESIA Anesthesia method: anesthesia POST PROCEDURE DETAILS: Procedure outcome: successful Notable Events: no complications * Anesthesia Preprocedure Evaluation - Mariel Crawley M.D. - 09/17/2023 8:58 AM CDT Preprocedure Anesthesia & H&P Assessment Procedure Summary Date/Time: 09/17/2330 Scheduled providers: Gonzalez Garcia M.D. Procedure: CT ABDOMEN ABLATION Diagnosis: Lesion Liver [K76.9] Lesion Liver [K76.9] Indications: liver lesion Location: Department of Radiology in [place], [place] Pertinent components of the patient's history including current problem list, medical history, surgical history, family history, social history, medications and allergies were reviewed. Present illness and pre-op diagnosis were confirmed. The planned surgery / procedure was verified with the patient / legal guardian. 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) OBJECTIVE PHYSICAL EXAMINATION Airway (HEENT) Mallampati: II TM Distance: >3 FB Neck ROM: Full Mouth Opening: >3 cm Upper Lip Bite Test Class: I Cardiovascular Rhythm: Regular Rate: Normal Cardiovascular Assessment: cardiovascular normal Functional Capacity: >4 METS Pulmonary Pulmonary Assessment: Clear General / Constitutional Constitutional Assessment: Normal General State of Health:: healthy appearing and calm Neurological Neurologic Assessment: alert and alert and oriented x 3 ASSESSMENT / PLAN ANESTHESIA PLAN ASA: 3 Anesthesia Plan: general Patient seen and allergies reviewed, anesthesia plan and risks discussed directly with patient /legal guardian or through an agency director. Risks/Benefits/Alternatives of Blood transfusion discussed with patient / legal guardian, includingan opportunity to ask questions and/or decline some or all transfusion therapies. The patient / legal guardian consented to the use of all blood products, as deemed medically necessary Approval to Proceed: approved for anesthesia documented in this encounter Plan of Treatment Not on file documented as of this encounter Procedures Procedure Name Priority Date/Time Associated Diagnosis Comments LDA ANE ENDOTRACHEAL AIRWAY Routine 09/17/2023 11:12 AM CDT documented in this encounter Results * LDA ANE ENDOTRACHEAL AIRWAY (09/17/2023 11:12 [...] ETT location: oral VL device: glide scope [place] scope blade size: 3 Tube size: 6.5 [...] Rose Brink APRN, CRNA ANESTHESIA ORD ERABLES documented in this encounter Visit Diagnoses Not on filedocumented in this encounter Administered Medications Inactive Administered Medications - up to 3 most recent administrations Medication Order MAR Action Action Date Dose Rate Site ceFAZolin injection (ANCEF) intravenous, As needed, Starting on Sat09/17/23 at 1134, Anesthesia Intra-op Given 09/17/2023 11:34 AM CDT 2 g dexAMETHasone injection (DECADRON) intravenous, As needed, Starting on Sat09/17/23 at 1128, Anesthesia Intra-op Given 09/17/2023 11:28 AM CDT 4 mg fentaNYL injection (SUBLIMAZE) intravenous, As needed, Starting on Sat09/17/23 at 1107, Anesthesia Intra-op Given 09/17/2023 12:00 PM CDT 25 mcg Given 09/17/2023 11:56 AM CDT 25 mcg Given 09/17/2023 11:46 AM CDT 25 mcg Lactated Ringer's intravenous, Continuous Infusion: Per Instructions PRN, Starting on Sat09/17/23 at 1105, Anesthesia Intra-op New Bag 09/17/2023 11:05 AM CDT Lactated Ringer's intravenous, Continuous Infusion: Per Instructions PRN, Starting on Sat09/17/23 at 1116, Anesthesia Intra-op New Bag 09/17/2023 11:16 AM CDT lidocaine (PF) (cardiac) injection intravenous, As needed, Starting on Sat09/17/23 at 1108, Anesthesia Intra-op Given 09/17/2023 11:08 AM CDT 60 mg propofoL injection (DIPRIVAN) intravenous, As needed, Starting on Sat09/17/23 at 1108, Anesthesia Intra-op Given 09/17/2023 11:59 AM CDT 30 mg Given 09/17/2023 11:08 AM CDT 100 mg rocuronium injection (ZEMURON) intravenous, As needed, Starting on Sat09/17/23 at 1109, Anesthesia Intra-op Given 09/17/2023 11:56 AM CDT 10 mg Given 09/17/2023 11:39 AM CDT 10 mg Given 09/17/2023 11:09 AM CDT 40 mg sugammadex injection (BRIDION) intravenous, As needed, Starting on Sat09/17/23 at 1214, Anesthesia Intra-op Given 09/17/2023 12:14 PM CDT 200 mg documented in this encounter Additional Health Concerns Infection Onset Date Last Indicated Resolved Time Protective Environment 04/23/2023 04/23/2023 documented as of this encounter
--- OUTSIDE RECORDS SUMMARY | 2023-10-04 13:00 | XMS_ITS | Encounter Summary ---
Author Name Unknown Organization [facility] Address [address] [place] [address] Care Team Providers Care Marketing Writer Name Role Phone Unavailable Primary Care Provider Unavailabl e Reason for Referral * Outpatient (Routine) - Closed Specialty Diagnoses / Procedures Referred By Kwabena t Referred To Contact Radiology Dania Hemphill P.A.-C. [address] [place] [phone] [facility] Referral ID Status Reason Start Date Expiration Date Visits Re quested Visits Authorized [id number] Closed 09/02/2023 03/03/2025 1 1 Encounter Details Date Type Department Care Team (Late st Contact Info) Description 09/02/2023 Orders Only Department of Radiology, [facility], in [place], [place] [address] [place] [phone] Skye Mohan R.N., C.M.S.R.N. [address] [place] [phone] Social History Tobacco Use Types Packs/Day Years [...]
--- OUTSIDE RECORDS SUMMARY | 2023-10-04 13:00 | XMS_ITS | Encounter Summary ---
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 200 [place] [phone] [facility] Referral ID Status Reason Start Date Expiration Date Visits Re quested Visits Authorized [id number] Closed 08/15/2023 08/14/2024 1 1 Encounter Details Date Type Department Care Team (Latest Contact Info) Description 09/02/2023 11:00 AM CDT - 09/02/2023 11:59 PM CDT Hospital Encounter Department of Radiology, [facility] in [place], [place] [address] [place] [phone] Gonzalez Garcia M.D. 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
--- OUTSIDE RECORDS SUMMARY | 2023-10-04 13:00 | XMS_ITS | Encounter Summary ---
Author Name Unknown Organization [facility] Address [address] [place] [address] Care Team Providers Care Letterpress Printing Machinist Name Role Phone Unavailable Primary Care Provider Unavailabl e Reason for Visit * Reason Onset Date Comments Appointment 09/12/2023 Encounter Details Date Type Department Care Team (Late st Contact Info) Description 09/12/2023 Clinical Communication Department of Radiology, [facility] in [place], [place] [address] [place] [phone] Margaret Archibald R.N. Appointment Social History Tobacco Use Types Packs/Day Years Used Date Smoking Tobacco: Never Dental Answer Date Recorded Dental: Regular Dentist Unknown 05/18/20 22 Sex and Gender Information Value Date Recorded Sex Assigned at Not on file Gender Identity Not on file Sexual Orientation Not on file documented as of this encounter Miscellaneous Notes * Telephone Encounter - Margaret Archibald R.N. - 09/12/2023 8:51 AM CDT Spoke to patients daughter today regarding report time for her mother on Saturday , 09/[address] Dr Garcia called the patient and requested a 830 AM report time. This was confirmed. It is accurate on her appointments. documented in this encounter Plan of Treatment Not on file documented as of this encounter Visit Diagnoses Not on filedocumented in this encounter Additional Health Concerns Infection Onset Date Last Indicated Resolved Time Protective Environment 04/23/2023 04/23/2023 documented as of this encounter
--- OUTSIDE RECORDS SUMMARY | 2023-10-04 13:00 | XMS_ITS | Encounter Summary ---
Author Name Unknown Organization [facility] Address [address] [place] [address] Care Team Providers Care Senior Financial Analyst Name Role Phone Unavailable Primary Care Provider Unavailabl e Reason for Referral * Outpatient (Routine) - Closed Specialty Diagnoses / Procedures Referred By Kwabena andersen Referred To Contact Diagnoses Lesion Liver Procedures US Assisted Guidance Gonzalez Garcia M.D. [address] [place] [phone] [facility] Referral ID Status Reason Start Date Expiration Date Visits Re quested Visits Authorized [id number] Closed 09/02/2023 09/01/2024 1 1 Reason for Visit * Outpatient (Routine) - Closed Specialty Diagnoses / Procedures Referred By Kwabena andersen Referred To Contact Diagnoses Lesion Liver Procedures US Assisted Guidance Gonzalez Garcia M.D. [address] [place] [phone] [facility] Referral ID Status Reason Start Date Expiration Date Visits Re quested Visits Authorized [id number] Closed 09/02/2023 09/01/2024 1 1 Encounter Details Date Type Department Care Team (Latest Contact Info) Description 09/17/2023 8:31 AM CDT Hospital Encounter Department of Radiology, [facility] in [place], [place] [address] [place] [phone] Gonzalez Garcia M.D. [address] [place] [phone] Lesion Liver Discharge Disposition: Home or Self [...] outpatients) 09/17/2023 1:09 PM CDT Lesion Liver documented in this encounter Results * US Assisted Guidance (09/17/2023 1:09 [...] x 1.2 cm Probes: Two x Neuwave HI 15 XT Ablation Parameters: 7 minute ablation [...] 1.4 x 1.2 cm Probes: Two x Spark Diagnosticswave HI 15 XT Ablation Parameters: 7 minute ablation at [address] W Probe Removal: Tract ablation. COMPLICATIONS: None. POST-PROCEDURE TECHNICAL EVALUATION: Zone of ablation encompassed tumor(s)completely. OTHER POST-PROCEDURE FINDINGS: Unchanged. 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 NR Gonzalez RUIZ US PROCEDURES documented in this encounter Visit Diagnoses Diagnosis Lesion Liver documented in this encounter Additional Health Concerns Infection Onset Date Last Indicated Resolved Time Protective Environment 04/23/2023 04/23/2023 documented as of this encounter
--- OUTSIDE RECORDS SUMMARY | 2023-10-04 13:00 | XMS_ITS | Encounter Summary ---
Author Name Unknown Organization [facility] Address [address] [place] [address] Care Team Providers Care Electric Organ Inspector And Repairer Name Role Phone Unavailable Primary Care Provider Unavailabl e Encounter Details Date Type Department Care Team ([facility] st Contact Info) Description 09/02/2023 Clinical Communication Department of Radiation Oncology in [place], [place] [address] [place] [phone] Mandie Cruz APRN, C.N.P., D.N.P. [address] [place] [phone] Social History Tobacco Use Types Packs/Day Years [...] * Telephone Encounter - Mandie Cruz APRN, C.N.Rhiannon, Lilli.N.P. - 09/02/2023 11:25 AM CDT ----- Message [...] to discuss this at her phone number: [phone]. Thank you, Eric Bobo Radiation Oncology documented in this encounter Plan of Treatment Not on file documented as of this encounter Visit Diagnoses Not on filedocumented in this encounter Additional Health Concerns Infection Onset Date Last Indicated Resolved Time Protective Environment 04/23/2023 04/23/2023 documented as of this encounter
--- OUTSIDE RECORDS SUMMARY | 2023-10-04 13:00 | XMS_ITS | Encounter Summary ---
Author Name Unknown Organization [facility] Address [address] [place] [address] Care Team Providers Care Python Consultant Name Role Phone Unavailable Primary Care Provider Unavailabl e Encounter Details Date Type Department Care Team (Late st Contact Info) Description 09/02/2023 Orders Only Preoperative Evaluation Center in [place], [place] [address] [place] [phone] Dania Watt APRN, C.N.P., D.N.P. [address] [place] [phone] Preoperative Exam (Primary Dx) Social History Tobacco Use Types Packs/Day Years Used Date Smoking Tobacco: Never Dental Answer Date Recorded Dental: Regular Dentist Unknown 05/18/20 22 Sex and Gender Information Value Date Recorded Sex Assigned at Not on file Gender Identity Not on file Sexual Orientation Not on file documented as of this encounter Plan of Treatment Scheduled Orders [...]
--- OUTSIDE RECORDS SUMMARY | 2023-10-04 13:00 | XMS_ITS | Encounter Summary ---
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 [address] [place] [phone] [facility] Referral ID Status Reason Start Date Expiration Date Visits Re quested Visits Authorized [id number] Closed 08/13/2023 02/11/2025 1 1 Encounter Details Date Type Department Care Team (Latest Contact Info) Description 09/02/2023 12:00 PM CDT Comprehensive Visit Department of Radiology, [facility], in [place], [place] [address] [place] [phone] Dina Mari M.D. [address] [place] [phone] Eleonora Briscoe APRN, C.N.P., M.S.N. [address] [place] [phone] Gonzalez Garcia M.D. 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 CONSENT: Discussed [...] patient please call the Ablation Nurses at [phone] Saturday through Saturday 7 a.m. to 5 [...]
--- OUTSIDE RECORDS SUMMARY | 2023-10-04 13:00 | XMS_ITS | Encounter Summary ---
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 [address] [place] [phone] [facility] Referral ID Status Reason Start Date Expiration Date V isits Requested Visits Authorized [id number] Authorized 09/02/2023 03/03/2025 1 1 Encounter Details Date Type Department Care Team (Late st Contact Info) Description 09/02/2023 Orders Only Department of Radiology, [facility], in [place], [place] [address] [place] [phone] Skye Mohan RVi, C.M.S.R.N. 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
--- OUTSIDE RECORDS SUMMARY | 2023-10-04 13:00 | XMS_ITS | Encounter Summary ---
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
--- OUTSIDE RECORDS SUMMARY | 2023-10-04 13:00 | XMS_ITS | Encounter Summary ---
Author Name Unknown Organization [facility] Address [address] [place] [address] Care Team Providers Care Director Of Hotel Operations Name Role Phone Unavailable Primary Care Provider Unavailabl e Reason for Visit * Reason Onset Date Comments Pre-Ablation 09/16/2023 Encounter Details Date Type Department Care Team (Late st Contact Info) Description 09/16/2023 Clinical Communication Department of Radiology, [facility] in [place], [place] [address] [place] [phone] Margaret Archibald R.N. Pre-Ablation Social History Tobacco Use Types Packs/Day Years Used Date Smoking Tobacco: Never Dental Answer Date Recorded Dental: Regular Dentist Unknown 05/18/20 22 Sex and Gender Information Value Date Recorded Sex Assigned at Not on file Gender Identity Not on file Sexual Orientation Not on file documented as of this encounter Miscellaneous Notes * Telephone Encounter - Margaret Archibald R.N. - 09/16/2023 10:31 AM CDT Ablation RN called and left a message for patient about their upcoming ablation procedure scheduledon September 17, 2023. NPO status and medication instructions were left on the message. The patient wasalso instructed they can have clear fluid up to two hours before the procedure. Patient instructed to report at 9:00 am on September 17, 2023. The patient was provided our ablation phone number if a question arises before the procedure. documented in this encounter Plan of Treatment Not on file documented as of this encounter Visit Diagnoses Not on filedocumented in this encounter Additional Health Concerns Infection Onset Date Last Indicated Resolved Time Protective Environment 04/23/2023 04/23/2023 documented as of this encounter
--- OUTSIDE RECORDS SUMMARY | 2023-10-04 13:00 | XMS_ITS | Encounter Summary ---
Author Name Unknown Organization [facility] Address [address] [place] [address] Care Team Providers Care Director Software Development Name Role Phone Unavailable Primary Care Provider Unavailabl e Reason for Referral * MRI/CAT/PET Scan (Routine) - Closed Specialty Diagnoses / Procedures Referred By Kwabena andersen Referred To Contact Radiology Diagnoses Lesion Liver Procedures CT Abdomen Ablation Gonzalez Garcia M.D. [address] [place] [phone] [facility] Referral ID Status Reason Start Date Expiration Date Visits Re quested Visits Authorized [id number] Closed 09/02/2023 09/01/2024 1 1 * Outpatient (Routine) - Closed Specialty Diagnoses / Procedures Referred By Kwabena andersen Referred To Contact Diagnoses Lesion Liver Procedures US Assisted Guidance Gonzalez Garcia M.D. [address] [place] [phone] [facility] Referral ID Status Reason Start Date Expiration Date Visits Re quested Visits Authorized [id number] Closed 09/02/2023 09/01/2024 1 1 Encounter Details Date Type Department Care Team (Late st Contact Info) Description 09/02/2023 Orders Only Department of Radiology, [facility], in [place], [place] [address] [place] [phone] Skye Mohan R.N., C.M.S.R.N. 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 COMPLICATIONS: None. POST-PROCEDURE TECHNICAL EVALUATION: Zone of ablation encompassed tumor(s)completely. OTHER POST-PROCEDURE FINDINGS: Unchanged. 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 NR Gonzalez Garcia M.D. 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
--- OUTSIDE RECORDS SUMMARY | 2023-10-04 13:00 | XMS_ITS | Encounter Summary ---
Author Name Unknown Organization [facility] Address [address] [place] [address] Care Team Providers Care Stock Handler Name Role Phone Unavailable Primary Care Provider Unavailabl e Reason for Visit * Outpatient (Routine) - Closed Specialty Diagnoses / Procedures Referred By Kwabena t Referred To Contact Radiology Dania Hemphill, P.A.-C. [address] [place] [phone] [facility] Referral ID Status Reason Start Date Expiration Date Visits Re quested Visits Authorized [id number] Closed 09/02/2023 03/03/2025 1 1 Encounter Details Date Type Department Care Team (Late st Contact Info) Description 09/18/2023 9:30 AM CDT Virtual Visit Department of Radiology, [facility], in [place], [place] [address] [place] [phone] Dania Hemphill, P.A.-C. [address] [place] [phone] Eleonora Briscoe APRN, C.N.P., M.S.N. [address] [place] [phone] Mass Hepatic (Primary Dx) Social History Tobacco Use Types Packs/Day Years Used Date Smoking Tobacco: Never Smokeless Tobacco: Never Dental Answer Date Recorded Dental: Regular Dentist Unknown 05/18/20 22 Sex and Gender Information Value Date Recorded Sex Assigned at Not on file Gender Identity Not on file Sexual Orientation Not on file documented as of this encounter Progress Notes * Eleonora Briscoe APRN, C.N.P., M.S.N. - 09/18/2023 9:[address] ABLATION PROGRESS NOTE Phone Consult SUBJECTIVE This patient is post-procedure day 1 from percutaneous ablation of a liver mass. This patient did well post-procedure and was discharged from the post-procedure area to local lodging. I reached out to the patient several times unsuccessfully-- phone line was busy. Unfortunately, meris not have portal set up. She does have our phone number to call if any concerns arise. No charge. documented in this encounter Plan of Treatment Not on file documented as of this encounter Visit Diagnoses Diagnosis Mass Hepatic- Primary documented in this encounter Additional Health Concerns Infection Onset Date Last Indicated Resolved Time Protective Environment 04/23/2023 04/23/2023 documented as of this encounter
--- OUTSIDE RECORDS SUMMARY | 2023-10-04 13:00 | XMS_ITS | Clinical Summary ---
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 PCP - General 05/01/23
== END 2023-10-03 08:05 | disposition home or self-care (01) ==
LOC: NFLDREF 10-04 12:57
PROVIDERS: PCP Physician Assistant Medical; Referring Provider Physician Assistant Medical; Visit Provider Internal Medicine Hematology & Oncology
DX: C18.7 Malignant neoplasm of sigmoid colon (principal); Z51.11 Encounter for antineoplastic chemotherapy
CPT/HCPCS: 80053; 82378

== ENCOUNTER 2023-11-06 08:20 | Outpatient (CLI) | payer MEDICARE, SELFPAY ==
--- OUTSIDE RECORDS SUMMARY | 2023-11-13 15:04 | XMS_ITS | Clinical Summary ---
Author Organization [facility] Address [address] [place] [address] Care Team Providers Care Traffic Court Referee Name Role Phone Unavailable Primary Care Provider Unavailabl e Source Comments Patient records contain information from all sites at [facility]. For routine questions regarding patient records, call [phone] during business hours, M-F 8:00 AM - 5:00 PM Central Time. Record requests for emergency care only can be directed to [phone] at any time.[facility] Allergies Active Allergy Reactions Criticality Noted Date [...] amLODIPine (NORVASC) 10 mg tablet 07/26/2023 Active Active Problems Problem Noted Date Diagnosed Date Mass Hepatic 09/18/2023 Hypertension Essential Primary 09/02/2023 Malignant Neoplasm Of Colon Rectosigmoid Junctio n 04/15/2023 Encounters Date Type Department Care Team Description 09/18/2023 9:30 AM CDT Virtual Visit Department of Radiology, [facility] in [address] [phone] Dania Hemphill P.A.-C. Loga, Laura A, APRN C.N.P., M.S.N. Mass Hepatic (Primary Dx) 09/17/2023 11:02 AM CDT Anesthesia Event Department of Radiology in [address] [phone] Rose Brink APRN, CRNA Walsh, Emily E, M.D. 09/17/2023 8:33 AM CDT - 09/17/2023 2:00 PM CDT Hospital Encounter Department of Radiology in [address] [phone] Gonzalez Garcia M.D. Lesion Liver Discharge Disposition: Home or Self Care 09/17/2023 8:31 AM CDT Hospital Encounter Department of Radiology, [address] [phone] Gonzalez Garcia M.D. Lesion Liver Discharge Disposition: Home or Self Care 09/16/2023 Clinical Communication Department of Radiology, [address] [address] Margaret Archibald R.N. Pre-Ablation 09/12/2023 Clinical Communication Department of Radiology, [address] [phone] Margaret Archibald R.N. Appointment 09/10/2023 Clinical Communication Department of Radiology in [address] [phone] Skye Mohan R.N., C.M.S.R.N. 09/05/2023 Orders Only Department of Radiology, [facility] in [address] [address] Rikki Bowers R.N. 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 09/02/2023 12:00 PM CDT Comprehensive Visit Department of Radiology, [facility] in [address] [address] Dina Mari M.D. Loga, Laura A, APRN, C.N.P., M.S.N. Gonzalez Garcia M.D. 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 09/02/2023 Orders Only Department of Radiology, [facility] in [address] [phone] Skye Mohan R.N., C.M.S.R.N. 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 Preoperative Exam (Primary Dx) 09/02/2023 Clinical Communication Department of Radiation Oncology in [place], [place] [address] [place] [address] Mandie Cruz APRN, C.N.P., D.N.P. 09/02/2023 Orders Only Department of Radiology, [facility] in [address] [address] Skye Mohan R.N., C.M.S.R.N. 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 Pre-Ablation 08/13/2023 Orders Only Department of Oncology in [place], [place] [address] [place] [address] Dina Mari M.D. 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 COMPLICATIONS: None. POST-PROCEDURE TECHNICAL EVALUATION: Zone of ablation encompassed tumor(s)completely. OTHER POST-PROCEDURE FINDINGS: Unchanged. 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 NR Gonzalez Garcia M.D. IMJane CT PROCEDURES * CT Abdomen without and [...] x 1.2 cm Probes: Two x Neuwave [place] 15 XT Ablation Parameters: 7 minute ablation [...] x 1.2 cm Probes: Two x Neuwave [place] 15 XT Ablation Parameters: 7 minute ablation [...] ETT location: oral VL device: glide scope [place] scope blade size: 3 Tube size: 6.5 [...] CDT Gonzalez Garcia M.D. LAB BLOOD ADD-ON [facility] [address] [place] [address], [facility] [address] [place] [address] * US Abdomen Limited Liver (09/02/2023 11:33 [...] ablation. Gonzalez Garcia M.D. IMG US PROCEDURES from Last 3 Months Additional Health Concerns Infection Onset Date Last Indicated Protective Environment 04/23/2023
--- OUTSIDE RECORDS SUMMARY | 2023-11-13 15:05 | XMS_ITS | Encounter Summary ---
Author Organization [facility] Address [address] [place] [address] Care Team Providers Care Shearing Machine Tender Name Role Phone Unavailable Primary Care Provider Unavailabl e Reason for Referral * Outpatient (Routine) - Closed Specialty Diagnoses / Procedures Referred By Kwabena andersen Referred To Contact Diagnoses Lesion Liver Procedures US Assisted Guidance Gonzalez Garcia M.D. [address] [place] [phone] [facility] Referral ID Status Reason Start Date Expiration Date Visits Re quested Visits Authorized [id number] Closed 09/02/2023 09/01/2024 1 1 Reason for Visit * Outpatient (Routine) - Closed Specialty Diagnoses / Procedures Referred By Kwabena andersen Referred To Contact Diagnoses Lesion Liver Procedures US Assisted Guidance Gonzalez Garcia M.D. 200 [place] [address] [facility] Referral ID Status Reason Start Date Expiration Date Visits Re quested Visits Authorized [id number] Closed 09/02/2023 09/01/2024 1 1 Encounter Details Date Type Department Care Team (Latest Contact Info) Description 09/17/2023 8:31 AM CDT Hospital Encounter Department of Radiology, [facility] in [place], [place] [address] [place] [phone] Gonzalez Garcia M.D. [address] [place] [phone] Lesion Liver Discharge Disposition: Home or Self [...] x 1.2 cm Probes: Two x Neuwave [place] 15 XT Ablation Parameters: 7 minute ablation [...] 1.4 x 1.2 cm Probes: Two x Beyond Oblivionwave [place] 15 XT Ablation Parameters: 7 minute ablation [...]
--- OUTSIDE RECORDS SUMMARY | 2023-11-13 15:05 | XMS_ITS | Encounter Summary ---
Author Organization [facility] Address [address] [place] [address] Care Team Providers Care Cd Reactor Operator Head Name Role Phone Unavailable Primary Care Provider Unavailabl e Encounter Details Date Type Department Care Team (Late st Contact Info) Description 09/02/2023 Orders Only Preoperative Evaluation Center in [place], [place] [address] [place] [phone] Dania Watt APRN, C.N.P., D.N.P. [address] [place] [phone] Preoperative Exam (Primary Dx) Social History Tobacco [...]
--- OUTSIDE RECORDS SUMMARY | 2023-11-13 15:05 | XMS_ITS ---
Author Organization [facility] Address [address] [place] [address] Care Team Providers Care Cattle Dealer Name Role Phone Unavailable Primary Care Provider Unavailabl e Active Problems Problem Noted Date Diagnosed Date Mass Hepatic 09/18/2023 Hypertension Essential Primary 09/02/2023 Malignant Neoplasm Of Colon Rectosigmoid Junctio n 04/15/2023 Current Oncology Plans No current plan information found. Past Plans No past plan information found. Radiation Treatments * Plan Last Treated On Elapsed Days Fractions Treated Prescribed Fraction Dose Prescribed Total Dose [id number] 06/05/2023 6 5 of 5 500 cGy 2,500 cGy Reference Point Last Treated On Elapsed Days Session Dose Total Dose [id number] 06/05/2023 6 500 cGy 2,500 cGy
--- OUTSIDE RECORDS SUMMARY | 2023-11-13 15:05 | XMS_ITS | Referral Summary ---
Author Organization [facility] Address [address] [place] [address] Care Team Providers Care Lapel Stitcher Name Role Phone Unavailable Primary Care Provider Unavailabl e Source Comments Patient records contain information from all sites at [facility]. For routine questions regarding patient records, call [phone] during business hours, M-F 8:00 AM - 5:00 PM Central Time. Record requests for emergency care only can be directed to [phone] at any time.[facility] Encounters Date Type Department Care Team Description 09/18/2023 9:30 AM CDT Virtual Visit Department of Radiology, [facility], in [address] [address] Dania Hemphill P.A.-C. Eleonora Briscoe APRN C.N.P., M.S.N. Mass Hepatic (Primary Dx) 09/17/2023 11:02 AM CDT Anesthesia Event Department of Radiology in [address] [phone] Rose Brink APRN, CRNA Walsh, Emily E, M.D. 09/17/2023 8:31 AM CDT Hospital Encounter Department of Radiology, [facility] in [address] [address] Gonzalez Garcia M.D. Lesion Liver Discharge Disposition: Home or Self Care 09/17/2023 8:33 AM CDT - 09/17/2023 2:00 PM CDT Hospital Encounter Department of Radiology in [address] [address] Gonzalez Garcia M.D. Lesion Liver Discharge Disposition: Home or Self Care 09/16/2023 Clinical Communication Department of Radiology, [address] [address] Margaret Archibald R.N. Pre-Ablation 09/12/2023 Clinical Communication Department of Radiology, [address] [address] Margaret Archibald R.N. Appointment 09/10/2023 Clinical Communication Department of Radiology in [address] [phone] Skye Mohan R.N., C.M.S.R.N. 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 09/02/2023 Orders Only Department of Radiology, [facility], in [address] [address] Skye Mohan R.N., C.M.S.R.N. 09/02/2023 Orders Only Department of Radiology, [address] [phone] Skye Mohan R.N., C.M.S.R.N. 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 Preoperative Exam (Primary Dx) 09/02/2023 Clinical Communication Department of Radiation Oncology in [place], [place] [address] [place] [address] Mandie Cruz APRN, C.N.Hai., D.N.P. 09/02/2023 Orders Only Department of Radiology, [facility] in [address] [address] Skye Mohan R.N., C.M.S.R.N. 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 Loga, Laura A, APRN, BelindaNJessica., M.S.N. Gonzalez Garcia M.D. 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 Pre-Ablation 08/13/2023 Orders Only Department of Oncology in [place], [place] [address] [place] [address] Dina Mari M.D. Malignant Neoplasm [...] x 1.2 cm Probes: Two x Neuwave [place] 15 XT Ablation Parameters: 7 minute ablation [...] x 1.2 cm Probes: Two x Neuwave [place] 15 XT Ablation Parameters: 7 minute ablation [...] x 1.2 cm Probes: Two x Neuwave [place] 15 XT Ablation Parameters: 7 minute ablation [...] x 1.2 cm Probes: Two x Neuwave [place] 15 XT Ablation Parameters: 7 minute ablation [...] x 1.2 cm Probes: Two x Neuwave [place] 15 XT Ablation Parameters: 7 minute ablation [...] x 1.2 cm Probes: Two x Neuwave [place] 15 XT Ablation Parameters: 7 minute ablation [...] ETT location: oral VL device: glide scope [place] scope blade size: 3 Tube size: 6.5 [...] CDT Gonzalez Garcia M.D. LAB BLOOD ADD-ON [facility] [address] [place] [address], [facility] [address] [place] [address] * US Abdomen Limited Liver (09/02/2023 11:33 [...]
--- OUTSIDE RECORDS SUMMARY | 2023-11-13 15:05 | XMS_ITS | Encounter Summary ---
Author Organization [facility] Address [address] [place] [address] Care Team Providers Care Clinical Trial Manager Name Role Phone Unavailable Primary Care Provider Unavailabl e Reason for Visit * Outpatient (Routine) - Closed Specialty Diagnoses / Procedures Referred By Kwabena t Referred To Contact Radiology Dania Hemphill, P.A.-C. [address] [place] [phone] [facility] Referral ID Status Reason Start Date Expiration Date Visits Re quested Visits Authorized [id number] Closed 09/02/2023 03/03/2025 1 1 Encounter Details Date Type Department Care Team (Late st Contact Info) Description 09/18/2023 9:30 AM CDT Virtual Visit Department of Radiology, [facility], in [place], [place] [address] [place] [phone] Dania Hemphill, P.A.-C. [address] [place] [phone] Eleonora Briscoe APRN, C.N.P., M.S.N. [address] [place] [phone] Mass Hepatic (Primary Dx) Social History Tobacco Use Types Packs/Day Years Used Date Smoking Tobacco: Never Smokeless Tobacco: Never Dental Answer Date Recorded Dental: Regular Dentist Unknown 05/18/20 22 Sex and Gender Information Value Date Recorded Sex Assigned at Not on file Gender Identity Not on file Sexual Orientation Not on file documented as of this encounter Progress Notes * Eleonora Briscoe APRN, C.NJessica., M.S.N. - 09/18/2023 9:[address] [...]
--- OUTSIDE RECORDS SUMMARY | 2023-11-13 15:05 | XMS_ITS | Encounter Summary ---
Author Organization [facility] Address [address] [place] [address] Care Team Providers Care Concept Artist Name Role Phone Unavailable Primary Care Provider Unavailabl e Reason for Visit * Reason Onset Date Comments Pre-Ablation 09/16/2023 Encounter Details Date Type Department Care Team (Late st Contact Info) Description 09/16/2023 Clinical Communication Department of Radiology, [facility] in [place], [place] [address] [place] [address] Margaret Archibald RTylerN. Pre-Ablation Social History Tobacco Use Types Packs/Day Years Used Date Smoking Tobacco: Never Dental Answer Date Recorded Dental: Regular Dentist Unknown 05/18/20 22 Sex and Gender Information Value Date Recorded Sex Assigned at Not on file Gender Identity Not on file Sexual Orientation Not on file documented as of this encounter Miscellaneous Notes * Telephone Encounter - Margaret Archibald RTylerN. - 09/16/2023 10:31 AM CDT Ablation RN [...]
--- OUTSIDE RECORDS SUMMARY | 2023-11-13 15:05 | XMS_ITS | Encounter Summary ---
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 [address] [place] [phone] [facility] Referral ID Status Reason Start Date Expiration Date Visits Re quested Visits Authorized [id number] Closed 08/15/2023 08/14/2024 1 1 Encounter Details Date Type Department Care Team (Late st Contact Info) Description 08/15/2023 Orders Only Department of Radiology, [facility], in [place], [place] [address] [place] [phone] Skye Mohan RVi, C.M.S.R.N. 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
--- OUTSIDE RECORDS SUMMARY | 2023-11-13 15:05 | XMS_ITS | Encounter Summary ---
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
--- OUTSIDE RECORDS SUMMARY | 2023-11-13 15:05 | XMS_ITS | Encounter Summary ---
Author Organization [facility] Address [address] [place] [address] Care Team Providers Care Anthropologist Physical Name Role Phone Unavailable Primary Care Provider Unavailabl e Reason for Visit * Reason Onset Date Comments Appointment 09/12/2023 Encounter Details Date Type Department Care Team (Late st Contact Info) Description 09/12/2023 Clinical Communication Department of Radiology, [facility] in [place], [place] [address] [place] [phone] Margaret Archibald R.N. Appointment Social History Tobacco [...]
--- OUTSIDE RECORDS SUMMARY | 2023-11-13 15:05 | XMS_ITS | Encounter Summary ---
Author Organization [facility] Address [address] [place] [address] Care Team Providers Care Medical Collections Specialist Name Role Phone Unavailable Primary Care Provider Unavailabl e Reason for Referral * MRI/CAT/PET Scan (Routine) - Closed Specialty Diagnoses / Procedures Referred By Kwabena andersen Referred To Contact Radiology Diagnoses Lesion Liver Procedures CT Abdomen Ablation Gonzalez Garcia M.D. [address] [place] [phone] [facility] Referral ID Status Reason Start Date Expiration Date Visits Re quested Visits Authorized [id number] Closed 09/02/2023 09/01/2024 1 1 * Outpatient (Routine) - Closed Specialty Diagnoses / Procedures Referred By Kwabena andersen Referred To Contact Diagnoses Lesion Liver Procedures US Assisted Guidance Gonzalez Garcia M.D. [address] [place] [phone] [facility] Referral ID Status Reason Start Date Expiration Date Visits Re quested Visits Authorized [id number] Closed 09/02/2023 09/01/2024 1 1 Encounter Details Date Type Department Care Team (Late st Contact Info) Description 09/02/2023 Orders Only Department of Radiology, [facility], in [place], [place] [address] [place] [phone] Skye Mohan R.N., C.M.S.R.N. 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 COMPLICATIONS: None. POST-PROCEDURE TECHNICAL EVALUATION: Zone of ablation encompassed tumor(s)completely. OTHER POST-PROCEDURE FINDINGS: Unchanged. 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 NR Gonzalez Garcia M.D. 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
--- OUTSIDE RECORDS SUMMARY | 2023-11-13 15:05 | XMS_ITS | Encounter Summary ---
Author Organization [facility] Address [address] [place] [address] Care Team Providers Care Web Solutions Architect Name Role Phone Unavailable Primary Care Provider Unavailabl e Encounter Details Date Type Department Care Team ([facility] st Contact Info) Description 09/02/2023 Clinical Communication Department of Radiation Oncology in [place], [place] [address] [place] [phone] Mandie Cruz APRN, C.N.P., D.N.P. [address] [place] [phone] Social History Tobacco Use Types Packs/Day Years [...] to discuss this at her phone number: [phone]. Thank you, Eric Bobo Radiation Oncology documented in this encounter Plan of Treatment Not on file documented as of this encounter Visit Diagnoses Not on filedocumented in this encounter Additional Health Concerns Infection Onset Date Last Indicated Resolved Time Protective Environment 04/23/2023 04/23/2023 documented as of this encounter
--- OUTSIDE RECORDS SUMMARY | 2023-11-13 15:05 | XMS_ITS | Encounter Summary ---
Author Organization [facility] Address [address] [place] [address] Care Team Providers Care Deputy Sheriff Court Services Name Role Phone Unavailable Primary Care Provider Unavailabl e Encounter Details Date Type Department Care Team (Late st Contact Info) Description 09/04/2023 Clinical Communication Department of Radiology in [place], [place] [address] [place] [phone] Skye Mohan, RTylerN., C.M.S.R.N. [address] [place] [phone] Social History Tobacco Use Types Packs/Day Years [...]
--- OUTSIDE RECORDS SUMMARY | 2023-11-13 15:05 | XMS_ITS | Encounter Summary ---
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 [address] [place] [address] [facility] Referral ID Status Reason Start Date Expiration Date V isits Requested Visits Authorized [id number] Authorized 08/13/2023 02/11/2025 [address] Tim Jensen Plmalik call daughter at [phone] Encounter Details Date Type Department Care Team (Late st Contact Info) Description 08/13/2023 Orders Only Department of Oncology in [place], [place] [address] [place] [place] [phone] Dina Mari M.D. 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
--- OUTSIDE RECORDS SUMMARY | 2023-11-13 15:05 | XMS_ITS | Encounter Summary ---
Author Organization [facility] Address [address] [place] [address] Care Team Providers Care Heat Treat Technician Name Role Phone Unavailable Primary Care Provider Unavailabl e Reason for Visit * Reason Onset Date Comments Pre-Ablation 08/13/2023 Encounter Details Date Type Department Care Team (Late st Contact Info) Description 08/13/2023 Clinical Communication Department of Radiology in [place], [place] [address] [place] [phone] Skye Mohan, RTylerN., C.M.S.R.N. [address] [place] [phone] Pre-Ablation Social History Tobacco Use Types Packs/Day [...]
--- OUTSIDE RECORDS SUMMARY | 2023-11-13 15:05 | XMS_ITS ---
Author Organization [facility] Address [address] [place] [address] Care Team Providers Care Civil Service Worker Name Role Phone Unavailable Unavailable Unavailable Surgery Details Not on file Complications Check Surgery Details section. Procedure Estimated Blood Loss Check Surgery Details section. Procedure Findings Check Surgery Details section. Procedure Specimens Taken Check Surgery Details section.
--- OUTSIDE RECORDS SUMMARY | 2023-11-13 15:05 | XMS_ITS | Encounter Summary ---
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 [address] [place] [phone] [facility] Referral ID Status Reason Start Date Expiration Date V isits Requested Visits Authorized [id number] Authorized 09/02/2023 03/03/2025 1 1 Encounter Details Date Type Department Care Team (Late st Contact Info) Description 09/02/2023 Orders Only Department of Radiology, [facility], in [place], [place] [address] [place] [phone] Skye Mohan RVi, C.M.S.R.N. 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
--- OUTSIDE RECORDS SUMMARY | 2023-11-13 15:05 | XMS_ITS | Clinical Summary ---
Author Organization [facility] Address [place], [place] [address] Care Team Providers Care Steam Presser Name Role Phone Pcp, No Primary Care [...] Documents on File Type Date Recorded Patient Sales Trainer Expl anation Healthcare Directive 04/20/2011 SIGNED - 11/08/2005 Care Teams Steam Presser Relationship Specialty Start Date End Date Pcp, No . PCP - General 05/01/23
--- OUTSIDE RECORDS SUMMARY | 2023-11-13 15:05 | XMS_ITS | Encounter Summary ---
Author Organization [facility] Address [address] [place] [address] Care Team Providers Care Travel Trailer Components Assembler Name Role Phone Unavailable Primary Care Provider Unavailabl e Reason for Referral * Outpatient (Routine) - Closed Specialty Diagnoses / Procedures Referred By Kwabena andersen Referred To Contact Radiology Dania Hemphill P.A.-C. [address] [place] [phone] [facility] Referral ID Status Reason Start Date Expiration Date Visits Re quested Visits Authorized [id number] Closed 09/02/2023 03/03/2025 1 1 Encounter Details Date Type Department Care Team (Late st Contact Info) Description 09/02/2023 Orders Only Department of Radiology, [facility], in [place], [place] [address] [place] [phone] Skye Mohan R.N., C.M.S.R.N. [address] [place] [phone] Social History Tobacco Use Types Packs/Day Years [...]
--- OUTSIDE RECORDS SUMMARY | 2023-11-13 15:05 | XMS_ITS | Encounter Summary ---
Author Organization [facility] Address [address] [place] [address] Care Team Providers Care Business Change Manager Name Role Phone Unavailable Primary Care Provider Unavailabl e Encounter Details Date Type Department Care Team (Late st Contact Info) Description 09/17/2023 11:02 AM CDT Anesthesia Event Department of Radiology in [place], [place] [address] [place] [phone] Rose Brink APRN, WINDOW COVERING SALES CONSULTANT [address] [place] [phone] Miladis Sauceda M.D. [address] [place] [phone] Anesthesia Record Procedure Summary Procedure Name Responsible Anesthesiologist Anesthesia Start Time Anesthesia Stop Time CT ABDOMEN ABLATION Rose Brink APR N, WINDOW COVERING SALES CONSULTANT 09/17/23 1102 09/17/23 1241 Events Date Time [...] 1230 09/17/23 1112 by Rose Brink APRN, WINDOW COVERING SALES CONSULTANT 09/17/23 1230 by Rose Brink APRN, WINDOW COVERING SALES CONSULTANT Peripheral IV Placement Date: 08/20 ; Placement Time: 1114; Catheter Size: 18 G; Orientation: Right; Location: Wrist; Inserted by: MD Isauro; Removal Date: 09/17/23; Removal Time: 1348; Removal Reason: Completion of therapy 09/17/23 1114 by Rose Brink APRN, WINDOW COVERING SALES CONSULTANT 09/17/23 1348 by Lena Burk, R.N. documented [...] Room / Location: Department of Radiology in [place], [place] Anesthesia Start: 1102 Anesthesia Stop: 1241 [...] ETT location: oral VL device: glide scope Benicia scope blade size: 3 Tube size: 6.5 [...] Anesthesia & H&P Assessment Procedure Summary Date/Time: 09/17/23 0930 Scheduled providers: Gonzalez Garcia M.D. Procedure: CT ABDOMEN ABLATION Diagnosis: Lesion Liver [K76.9] Lesion Liver [K76.9] Indications: liver lesion Location: Department of Radiology in [place], [place] Pertinent components of the patient's history [...] with patient /legal guardian or through an senior system operator. Risks/Benefits/Alternatives of Blood transfusion discussed with patient [...] by: Rose Brink APRN, CRNA Authorized by: Roes Brink APRN, CRNA ?? Patient location during procedure: OR / Procedure Area PROCEDURE DETAILS: Mask difficulty assessment: easy mask Final airway type: video laryngoscope Laryngeal Manipulation: no ?? Final best view of glottic structures - Cormack/Lehane Score: grade 1 ETT location: oral VL device: glide scope Benicia scope blade size: 3 Tube size: 6.5 [...]
--- OUTSIDE RECORDS SUMMARY | 2023-11-13 15:05 | XMS_ITS | Encounter Summary ---
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 [address] [place] [address] [facility] Referral ID Status Reason Start Date Expiration Date V isits Requested Visits Authorized [id number] Authorized 08/19/2023 02/17/2025 1 1 Scheduling Instructions Case reviewed with Dr Anthony Mendes. Thanks. Encounter Details Date Type Department Care Team (Late st Contact Info) Description 08/19/2023 Orders Only Department of Oncology in [place], [place] [address] [place] [address] Dina Mari M.D. [address] [place] [address] Malignant Neoplasm Of Colon Rectosigmoid [...]
--- OUTSIDE RECORDS SUMMARY | 2023-11-13 15:05 | XMS_ITS | Encounter Summary ---
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 404 [place] [address] [facility] Referral ID Status Reason Start Date Expiration Date Visits Re quested Visits Authorized [id number] Closed 08/13/2023 02/11/2025 1 1 Encounter Details Date Type Department Care Team (Latest Contact Info) Description 09/02/2023 12:00 PM CDT Comprehensive Visit Department of Radiology, [facility], in [place], [place] [address] [place] [phone] Dina Mari M.D. [address] [place] [address] Eleonora Briscoe APRN, C.N.P., M.S.N. [address] [place] [phone] Gonzalez Garcia M.D. 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 CONSENT: [...] patient please call the Ablation Nurses at [phone] Saturday through Saturday 7 a.m. to 5 [...]
--- OUTSIDE RECORDS SUMMARY | 2023-11-13 15:05 | XMS_ITS | Encounter Summary ---
Author Organization [facility] Address [address] [place] [address] Care Team Providers Care Territory Manager Name Role Phone Unavailable Primary Care Provider Unavailabl e Encounter Details Date Type Department Care Team (Late st Contact Info) Description 09/10/2023 Clinical Communication Department of Radiology in [place], [place] [address] [place] [phone] Skye Mohan, RTylerN., C.M.S.R.N. [address] [place] [phone] Social History Tobacco Use Types Packs/Day Years [...]
--- OUTSIDE RECORDS SUMMARY | 2023-11-13 15:05 | XMS_ITS | Encounter Summary ---
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 200 [place] [address] [facility] Referral ID Status Reason Start Date Expiration Date Visits Re quested Visits Authorized [id number] Closed 08/15/2023 08/14/2024 1 1 Encounter Details Date Type Department Care Team (Latest Contact Info) Description 09/02/2023 11:00 AM CDT - 09/02/2023 11:59 PM CDT Hospital Encounter Department of Radiology, [facility] in [place], [place] [address] [place] [address] Gonzalez Garcia M.D. 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
--- OUTSIDE RECORDS SUMMARY | 2023-11-13 15:05 | XMS_ITS | Encounter Summary ---
Author Organization [facility] Address [address] [place] [address] Care Team Providers Care Veterinary Technician Instructor Name Role Phone Unavailable Primary Care Provider Unavailabl e Reason for Referral * MRI/CAT/PET Scan (Routine) - Closed Specialty Diagnoses / Procedures Referred By Kwabena andersen Referred To Contact Radiology Diagnoses Lesion Liver Procedures CT Abdomen Ablation Gonzalez Garcia M.D. [address] [place] [phone] [facility] Referral ID Status Reason Start Date Expiration Date Visits Re quested Visits Authorized [id number] Closed 09/02/2023 09/01/2024 1 1 Reason for Visit * MRI/CAT/PET Scan (Routine) - Closed Specialty Diagnoses / Procedures Referred By Kwabena andersen Referred To Contact Radiology Diagnoses Lesion Liver Procedures CT Abdomen Ablation Gonzalez Garcia M.D. [address] [place] [phone] [facility] Referral ID Status Reason Start Date Expiration Date Visits Re quested Visits Authorized [id number] Closed 09/02/2023 09/01/2024 1 1 Encounter Details Date Type Department Care Team (Latest Contact Info) Description 09/17/2023 8:33 AM CDT - 09/17/2023 2:00 PM CDT Hospital Encounter Department of Radiology in [place], [place] [address] [place] [phone] Gonzalez Garcia M.D. [address] [place] [phone] Lesion Liver Discharge Disposition: Home or Self [...] related to the procedure, please contact the [facility] wrapping machine operator ([phone]) and ask to be connected to the non-vascular interventional radiology fellow director operations. documented in this encounter Medications at Time [...] 07/30/2023 amLODIPine (NORVASC) 10 mg tablet 07/26/2023 capecitabine (XELODA) 150 mg tablet Take 150 mg by mouth 2 (two) times a day. Take within 30 minutes after a meal. Swallow whole with water. Do not crush or cut. cetirizine 10 mg capsule Take 10 mg by mouth. 11/27/2021 lisinopriL (PRINIVIL,ZESTRIL) 20 mg tablet 03/02/2021 bisacodyL 5 mg tablet Take 5 mg by mouth. 11/27/2021 calcium carbonate 1,500 mg (600 mg calcium) tablet Take 600 mg by mouth. 04/02/2023 cholecalciferol, vitamin D3, 25 mcg (1,000 Unit) tablet Take 25 mcg by mouth. 04/29/2023 multivit with calcium,iron,min (WOMEN'S DAILY MULTIVITAMIN ORAL) [...] Kennedy is a 83 y.o. female from [place], [place] with metastatic rectal cancer (liver metastasis) [...] Message sent to Dr. Dina Mari in [facility] regarding patient's post-ablation status and follow-up recommendations - Follow-up imaging recommended, specifically multiphasic CT or MRI in 3 months or per referring provider preference. - For any questions or concerns regarding this patient please page Ablation Radiology nurse at [phone] Saturday through Saturday 7 a.m. to 5 p.m. or the [facility] wrapping machine operator ([phone]) and ask to be connected to the non-vascular interventional radiology fellow director operations. documented in this encounter Plan of Treatment [...] x 1.2 cm Probes: Two x Neuwave AR 15 XT Ablation Parameters: 7 minute ablation [...] x 1.2 cm Probes: Two x Neuwave AR 15 XT Ablation Parameters: 7 minute ablation [...] x 1.2 cm Probes: Two x Neuwave AR 15 XT Ablation Parameters: 7 minute ablation [...] x 1.2 cm Probes: Two x Neuwave AR 15 XT Ablation Parameters: 7 minute ablation [...] - 12.5 sec 09/17/2023 9:24 AM CDT [facility] 1.0 0.9 - 1.1 09/17/2023 9:24 AM CDT [facility] Comment: ----ADDITIONAL INFORMATION---- Standard intensity warfarin therapeutic range: 2.0 to 3.0 ?? High intensity warfarin therapeutic range: 2.5 to 3.5 Blood (Blood, Venous) 09/17/2023 9:10 AM CDT 09/17/2023 9:16 AM CDT Gonzalez Garcia M.D. LAB BLOOD ADD-ON [facility] [address] [place] [address], [facility] [address] [place] [address] documented in this encounter Visit Diagnoses Diagnosis [...] For 1 dose, Pre-Op 0918 (Given - Provid er: Isa Montiel R.N.) PRN Medication Order [...] 6 hours PRN, nausea, vomiting, Starting on Sat09/17/23 at 1246, PACU (only), Total of 3 [...] PRN, Starting on Sat09/17/23 at 1130, Intra-Op 1130 (New Bag - Prov ider: Francisco Marr, R.T.(R)(CT)) NaCl 0.9 % bolus (COMPLETED) Administer over 1 Hours, Continuous Infusion: Per Instructions PRN, Starting on Sat09/17/23 at 1206, Intra-Op 1206 (New Bag - Prov ider: Francisco Marr, R.T.(R)(CT)) ondansetron (PF) injection 4 mg (ZOFRAN) [...]
== END 2023-11-06 08:21 | disposition home or self-care (01) ==
LOC: NFLDREF 11-13 15:02
PROVIDERS: PCP Physician Assistant Medical; Referring Provider Physician Assistant Medical; Visit Provider Internal Medicine Hematology & Oncology
DX: C18.7 Malignant neoplasm of sigmoid colon (principal)
CPT/HCPCS: 80053

== ENCOUNTER 2023-12-04 08:05 | Outpatient (CLI) | payer MEDICARE, SELFPAY ==
--- OUTSIDE RECORDS SUMMARY | 2023-12-06 03:59 | XMS_ITS | Encounter Summary ---
Author Organization [facility] Address [address] [place] [address] Care Team Providers Care Childrens Club Attendant Name Role Phone Unavailable Primary Care Provider Unavailabl e Encounter Details Date Type Department Care Team (Late st Contact Info) Description 09/04/2023 Clinical Communication Department of Radiology in [place], [place] [address] [place] [phone] Skye Mohan, RTylerN., C.M.S.R.N. [address] [place] [phone] Social History Tobacco Use Types Packs/Day Years [...]
--- OUTSIDE RECORDS SUMMARY | 2023-12-06 03:59 | XMS_ITS | Encounter Summary ---
Author Organization [facility] Address [address] [place] [address] Care Team Providers Care Telemarketing Agent Name Role Phone Unavailable Primary Care Provider Unavailabl e Reason for Visit * Reason Onset Date Comments Pre-Ablation 09/16/2023 Encounter Details Date Type Department Care Team (Late st Contact Info) Description 09/16/2023 Clinical Communication Department of Radiology, [facility] in [place], [place] [address] [place] [phone] Margaret Archibald RTylerN. Pre-Ablation Social History Tobacco [...]
--- OUTSIDE RECORDS SUMMARY | 2023-12-06 03:59 | XMS_ITS | Encounter Summary ---
Author Organization [facility] Address [address] [place] [address] Care Team Providers Care Rn Bone Marrow Transplant Name Role Phone Unavailable Primary Care Provider Unavailabl e Encounter Details Date Type Department Care Team (Late st Contact Info) Description 09/02/2023 Orders Only Preoperative Evaluation Center in [place], [place] [address] [place] [address] Dania Watt APRN, C.N.P., D.N.P. Preoperative Exam (Primary Dx) Social History Tobacco [...]
--- OUTSIDE RECORDS SUMMARY | 2023-12-06 03:59 | XMS_ITS | Encounter Summary ---
Author Organization [facility] Address [address] [place] [address] Care Team Providers Care Inpatient Services Rn Name Role Phone Unavailable Primary Care Provider Unavailabl e Reason for Referral * Outpatient (Routine) - Closed Specialty Diagnoses / Procedures Referred By Kwabena andersen Referred To Contact Diagnoses Lesion Liver Procedures US Assisted Guidance Gonzalez Garcia M.D. [address] [place] [phone] [facility] Referral ID Status Reason Start Date Expiration Date Visits Re quested Visits Authorized [id number] Closed 09/02/2023 09/01/2024 1 1 Reason for Visit * Outpatient (Routine) - Closed Specialty Diagnoses / Procedures Referred By Kwabena andersen Referred To Contact Diagnoses Lesion Liver Procedures US Assisted Guidance Gonzalez Garcia M.D. 200 [place] [address] [facility] Referral ID Status Reason Start Date Expiration Date Visits Re quested Visits Authorized [id number] Closed 09/02/2023 09/01/2024 1 1 Encounter Details Date Type Department Care Team (Latest Contact Info) Description 09/17/2023 8:31 AM CDT Hospital Encounter Department of Radiology, [facility] in [place], [place] [address] [place] [phone] Gonzalez Garcia M.D. [address] [place] [phone] Lesion Liver Discharge Disposition: Home or Self [...] x 1.2 cm Probes: Two x Neuwave [place] 15 XT Ablation Parameters: 7 minute ablation [...] 1.4 x 1.2 cm Probes: Two x Ecriowave [place] 15 XT Ablation Parameters: 7 minute ablation [...]
--- OUTSIDE RECORDS SUMMARY | 2023-12-06 03:59 | XMS_ITS | Encounter Summary ---
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 [address] [place] [phone] [facility] Referral ID Status Reason Start Date Expiration Date V isits Requested Visits Authorized [id number] Authorized 09/02/2023 03/03/2025 1 1 Encounter Details Date Type Department Care Team (Late st Contact Info) Description 09/02/2023 Orders Only Department of Radiology, [facility], in [place], [place] [address] [place] [phone] Skye Mohan RVi, C.M.S.R.N. 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
--- OUTSIDE RECORDS SUMMARY | 2023-12-06 03:59 | XMS_ITS | Clinical Summary ---
Author Organization [facility] Address [address] [place] [address] Care Team Providers Care Help Desk Operator Name Role Phone Unavailable Primary Care Provider Unavailabl e Source Comments Patient records contain information from all sites at [facility]. For routine questions regarding patient records, call [phone] during business hours, M-F 8:00 AM - 5:00 PM Central Time. Record requests for emergency care only can be directed to [phone] at any time.[facility] Allergies Active Allergy Reactions Criticality Noted Date [...] Virtual Visit Department of Radiology, [facility] in [address] [phone] Dania Hemphill P.A.-C. Loga, Laura A, APRN C.N.P., M.S.N. Mass Hepatic (Primary Dx) 09/17/2023 11:02 AM CDT Anesthesia Event Department of Radiology in [address] [phone] Rose Brink APRN, CRNA Walsh, Emily E, M.D. 09/17/2023 8:33 AM CDT - 09/17/2023 2:00 PM CDT Hospital Encounter Department of Radiology in [address] [phone] Gonzalez Garcia M.D. Lesion Liver Discharge Disposition: Home or Self Care 09/17/2023 8:31 AM CDT Hospital Encounter Department of Radiology, [address] [phone] Gonzalez Garcia M.D. Lesion Liver Discharge Disposition: Home or Self Care 09/16/2023 Clinical Communication Department of Radiology, [address] [phone] Margaret Archibald R.N. Pre-Ablation 09/12/2023 Clinical Communication Department of Radiology, [address] [phone] Margaret Archibald R.N. Appointment 09/10/2023 Clinical Communication Department of Radiology in [address] [phone] Skye Mohan R.N., C.M.S.R.N. from Last 3 Months Family History Medical [...] Depression Screening (Annual PHQ-2) 05/20/2023 Influenza Vaccine (#1) 2024 , 02/12/2022, 02/21/2021, Additional history exists Pneumococcal vaccine (65+ [...] (PT), P STAT 09/17/2023 9:10 AM CDT from Last 3 Months Results * US [...] x 1.2 cm Probes: Two x Neuwave [place] 15 XT Ablation Parameters: 7 minute ablation at [address] Probe Removal: Tract ablation. COMPLICATIONS: None. POST-PROCEDURE TECHNICAL EVALUATION: Zone of ablation encompassed tumor(s) completely. OTHER POST-PROCEDURE FINDINGS: Unchanged. ?? Procedure Note Gonzaelz Garcia M.D. - 09/17/2023 EXAM: CT ABDOMEN [...] x 1.2 cm Probes: Two x Neuwave [place] 15 XT Ablation Parameters: 7 minute ablation [...] x 1.2 cm Probes: Two x Neuwave [place] 15 XT Ablation Parameters: 7 minute ablation [...] x 1.2 cm Probes: Two x Neuwave [place] 15 XT Ablation Parameters: 7 minute ablation at [address] Probe Removal: Tract ablation. COMPLICATIONS: None. POST-PROCEDURE TECHNICAL EVALUATION: Zone of ablation encompassed tumor(s)completely. OTHER POST-PROCEDURE FINDINGS: Unchanged. 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 NR Gonzalez Garcia M.D. Jane CT PROCEDURES * CT Abdomen without and [...] x 1.2 cm Probes: Two x Neuwave [place] 15 XT Ablation Parameters: 7 minute ablation [...] x 1.2 cm Probes: Two x Neuwave [place] 15 XT Ablation Parameters: 7 minute ablation [...] ETT location: oral VL device: glide scope [place] scope blade size: 3 Tube size: 6.5 [...] CDT Gonzalez Garcia M.D. LAB BLOOD ADD-ON [facility] [address] [place] [address], [facility] [address] [place] [address] from Last 3 Months Additional Health Concerns Infection Onset Date Last Indicated Protective Environment 04/23/2023 3
--- OUTSIDE RECORDS SUMMARY | 2023-12-06 03:59 | XMS_ITS | Encounter Summary ---
Author Organization [facility] Address [address] [place] [address] Care Team Providers Care Outpatient Receptionist Name Role Phone Unavailable Primary Care Provider Unavailabl e Encounter Details Date Type Department Care Team (Late st Contact Info) Description 09/17/2023 11:02 AM CDT Anesthesia Event Department of Radiology in [place], [place] [address] [place] [phone] Rose Brink APRN, ELEMENTARY SCIENCE TEACHER [address] [place] [phone] Miladis Sauceda M.D. [address] [place] [phone] Anesthesia Record Procedure Summary Procedure Name Responsible Anesthesiologist Anesthesia Start Time Anesthesia Stop Time CT ABDOMEN ABLATION Rose Brink APR N, ELEMENTARY SCIENCE TEACHER 09/17/23 1102 09/17/23 1241 Events Date Time [...] 1230 09/17/23 1112 by Rose Brink APRN, ELEMENTARY SCIENCE TEACHER 09/17/23 1230 by Rose Brink APRN, ELEMENTARY SCIENCE TEACHER Peripheral IV Placement Date: 08/20 ; Placement Time: 1114; Catheter Size: 18 G; Orientation: Right; Location: Wrist; Inserted by: MD Isauro; Removal Date: 09/17/23; Removal Time: 1348; Removal Reason: Completion of therapy 09/17/23 1114 by Rose Brink APRN, ELEMENTARY SCIENCE TEACHER 09/17/23 1348 by Lena Burk, R.N. documented [...] Room / Location: Department of Radiology in [place], [place] Anesthesia Start: 1102 Anesthesia Stop: 1241 [...] ETT location: oral VL device: glide scope [place] scope blade size: 3 Tube size: 6.5 [...] liver lesion Location: Department of Radiology in [place], [place] Pertinent components of the patient's history [...] with patient /legal guardian or through an vehicle return associate. Risks/Benefits/Alternatives of Blood transfusion discussed with patient [...] ETT location: oral VL device: glide scope [place] scope blade size: 3 Tube size: 6.5 [...]
--- OUTSIDE RECORDS SUMMARY | 2023-12-06 03:59 | XMS_ITS | Encounter Summary ---
Author Organization [facility] Address [address] [place] [address] Care Team Providers Care Medical Receptionist Name Role Phone Unavailable Primary Care Provider Unavailabl e Encounter Details Date Type Department Care Team (Late st Contact Info) Description 09/10/2023 Clinical Communication Department of Radiology in [place], [place] [address] [place] [phone] Skye Mohan, RTylerN., C.M.S.R.N. [address] [place] [phone] Social History Tobacco Use Types Packs/Day Years [...]
--- OUTSIDE RECORDS SUMMARY | 2023-12-06 03:59 | XMS_ITS | Encounter Summary ---
Author Organization [facility] Address [address] [place] [address] Care Team Providers Care Research Manager Name Role Phone Unavailable Primary Care Provider Unavailabl e Reason for Referral * MRI/CAT/PET Scan (Routine) - Closed Specialty Diagnoses / Procedures Referred By Kwabena andersen Referred To Contact Radiology Diagnoses Lesion Liver Procedures CT Abdomen Ablation Gonzalez Garcia M.D. [address] [place] [phone] [facility] Referral ID Status Reason Start Date Expiration Date Visits Re quested Visits Authorized [id number] Closed 09/02/2023 09/01/2024 1 1 Reason for Visit * MRI/CAT/PET Scan (Routine) - Closed Specialty Diagnoses / Procedures Referred By Kwabena andersen Referred To Contact Radiology Diagnoses Lesion Liver Procedures CT Abdomen Ablation Gonzalez Garcia M.D. [address] [place] [phone] [facility] Referral ID Status Reason Start Date Expiration Date Visits Re quested Visits Authorized [id number] Closed 09/02/2023 09/01/2024 1 1 Encounter Details Date Type Department Care Team (Latest Contact Info) Description 09/17/2023 8:33 AM CDT - 09/17/2023 2:00 PM CDT Hospital Encounter Department of Radiology in [place], [place] [address] [place] [phone] Gonzalez Garcia M.D. [address] [place] [phone] Lesion Liver Discharge Disposition: Home or Self [...] related to the procedure, please contact the [facility] fishing line winding machine operator ([phone]) and ask to be connected to the non-vascular interventional radiology fellow nurse practitioner manager. documented in this encounter Medications at Time [...] Kennedy is a 83 y.o. female from [place], [place] with metastatic rectal cancer (liver metastasis) [...] Message sent to Dr. Dina Mari in [facility] regarding patient's post-ablation status and follow-up recommendations - Follow-up imaging recommended, specifically multiphasic CT or MRI in 3 months or per referring provider preference. - For any questions or concerns regarding this patient please page Ablation Radiology nurse at [phone] Saturday through Saturday 7 a.m. to 5 p.m. or the [facility] fishing line winding machine operator ([phone]) and ask to be connected to the non-vascular interventional radiology fellow nurse practitioner manager. documented in this encounter Plan of Treatment [...] x 1.2 cm Probes: Two x Neuwave CT 15 XT Ablation Parameters: 7 minute ablation [...] x 1.2 cm Probes: Two x Neuwave CT 15 XT Ablation Parameters: 7 minute ablation [...] x 1.2 cm Probes: Two x Neuwave CT 15 XT Ablation Parameters: 7 minute ablation [...] x 1.2 cm Probes: Two x Neuwave CT 15 XT Ablation Parameters: 7 minute ablation [...] - 12.5 sec 09/17/2023 9:24 AM CDT [facility] INR 1.0 0.9 - 1.1 09/17/2023 9:24 AM CDT [facility] Comment: ----ADDITIONAL INFORMATION---- Standard intensity warfarin therapeutic range: 2.0 to 3.0 ?? High intensity warfarin therapeutic range: 2.5 to 3.5 Blood (Blood, Venous) 09/17/2023 9:10 AM CDT 09/17/2023 9:16 AM CDT Gonzalez Garcia M.D. LAB BLOOD ADD-ON [facility] [address] [place] [address], [facility] [address] [place] [address] documented in this encounter Visit Diagnoses Diagnosis [...]
--- OUTSIDE RECORDS SUMMARY | 2023-12-06 03:59 | XMS_ITS | Encounter Summary ---
Author Organization [facility] Address [address] [place] [address] Care Team Providers Care Director Regulatory Compliance Name Role Phone Unavailable Primary Care Provider Unavailabl e Reason for Referral * Outpatient (Routine) - Closed Specialty Diagnoses / Procedures Referred By Kwabena andersen Referred To Contact Radiology Dania Hemphill P.A.-C. [address] [place] [phone] [facility] Referral ID Status Reason Start Date Expiration Date Visits Re quested Visits Authorized [id number] Closed 09/02/2023 03/03/2025 1 1 Encounter Details Date Type Department Care Team (Late st Contact Info) Description 09/02/2023 Orders Only Department of Radiology, [facility], in [place], [place] [address] [place] [phone] Skye Mohan R.N., C.M.S.R.N. [address] [place] [phone] Social History Tobacco Use Types Packs/Day [...]
--- OUTSIDE RECORDS SUMMARY | 2023-12-06 03:59 | XMS_ITS | Encounter Summary ---
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
--- OUTSIDE RECORDS SUMMARY | 2023-12-06 03:59 | XMS_ITS | Referral Summary ---
Author Organization [facility] Address [address] [place] [address] Care Team Providers Care Security System Administrator Name Role Phone Unavailable Primary Care Provider Unavailabl e Source Comments Patient records contain information from all sites at [facility]. For routine questions regarding patient records, call [phone] during business hours, M-F 8:00 AM - 5:00 PM Central Time. Record requests for emergency care only can be directed to [phone] at any time.[facility] Encounters Date Type Department Care Team Description 09/18/2023 9:30 AM CDT Virtual Visit Department of Radiology, [facility], in [address] [phone] Dania Hemphill P.A.-C. Eleonora Briscoe APRN C.N.P., M.S.N. Mass Hepatic (Primary Dx) 09/17/2023 11:02 AM CDT Anesthesia Event Department of Radiology in [address] [phone] Rose Brink APRN, CRNA Walsh, Emily E, M.D. 09/17/2023 8:31 AM CDT Hospital Encounter Department of Radiology, [facility] in [address] [phone] Gonzalez Garcia M.D. Lesion Liver Discharge Disposition: Home or Self Care 09/17/2023 8:33 AM CDT - 09/17/2023 2:00 PM CDT Hospital Encounter Department of Radiology in [address] [phone] Gonzalez Garcia M.D. Lesion Liver Discharge Disposition: Home or Self Care 09/16/2023 Clinical Communication Department of Radiology, [address] [phone] Margaret Archibald R.N. Pre-Ablation 09/12/2023 Clinical Communication Department of Radiology, [address] [phone] Margaret Archibald R.N. Appointment 09/10/2023 Clinical Communication Department of Radiology in [address] [phone] Skye Mohan R.N., C.M.S.R.N. from Last 3 Months Allergies Active Allergy [...] x 1.2 cm Probes: Two x Neuwave [place] 15 XT Ablation Parameters: 7 minute ablation [...] x 1.2 cm Probes: Two x Neuwave [place] 15 XT Ablation Parameters: 7 minute ablation [...] x 1.2 cm Probes: Two x Neuwave [place] 15 XT Ablation Parameters: 7 minute ablation [...] x 1.2 cm Probes: Two x Neuwave [place] 15 XT Ablation Parameters: 7 minute ablation [...] x 1.2 cm Probes: Two x Neuwave [place] 15 XT Ablation Parameters: 7 minute ablation [...] x 1.2 cm Probes: Two x Neuwave [place] 15 XT Ablation Parameters: 7 minute ablation [...] ETT location: oral VL device: glide scope [place] scope blade size: 3 Tube size: 6.5 [...] CDT Gonzalez Garcia M.D. LAB BLOOD ADD-ON [facility] [address] [place] [address], [facility] [address] [place] [address] from Last 3 Months Additional Health Concerns Infection Onset Date Last Indicated Protective Environment 04/23/2023 3
--- OUTSIDE RECORDS SUMMARY | 2023-12-06 03:59 | XMS_ITS | Encounter Summary ---
Author Organization [facility] Address [address] [place] [address] Care Team Providers Care Anthropology Faculty Member Name Role Phone Unavailable Primary Care Provider Unavailabl e Encounter Details Date Type Department Care Team ([facility] st Contact Info) Description 09/02/2023 Clinical Communication Department of Radiation Oncology in [place], [place] [address] [place] [phone] Mandie Cruz APRN, C.N.P., D.N.P. [address] [place] [phone] Social History Tobacco Use Types Packs/Day Years [...] to discuss this at her phone number: [phone]. Thank you, Eric Bobo Radiation Oncology documented in this encounter Plan of Treatment Not on file documented as of this encounter Visit Diagnoses Not on filedocumented in this encounter Additional Health Concerns Infection Onset Date Last Indicated Resolved Time Protective Environment 04/23/2023 04/23/2023 documented as of this encounter
--- OUTSIDE RECORDS SUMMARY | 2023-12-06 03:59 | XMS_ITS ---
Author Organization [facility] Address [address] [place] [address] Care Team Providers Care Glass Washer And Carrier Name Role Phone Unavailable Primary Care Provider Unavailabl e Active Problems Problem Noted Date Diagnosed Date Mass Hepatic 09/18/2023 Hypertension Essential Primary 09/02/2023 Malignant Neoplasm Of Colon Rectosigmoid Junctio n 04/15/2023 Current Oncology Plans No current plan information found. Past Plans No past plan information found. Radiation Treatments * Plan Last Treated On Elapsed Days Fractions Treated Prescribed Fraction Dose Prescribed Total Dose [id number] 06/05/2023 6 5 of 5 500 cGy 2,500 cGy Reference Point Last Treated On Elapsed Days Session Dose Total Dose [id number] 06/05/2023 6 500 cGy 2,500 cGy
--- OUTSIDE RECORDS SUMMARY | 2023-12-06 03:59 | XMS_ITS | Encounter Summary ---
Author Organization [facility] Address [address] [place] [address] Care Team Providers Care Maintenance Manager Name Role Phone Unavailable Primary Care Provider Unavailabl e Reason for Visit * Outpatient (Routine) - Closed Specialty Diagnoses / Procedures Referred By Kwabena t Referred To Contact Radiology Dania Hemphill, P.A.-C. [address] [place] [phone] [facility] Referral ID Status Reason Start Date Expiration Date Visits Re quested Visits Authorized [id number] Closed 09/02/2023 03/03/2025 1 1 Encounter Details Date Type Department Care Team (Late st Contact Info) Description 09/18/2023 9:30 AM CDT Virtual Visit Department of Radiology, [facility], in [place], [place] [address] [place] [phone] Dania Hemphill, P.A.-C. [address] [place] [phone] Eleonora Briscoe APRN, C.N.P., M.S.N. [address] [place] [phone] Mass Hepatic (Primary Dx) Social History Tobacco [...]
--- OUTSIDE RECORDS SUMMARY | 2023-12-06 03:59 | XMS_ITS ---
Author Organization [facility] Address [address] [place] [address] Care Team Providers Care Neon Sign Worker Name Role Phone Unavailable Unavailable Unavailable Surgery Details Not on file Complications Check Surgery Details section. Procedure Estimated Blood Loss Check Surgery Details section. Procedure Findings Check Surgery Details section. Procedure Specimens Taken Check Surgery Details section.
--- OUTSIDE RECORDS SUMMARY | 2023-12-06 03:59 | XMS_ITS | Encounter Summary ---
Author Organization [facility] Address [address] [place] [address] Care Team Providers Care Grain Broker Name Role Phone Unavailable Primary Care Provider Unavailabl e Reason for Visit * Reason Onset Date Comments Appointment 09/12/2023 Encounter Details Date Type Department Care Team (Late st Contact Info) Description 09/12/2023 Clinical Communication Department of Radiology, [facility] in [place], [place] [address] [place] [phone] Margaret Archibald R.N. Appointment Social History Tobacco [...]
--- OUTSIDE RECORDS SUMMARY | 2023-12-06 03:59 | XMS_ITS | Encounter Summary ---
Author Organization [facility] Address [address] [place] [address] Care Team Providers Care Oil And Gas Principal Name Role Phone Unavailable Primary Care Provider Unavailabl e Reason for Referral * MRI/CAT/PET Scan (Routine) - Closed Specialty Diagnoses / Procedures Referred By Kwabena andersen Referred To Contact Radiology Diagnoses Lesion Liver Procedures CT Abdomen Ablation Gonzalez Garcia M.D. [address] [place] [phone] [facility] Referral ID Status Reason Start Date Expiration Date Visits Re quested Visits Authorized [id number] Closed 09/02/2023 09/01/2024 1 1 * Outpatient (Routine) - Closed Specialty Diagnoses / Procedures Referred By Kwabena andersen Referred To Contact Diagnoses Lesion Liver Procedures US Assisted Guidance Gonzalez Garcia M.D. [address] [place] [phone] [facility] Referral ID Status Reason Start Date Expiration Date Visits Re quested Visits Authorized [id number] Closed 09/02/2023 09/01/2024 1 1 Encounter Details Date Type Department Care Team (Late st Contact Info) Description 09/02/2023 Orders Only Department of Radiology, [facility], in [place], [place] [address] [place] [phone] Skye Mohan R.N., C.M.S.R.N. 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 ?? Procedure Note Gonzalze Garcia M.D. - 09/17/2023 EXAM: CT ABDOMEN [...]
--- OUTSIDE RECORDS SUMMARY | 2023-12-06 04:00 | XMS_ITS | Encounter Summary ---
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 [address] [place] [address] [facility] Referral ID Status Reason Start Date Expiration Date V isits Requested Visits Authorized [id number] Authorized 08/19/2023 02/17/2025 1 1 Scheduling Instructions Case reviewed with Dr Anthony Mendes. Thanks. Encounter Details Date Type Department Care Team (Late st Contact Info) Description 08/19/2023 Orders Only Department of Oncology in [place], [place] [address] [place] [address] Dina Mari M.D. [address] [place] [address] Malignant Neoplasm Of Colon Rectosigmoid [...]
--- OUTSIDE RECORDS SUMMARY | 2023-12-06 04:00 | XMS_ITS | Encounter Summary ---
Author Organization 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 [address] [place] [address] [facility] Referral ID Status Reason Start Date Expiration Date V isits Requested Visits Authorized [id number] Authorized 08/13/2023 02/11/2025 [address] Tim Jensen Plmalik call daughter at [phone] Encounter Details Date Type Department Care Team (Late st Contact Info) Description 08/13/2023 Orders Only Department of Oncology in [place], [place] [address] [facility] [phone] Dina Mari M.D. 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
--- OUTSIDE RECORDS SUMMARY | 2023-12-06 04:00 | XMS_ITS | Encounter Summary ---
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 200 [place] [address] [facility] Referral ID Status Reason Start Date Expiration Date Visits Re quested Visits Authorized [id number] Closed 08/15/2023 08/14/2024 1 1 Encounter Details Date Type Department Care Team (Latest Contact Info) Description 09/02/2023 11:00 AM CDT - 09/02/2023 11:59 PM CDT Hospital Encounter Department of Radiology, [facility] in [place], [place] [address] [place] [address] Gonzalez Garcia M.D. 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
--- OUTSIDE RECORDS SUMMARY | 2023-12-06 04:00 | XMS_ITS | Encounter Summary ---
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 404 [place] [address] [facility] Referral ID Status Reason Start Date Expiration Date Visits Re quested Visits Authorized [id number] Closed 08/13/2023 02/11/2025 1 1 Encounter Details Date Type Department Care Team (Latest Contact Info) Description 09/02/2023 12:00 PM CDT Comprehensive Visit Department of Radiology, [facility], in [place], [place] [address] [place] [phone] Dina Mari M.D. [address] [place] [address] Eleonora Briscoe APRN, C.N.P., M.S.N. [address] [place] [phone] Gonzalez Garcia M.D. 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 CONSENT: Discussed [...] patient please call the Ablation Nurses at [phone] Saturday through Saturday 7 a.m. to 5 [...]
--- OUTSIDE RECORDS SUMMARY | 2023-12-06 04:00 | XMS_ITS | Clinical Summary ---
Author Organization [employer] [facility] Address [place], [place] [address] Care Team Providers Care Tire Builder Heavy Service Name Role Phone Pcp, No Primary Care [...] Documents on File Type Date Recorded Patient Placement Coordinator Expl anation Healthcare Directive 04/20/2011 SIGNED - 11/08/2005 Care Teams Tire Builder Heavy Service Relationship Specialty Start Date End Date Pcp, No . PCP - General 05/01/23
== END 2023-12-04 08:06 | disposition home or self-care (01) ==
LOC: NFLDREF 12-06 03:57
PROVIDERS: PCP Physician Assistant Medical; Referring Provider Physician Assistant Medical; Visit Provider Internal Medicine Hematology & Oncology
DX: C18.9 Malignant neoplasm of colon, unspecified (principal)
CPT/HCPCS: 80053; 82378

== ENCOUNTER 2023-12-06 09:11 | Outpatient (CLI) | payer MEDICARE, SELFPAY ==
--- NOTE | 2023-12-06 09:15 | CRLHL7_ITS ---
For Patients: As a result of the Century Cures Act, medical imaging exams and procedure reports are released immediately into your electronic medical record. You may view this report before your referring provider. If you have questions, please contact your health care provider. INDICATION: Colon cancer. Liver lesion. Post ablation. COMPARISON: Abdominal MRI dated 02 August 2023. TECHNIQUE: Abdominal MRI with T1 in- and out of phase, T2, diffusion weighted, and progressively delayed post-contrast images. Intravenous gadolinium administered. FINDINGS: No fatty infiltration of the liver. 2.6 cm ablation defect located at the junction of segments 4 and 5 of the liver shows mild peripheral edema/enhancement with no central enhancement. 8 mm lesion in the posterior aspect of segment 7 of the liver best seen on image 35 of series 15 shows mild heterogeneous delayed enhancement is not significantly changed. A few tiny cysts in the liver. No other focal liver lesions identified. No focal abnormalities identified in the visualized portions of the spleen, pancreas, and adrenal glands. 8 mm cyst in the superior pole the left kidney. Parapelvic cysts in the left kidney. The left kidney is otherwise unremarkable. No hydronephrosis. The right kidney is absent. Left lower anterior abdominal wall hernia contains loops of colon with no evidence of strangulation or incarceration. Impression : 1. Ablation defect at the junction of segments 4 and 5 of the liver shows a good response with no central enhancement and expected peripheral edema. 2. Subtle 8 mm lesion in the posterior aspect of segment 7 of the liver is not significantly changed and could represent a residual metastasis. Dictated by Luis Eduardo Beebe MD @ 12/08/2023 5:04:02 PM (Electronically Signed)
--- OUTSIDE RECORDS SUMMARY | 2023-12-06 09:18 | XMS_ITS | Encounter Summary ---
Author Organization [facility] Address [address] [place] [address] Care Team Providers Care Beef Cattle Farm Manager Name Role Phone Unavailable Primary Care Provider Unavailabl e Reason for Referral * Outpatient (Routine) - Closed Specialty Diagnoses / Procedures Referred By Kwabena andersen Referred To Contact Diagnoses Lesion Liver Procedures US Assisted Guidance Gonzalez Garcia M.D. [address] [place] [phone] [facility] Referral ID Status Reason Start Date Expiration Date Visits Re quested Visits Authorized [id number] Closed 09/02/2023 09/01/2024 1 1 Reason for Visit * Outpatient (Routine) - Closed Specialty Diagnoses / Procedures Referred By Kwabena andersen Referred To Contact Diagnoses Lesion Liver Procedures US Assisted Guidance Gonzalez Garcia M.D. 200 [place] [address] [facility] Referral ID Status Reason Start Date Expiration Date Visits Re quested Visits Authorized [id number] Closed 09/02/2023 09/01/2024 1 1 Encounter Details Date Type Department Care Team (Latest Contact Info) Description 09/17/2023 8:31 AM CDT Hospital Encounter Department of Radiology, [facility] in [place], [place] [address] [place] [phone] Gonzalez Garcia M.D. [address] [place] [phone] Lesion Liver Discharge Disposition: Home or Self [...] 1.4 x 1.2 cm Probes: Two x KTK Groupwave HI 15 XT Ablation Parameters: 7 minute [...]
--- OUTSIDE RECORDS SUMMARY | 2023-12-06 09:18 | XMS_ITS | Referral Summary ---
Author Organization [facility] Address [address] [place] [address] Care Team Providers Care Ios Programmer Name Role Phone Unavailable Primary Care Provider Unavailabl e Source Comments Patient records contain information from all sites at [facility]. For routine questions regarding patient records, call [phone] during business hours, M-F 8:00 AM - 5:00 PM Central Time. Record requests for emergency care only can be directed to [phone] at any time.[facility] Encounters Date Type Department Care Team Description 09/18/2023 9:30 AM CDT Virtual Visit Department of Radiology, [facility], in [address] [phone] Dania Hemphill P.A.-C. Eleonora Briscoe APRN C.N.P., M.S.N. Mass Hepatic (Primary Dx) 09/17/2023 11:02 AM CDT Anesthesia Event Department of Radiology in [address] [phone] Rose Brink APRN, CRNA Walsh, Emily E, M.D. 09/17/2023 8:31 AM CDT Hospital Encounter Department of Radiology, [facility] in [address] [phone] Gonzalez Garcia M.D. Lesion Liver Discharge Disposition: Home or Self Care 09/17/2023 8:33 AM CDT - 09/17/2023 2:00 PM CDT Hospital Encounter Department of Radiology in [address] [phone] Gonzalez Garcia M.D. Lesion Liver Discharge Disposition: Home or Self Care 09/16/2023 Clinical Communication Department of Radiology, [address] [phone] Margaret Archibald R.N. Pre-Ablation 09/12/2023 Clinical Communication Department of Radiology, [address] [phone] Margaret Archibald R.N. Appointment 09/10/2023 Clinical Communication Department of Radiology in [address] [phone] Skye Mohan R.N., C.M.S.R.N. from Last 3 [...] ETT location: oral VL device: glide scope [place] scope blade size: 3 Tube size: 6.5 [...] CDT Gonzalez Garcia M.D. LAB BLOOD ADD-ON [facility] [address] [place] [address], [facility] [address] [place] [address] from Last 3 Months Additional Health Concerns Infection Onset Date Last Indicated Protective Environment 04/23/2023 3
--- OUTSIDE RECORDS SUMMARY | 2023-12-06 09:18 | XMS_ITS | Clinical Summary ---
Author Organization [facility] Address [address] [place] [address] Care Team Providers Care Electrical Prospecting Supervisor Name Role Phone Unavailable Primary Care Provider Unavailabl e Source Comments Patient records contain information from all sites at [facility]. For routine questions regarding patient records, call [phone] during business hours, M-F 8:00 AM - 5:00 PM Central Time. Record requests for emergency care only can be directed to [phone] at any time.[facility] Allergies Active Allergy Reactions Criticality Noted Date [...] AM CDT Virtual Visit Department of Radiology, [facility] in [address] [phone] Dania Hemphill P.A.-C. Loga, Laura A, APRN C.N.P., M.S.N. Mass Hepatic (Primary Dx) 09/17/2023 11:02 AM CDT Anesthesia Event Department of Radiology in [address] [phone] Rose Brink APRN, CRNA Walsh, Emily E, M.D. 09/17/2023 8:33 AM CDT - 09/17/2023 2:00 PM CDT Hospital Encounter Department of Radiology in [address] [phone] Gonzalez Garcia M.D. Lesion Liver Discharge Disposition: Home or Self Care 09/17/2023 8:31 AM CDT Hospital Encounter Department of Radiology, [address] [phone] Gonzalez Garcia M.D. Lesion Liver Discharge Disposition: Home or Self Care 09/16/2023 Clinical Communication Department of Radiology, [address] [address] Margaret Archibald R.N. Pre-Ablation 09/12/2023 Clinical Communication Department of Radiology, [address] [address] Margaret Archibald R.N. Appointment 09/10/2023 Clinical Communication Department of Radiology in [address] [phone] Skye Mohan R.N., C.M.S.R.N. from Last 3 [...] ETT location: oral VL device: glide scope [place] scope blade size: 3 Tube size: 6.5 [...] CDT Gonzalez Garcia M.D. LAB BLOOD ADD-ON [facility] [address] [place] [address], [facility] [address] [place] [address] from Last 3 Months Additional Health Concerns Infection Onset Date Last Indicated Protective Environment 04/23/2023 3
--- OUTSIDE RECORDS SUMMARY | 2023-12-06 09:18 | XMS_ITS ---
Author Organization [facility] Address [address] [place] [address] Care Team Providers Care Phys Ther Name Role Phone Unavailable Unavailable Unavailable Surgery Details Not on file Complications Check Surgery Details section. Procedure Estimated Blood Loss Check Surgery Details section. Procedure Findings Check Surgery Details section. Procedure Specimens Taken Check Surgery Details section.
--- OUTSIDE RECORDS SUMMARY | 2023-12-06 09:18 | XMS_ITS | Encounter Summary ---
Author Organization [facility] Address [address] [place] [address] Care Team Providers Care Trim Crew Supervisor Name Role Phone Unavailable Primary Care Provider Unavailabl e Reason for Referral * MRI/CAT/PET Scan (Routine) - Closed Specialty Diagnoses / Procedures Referred By Kwabena andersen Referred To Contact Radiology Diagnoses Lesion Liver Procedures CT Abdomen Ablation Gonzalez Garcia M.D. [address] [place] [phone] [facility] Referral ID Status Reason Start Date Expiration Date Visits Re quested Visits Authorized [id number] Closed 09/02/2023 09/01/2024 1 1 Reason for Visit * MRI/CAT/PET Scan (Routine) - Closed Specialty Diagnoses / Procedures Referred By Kwabena andersen Referred To Contact Radiology Diagnoses Lesion Liver Procedures CT Abdomen Ablation Gonzalez Garcia M.D. [address] [place] [phone] [facility] Referral ID Status Reason Start Date Expiration Date Visits Re quested Visits Authorized [id number] Closed 09/02/2023 09/01/2024 1 1 Encounter Details Date Type Department Care Team (Latest Contact Info) Description 09/17/2023 8:33 AM CDT - 09/17/2023 2:00 PM CDT Hospital Encounter Department of Radiology in [place], [place] [address] [place] [phone] Gonzalez Garcia M.D. [address] [place] [phone] Lesion Liver Discharge Disposition: Home or Self [...] related to the procedure, please contact the [facility] clerk operator ([phone]) and ask to be connected to the non-vascular interventional radiology fellow contract recruiter. documented in this encounter Medications at Time [...] Kennedy is a 83 y.o. female from [place], [place] with metastatic rectal cancer (liver metastasis) [...] Message sent to Dr. Dina Mari in [facility] regarding patient's post-ablation status and follow-up recommendations - Follow-up imaging recommended, specifically multiphasic CT or MRI in 3 months or per referring provider preference. - For any questions or concerns regarding this patient please page Ablation Radiology nurse at [phone] Saturday through Saturday 7 a.m. to 5 p.m. or the [facility] clerk operator ([phone]) and ask to be connected to the non-vascular interventional radiology fellow contract recruiter. documented in this encounter Plan of Treatment [...] - 12.5 sec 09/17/2023 9:24 AM CDT [facility] IN[facility] 1.0 0.9 - 1.1 09/17/2023 9:24 AM CDT [facility] Comment: ----ADDITIONAL INFORMATION---- Standard intensity warfarin therapeutic range: 2.0 to 3.0 ?? High intensity warfarin therapeutic range: 2.5 to 3.5 Blood (Blood, Venous) 09/17/2023 9:10 AM CDT 09/17/2023 9:16 AM CDT Gonzalez Garcia M.D. LAB BLOOD ADD-ON [facility] [address] [place] [address], [facility] [address] [place] [address] documented in this encounter Visit Diagnoses Diagnosis [...]
--- OUTSIDE RECORDS SUMMARY | 2023-12-06 09:18 | XMS_ITS | Encounter Summary ---
Author Organization [facility] Address [address] [place] [address] Care Team Providers Care Environmental Systems Coordinator Name Role Phone Unavailable Primary Care Provider Unavailabl e Reason for Visit * Outpatient (Routine) - Closed Specialty Diagnoses / Procedures Referred By Kwabena t Referred To Contact Radiology Dania Hemphill, P.A.-C. [address] [place] [phone] [facility] Referral ID Status Reason Start Date Expiration Date Visits Re quested Visits Authorized [id number] Closed 09/02/2023 03/03/2025 1 1 Encounter Details Date Type Department Care Team (Late st Contact Info) Description 09/18/2023 9:30 AM CDT Virtual Visit Department of Radiology, [facility], in [place], [place] [address] [place] [phone] Dania Hemphill, P.A.-C. [address] [place] [phone] Eleonora Briscoe APRN, C.N.P., M.S.N. [address] [place] [phone] Mass Hepatic (Primary Dx) Social History Tobacco [...]
--- OUTSIDE RECORDS SUMMARY | 2023-12-06 09:18 | XMS_ITS | Encounter Summary ---
Author Organization [facility] Address [address] [place] [address] Care Team Providers Care Paper Inspector Name Role Phone Unavailable Primary Care Provider Unavailabl e Reason for Visit * Reason Onset Date Comments Pre-Ablation 09/16/2023 Encounter Details Date Type Department Care Team (Late st Contact Info) Description 09/16/2023 Clinical Communication Department of Radiology, [facility] in [place], [place] [address] [place] [address] Margaret Archibald RTylerN. Pre-Ablation Social History Tobacco [...]
--- OUTSIDE RECORDS SUMMARY | 2023-12-06 09:18 | XMS_ITS ---
Author Organization [facility] Address [address] [place] [address] Care Team Providers Care Tacking Machine Operator Name Role Phone Unavailable Primary [...] Treated Prescribed Fraction Dose Prescribed Total Dose [id number] 06/05/2023 6 5 of 5 500 cGy 2,500 cGy Reference Point Last Treated On Elapsed Days Session Dose Total Dose [id number] 06/05/2023 6 500 cGy 2,500 cGy
--- OUTSIDE RECORDS SUMMARY | 2023-12-06 09:18 | XMS_ITS | Encounter Summary ---
Author Organization [facility] Address [address] [place] [address] Care Team Providers Care Algorithm Developer Name Role Phone Unavailable Primary Care Provider Unavailabl e Encounter Details Date Type Department Care Team (Late st Contact Info) Description 09/17/2023 11:02 AM CDT Anesthesia Event Department of Radiology in [place], [place] [address] [place] [phone] Rose Brink APRN, ANESTHESIOLOGY FACULTY [address] [place] [phone] Miladis Sauceda M.D. [address] [place] [phone] Anesthesia Record Procedure Summary Procedure Name Responsible Anesthesiologist Anesthesia Start Time Anesthesia Stop Time CT ABDOMEN ABLATION Rose Brink APR N, ANESTHESIOLOGY FACULTY 09/17/23 1102 09/17/23 1241 Events Date Time [...] 1230 09/17/23 1112 by Rose Brink APRN, ANESTHESIOLOGY FACULTY 09/17/23 1230 by Rose Brink APRN, ANESTHESIOLOGY FACULTY Peripheral IV Placement Date: 08/20 ; Placement Time: 1114; Catheter Size: 18 G; Orientation: Right; Location: Wrist; Inserted by: MD Isauro; Removal Date: 09/17/23; Removal Time: 1348; Removal Reason: Completion of therapy 09/17/23 1114 by Rose Brink APRN, ANESTHESIOLOGY FACULTY 09/17/23 1348 by Lena Burk, R.N. documented [...] OR Notes * Anesthesia Postprocedure Evaluation - oRse Brink APRN, CRNA - 09/17/2023 12:41 PM CDT Patient: Angle Kennedy Procedure Summary Date: 09/17/23 Room / Location: Department of Radiology in [place], [place] Anesthesia Start: 1102 Anesthesia Stop: 1241 [...] ETT location: oral VL device: glide scope [place] scope blade size: 3 Tube size: 6.5 [...] liver lesion Location: Department of Radiology in [place], [place] Pertinent components of the patient's history [...] with patient /legal guardian or through an flat folder. Risks/Benefits/Alternatives of Blood transfusion discussed with patient [...] ETT location: oral VL device: glide scope [place] scope blade size: 3 Tube size: 6.5 [...]
--- OUTSIDE RECORDS SUMMARY | 2023-12-06 09:19 | XMS_ITS | Encounter Summary ---
Author Organization [facility] Address [address] [place] [address] Care Team Providers Care Plant Operations Worker Name Role Phone Unavailable Primary Care Provider Unavailabl e Encounter Details Date Type Department Care Team (Late st Contact Info) Description 09/10/2023 Clinical Communication Department of Radiology in [place], [place] [address] [place] [phone] Skye Mohan, RTylerN., C.M.S.R.N. [address] [place] [phone] Social History Tobacco Use Types Packs/Day Years [...]
--- OUTSIDE RECORDS SUMMARY | 2023-12-06 09:19 | XMS_ITS | Clinical Summary ---
Author Organization [facility] Address [place], [place] [address] Care Team Providers Care Coater Hand Name Role Phone Pcp, No Primary Care [...] Documents on File Type Date Recorded Patient Gas Tester Expl anation Healthcare Directive 04/20/2011 SIGNED - 11/08/2005 Care Teams Coater Hand Relationship Specialty Start Date End Date Pcp, No . PCP - General 05/01/23
--- OUTSIDE RECORDS SUMMARY | 2023-12-06 09:19 | XMS_ITS | Encounter Summary ---
Author Organization [facility] Address [address] [place] [address] Care Team Providers Care Airborne Operations Superintendent Name Role Phone Unavailable Primary Care Provider Unavailabl e Encounter Details Date Type Department Care Team ([facility] st Contact Info) Description 09/02/2023 Clinical Communication Department of Radiation Oncology in [place], [place] [address] [place] [phone] Mandie Cruz APRN, C.N.P., D.N.P. [address] [place] [phone] Social History Tobacco Use Types Packs/Day Years [...] to discuss this at her phone number: [phone]. Thank you, Eric Bobo Radiation Oncology documented in this encounter Plan of Treatment Not on file documented as of this encounter Visit Diagnoses Not on filedocumented in this encounter Additional Health Concerns Infection Onset Date Last Indicated Resolved Time Protective Environment 04/23/2023 04/23/2023 documented as of this encounter
--- OUTSIDE RECORDS SUMMARY | 2023-12-06 09:19 | XMS_ITS | Encounter Summary ---
Author Organization [facility] Address [address] [place] [address] Care Team Providers Care Mannequin Coloring Artist Name Role Phone Unavailable Primary Care Provider Unavailabl e Encounter Details Date Type Department Care Team (Late st Contact Info) Description 09/04/2023 Clinical Communication Department of Radiology in [place], [place] [address] [place] [phone] Skye Mohan, RTylerN., C.M.S.R.N. [address] [place] [phone] Social History Tobacco Use Types Packs/Day Years [...]
--- OUTSIDE RECORDS SUMMARY | 2023-12-06 09:19 | XMS_ITS | Encounter Summary ---
Author Organization [facility] Address [address] [place] [address] Care Team Providers Care Color Coater Name Role Phone Unavailable Primary Care Provider Unavailabl e Reason for Referral * MRI/CAT/PET Scan (Routine) - Closed Specialty Diagnoses / Procedures Referred By Kwabena andersen Referred To Contact Radiology Diagnoses Lesion Liver Procedures CT Abdomen Ablation Gonzalez Garcia M.D. [address] [place] [phone] [facility] Referral ID Status Reason Start Date Expiration Date Visits Re quested Visits Authorized [id number] Closed 09/02/2023 09/01/2024 1 1 * Outpatient (Routine) - Closed Specialty Diagnoses / Procedures Referred By Kwabena andersen Referred To Contact Diagnoses Lesion Liver Procedures US Assisted Guidance Gonzalez Garcia M.D. [address] [place] [phone] [facility] Referral ID Status Reason Start Date Expiration Date Visits Re quested Visits Authorized [id number] Closed 09/02/2023 09/01/2024 1 1 Encounter Details Date Type Department Care Team (Late st Contact Info) Description 09/02/2023 Orders Only Department of Radiology, [facility], in [place], [place] [address] [place] [phone] Skye Mohan R.N., C.M.S.R.N. 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
--- OUTSIDE RECORDS SUMMARY | 2023-12-06 09:19 | XMS_ITS | Encounter Summary ---
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
--- OUTSIDE RECORDS SUMMARY | 2023-12-06 09:19 | XMS_ITS | Encounter Summary ---
Author Organization [facility] Address [address] [place] [address] Care Team Providers Care Senior Microstrategy Developer Name Role Phone Unavailable Primary Care Provider Unavailabl e Reason for Visit * Reason Onset Date Comments Appointment 09/12/2023 Encounter Details Date Type Department Care Team (Late st Contact Info) Description 09/12/2023 Clinical Communication Department of Radiology, [facility] in [place], [place] [address] [place] [phone] Margaret Archibald R.N. Appointment Social History Tobacco [...]
--- OUTSIDE RECORDS SUMMARY | 2023-12-06 09:19 | XMS_ITS | Encounter Summary ---
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 200 [place] [address] [facility] Referral ID Status Reason Start Date Expiration Date Visits Re quested Visits Authorized [id number] Closed 08/15/2023 08/14/2024 1 1 Encounter Details Date Type Department Care Team (Latest Contact Info) Description 09/02/2023 11:00 AM CDT - 09/02/2023 11:59 PM CDT Hospital Encounter Department of Radiology, [facility] in [place], [place] [address] [place] [address] Gonzalez Garcia M.D. 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
--- OUTSIDE RECORDS SUMMARY | 2023-12-06 09:19 | XMS_ITS | Encounter Summary ---
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 [address] [place] [address] [facility] Referral ID Status Reason Start Date Expiration Date Visits Re quested Visits Authorized [id number] Closed 08/13/2023 02/11/2025 1 1 Encounter Details Date Type Department Care Team (Latest Contact Info) Description 09/02/2023 12:00 PM CDT Comprehensive Visit Department of Radiology, [facility], in [place], [place] [address] [place] [phone] Dina Mari M.D. [address] [place] [address] Eleonora Briscoe APRN, C.N.P., M.S.N. [address] [place] [phone] Gonzalez Garcia M.D. 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 CONSENT: [...] patient please call the Ablation Nurses at [phone] Saturday through Saturday 7 a.m. to 5 [...]
--- OUTSIDE RECORDS SUMMARY | 2023-12-06 09:19 | XMS_ITS | Encounter Summary ---
Author Organization [facility] Address [address] [place] [address] Care Team Providers Care Enterprise Application Analyst Name Role Phone Unavailable Primary Care Provider Unavailabl e Reason for Referral * Outpatient (Routine) - Closed Specialty Diagnoses / Procedures Referred By Kwabena andersen Referred To Contact Radiology Dania Hemphill P.A.-C. [address] [place] [phone] [facility] Referral ID Status Reason Start Date Expiration Date Visits Re quested Visits Authorized [id number] Closed 09/02/2023 03/03/2025 1 1 Encounter Details Date Type Department Care Team (Late st Contact Info) Description 09/02/2023 Orders Only Department of Radiology, [facility], in [place], [place] [address] [place] [phone] Skye Mohan R.N., C.M.S.R.N. [address] [place] [phone] Social History Tobacco Use Types Packs/Day [...]
--- OUTSIDE RECORDS SUMMARY | 2023-12-06 09:19 | XMS_ITS | Encounter Summary ---
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 [address] [place] [phone] [facility] Referral ID Status Reason Start Date Expiration Date V isits Requested Visits Authorized [id number] Authorized 09/02/2023 03/03/2025 1 1 Encounter Details Date Type Department Care Team (Late st Contact Info) Description 09/02/2023 Orders Only Department of Radiology, [facility], in [place], [place] [address] [place] [phone] Skye Mohan RVi, C.M.S.R.N. 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
--- OUTSIDE RECORDS SUMMARY | 2023-12-06 09:19 | XMS_ITS | Encounter Summary ---
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 404 [place] [address] [facility] Referral ID Status Reason Start Date Expiration Date V isits Requested Visits Authorized [id number] Authorized 08/13/2023 02/11/2025 [address] Tim Jensen Plmalik call daughter at [phone] Encounter Details Date Type Department Care Team (Late st Contact Info) Description 08/13/2023 Orders Only Department of Oncology in [place], [place] [address] [facility] [place] [phone] Dina Mari M.D. 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
--- OUTSIDE RECORDS SUMMARY | 2023-12-06 09:19 | XMS_ITS | Encounter Summary ---
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 404 [place] [address] [facility] Referral ID Status Reason Start Date Expiration Date V isits Requested Visits Authorized [id number] Authorized 08/19/2023 02/17/2025 1 1 Scheduling Instructions Case reviewed with Dr Anthony Mendes. Thanks. Encounter Details Date Type Department Care Team (Late st Contact Info) Description 08/19/2023 Orders Only Department of Oncology in [place], [place] [address] [place] [address] Dina Mari M.D. [address] [place] [address] Malignant Neoplasm Of Colon Rectosigmoid [...]
--- OUTSIDE RECORDS SUMMARY | 2023-12-06 09:19 | XMS_ITS | Encounter Summary ---
Author Organization [facility] Address [address] [place] [address] Care Team Providers Care General Maintenance Engineer Name Role Phone Unavailable Primary Care Provider Unavailabl e Encounter Details Date Type Department Care Team (Late st Contact Info) Description 09/02/2023 Orders Only Preoperative Evaluation Center in [place], [place] [address] [place] [phone] Dania Watt APRN, C.N.P., D.N.P. Preoperative Exam [...]
--- NOTE | 2023-12-06 11:00 | CRLHL7_ITS ---
For Patients: As a result of the Century Cures Act, medical imaging exams and procedure reports are released immediately into your electronic medical record. You may view this report before your referring provider. If you have questions, please contact your health care provider. Indication: Malignant neoplasm of colon F/U Technique: CT Chest/Abd/Pelvis W/ ISOVUE 370 Please note that all CT scans at this facility use dose modulation, iterative reconstruction, and/or weight-based dosing when appropriate to reduce radiation dose to as low as reasonably achievable. Comparison: 07/18/2023 Findings: In the chest, no mediastinal, hilar or axillary adenopathy noted. Atherosclerotic changes. Fluid in the esophagus again noted. Mild linear subsegmental scarring in both lung bases. No pleural effusion or pulmonary edema. Tiny bilateral pulmonary nodules are similar including incidental calcified nodule in the right lung apex. Degenerative disc disease. No fracture. In the abdomen, increased size of the lesion within the liver, segment 4B, now measuring 3.4 x 3.2 cm. Stable low-density area within the posterior segment of the right hepatic lobe and stable cyst within the left hepatic lobe. Calcified gallstones unchanged. No biliary obstruction. Pancreas normal. Normal spleen. Postop changes right nephrectomy. No adrenal lesion. Mild ectopic position of the left kidney with extrarenal pelvis. Nonobstructing stone left kidney unchanged. 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 Uterus and adnexa appear unremarkable. Similar wall thickening of the distal colon. Adenopathy in the pelvis adjacent to the distal colon noted measuring up to 1.9 cm. These are similar to the prior study although perhaps slightly increased in size. No fracture. Degenerative changes. Impression: Increased size of the metastatic lesion within the liver now measuring 3.4 cm. Left paramidline pelvic lymph nodes are similar although perhaps mildly increased. Similar wall thickening of the distal colon. Stable tiny bilateral pulmonary nodules. Please note that all CT scans at this facility use dose modulation, iterative reconstruction, and/or weight-based dosing when appropriate to reduce radiation dose to as low as reasonably achievable. Dictated by Terrence Mcdaniel MD @ 12/06/2023 11:29:21 AM (Electronically Signed)
== END 2023-12-06 09:12 | disposition home or self-care (01) ==
PROVIDERS: PCP Physician Assistant Medical; Visit Provider Internal Medicine Hematology & Oncology
DX: C18.9 Malignant neoplasm of colon, unspecified (principal); K76.9 Liver disease, unspecified; R59.0 Localized enlarged lymph nodes; R91.8 Other nonspecific abnormal finding of lung field
CPT/HCPCS: 71260; 74177; 74183; A9575; Q9967

== ENCOUNTER 2024-01-01 08:29 | Outpatient (CLI) | payer MEDICARE, SELFPAY ==
--- OUTSIDE RECORDS SUMMARY | 2024-01-03 11:54 | XMS_ITS ---
Author Organization [facility] Address [address] [place] [address] Care Team Providers Care Legend Maker Name Role Phone Unavailable Unavailable Unavailable Surgery Details Not on file Complications Check Surgery Details section. Procedure Estimated Blood Loss Check Surgery Details section. Procedure Findings Check Surgery Details section. Procedure Specimens Taken Check Surgery Details section.
--- OUTSIDE RECORDS SUMMARY | 2024-01-03 11:54 | XMS_ITS | Clinical Summary ---
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 PCP - General 05/01/23
--- OUTSIDE RECORDS SUMMARY | 2024-01-03 11:54 | XMS_ITS | Clinical Summary ---
Author Organization [facility] Address [address] [place] [address] Care Team Providers Care Reimbursement Liaison Name Role Phone Unavailable Primary Care Provider Unavailabl e Source Comments Patient records contain information from all sites at [facility]. For routine questions regarding patient records, call [phone] during business hours, M-F 8:00 AM - 5:00 PM Central Time. Record requests for emergency care only can be directed to [phone] at any time.[facility] Allergies Active Allergy Reactions Criticality Noted [...] Neoplasm Of Colon Rectosigmoid Junctio n 04/15/2023 Family History Medical History Relation Name Comments [...] Procedure Name Priority Date/Time Associated Diagnosis Comments OUTSIDE CT BODY Routine 12/06/2023 10:25 AM CDT OUTSIDE MR BODY Routine 12/06/2023 9:35 AM CDT from Last 3 Months Results * CT chest abdomen pelv w con-Outside CT Body (12/06/2023 10:25 AM CDT) Narrative IIND - 12/10/2023 9:31 AM CDT This order has been created and auto-finalized to support the import of outside images. If available, original interpretation can be found on the Media Tab in Chart Review, in Document Viewer, as an image in QREADS or as an Addendum. If a re-interpretation or overread is required please follow defined workflow.?? Provider Not In System IMG CT PROCEDURES Performing Organization Address [facility] Co de Phone Number IIMS NA * MR abdomen wo/w con-Outside MR Body (12/06/2023 9:35 AM CDT) Narrative IIND - 12/10/2023 9:31 AM CDT This order has been created and auto-finalized to support the import of outside images. If available, original interpretation can be found on the Media Tab in Chart Review, in Document Viewer, as an image in QREADS or as an Addendum. If a re-interpretation or overread is required please follow defined workflow.?? Provider Not In System IMG MRI PROCEDURE S Performing Organization Address City/[facility]/ZIP Co de Phone Number IIMS NA from Last 3 Months Additional Health Concerns Infection Onset Date Last Indicated Protective Environment 04/23/2023 3
--- OUTSIDE RECORDS SUMMARY | 2024-01-03 11:54 | XMS_ITS | Referral Summary ---
Author Organization [facility] Address [address] [place] [address] Care Team Providers Care Wrecking Supervisor Name Role Phone Unavailable Primary Care Provider Unavailabl e Source Comments Patient records contain information from all sites at [facility]. For routine questions regarding patient records, call [phone] during business hours, M-F 8:00 AM - 5:00 PM Central Time. Record requests for emergency care only can be directed to [phone] at any time.[facility] Allergies Active Allergy Reactions Criticality [...] CT Body (12/06/2023 10:25 AM CDT) Narrative IIMS - 12/10/2023 9:31 AM CDT This order [...] System IMG CT PROCEDURES Performing Organization Address City/[facility]/ZIP Co de Phone Number II NA * MR abdomen wo/w con-Outside MR Body (12/06/2023 9:35 AM CDT) Narrative IIMS - 12/10/2023 9:31 AM CDT This order [...] MRI PROCEDURE S Performing Organization Address [facility] Co de Phone Number II NA from Last 3 Months Additional Health Concerns Infection Onset Date Last Indicated Protective Environment 04/23/2023 3
--- OUTSIDE RECORDS SUMMARY | 2024-01-03 11:54 | XMS_ITS | Encounter Summary ---
Author Organization [facility] Address [address] [place] [address] Care Team Providers Care Transporter Driver Name Role Phone Unavailable Primary Care Provider Unavailabl e Encounter Details Date Type Department Care Team (Late st Contact Info) Description 09/10/2023 Clinical Communication Department of Radiology in [place], [place] [address] [place] [phone] Skye Mohan, RTylerN., C.M.S.R.N. [address] [place] [phone] Social History Tobacco Use Types Packs/Day Years [...]
--- OUTSIDE RECORDS SUMMARY | 2024-01-03 11:54 | XMS_ITS ---
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 Past Plans No past plan information found. Radiation Treatments * Plan Last Treated On Elapsed Days Fractions Treated Prescribed Fraction Dose Prescribed Total Dose [id number] 06/05/2023 6 5 of 5 500 cGy 2,500 cGy Reference Point Last Treated On Elapsed Days Session Dose Total Dose [id number] 06/05/2023 6 500 cGy 2,500 cGy
== END 2024-01-01 08:30 | disposition home or self-care (01) ==
LOC: NFLDREF 01-03 11:53
PROVIDERS: PCP Physician Assistant Medical; Referring Provider Physician Assistant Medical; Visit Provider Internal Medicine Hematology & Oncology
DX: C18.9 Malignant neoplasm of colon, unspecified (principal)
CPT/HCPCS: 80053; 82378

== ENCOUNTER 2024-03-04 08:24 | Outpatient (CLI) | payer MEDICARE, SELFPAY ==
--- OUTSIDE RECORDS SUMMARY | 2024-03-04 14:58 | XMS_ITS | Clinical Summary ---
Author Organization [facility] & [facility] Address [place], [place] [address] Care Team Providers Care Pilot Name Role Phone Pcp, No Primary Care Provider Unavailabl e Allergies No known active allergies Medications Medication Sig Dispensed Refills Start Date End Date Status amLODIPine (NORVASC) 5 mg tablet 01/04/2021 Active lisinopriL (PRINIVIL; ZESTRIL) 20 mg tablet 03/02/2021 Active Active Problems No known active problems Encounters Date Type Department Care Team Description 01/17/2024 10:45 AM CDT Ancillary Procedure [facility] [address] [place] [address] 01/17/2024 9:40 AM CDT Office Visit [facility] [address] [place] [address] Mayur Escudero MD Musculoskeletal Problem (Bilateral knee pain would like to discuss injections) 01/17/2024 Travel from Last 3 Months Family History Medical History Relation Name Comments Cancer-breast No Family History Social History Tobacco Use Types Packs/Day Years Used Date Smoking Tobacco: Never Smokeless Tobacco: Never Tobacco Cessation:Counseling Given: No Alcohol Use Standard Drinks/Week Comments Never 0 (1 standard drink = 0.6 oz pur e alcohol) Social Connections Answer Date Recorded Frequency of Communication with Friends and Fami ly Not on file 01/17/2024 Financial Resource Strain Answer Date R ecorded Difficulty of Paying Living Expenses Not on file 05/11/2021 Difficulty of Paying Living Expenses Not on file 05/11/2021 Sex and Gender Information Value Date Recorded Sex Assigned at Not on file Gender Identity Not on file Sexual Orientation Not on file Obstetrics History Last Filed Vital Signs Vital Sign Reading Time Taken Comments Blood Pressure 128/73 01/17/2024 9:43 AM CDT Pulse 90 01/17/2024 9:43 AM CDT Temperature 36.5 ??C (97.7 ??F) 01/17/2024 9:43 AM CD T Respiratory Rate - - Oxygen Saturation 98% 01/17/2024 9:43 AM CDT Inhaled Oxygen Concentration - - Weight 53.9 kg (118 lb 12.8 oz) 01/17/2024 9:43 AM CDT Height - - Body Mass Index - - Plan of Treatment Upcoming Encounters Date Type Department Care Team (Late st Contact Info) Description 03/19/2024 9:40 AM CDT Office Visit [facility] [address] [place] [address] Mayur Escudero MD [address] [place] [address] Health Maintenance Due Date Last Done Comments Tdap 1950 Depression screening for age 12+ 1951 BMI (ht and wt on same day) for age 18+ 1957 Tetanus booster 1959 Zoster (shingles) series for age 50+ (1 of 2) 1989 DEXA/DXA scan for age 65+ 2004 Medicare Wellness for age 65+ 2004 Pneumococcal series for age 65+ (1 of 1 - PCV) 2004 RSV vaccine for adults or (1 - 1-dose 75+ series) 2014 COVID-19 vaccine series ( season) 2024 02/21/2023, 02/12/2022, 08/22/2021, Additional history exists Influenza for age 65+ 01/19/2024 Procedures Procedure Name Priority Date/Time Associated Diagnosis Comments XR KNEE WB 2 VIEWS BILATERAL AND 1 VIEW LEFT Routine 01/17/2024 10:30 AM CDT Primary osteoarthritis of left knee from Last 3 Months Results * XR KNEE WB 2 VIEWS BILATERAL AND 1 VIEW LEFT (01/17/2024 10:30 AM CDT) Anatomical Region Laterality Modality KNEES, KNEE L Computed Radiogr aphy 01/21/2024 5:49 AM CDT Narrative 01/21/2024 5:49 AM CDT For Patients: ??As a result of the Cures Act, medical imaging exams and procedure reports are released immediately into your electronic medical record. ??You may view this report before your referring provider. ??If you have questions, please contact your health care provider. Indication: Primary osteoarthritis of left knee Technique: Standing Garvey film both knees, standing lateral view left knee and patellofemoral view both knees, five views total Comparison: None Findings: Narrowing and spurring present at the patellofemoral compartment bilaterally, right greater than left. Chronic ossicle adjacent to the right lateral facet of the patellofemoral joint. Joint effusion noted on the left. Medial compartment narrowing and spurring left knee. Chondrocalcinosis. Degenerative changes medial and lateral compartments right knee. Impression: Medial and patellofemoral compartment degenerative joint disease left knee with joint effusion. Dictated by Terrence Mcdaniel MD @ 01/21/2024 5:49:23 AM (Electronically Signed) Procedure Note Terrence Mcdaniel MD - 01/21/2024 For Patients: As a result of the Cures Act, medical imagingexams and procedure reports are released immediately into your electronicmedical record. You may view this report before your referring provider.If you have questions, please contact your health care provider. Indication: Primary osteoarthritis of left knee Technique: Standing Garvey film both knees, standing lateral view left knee andpatellofemoral view both knees, five views total Comparison: None Findings: Narrowing and spurring present at the patellofemoral compartmentbilaterally, right greater than left. Chronic ossicle adjacent to theright lateral facet of the patellofemoral joint. Joint effusion noted onthe left. Medial compartment narrowing and spurring left knee.Chondrocalcinosis. Degenerative changes medial and lateral compartmentsright knee. Impression: Medial and patellofemoral compartment degenerative joint disease left kneewith joint effusion. Dictated by Terrence Mcdaniel MD @ 01/21/2024 5:49:23 AM (Electronically Signed) Mayur Escudero MD GENERAL IMAGING from Last 3 Months Advance Directives Documents on File Type Date Recorded Patient Ostomy Nurse Expl anation Healthcare Directive 04/20/2011 SIGNED - 11/08/2005 Care Teams Pilot Relationship Specialty Start Date End Date Pcp, No . PCP - General 05/01/23
--- OUTSIDE RECORDS SUMMARY | 2024-03-04 14:58 | XMS_ITS | Referral Summary ---
Author Organization [facility] Address [address] [place] [address] Care Team Providers Care Manufacturing Quality Manager Name Role Phone Unavailable Primary Care Provider Unavailabl e Source Comments Patient records contain information from all sites at [facility]. For routine questions regarding patient records, call [phone] during business hours, M-F 8:00 AM - 5:00 PM Central Time. Record requests for emergency care only can be directed to [phone] at any time.[facility] Allergies Active Allergy Reactions Criticality Noted Date Comments Ragweed Pollen Other (see comments) Low 07/18/2023 Medications lisinopriL (PRINIVIL,ZESTRIL ) 20 mg tablet 1 Active capecitabine (XELODA) 150 mg tablet Take [...] MULTIVITAMIN ORAL) Take 1 tablet by mouth. 2 Active cetirizine 10 mg capsule Take 10 mg by mouth. 2 Active cholecalciferol, vitamin D3, 25 mcg (1,000 Unit) tablet Take 25 mcg by mouth. 3 Active calcium carbonate 1,500 mg (600 mg calcium) tablet Take 600 mg by mouth. 3 Active bisacodyL 5 mg tablet Take 5 mg by mouth. 2 Active acetaminophen (TYLENOL) 500 mg tablet Take 325 mg by mouth. 2 Active alendronate (FOSAMAX) 70 mg tablet 4 Active amLODIPine (NORVASC) 10 mg tablet 4 Active Active Problems Problem Noted Date Diagnosed Date Mass Hepatic 09/18/2023 Hypertension Essential Primary 09/02/2023 Malignant Neoplasm Of Colon Rectosigmoid Junctio n 04/15/2023 Social History Tobacco Use Types Packs/Day Years Used Date Smoking Tobacco: Never Smokeless Tobacco: Never Tobacco Cessation:Counseling Given: Not Answered Dental Answer Date Recorded Dental: Regular Dentist Unknown 05/18/20 22 Comments Unknown Sex and Gender Information Value Date Recorded Sex Assigned at Not on file Legal Sex Female 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 us Provider Not In System IMG CT PROCEDURES Final R esult Performing Organization Address [facility] de Phone Number [facility] NA * MR [...] overread is required please follow defined workflow.?? us Provider Not In System IMG MRI PROCEDURES Final Result Performing Organization Address [facility] de Phone Number [facility] NA from Last 3 Months Additional Health Concerns Infection Onset Date Last Indicated Protective Environment 04/23/2023 3 Insurance [facility]
--- OUTSIDE RECORDS SUMMARY | 2024-03-04 14:58 | XMS_ITS ---
Author Organization [facility] Address [address] [place] [address] Care Team Providers Care Electronics Technician Apprentice Name Role Phone Unavailable Unavailable Unavailable Surgery Details Not on file Complications Check Surgery Details section. Procedure Estimated Blood Loss Check Surgery Details section. Procedure Findings Check Surgery Details section. Procedure Specimens Taken Check Surgery Details section.
--- OUTSIDE RECORDS SUMMARY | 2024-03-04 14:58 | XMS_ITS | Clinical Summary ---
Author Organization [facility] Address [address] [place] [address] Care Team Providers Care Tax Manager Name Role Phone Unavailable Primary Care Provider Unavailabl e Source Comments Patient records contain information from all sites at [facility]. For routine questions regarding patient records, call [phone] during business hours, M-F 8:00 AM - 5:00 PM Central Time. 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 Gender Identity Not on file Sexual Orientation [...] of 3 - Risk 3-dose series) 1999 Depression Screening (Annual PHQ-2) 05/20/2023 COVID-19 Vaccine ( season) 2024 02/21/2023, 02/12/2022, 08/22/2021, Additional history exists Influenza Vaccine (#1) 2024 , 02/12/2022, 02/21/2021, Additional history exists RSV vaccine - (32-36 weeks) or 60+ years Completed 02/21/2023 Pneumococcal vaccine (65+ years) Completed 03/11/2023, 02/27/2016 [...] CT Body (12/06/2023 10:25 AM CDT) Narrative [facility] - 12/10/2023 9:31 AM CDT This order [...] System IMG CT PROCEDURES Final R esult [facility] NA * MR abdomen wo/w con-Outside MR Body (12/06/2023 9:35 AM CDT) [facility]ative [facility] - 12/10/2023 9:31 AM CDT This order [...] In System IMG MRI PROCEDURES Final Result [facility] NA from Last 3 Months Additional Health Concerns Infection Onset Date Last Indicated Protective Environment 04/23/[address] [facility] MEDICARE
--- OUTSIDE RECORDS SUMMARY | 2024-03-04 14:58 | XMS_ITS ---
Author Organization [facility] Address [address] [place] [address] Care Team Providers Care Earth Science Teacher Name Role Phone Unavailable Primary Care [...] Treated Prescribed Fraction Dose Prescribed Total Dose [id number] 06/05/2023 6 5 of 5 500 cGy 2,500 cGy Reference Point Last Treated On Elapsed Days Session Dose Total Dose [id number] 06/05/2023 6 500 cGy 2,500 cGy
== END 2024-03-04 08:25 | disposition home or self-care (01) ==
LOC: NFLDREF 14:56
PROVIDERS: PCP Physician Assistant Medical; Referring Provider Physician Assistant Medical; Visit Provider Internal Medicine Hematology & Oncology
DX: C18.9 Malignant neoplasm of colon, unspecified (principal)
CPT/HCPCS: 80053; 82378

== ENCOUNTER 2024-03-06 08:57 | Outpatient (CLI) | payer MEDICARE, SELFPAY ==
--- OUTSIDE RECORDS SUMMARY | 2024-03-06 09:01 | XMS_ITS ---
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 Past Plans No past plan information found. Radiation Treatments * Plan Last Treated On Elapsed Days Fractions Treated Prescribed Fraction Dose Prescribed Total Dose [id number] 06/05/2023 6 5 of 5 500 cGy 2,500 cGy Reference Point Last Treated On Elapsed Days Session Dose Total Dose [id number] 06/05/2023 6 500 cGy 2,500 cGy
--- OUTSIDE RECORDS SUMMARY | 2024-03-06 09:01 | XMS_ITS | Clinical Summary ---
Author Organization [facility] & [facility] Address [place], [place] [address] Care Team Providers Care Gutter Hanger Name Role Phone Pcp, No Primary Care Provider Unavailabl e Allergies No known active allergies Medications Medication Sig Dispensed Refills Start Date End Date Status amLODIPine (NORVASC) 5 mg tablet 01/04/2021 Active lisinopriL (PRINIVIL; ZESTRIL) 20 mg tablet 03/02/2021 Active Active Problems No known active problems Encounters Date Type Department Care Team Description 01/17/2024 10:45 AM CDT Ancillary Procedure [facility] [address] [place] [address] 01/17/2024 9:40 AM CDT Office Visit [facility] [address] [place] [address] Mayur Escudero MD Musculoskeletal Problem (Bilateral knee [...] Description 03/19/2024 9:40 AM CDT Office Visit [facility] [address] [place] [address] Mayur Escudero MD [address] [place] [address] Health Maintenance Due Date Last Done Comments [...] MD @ 01/21/2024 5:49:23 AM (Electronically Signed) Mauyr Escudero MD GENERAL IMAGING from Last 3 Months Advance Directives Documents on File Type Date Recorded Patient Sports Betting Manager Expl anation Healthcare Directive 04/20/2011 SIGNED - 11/08/2005 Care Teams Gutter Hanger Relationship Specialty Start Date End Date Pcp, No . PCP - General 05/01/23
--- OUTSIDE RECORDS SUMMARY | 2024-03-06 09:01 | XMS_ITS | Referral Summary ---
Author Organization [facility] Address [address] [place] [address] Care Team Providers Care Rail Detector Car Operator Name Role Phone Unavailable Primary Care Provider Unavailabl e Source Comments Patient records contain information from all sites at [facility]. For routine questions regarding patient records, call [phone] during business hours, M-F 8:00 AM - 5:00 PM Central Time. 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 MEDICARE
--- OUTSIDE RECORDS SUMMARY | 2024-03-06 09:01 | XMS_ITS | Clinical Summary ---
Author Organization [facility] Address [address] [place] [address] Care Team Providers Care Manager Of Internal Name Role Phone Unavailable Primary Care Provider Unavailabl e Source Comments Patient records contain information from all sites at [facility]. For routine questions regarding patient records, call [phone] during business hours, M-F 8:00 AM - 5:00 PM Central Time. 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 MEDICARE
--- OUTSIDE RECORDS SUMMARY | 2024-03-06 09:01 | XMS_ITS ---
Author Organization [facility] Address [address] [place] [address] Care Team Providers Care Flume Ride Operator Name Role Phone Unavailable Unavailable Unavailable Surgery Details Not on file Complications Check Surgery Details section. Procedure Estimated Blood Loss Check Surgery Details section. Procedure Findings Check Surgery Details section. Procedure Specimens Taken Check Surgery Details section.
--- NOTE | 2024-03-06 09:15 | CRLHL7_ITS ---
For Patients: As a result of the Century Cures Act, medical imaging exams and procedure reports are released immediately into your electronic medical record. You may view this report before your referring provider. If you have questions, please contact your health care provider. INDICATION: Sigmoid colon cancer. TECHNIQUE: Abdominal MRI with T1 in- and out of phase, T2, diffusion weighted, and progressively delayed post-contrast images. Intravenous gadolinium administered. COMPARISON: CT scan of the chest, abdomen, and pelvis dated 14 February 2022. FINDINGS: No fatty infiltration of the liver. 2.7 cm lesion located in the anterior aspect of segment 5 of the liver shows mild heterogeneous enhancement. 5 mm probable cyst in the posterior aspect of segment 3 of the liver. Resolution of most of the scattered liver lesions seen on the previous study. No other focal abnormalities identified in the visualized portions of the liver, spleen, pancreas, and adrenal glands. 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 7 mm probable cyst in the superior pole of left kidney. No hydronephrosis. Colostomy in the left lower abdomen with herniation of loops of bowel through the colostomy defect. 6.3 x 3.1 cm sigmoid colon mass is incompletely covered on this study. Impression : 1. 2.7 cm metastasis in segment 5 of the liver. 2. Sigmoid colon mass is incompletely covered on this study. Dictated by Luis Eduardo Beebe MD @ 03/06/2024 4:18:31 PM (Electronically Signed)
--- NOTE | 2024-03-06 10:00 | CRLHL7_ITS ---
For Patients: As a result of the 21st Century Cures Act, medical imaging exams and procedure reports are released immediately into your electronic medical record. You may view this report before your referring provider. If you have questions, please contact your health care provider. INDICATION: Colon cancer. TECHNIQUE: CT chest, abdomen and pelvis acquired with 58 cc Isovue 370 IV contrast. COMPARISON: None. FINDINGS: CHEST Lungs and pleura: Few small, sub 4 millimeter nodules remain unchanged. A sales representative electric service nodule is a 3 millimeter left upper lobe nodule on series 3, image 35. No effusions, thickening, or pneumothorax. Heart and vasculature: Heart size is normal. Thoracic aorta and pulmonary artery are normal in caliber. Lymph node/mediastinum: No mediastinal, hilar, or axillary adenopathy. Mild coronary artery calcification Chest wall: Normal. Bones: Thoracic spondylosis. No suspicious osseous lesions ABDOMEN AND PELVIS: Liver: Unchanged 2.9 x 2.4 centimeter low-density lesion at the junction of segments 4 and 5, reportedly an ablation defect. Unchanged small cyst in the left hepatic lobe. Possible enlarging 11 millimeter hypoattenuating lesion in segment 7 (series 10, image 16). Possible new 7 millimeter lesion segment 8 (series 10, image 11) Gallbladder and bile ducts: Unremarkable. Pancreas: Unremarkable. Spleen: Normal in caliber. No masses. Adrenal glands: No adrenal lesion Kidneys: Status post right nephrectomy. GI tract abdominal wall: Partial colectomy with left lower quadrant ostomy and large parastomal hernia containing multiple loops of nondilated and noninflamed bowel. Similar wall thickening of the distal sigmoid colon and rectum with adjacent lymphadenopathy measuring up to 1.7 x 1.8 centimeters, not significantly changed (series 2, image 188) Vasculature: Scattered atherosclerosis. Mesenteric arteries are patent. Lymph nodes: Unchanged pelvic lymphadenopathy adjacent to the distal sigmoid colon Omentum/peritoneum/retroperitoneum: No organized fluid collection or free intraperitoneal air. Pelvic organs: Unremarkable. Bones: Lumbar spondylosis. No suspicious osseous lesion. IMPRESSION: 1. Possible enlarging lesion in hepatic segment 7 and possible new lesion in hepatic segment 8. Please correlate with results from the MRI performed the same day, as MRI is more specific for characterization of hepatic metastatic lesions. 2. Similar distal colonic wall thickening with adjacent adenopathy. Please note that all CT scans at this facility use dose modulation, iterative reconstruction, and/or weight-based dosing when appropriate to reduce radiation dose to as low as reasonably achievable. Dictated by Hema Davis MD @ 03/09/2024 9:58:31 AM (Electronically Signed)
== END 2024-03-06 08:58 | disposition home or self-care (01) ==
LOC: MRI 08:58
PROVIDERS: PCP Physician Assistant Medical; Visit Provider Internal Medicine Hematology & Oncology
DX: C18.7 Malignant neoplasm of sigmoid colon (principal); C78.7 Secondary malignant neoplasm of liver and intrahepatic bile duct
CPT/HCPCS: 71260; 74177; 74183; A9575; Q9967

== ENCOUNTER 2024-03-11 09:00 | Outpatient (RCR) | payer MEDICARE, SELFPAY ==
--- NOTE | 2023-12-05 11:31 | ONC.NURNOTE ---
Results called to Lore- chidi continues with capecitabine schedule CEA pending scans tomorrow and provider appt 12/10/23
--- NOTE | 2024-01-02 15:35 | ONC.NURNOTE ---
lab results noted and called to [facility]- CEA still pending no concerns related to capecitabine
== END 2024-04-04 23:59 | disposition home or self-care (01) ==
LOC: CCIC 09:00
PROVIDERS: PCP Physician Assistant Medical; Referring Provider Physician Assistant Medical; Visit Provider Internal Medicine Hematology & Oncology
DX: C18.7 Malignant neoplasm of sigmoid colon (principal); K62.5 Hemorrhage of anus and rectum; Z93.3 Colostomy status; L27.1 Localized skin eruption due to drugs and medicaments taken internally
CPT/HCPCS: 99214; 99215; G0463

== ENCOUNTER 2024-03-17 08:18 | Outpatient (CLI) | payer MEDICARE, SELFPAY ==
--- OUTSIDE RECORDS SUMMARY | 2024-03-18 10:29 | XMS_ITS | Referral Summary ---
Author Organization [facility] Address [address] [place] [address] Care Team Providers Care Rounder And Backer Name Role Phone Unavailable Primary Care Provider Unavailabl e Source Comments Patient records contain information from all sites at [facility]. For routine questions regarding patient records, call [phone] during business hours, M-F 8:00 AM - 5:00 PM Central Time. 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 Gender Identity Not on file Sexual Orientation [...] Associated Diagnosis Comments OUTSIDE CT BODY Routine 03/06/2024 10:15 AM CDT OUTSIDE MR BODY Routine 03/06/2024 9:25 AM CDT from Last 3 Months Results * CT chest abdomen pelv w con-Outside CT Body (03/06/2024 10:15 AM CDT) Narrative [facility] - 03/09/2024 4:40 PM CDT This order has been created [...] PROCEDURES Final R esult Performing Organization Address [facility] de Phone Number I[facility]S NA * MR abdomen wo/w con-Outside MR Body (03/06/2024 9:25 AM CDT) Narrative [facility] - 03/09/2024 4:37 PM CDT This order has been created [...] MRI PROCEDURES Final Result Performing Organization Address [facility] de Phone Number [facility] NA from Last 3 Months Additional Health Concerns Infection Onset Date Last Indicated Protective Environment 04/23/2023 3 Insurance [facility] MEDICARE
--- OUTSIDE RECORDS SUMMARY | 2024-03-18 10:29 | XMS_ITS | Clinical Summary ---
Author Organization [facility] Address [address] [place] [address] Care Team Providers Care Fruit Picker Machine Operator Name Role Phone Unavailable Primary Care Provider Unavailabl e Source Comments Patient records contain information from all sites at [facility]. For routine questions regarding patient records, call [phone] during business hours, M-F 8:00 AM - 5:00 PM Central Time. 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 Gender Identity Not on file Sexual Orientation [...] on patient's age to complete this topic IPV Vaccines Aged Out No longer eligi ble based on patient's age to complete this topic Procedures Procedure Name Priority Date/Time Associated Diagnosis Comments OUTSIDE CT BODY Routine 03/06/2024 10:15 AM CDT OUTSIDE MR BODY Routine 03/06/2024 9:25 AM CDT from Last 3 Months Results * CT chest abdomen pelv w con-Outside CT Body (03/06/2024 10:15 AM CDT) Narrative [facility] - 03/09/2024 4:40 PM CDT This order [...] MR Body (03/06/2024 9:25 AM CDT) Narrative [facility] - 03/09/2024 4:37 PM CDT This order [...] Last Indicated Protective Environment 04/23/2023 3 Insurance [facility] MEDICARE
--- OUTSIDE RECORDS SUMMARY | 2024-03-18 10:29 | XMS_ITS ---
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 Past Plans No past plan information found. Radiation Treatments * Plan Last Treated On Elapsed Days Fractions Treated Prescribed Fraction Dose Prescribed Total Dose [id number] 06/05/2023 6 5 of 5 500 cGy 2,500 cGy Reference Point Last Treated On Elapsed Days Session Dose Total Dose [id number] 06/05/2023 6 500 cGy 2,500 cGy
--- OUTSIDE RECORDS SUMMARY | 2024-03-18 10:29 | XMS_ITS ---
Author Organization [facility] Address [address] [place] [address] Care Team Providers Care Orthopedic Cast Specialist Name Role Phone Unavailable Unavailable Unavailable Surgery Details Not on file Complications Check Surgery Details section. Procedure Estimated Blood Loss Check Surgery Details section. Procedure Findings Check Surgery Details section. Procedure Specimens Taken Check Surgery Details section.
--- OUTSIDE RECORDS SUMMARY | 2024-03-18 10:30 | XMS_ITS | Clinical Summary ---
Author Organization [facility] Address [place], [place] [address] Care Team Providers Care Sas Bi Developer Name Role Phone Pcp, No Primary Care Provider Unavailabl e Allergies No known active allergies Medications Medication Sig Dispensed Refills Start Date End Date Status amLODIPine (NORVASC) 5 mg tablet 01/04/2021 Active lisinopriL (PRINIVIL; ZESTRIL) 20 mg tablet 03/02/2021 Active Active Problems No known active problems Encounters Date Type Department Care Team Description 01/17/2024 10:45 AM CDT Ancillary Procedure [facility] [address] [place] [address] 01/17/2024 9:40 AM CDT Office Visit [facility] [address] [place] [address] Myaur Escudero MD Musculoskeletal Problem (Bilateral knee pain [...] Description 03/19/2024 9:40 AM CDT Office Visit [facility] [address] [place] [address] Mayur Escudero MD [address] [place] [address] Health Maintenance Due Date Last Done Comments [...] Documents on File Type Date Recorded Patient Industrial Relations Counselor Expl anation Healthcare Directive 04/20/2011 SIGNED - 11/08/2005 Care Teams Sas Bi Developer Relationship Specialty Start Date End Date Pcp, No . PCP - General 05/01/23
== END 2024-03-17 08:19 | disposition home or self-care (01) ==
LOC: NFLDREF 03-18 10:28
PROVIDERS: PCP Physician Assistant Medical; Referring Provider Physician Assistant Medical; Visit Provider Internal Medicine Hematology & Oncology
DX: C18.7 Malignant neoplasm of sigmoid colon (principal)
CPT/HCPCS: 82310

== ENCOUNTER 2024-04-02 08:20 | Outpatient (CLI) | payer MEDICARE, SELFPAY ==
--- OUTSIDE RECORDS SUMMARY | 2024-04-06 12:32 | XMS_ITS | Referral Summary ---
Author Organization [facility] Address [address] [place] [address] Care Team Providers Care Supervisor Accounts Receivable Name Role Phone Unavailable Primary Care Provider Unavailabl e Source Comments Patient records contain information from all sites at [facility]. For routine questions regarding patient records, call [phone] during business hours, M-F 8:00 AM - 5:00 PM Central Time. 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 us Provider Not In System IMG CT PROCEDURES Final R esult Performing Organization Address [facility] de Phone Number II NA * MR [...] overread is required please follow defined workflow. us Provider Not In System IMG MRI PROCEDURES Final Result Performing Organization Address [facility] de Phone Number II NA from Last 3 Months Additional Health Concerns Infection Onset Date Last Indicated Protective Environment 04/23/2023 Insurance [facility] MEDICARE
--- OUTSIDE RECORDS SUMMARY | 2024-04-06 12:32 | XMS_ITS ---
Author Organization 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 Past Plans No past plan information found. Radiation Treatments * Plan Last Treated On Elapsed Days Fractions Treated Prescribed Fraction Dose Prescribed Total Dose [id number] 06/05/2023 6 5 of 5 500 cGy 2,500 cGy Reference Point Last Treated On Elapsed Days Session Dose Total Dose [id number] 06/05/2023 6 500 cGy 2,500 cGy
--- OUTSIDE RECORDS SUMMARY | 2024-04-06 12:32 | XMS_ITS ---
Author Organization [facility] Address [address] [place] [address] Care Team Providers Care Bonding Machine Operator Name Role Phone Unavailable Unavailable Unavailable Surgery Details Not on file Complications Check Surgery Details section. Procedure Estimated Blood Loss Check Surgery Details section. Procedure Findings Check Surgery Details section. Procedure Specimens Taken Check Surgery Details section.
--- OUTSIDE RECORDS SUMMARY | 2024-04-06 12:32 | XMS_ITS | Clinical Summary ---
Author Organization [facility] Address [address] [place] [address] Care Team Providers Care Hawk Missile Air Defense Artillery Name Role Phone Unavailable Primary Care Provider Unavailabl e Source Comments Patient records contain information from all sites at [facility]. For routine questions regarding patient records, call [phone] during business hours, M-F 8:00 AM - 5:00 PM Central Time. 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
--- OUTSIDE RECORDS SUMMARY | 2024-04-06 12:32 | XMS_ITS | Clinical Summary ---
Author Organization [facility] Address [place], [place] [address] Care Team Providers Care Cistern Room Working Supervisor Name Role Phone Pcp, No Primary Care Provider Unavailabl e Allergies Active Allergy Reactions Criticality Noted Date Comments Ragweed Pollen Other - Describe In Comment Field Low 07/18/2023 Medications Medication Sig Dispensed Refills Start Date End Date Status amLODIPine (NORVASC) 5 mg tablet 01/04/2021 Active lisinopriL (PRINIVIL; ZESTRIL) 20 mg tablet 03/02/2021 Active Hospital, Clinic, or Other Facility Administered Medication Ordered Dose Route Frequency Start Date End Date Status betamethasone acet,sod phos 9 mg injection (CELESTONE SOLUSPAN)Indications:Prima ry osteoarthritis of left knee 9 mg IArtic ONE TIME 03/19/2024 03/19/2024 Ended Active Problems No known active problems Encounters Date Type Department Care Team Description 03/19/2024 9:40 AM CDT Office Visit [facility] [address] [place] [address] Mayur Escudero MD Musculoskeletal Problem (Follow up bilateral knee pain ) 03/19/2024 Travel 01/17/2024 10:45 AM CDT Ancillary Procedure [facility] [address] [place] [address] 01/17/2024 9:40 AM CDT Office Visit [facility] [address] [place] [address] Mayur Escudero MD Musculoskeletal Problem (Bilateral knee [...] Sign Reading Time Taken Comments Blood Pressure 122/78 03/19/2024 9:44 AM CDT Pulse 97 03/19/2024 9:44 AM CDT Temperature 36.4 C (97.6 F) 03/19/2024 9:44 AM CDT Respiratory Rate - - Oxygen Saturation 100% 03/19/2024 9:44 AM CDT Inhaled Oxygen Concentration - - Weight 53.9 kg (118 lb 12.8 oz) 01/17/2024 9:43 AM CDT Height - - Body Mass Index - - Plan of Treatment Upcoming Encounters Date Type Department Care Team (Late st Contact Info) Description 05/28/2024 9:40 AM LICENSING REGISTRATION EXAMINER Office Visit [facility] [address] [place] [address] Mayur Escudero MD [address] [place] [address] Health Maintenance Due Date Last Done Comments [...] or (1 - 1-dose 75+ series) 2014 Influenza for age 65+ 01/19/2024 COVID-19 vaccine series Completed 02/04/20 24, 02/21/2023, 02/12/2022, Additional history exists Procedures Procedure Name Priority Date/Time Associated Diagnosis [...] Narrative 01/21/2024 5:49 AM CDT For Patients: As a result of the Cures Act, medical imaging exams and procedure reports are released immediately into your electronic medical record. You may view this report before your referring provider. If you have questions, please contact your health [...] Documents on File Type Date Recorded Patient Furniture Mover Expl anation Healthcare Directive 04/20/2011 SIGNED - 11/08/2005 Care Teams Cistern Room Working Supervisor Relationship Specialty Start Date End Date Pcp, No . PCP - General 05/01/23
== END 2024-04-02 08:21 | disposition home or self-care (01) ==
LOC: NFLDREF 04-06 12:30
PROVIDERS: PCP Physician Assistant Medical; Referring Provider Physician Assistant Medical; Visit Provider Internal Medicine Hematology & Oncology
DX: C18.9 Malignant neoplasm of colon, unspecified (principal)
CPT/HCPCS: 80053

== ENCOUNTER 2024-05-05 09:06 | Outpatient (CLI) | payer MEDICARE, SELFPAY | END 2024-05-05 09:07 | disposition home or self-care (01) | LOC: NFLDREF 05-06 05:41 | PROVIDERS: PCP Physician Assistant Medical; Referring Provider Physician Assistant Medical; Visit Provider Internal Medicine Hematology & Oncology | DX: C18.7 Malignant neoplasm of sigmoid colon (principal) | CPT/HCPCS: 80053; 82378 ==

== ENCOUNTER 2024-05-11 09:26 | Outpatient (CLI) | payer MEDICARE, SELFPAY | END 2024-05-11 09:27 | disposition home or self-care (01) | LOC: NFLDREF 18:02 | PROVIDERS: PCP Physician Assistant Medical; Referring Provider Physician Assistant Medical; Visit Provider Physician Assistant Medical | DX: R41.0 Disorientation, unspecified (principal); N39.0 Urinary tract infection, site not specified; N30.00 Acute cystitis without hematuria | CPT/HCPCS: 87086 ==

== ENCOUNTER 2024-05-13 09:28 | Inpatient (IN) | payer MEDICARE, SELFPAY ==
[2024-05-13] VITALS (24 sets, daily range): BP systolic 93–117; BP diastolic 57–72; PULSE 90–108; RESP 16–18; TEMP 36.7–37.3; O2SAT 95–100; BMI 20.8
--- NOTE | 2024-05-13 10:51 | CRLHL7_ITS ---
For Patients: As a result of the Century Cures Act, medical imaging exams and procedure reports are released immediately into your electronic medical record. You may view this report before your referring provider. If you have questions, please contact your health care provider. INDICATION: Abdominal pain, swelling around stoma. TECHNIQUE: CT abdomen and pelvis acquired with 54 cc Omnipaque 370 IV contrast. COMPARISON: CT chest, abdomen and pelvis March 06, 2024. FINDINGS: Lower chest: Bibasilar atelectasis. Liver: Liver is normal in size and attenuation. Redemonstration of the hepatic metastasis in segment 5 measuring 2.4 x 2.3 centimeter, similar to recent CT and MRI exam. Tiny hypodense lesion in the left hepatic lobe is likely a cyst. Gallbladder and bile ducts: Cholelithiasis without acute cholecystitis. No biliary duct obstruction. Pancreas: No acute abnormality. Spleen: Normal in size. No masses. Adrenal glands: No suspicious mass. Kidneys: Right nephrectomy. Mild rotated left kidney. Nonobstructing left nephrolithiasis measuring 3 millimeter in the midpole. Few small hypoattenuating left renal foci likely related to cyst, similar to recent CT. GI tract: A known sigmoid colonic mass with multiple adjacent and large lymph nodes, grossly similar to previous exam. The largest lymph node measures about 1.8 centimeter. Colostomy in the left lower abdomen with herniation of multiple prominent fluid-filled small bowel loops. There is mild inflammatory changes within the herniated sac. Generalized fluid-filled distention of the bowel loops without obvious transition point is suspected mechanical obstruction. Nonspecific diffuse mesenteric fat stranding is present. Vasculature: Abdominal aorta is normal in caliber with mild atherosclerotic disease. Lymph nodes: Pericolic lymph node adjacent to the sigmoid colon and rectum, largest measuring 1.7 centimeter. Peritoneum/Abdominal Wall: Fat containing umbilical hernia. No free intraperitoneal fluid or air. Large left lower quadrant parastomal hernia containing dilated fluid-filled small bowel loops with mild inflammatory changes. Pelvis: Bilateral inguinal hernia containing minimal fluid/part of the bowel wall. Known case of sigmoid carcinoma. Urinary bladder is distended. Bones: Unremarkable for age. 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 Large left lower quadrant parastomal hernia containing fluid-filled prominent small bowel loops with mild adjacent inflammatory changes, suggest developing obstructing stomal hernia. Diffuse fluid-filled distention of the small as well as large bowel loops without obvious favors ileus bowel pattern. Radiographic follow-up is recommended. Cholelithiasis without acute cholecystitis. Please note that all CT scans at this facility use dose modulation, iterative reconstruction, and/or weight-based dosing when appropriate to reduce radiation dose to as low as reasonably achievable. Dictated by Charly Murray MD @ 05/13/2024 12:06:53 PM (Electronically Signed)
--- NOTE | 2024-05-13 10:59 | ED.GENADULT ---
HPI - General Adult General Chief complaint: Unspecified Complaint, Adult Stated complaint: Infection at Colostomy site Time Seen by Provider: 05/13/24 10:37 Source: patient and family Mode of arrival: ambulatory Limitations: no limitations History of Present Illness HPI narrative: 84-year-old female brought in by her family for confusion, swelling of the abdomen. Family has been visiting for 2 days. Patient was seen yesterday for similar symptoms and was diagnosed with a UTI. She was started on Keflex 500 mg p.o. b.i.d.. Unfortunately symptoms continue today with increasing confusion, decreased ability to walk around unassisted. Patient has been using a cane. She does live by herself. Family also states that her stoma bag popped off and they have not replaced it because of the amount of swelling around the area. No known fevers or vomiting. Family also notes that her white blood cell count has been trending up. Related Data Home Medications ?Medication ?Instructions ?Recorded ?Confirmed acetaminophen 325 mg capsule 325 mg PO Q6H PRN 11/27/21 05/11/24 cetirizine 10 mg tablet 10 mg PO DAILY PRN 11/27/21 05/11/24 multivitamin 1 tab PO DAILY 11/27/21 05/11/24 calcium carbonate 600 mg PO QDAY 04/02/23 05/11/24 cholecalciferol (vitamin D3) 25 25 mcg PO QDAY 04/29/23 05/11/24 mcg (1,000 unit) capsule bisacodyl 5 mg tablet 5 mg PO BID 01/14/24 05/11/24 Previous Rx's ?Medication ?Instructions ?Recorded amlodipine 10 mg tablet 10 mg PO QDAY #90 tabs 09/09/23 lisinopril 20 mg tablet 20 mg PO BID #180 tabs 09/09/23 capecitabine 500 mg tablet 1,500 mg (3 x 500 mg) PO BID #84 02/18/24 tabs potassium chloride 20 mEq 20 meq PO QDAY #7 tabs 04/02/24 tablet,extended release alendronate 70 mg tablet 70 mg PO QWEEK #12 tabs 05/06/24 cephalexin 500 mg capsule 500 mg PO BID 5 days #10 caps 05/11/24 Allergies Allergy/AdvReac Type Severity Reaction Status Date / Time ragweed pollen Allergy Mild Sneezing Verified 05/13/24 11:24 Review of Systems Status of ROS: Reports: 10 or more systems reviewed and unremarkable except as noted in History and below PFSH PENDING SALE TO [facility] Medical History Confusion ?R41.0 - Disorientation, unspecified (ICD-10) Acute UTI ?N39.0 - Urinary tract infection, site not specified (ICD-10) 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 - Localized skin eruption due to drugs and medicaments taken internally (ICD-10) Urinary tract infection ?N39.0 - Urinary tract infection, site not specified (ICD-10) Surgical History History of nephrectomy ?Z90.5 - Acquired absence of kidney (ICD-10) History of bowel resection ?Z90.49 - Acquired absence of other specified parts of digestive tract (ICD-10) History of creation of ostomy ?Z93.9 - Artificial opening status, unspecified (ICD-10) Family History Mother Diabetes Brother Diabetes Social History Narrative: Health care directive on file- Health care directive completed on 11/08/2005. Reviewed and sent for scanning 12/29/2019. 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 What is your current living situation?: I presently have a place to live Problems where you live: no known problems In the past 12 months, utilities in danger of being shut off: no In past 12 months, lack of transportation kept you from medical appts, meetings, work, or getting things needed for daily living: no In the past 12 mos, have been you worried that your food would run out before you had money to buy more?: never true In the past 12 mos, the food you bought just didn't last and you didn't have money to buy more?: never true Smoking Status: Never smoker How often do you have a drink containing alcohol: never AUDIT-C Alcohol total score: 0 Non-prescribed substance use: denies use How often does anyone, including family, friends and others, physically hurt you: never How often does anyone, including family, friends and others, insult or talk down to you: never How often does anyone, including family, friends and others, threaten you with harm: never How often does anyone, including family, friends and others, scream or curse at you: never Exam Narrative: Exam Narrative: Thin, frail, elderly patient in no acute distress. Hard of hearing. Has a difficult time answering questions. Family does most of the talking. HEENT: Normocephalic atraumatic. Pupils are equally round reactive to light. Extraocular muscles are intact. Conjunctivae are moist without any icterus noted. Moist mucous membranes. Posterior pharynx is normal. Neck is soft. Cardiovascular: Heart is regular rate and rhythm S1 and S2 are present without any murmurs. Lungs: Clear to auscultation bilaterally no wheezes rhonchi or rales are appreciated. Delete the Abdomen: Soft. Patient has a bulge underneath her stoma opening that encompasses about a 3rd of the abdomen. It is a bit tender to palpation. She does have normal bowel sounds. There is no evidence of infection around the stoma. Extremities: Bilateral lower extremities are without edema. Skin: Well perfused without any obvious rashes. Dry. Patient has dried feces covering her abdomen and her legs. Const: Vital Signs, click to edit/add: Vital Signs - 24 hr 05/13/24 09:49 05/13/24 09:59 05/13/24 10:00 Temperature 98.4 F Pulse Rate 99 Pulse Rate [Pulse Oximeter] 105 H Respiratory Rate 18 Blood Pressure 99/59 L Blood Pressure [Ri ght Upper Arm] 99/66 Pulse Oximetry 99 100 Oxygen Delivery Me thod Room Air 05/13/24 10:15 05/13/24 10:30 05/13/24 10:31 Temperature Pulse Rate 92 93 94 Pulse Rate [Pulse Oximeter] Respiratory Rate Blood Pressure 95/62 Blood Pressure [Ri ght Upper Arm] Pulse Oximetry 99 100 100 Oxygen Delivery Me thod 05/13/24 10:45 05/13/24 11:00 05/13/24 11:01 Temperature Pulse Rate 94 95 95 Pulse Rate [Pulse Oximeter] Respiratory Rate Blood Pressure 101/63 Blood Pressure [Ri ght Upper Arm] Pulse Oximetry 100 99 99 Oxygen Delivery Me thod 05/13/24 11:15 05/13/24 11:58 05/13/24 11:59 Temperature Pulse Rate 95 104 H 102 H Pulse Rate [Pulse Oximeter] Respiratory Rate Blood Pressure 117/65 Blood Pressure [Ri ght Upper Arm] Pulse Oximetry 99 100 100 Oxygen Delivery Me thod 05/13/24 12:00 05/13/24 12:01 Temperature Pulse Rate 108 H 103 H Pulse Rate [Pulse Oximeter] Respiratory Rate 16 Blood Pressure 104/72 Blood Pressure [Ri ght Upper Arm] Pulse Oximetry 100 100 Oxygen Delivery Me thod Course Course ED Course: EKG, read by me, shows sinus tachycardia with a pulse of 103. IV is established and we start the patient on 250 mL of normal saline over an hour. CBC shows a white cell count at 12.95, hemoglobin 10.4. Chemistries are unremarkable, patient has mild chronic hypokalemia. Renal function slightly elevated above her baseline at with a creatinine of 1.5 and a BUN of 32. Normal LFTs. CRP markedly elevated at 18.6. UA looks a little cloudy. 2+ blood but 0-2 RBCs, 2+ protein and trace leukocyte esterase. Triple swab is negative. Normal lactate. Abdominal CT shows a potentially developing obstructing stone wall hernia . Discussed findings with Dr. Avendano who recommends conservative management at this time. Patient will be admitted for management at this time. Vital Signs Vital signs: Initial Vital Signs Temperature 98.4 F 05/13/24 09:49 Temperature Source Temporal Artery Scan 05/13/24 09:49 Pulse Rate 105 H 05/13/24 09:49 Respiratory Rate 18 05/13/24 09:49 Blood Pressure 99/66 05/13/24 09:49 Blood Pressure Mean 77 05/13/24 09:49 Pulse Oximetry 99 05/13/24 09:49 Oxygen Delivery Method Room Air 05/13/24 09:49 Vital Signs Temperature 98.4 F 05/13/24 09:49 Pulse Rate 105 H 05/13/24 09:49 Respiratory Rate 18 05/13/24 09:49 Blood Pressure 99/66 05/13/24 09:49 Pulse Oximetry 99 05/13/24 09:49 Oxygen Delivery Method Room Air 05/13/24 09:49 Temperature 98.4 F 05/13/24 09:49 Pulse Rate 103 H 05/13/24 12:01 Respiratory Rate 16 05/13/24 12:01 Blood Pressure 104/72 05/13/24 12:01 Pulse Oximetry 100 05/13/24 12:01 Oxygen Delivery Method Room Air 05/13/24 09:49 Medications Administered Medications: Discontinued Medications Generic Name Dose Route Start Last Admin Trade Name Yaima PRN Reason Stop Dose Admin Sodium Chloride 250 mls @ 250 mls/hr 05/13/24 10:51 05/13/24 12:02 0.9 % Sodium Chloride 250 Ml IV 05/13/24 11:50 250 mls/hr .Q1H ONE Administration Medical Decision Making MDM Narrative Medical decision making narrative: 84 year old female with unknown a stomal hernia, potentially developing an obstruction. Patient will be admitted for conservative management at this time. Lab Data Lab results reviewed: Yes I reviewed the patient's lab results Labs: Lab Results 05/13/24 05/13/24 Range/Units 11:10 11:40 WBC 12.95 H (4.50-11.00) K/uL RBC 3.31 L (4.00-5.20) m/uL Hgb 10.4 L (12.0-16.0) gm/dL Hct 32.0 L (33.0-51.0) % MCV 97 (80-100) fL MCH 31 (26-34) pg MCHC 33 (32-36) gm/dL RDW Coeff of Jumana 18.6 H (11.5-15.5) % Plt Count 238 (140-440) K/uL Neut % (Auto) 94.3 H (42.0-72.0) % Lymph % (Auto) 3.6 L (20-44) % [place] % (Auto) 1.9 (0.0-11.0) % Eos % (Auto) 0.0 (0.0-7.0) % Baso % (Auto) 0.0 (0.0-3.0) % Neut # (Auto) 12.20 H (1.7-7.0) K/uL Lymph # (Auto) 0.50 L (0.90-2.90) K/uL [place] # (Auto) 0.20 (0.00-0.90) K/UL Eos # (Auto) 0.00 (0.00-0.50) K/uL Baso # (Auto) 0.00 (0.00-0.30) K/uL Abs Immat Gran (auto) 0.00 (0.00-0.30) K/uL Imm/Tot Granulo (auto) 0.2 % Sodium 136 (135-149) mmol/L Potassium 3.5 L (3.6-5.1) mmol/L Chloride 106 (96-114) mmol/L Carbon Dioxide 22 (20-32) mmol/L Anion Gap 8 (7-15) mEq/L BUN 32 H (7-30) mg/dL Creatinine 1.5 (0.5-1.5) mg/dL Estimated Creat Clear 20.69 Estimated GFR 34 ml/min Glucose 159 H (60-115) mg/dL Lactate 1.3 (0.5-1.9) mmol/L Calcium 9.4 (8.4-10.6) mg/dL Total Bilirubin 1.5 (0.1-1.5) mg/dL Direct Bilirubin 0.5 (0.0-0.5) mg/dL AST 20 (12-35) U/L ALT 14 (4-35) U/L Alkaline Phosphatase 73 (40-150) U/L Troponin I 0.02 (0.01-0.04) ng/mL C-Reactive Protein 18.6 H (0.5-1.0) mg/dL Total Protein 6.2 (6.0-8.3) g/dL Albumin 3.3 (3.3-5.0) g/dL Lipase 27 (23-300) U/L Urine Color Yellow (Yellow) Urine Appearance Slightly Cloudy A (Clear) Urine pH 5.5 (5.0-8.5) Ur Specific [place] 1.020 (1.000-1.030) Urine Protein 2+ A (Negative) Urine Glucose (UA) Negative (Negative) Urine Ketones Negative (Negative) Urine Blood 2+ A (Negative) Urine Nitrite Negative (Negative) Urine Bilirubin Negative (Negative) Urine Urobilinogen 1.0 (0.2-1.0) Ur Leukocyte Esterase Trace A (Negative) Urine RBC 0-2 (0-2) Urine WBC 2-5 (0-5) Ur Squamous Epith Cells Few (None-Few) Amorphous Sediment Moderate A (None) Urine Bacteria Moderate A (None) Urine Mucus Moderate A (None) SARS-CoV-2 (PCR) Negative SARS-CoV-2 (Negative) Influenza Type A (PCR) Negative PCR FLU A (Negative) Influenza Type B (PCR) Negative PCR FLU B (Negative) RSV (PCR) Negative PCR RSV (Negative) Imaging Data CT scan - abdomen: Attestation: I have reviewed the pertinent imaging results. Radiologist's impression: Abdominal pain, swelling around stoma. TECHNIQUE: CT abdomen and pelvis acquired with 54 cc Omnipaque [id number] IV contrast. COMPARISON: CT chest, abdomen and pelvis March 06, 2024. FINDINGS: Lower chest: Bibasilar atelectasis. Liver: Liver is normal in size and attenuation. Redemonstration of the hepatic metastasis in segment 5 measuring 2.4 x 2.3 centimeter, similar to recent CT and MRI exam. Tiny hypodense lesion in the left hepatic lobe is likely a cyst. Gallbladder and bile ducts: Cholelithiasis without acute cholecystitis. No biliary duct obstruction. Pancreas: No acute abnormality. Spleen: Normal in size. No masses. Adrenal glands: No suspicious mass. Kidneys: Right nephrectomy. Mild rotated left kidney. Nonobstructing left nephrolithiasis measuring 3 millimeter in the midpole. Few small hypoattenuating left renal foci likely related to cyst, similar to recent CT. GI tract: A known sigmoid colonic mass with multiple adjacent and large lymph nodes, grossly similar to previous exam. The largest lymph node measures about 1.8 centimeter. Colostomy in the left lower abdomen with herniation of multiple prominent fluid-filled small bowel loops. There is mild inflammatory changes within the herniated sac. Generalized fluid-filled distention of the bowel loops without obvious transition point is suspected mechanical obstruction. Nonspecific diffuse mesenteric fat stranding is present. Vasculature: Abdominal aorta is normal in caliber with mild atherosclerotic disease. Lymph nodes: Pericolic lymph node adjacent to the sigmoid colon and rectum, largest measuring 1.7 centimeter. Peritoneum/Abdominal Wall: Fat containing umbilical hernia. No free intraperitoneal fluid or air. Large left lower quadrant parastomal hernia containing dilated fluid-filled small bowel loops with mild inflammatory changes. Pelvis: Bilateral inguinal hernia containing minimal fluid/part of the bowel wall. Known case of sigmoid carcinoma. Urinary bladder is distended. Bones: Unremarkable for age. 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 Large left lower quadrant parastomal hernia containing fluid-filled prominent small bowel loops with mild adjacent inflammatory changes, suggest developing obstructing stomal hernia. Diffuse fluid-filled distention of the small as well as large bowel loops without obvious favors ileus bowel pattern. Radiographic follow-up is recommended. Cholelithiasis without acute cholecystitis. Discharge Plan Discharge Clinical Impression: Bowel obstruction Patient Disposition: Admitted As Observation Condition: Stable Prescriptions: No Action calcium carbonate 600 mg calcium (1,500 mg) tablet 600 mg PO QDAY cholecalciferol (vitamin D3) 25 mcg (1,000 unit) capsule 25 mcg PO QDAY amlodipine 10 mg tablet 10 mg PO QDAY Qty: 90 3RF lisinopril 20 mg tablet 20 mg PO BID Qty: 180 3RF capecitabine 500 mg tablet 1,500 mg PO BID Qty: 84 3RF Rx Instructions: Take 3 tablets in the morning and 3 tablets in the evening; 1 week on and 1 week off. cephalexin 500 mg capsule 500 mg PO BID 5 Days Qty: 10 0RF acetaminophen 325 mg capsule 325 mg PO Q6H PRN Rx Instructions: 1-2 tabs every 4 hrs as needed cetirizine 10 mg tablet 10 mg PO DAILY PRN multivitamin Tablet 1 tab PO DAILY Rx Instructions: [facility] Adults bisacodyl 5 mg tablet 5 mg PO BID potassium chloride 20 mEq tablet extended release 20 meq PO QDAY Qty: 7 0RF alendronate 70 mg tablet 70 mg PO QWEEK Qty: 12 3RF Follow Up/Referrals: Darlene Murray PA-C [Primary Care Provider] -
[2024-05-13 11:18] LABS: Lactate* 1.3 mmol/L (0.5-1.9)
[2024-05-13 11:20] LABS: Hemoglobin* 10.4 gm/dL (12.0-16.0); Immature Granulocytes Pct Auto 0.2 %; Lymphocytes Percent Auto 3.6 % (20-44); Mean Corpuscular HGB Conc 33 gm/dL (32-36); Mean Corpuscular Hemoglobin 31 pg (26-34); Mean Corpuscular Volume 97 fL (80-100); Monocytes Percent Auto 1.9 % (0.0-11.0); Neutrophils Percent Auto 94.3 % (42.0-72.0); Platelet Count* 238 K/uL (140-440); RDW Coefficient of Variation % 18.6 % (11.5-15.5); Red Blood Count 3.31 m/uL (4.00-5.20); White Blood Count* 12.95 K/uL (4.50-11.00)
[2024-05-13 11:26] LABS: Slide Review Reflex No
[2024-05-13 11:48] LABS: Appearance Urine Slightly Cloudy (Clear); Bilirubin Urine Negative (Negative); Blood Urine 2+ (Negative); Color Urine Yellow (Yellow); Glucose Urine Negative (Negative); Ketones Urine Negative (Negative); Leukocyte Esterase Urine Trace (Negative); Nitrite Urine Negative (Negative); Protein Urine 2+ (Negative); pH Urine 5.5 (5.0-8.5)
[2024-05-13 11:54] LABS: Albumin* 3.3 g/dL (3.3-5.0); Chloride* 106 mmol/L (96-114); Sodium* 136 mmol/L (135-149)
[2024-05-13 11:55] LABS: Potassium* 3.5 mmol/L (3.6-5.1)
[2024-05-13 11:56] LABS: Creatinine* 1.5 mg/dL (0.5-1.5); Est. Creatinine Clearance* 20.69; Estimated Glomerular Filt Rate 34 ml/min
[2024-05-13 11:57] LABS: Alanine Aminotransferase* 14 U/L (4-35); Alkaline Phosphatase* 73 U/L (40-150); Anion Gap 8 mEq/L (7-15); Aspartate Amino Transferase* 20 U/L (12-35); Bilirubin Direct* 0.5 mg/dL (0.0-0.5); Bilirubin Total* 1.5 mg/dL (0.1-1.5); Blood Urea Nitrogen* 32 mg/dL (7-30); Calcium* 9.4 mg/dL (8.4-10.6); Carbon Dioxide* 22 mmol/L (20-32); Glucose* 159 mg/dL (60-115); Lipase* 27 U/L (23-300); Total Protein* 6.2 g/dL (6.0-8.3)
[2024-05-13 11:57] LABS: Amorphous Sediment Urine Moderate; Bacteria Urine Moderate; Mucus Urine Moderate; RBC Urine 0-2 (0-2); Squamous Epithelial Cell Urine Few (None-Few)
[2024-05-13 12:01] LABS: PCR FLU A Negative PCR FLU A (Negative); PCR FLU B Negative PCR FLU B (Negative); PCR RSV Negative PCR RSV (Negative); SARS PCR* Negative SARS-CoV-2 (Negative)
[2024-05-13] MEDS: 0.9 % SODIUM CHLORIDE 250 ml 250 ML IV (12:02)
[2024-05-13 12:09] LABS: Troponin I* 0.02 ng/mL (0.01-0.04)
[2024-05-13 12:11] LABS: C Reactive Protein* 18.6 mg/dL (0.5-1.0)
--- NOTE | 2024-05-13 15:14 | P.IMHP_ITS ---
Hospitalist- H&P: HPI History of Present Illness Date Seen: 05/13/24 Chief complaint: Infection at Colostomy site Narrative: Angle Kennedy is a 84 year old female with ongoing treatment for metastatic colon cancer admitted through the emergency department with weakness, confusion, poor appetite and falls at home. She is brought in by her son Chicho from [place] and her daughter Dania from [place] were visiting for the holiday. Dania has noted that she has had increased confusion and weakness. She was taken to a clinic yesterday to evaluate for possible UTI. She was started on Keflex for this. She is not having any definite urinary symptoms. She did not have any fever. She seemed more confused and weaker and a UTI was suspected by the family. She has had a very poor appetite with poor oral intake. Family has noted that is a big problem in the last couple days and uncertain how much she is eating prior to that. Chicho is staying with her and during the night last night she fell around 1:00 a.m.. He came to help for and did not note any injury at that time. She was able to walk back to her room with his assistance. She also had a fall 2 nights ago again without any definite injury. She has a left-sided colostomy placed in [place] [address] Avendano. 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 Her daughter thinks that that his increased in size recently. She has not had vomiting. During the night last night her colostomy bag came off and she had spilled stool all over. She is not aware of diarrhea or blood in her stool. She reports no pain in her hernia but it is tender when I palpate She is receiving treatment with capecitabine for her colon cancer. Common side effects with this include neutropenia, diarrhea, palmar plantar erythrodysesthesia. It is not clear that she is having any of these side effects though chart notes indicate possible hand and foot syndrome. Patient indicates that she sometimes feels that the trouble of her oncology care is not worth it. She has not yet verbalized a desire to give up on cancer care which appears to be providing palliation for her. She does not know what medication she is taking. She is independent in managing her medications. Review of Systems Narrative: No obvious recent illness including fever cough cold shortness of breath vomiting diarrhea urinary symptoms. [facility] Medical History (Updated 05/13/24 @ 15:37 by Sudhir Goldberg MD) Weakness ?R53.1 - Weakness (ICD-10) Acute kidney injury ?N17.9 - Acute kidney failure, unspecified (ICD-10) Peristomal hernia ?K46.9 - Unspecified abdominal hernia without obstruction or gangrene (ICD- 10) Confusion ?R41.0 - Disorientation, unspecified (ICD-10) Acute UTI ?N39.0 - Urinary tract infection, site not specified (ICD-10) 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 - Localized skin eruption due to drugs and medicaments taken interna lly (ICD-10) Urinary tract infection ?N39.0 - Urinary tract infection, site not specified (ICD-10) Surgical History History of nephrectomy ?Z90.5 - Acquired absence of kidney (ICD-10) History of bowel resection ?Z90.49 - Acquired absence of other specified parts of digestive tract (ICD- 10) History of creation of ostomy ?Z93.9 - Artificial opening status, unspecified (ICD-10) Family History Mother Diabetes Brother Diabetes Social History (Updated 05/13/24 @ 15:27 by Sudhir Goldberg MD) Narrative: [facility] [place]. She lives near her daughter Sobia. Sobia is healthcare power of coke drawer and closest support person. Code status is DNR. Other children include Mehul from [place], Dania from [place] and Paco from [place]. She does not smoke or drink alcohol. Health care directive on file- Health care directive completed on 11/08/2005. Reviewed and sent for scanning 12/29/2019. 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 What is your current living situation?: I presently have a place to live Problems where you live: no known problems Problems where you live details: none known In the past 12 months, utilities in danger of being shut off: no In past 12 months, lack of transportation kept you from medical appts, meetings, work, or getting things needed for daily living: no In the past 12 mos, have been you worried that your food would run out before you had money to buy more?: never true In the past 12 mos, the food you bought just didn't last and you didn't have money to buy more?: never true Smoking Status: Never smoker How often do you have a drink containing alcohol: never AUDIT-C Alcohol total score: 0 Non-prescribed substance use: denies use How often does anyone, including family, friends and others, physically hurt you : never How often does anyone, including family, friends and others, insult or talk down to you: never How often does anyone, including family, friends and others, threaten you with harm: never How often does anyone, including family, friends and others, scream or curse at you: never Meds Home Medications and Allergies Home Medications ?Medication ?Instructions ?Recorded ?Confirmed ?Type acetaminophen 325 mg capsule 325 mg PO Q6H PRN 11/27/21 05/11/24 History cetirizine 10 mg tablet 10 mg PO DAILY PRN 11/27/21 05/11/24 History multivitamin 1 tab PO DAILY 11/27/21 05/11/24 History calcium carbonate 600 mg PO QDAY 04/02/23 05/11/24 History cholecalciferol (vitamin D3) 25 25 mcg PO QDAY 04/29/23 05/11/24 History mcg (1,000 unit) capsule bisacodyl 5 mg tablet 5 mg PO BID 01/14/24 05/11/24 History Allergies Allergy/AdvReac Type Severity Reaction Status Date / Time ragweed pollen Allergy Mild Sneezing Verified 05/13/24 11:24 Exam Narrative: Exam Narrative: She is alert and appears in no distress. She is oriented to being in the hospital but struggles to give much detail of other medical history including her current medications, dosing and timing, recent medical events. Head is without apparent trauma. Eyes are normal. She has cataracts. Pupils equal round reactive to light. Extraocular movements are in full. Visual finch are intact. No facial asymmetry. Oropharynx is normal. Neck is supple without mass or adenopathy. Respirations are clear to auscultation. No wheezing rales or rhonchi. Cardiovascular: S1, S2, regular rate and rhythm. Abdomen: On inspection she has a large parastomal hernia. This is relatively soft containing bowel with bowel sounds. Colostomy bag has been recently replaced and is currently empty. Palpation of her abdomen shows some mild tenderness around her peristomal hernia. No peritonitis. External genitalia normal. Extremities normal without edema. She moves all 4 extremities well with symmetric strength. Const: Vital Signs, click to edit/add: Vital Signs - 24 hr 05/13/24 09:49 05/13/24 09:59 05/13/24 10:00 Temperature 98.4 F Pulse Rate 99 Pulse Rate [Pulse Oximeter] 105 H Respiratory Rate 18 Blood Pressure 99/59 L Blood Pressure [Ri ght Upper Arm] 99/66 Pulse Oximetry 99 100 Oxygen Delivery Me thod Room Air 05/13/24 10:15 05/13/24 10:30 05/13/24 10:31 Temperature Pulse Rate 92 93 94 Pulse Rate [Pulse Oximeter] Respiratory Rate Blood Pressure 95/62 Blood Pressure [Ri ght Upper Arm] Pulse Oximetry 99 100 100 Oxygen Delivery Me thod 05/13/24 10:45 05/13/24 11:00 05/13/24 11:01 Temperature Pulse Rate 94 95 95 Pulse Rate [Pulse Oximeter] Respiratory Rate Blood Pressure 101/63 Blood Pressure [Ri ght Upper Arm] Pulse Oximetry 100 99 99 Oxygen Delivery Me thod 05/13/24 11:15 05/13/24 11:58 05/13/24 11:59 Temperature Pulse Rate 95 104 H 102 H Pulse Rate [Pulse Oximeter] Respiratory Rate Blood Pressure 117/65 Blood Pressure [Ri ght Upper Arm] Pulse Oximetry 99 100 100 Oxygen Delivery Me thod 05/13/24 12:00 05/13/24 12:01 05/13/24 12:02 Temperature Pulse Rate 108 H 103 H 100 Pulse Rate [Pulse Oximeter] Respiratory Rate 16 Blood Pressure 104/72 Blood Pressure [Ri ght Upper Arm] Pulse Oximetry 100 100 100 Oxygen Delivery Me thod 05/13/24 12:15 05/13/24 12:30 05/13/24 12:31 Temperature Pulse Rate 101 H 102 H 102 H Pulse Rate [Pulse Oximeter] Respiratory Rate Blood Pressure 107/66 Blood Pressure [Ri ght Upper Arm] Pulse Oximetry 99 100 100 Oxygen Delivery Me thod 05/13/24 12:45 05/13/24 13:00 05/13/24 13:01 Temperature Pulse Rate 98 98 97 Pulse Rate [Pulse Oximeter] Respiratory Rate Blood Pressure 93/59 L Blood Pressure [Ri ght Upper Arm] Pulse Oximetry 100 100 100 Oxygen Delivery Me thod Documenting provider has reviewed patient's vital signs: yes Hospitalist - H&P: Result Labs Labs: Short CBC 05/13/24 Range/Units 11:10 WBC 12.95 H (4.50-11.00) K/uL Hgb 10.4 L (12.0-16.0) gm/dL Hct 32.0 L (33.0-51.0) % Plt Count 238 (140-440) K/uL BMP 05/13/24 11:10 Sodium 136 Potassium 3.5 L Chloride 106 Carbon Dioxide 22 BUN 32 H Creatinine 1.5 Glucose 159 H Calcium 9.4 Cardiac Enzymes 05/13/24 Range/Units 11:10 Troponin I 0.02 (0.01-0.04) ng/mL Liver Function 05/13/24 Range/Units 11:10 Total Bilirubin 1.5 (0.1-1.5) mg/dL Direct Bilirubin 0.5 (0.0-0.5) mg/dL AST 20 (12-35) U/L ALT 14 (4-35) U/L Alkaline Phosphatase 73 (40-150) U/L Albumin 3.3 (3.3-5.0) g/dL Urine 05/13/24 Range/Units 11:40 Urine Color Yellow (Yellow) Urine Appearance Slightly Cloudy A (Clear) Urine pH 5.5 (5.0-8.5) Ur Specific [place] 1.020 (1.000-1.030) Urine Protein 2+ A (Negative) Urine Glucose (UA) Negative (Negative) ECG Attestation: I personally reviewed and interpreted this ECG as follows: (Sinus tachycardia with a rate of 103. No ST-T changes. Otherwise unremarkable. ) ECG interpretation date: 05/13/[address] scan - abdomen: Radiologist's impression: INDICATION: Abdominal pain, swelling around stoma. TECHNIQUE: CT abdomen and pelvis acquired with 54 cc Omnipaque 370 IV contrast. COMPARISON: CT chest, abdomen and pelvis March 06, 2024. FINDINGS: Lower chest: Bibasilar atelectasis. Liver: Liver is normal in size and attenuation. Redemonstration of the hepatic metastasis in segment 5 measuring 2.4 x 2.3 centimeter, similar to recent CT and MRI exam. Tiny hypodense lesion in the left hepatic lobe is likely a cyst. Gallbladder and bile ducts: Cholelithiasis without acute cholecystitis. No biliary duct obstruction. Pancreas: No acute abnormality. Spleen: Normal in size. No masses. Adrenal glands: No suspicious mass. Kidneys: Right nephrectomy. Mild rotated left kidney. Nonobstructing left nephrolithiasis measuring 3 millimeter in the midpole. Few small hypoattenuating left renal foci likely related to cyst, similar to recent CT. GI tract: A known sigmoid colonic mass with multiple adjacent and large lymph nodes, grossly similar to previous exam. The largest lymph node measures about 1.8 centimeter. Colostomy in the left lower abdomen with herniation of multiple prominent fluid-filled small bowel loops. There is mild inflammatory changes within the herniated sac. Generalized fluid-filled distention of the bowel loops without obvious transition point is suspected mechanical obstruction. Nonspecific diffuse mesenteric fat stranding is present. Vasculature: Abdominal aorta is normal in caliber with mild atherosclerotic disease. Lymph nodes: Pericolic lymph node adjacent to the sigmoid colon and rectum, largest measuring 1.7 centimeter. Peritoneum/Abdominal Wall: Fat containing umbilical hernia. No free intraperitoneal fluid or air. Large left lower quadrant parastomal hernia containing dilated fluid-filled small bowel loops with mild inflammatory changes. Pelvis: Bilateral inguinal hernia containing minimal fluid/part of the bowel wall. Known case of sigmoid carcinoma. Urinary bladder is distended. Bones: Unremarkable for age. 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 Large left lower quadrant parastomal hernia containing fluid-filled prominent small bowel loops with mild adjacent inflammatory changes, suggest developing obstructing stomal hernia. Diffuse fluid-filled distention of the small as well as large bowel loops without obvious favors ileus bowel pattern. Radiographic follow-up is recommended. Cholelithiasis without acute cholecystitis. Assessment and Plan Assessment and plan (1) Sepsis: Problem comment: Suspected: Patient has hypotension and tachycardia and altered mental status and acute kidney injury. No definite sign of infection at this point. Will provide fluid resuscitation and monitor. If further signs or symptoms of infection such as fever obtained cultures and initiate broad-spectrum antibiotic coverage. Status: Acute (2) Confusion: Problem comment: Suspect possible underlying dementia as confusion has been present for about a month or longer according to her daughter. Ongoing assessment of this as well as evaluation for underlying illness causing a metabolic encephalopathy Status: Acute (3) Peristomal hernia: Problem comment: Uncertain whether this is stable chronic or causing new obstructive symptoms. General surgery consult. Status: Acute (4) Bowel obstruction: Problem comment: Initial concern for bowel obstruction but patient has been making stool and herniated does not appear to be incarcerated or obstructed at this time Status: Acute (5) Anorexia: Problem comment: Very poor appetite due to? 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 Status: Acute (8) Weakness: Problem comment: Due to current illness acute and chronic. Ongoing evaluation and treatment with therapy. Status: Acute (9) Discharge planning issues: Problem comment: Patient appears to need more assistance than she is getting in her independent living. Will continue to evaluate her recovery from current illness her response to therapy and have social science analyst discussed with family ongoing options for support and supervision. Status: Acute Plan Patient is admitted to the hospital for ongoing evaluation management of possible sepsis, possible bowel obstruction or incarcerated hernia, acute confusion, weakness, anorexia, acute kidney injury. Total time spent today is 90 minutes in reviewing past medical history, discussing with patient, family, other providers ongoing evaluation management of her clinical presentation outlined above.
[2024-05-13] MEDS: LACTATED RINGERS 500 ML 500 ML IV (15:39)
[2024-05-13] MEDS: ENOXAPARIN 30 MG/0.3ML INJ SUBCUT (15:39)
[2024-05-13] MEDS: LACTATED RINGERS 1000 ML 1,000 ML 75 ML IV (15:40)
[2024-05-13 16:15] LABS: Lactate* 0.8 mmol/L (0.5-1.9)
[2024-05-13] MEDS: POTASSIUM CHLORIDE 10 MEQ CAPSULE ER 20 MEQ PO (19:09)
--- NOTE | 2024-05-13 19:34 | PC.NURSE ---
Admission-1900: The patient is pleasant alert to self and place. VS on RA. NAVA[place]. Hypoactive bowel sounds. NPO, The patient is noted to be quite fatigued this shift... LR bolus was infused, and LR now running @ 75. The patient reports minimal pain when the abdomen is palpated. No colostomy output since getting up to the floor, DR Avendano was updated @1900. The patient has not voided since being in the ED, next shift to bladder scan if no void. The patients family was here this afternoon. Call light within reach, unsure if the patient will use it appropriately. Bed alarm is in place. Has not ambulated. Jannette VILLARREAL BSN
--- NOTE | 2024-05-13 23:00 | CRLHL7_ITS ---
For Patients: As a result of the Century Cures Act, medical imaging exams and procedure reports are released immediately into your electronic medical record. You may view this report before your referring provider. If you have questions, please contact your health care provider. TECHNIQUE: Multiplanar CT examination of the head was performed without the use of intravenous contrast. INDICATION: Altered mental status. History of metastatic colon cancer. COMPARISON: MR brain 11/26/2022. FINDINGS: No loss of mcintyre-white differentiation to suggest recent territorial infarct. No intracranial hemorrhage, abnormal extra-axial fluid collection, hydrocephalus or midline shift. The ventricles and cerebral sulci are prominent in caliber, compatible with moderate generalized parenchymal volume loss. There is patchy ill-defined hypoattenuation of the supratentorial white matter diffusely, nonspecific but consistent chronic microvascular ischemic changes. The basal cisterns are patent. The paranasal sinuses and mastoid air cells remain clear. The orbits and calvarium are unremarkable. The cerebellar tonsils are normal position. IMPRESSION: 1. No acute intracranial findings. CT is limited in the evaluation for intracranial metastatic disease. 2. Moderate generalized parenchymal volume loss with chronic microvascular ischemic changes. Please note that all CT scans at this facility use dose modulation, iterative reconstruction, and/or weight-based dosing when appropriate to reduce radiation dose to as low as reasonably achievable. Dictated by Maxwell Luz MD @ 05/13/2024 5:35:36 PM (Electronically Signed)
[2024-05-14] VITALS (10 sets, daily range): BP systolic 92–112; BP diastolic 55–62; PULSE 82–100; RESP 16–20; TEMP 36.4–37.7; O2SAT 94–98
--- NOTE | 2024-05-14 05:49 | PC.NURSE ---
Pt pleasant and cooperative. Slightly [place] as DEGROOT left at home. Up with 1-2 A to commode. Voiding without difficulty. No output in colostomy. VSS.
[2024-05-14] MEDS: LACTATED RINGERS 1000 ML 1,000 ML 75 ML IV ×2 (06:39→16:27)
[2024-05-14 06:59] LABS: Basophils Absolute Auto 0.01 K/uL (0.00-0.30); Basophils Percent Auto 0.1 % (0.0-3.0); Hematocrit 27.2 % (33.0-51.0); Hemoglobin* 8.7 gm/dL (12.0-16.0); Immature Granulocytes Abs Auto 0.02 K/uL (0.00-0.30); Immature Granulocytes Pct Auto 0.2 %; Lymphocytes Percent Auto 4.1 % (20-44); Mean Corpuscular HGB Conc 32 gm/dL (32-36); Mean Corpuscular Hemoglobin 31 pg (26-34); Mean Corpuscular Volume 98 fL (80-100); Neutrophils Percent Auto 92.6 % (42.0-72.0); Platelet Count* 222 K/uL (140-440); RDW Coefficient of Variation % 18.8 % (11.5-15.5); Red Blood Count 2.77 m/uL (4.00-5.20); White Blood Count* 10.99 K/uL (4.50-11.00)
[2024-05-14 07:03] LABS: Slide Review Reflex No
[2024-05-14 07:11] LABS: Chloride* 110 mmol/L (96-114); Potassium* 3.2 mmol/L (3.6-5.1); Sodium* 138 mmol/L (135-149)
[2024-05-14 07:14] LABS: Est. Creatinine Clearance* 30.84; Estimated Glomerular Filt Rate 55 ml/min
[2024-05-14 07:15] LABS: Anion Gap 7 mEq/L (7-15); Blood Urea Nitrogen* 29 mg/dL (7-30); Calcium* 8.8 mg/dL (8.4-10.6); Carbon Dioxide* 21 mmol/L (20-32); Glucose* 90 mg/dL (60-115)
[2024-05-14 07:32] LABS: C Reactive Protein* 24.3 mg/dL (0.5-1.0)
[2024-05-14] MEDS: POTASSIUM CHLORIDE 10 MEQ/100 ML PIGGYBACK 100 MEQ IVPB ×3 (09:05→12:10)
--- NOTE | 2024-05-14 09:30 | PM.GSCN ---
History of Present Illness Consult details Date Seen: 05/14/24 Consult date: 05/14/24 Narrative: Patient is an 84-year-old female, with end colostomy, known peristomal hernia and metastatic colon cancer who was admitted from the emergency department for weakness, confusion, poor appetite and falls. She was recently seen in clinic and was started on Keflex for presumed UTI. Patient is a poor historian but denies any urinary pain or increased frequency this morning. She overall has been feeling very weak. She does have pain at her hernia site when people push on it. This pain is ?manageable? per the patient. When asked if she has pain on a daily basis from her hernia she is unsure. She denies any nausea or vomiting. She is feeling hungry this morning. She has not had any ostomy output since admission. She does report that ?it can take up to a day before she has stool?. She did have a blowout of her ostomy at home yesterday and a new bag placed in the emergency department. Review of Systems Status of ROS: Reports: 6 or more systems reviewed and unremarkable except as noted in History and below (fatigue, depression) [facility] Medical History (Updated 05/13/24 @ 15:37 by Sudhir Goldberg MD) Weakness ?R53.1 - Weakness (ICD-10) Acute kidney injury ?N17.9 - Acute kidney failure, unspecified (ICD-10) Peristomal hernia ?K46.9 - Unspecified abdominal hernia without obstruction or gangrene (ICD-10) Confusion ?R41.0 - Disorientation, unspecified (ICD-10) Acute UTI ?N39.0 - Urinary tract infection, site not specified (ICD-10) 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 - Localized skin eruption due to drugs and medicaments taken internally (ICD-10) Urinary tract infection ?N39.0 - Urinary tract infection, site not specified (ICD-10) Surgical History History of nephrectomy ?Z90.5 - Acquired absence of kidney (ICD-10) History of bowel resection ?Z90.49 - Acquired absence of other specified parts of digestive tract (ICD-10) History of creation of ostomy ?Z93.9 - Artificial opening status, unspecified (ICD-10) Family History Mother Diabetes Brother Diabetes Social History (Updated 05/13/24 @ 15:27 by Sudhir Goldberg MD) Narrative: [facility] [place]. She lives near her daughter Sobia. Sobia is healthcare power of litigation attorney and closest support person. Code status is DNR. Other children include Mehul from [place], Dania from [place] and Paco from [place]. She does not smoke or drink alcohol. Health care directive on file- Health care directive completed on 11/08/2005. Reviewed and sent for scanning 12/29/2019. 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 What is your current living situation?: I presently have a place to live Problems where you live: no known problems Problems where you live details: none known In the past 12 months, utilities in danger of being shut off: no In past 12 months, lack of transportation kept you from medical appts, meetings, work, or getting things needed for daily living: no In the past 12 mos, have been you worried that your food would run out before you had money to buy more?: never true In the past 12 mos, the food you bought just didn't last and you didn't have money to buy more?: never true Smoking Status: Never smoker How often do you have a drink containing alcohol: never AUDIT-C Alcohol total score: 0 Non-prescribed substance use: denies use How often does anyone, including family, friends and others, physically hurt you: never How often does anyone, including family, friends and others, insult or talk down to you: never How often does anyone, including family, friends and others, threaten you with harm: never How often does anyone, including family, friends and others, scream or curse at you: never Meds Home Medications and Allergies Home Medications ?Medication ?Instructions ?Recorded ?Confirmed ?Type acetaminophen 325 mg capsule 325 mg PO Q6H PRN 11/27/21 05/11/24 History cetirizine 10 mg tablet 10 mg PO DAILY PRN 11/27/21 05/11/24 History multivitamin 1 tab PO DAILY 11/27/21 05/11/24 History calcium carbonate 600 mg PO QDAY 04/02/23 05/11/24 History cholecalciferol (vitamin D3) 25 25 mcg PO QDAY 04/29/23 05/11/24 History mcg (1,000 unit) capsule bisacodyl 5 mg tablet 5 mg PO BID 01/14/24 05/11/24 History Allergies Allergy/AdvReac Type Severity Reaction Status Date / Time ragweed pollen Allergy Mild Sneezing Verified 05/13/24 11:24 Exam Narrative: Exam Narrative: General: Frail, alert to self and place. Nontoxic Respiratory: Equal breath rise, maintained on room air CV: Well perfused Abdomen: Soft, large peristomal hernia with incarcerated bowel, this is unable to be reduced with palpation. Some tenderness during manipulation. No guarding or rebound. No overlying erythema or induration. No signs of peritonitis. No evidence of distension. Left lower quadrant ostomy in place, and colostomy, stoma is pink and viable. No gas or stool in ostomy bag. Const: Vital Signs, click to edit/add: Vital Signs - 24 hr 05/13/24 09:49 05/13/24 09:59 05/13/24 10:00 Temperature 98.4 F Pulse Rate 99 Pulse Rate [Pulse Oximeter] 105 H Pulse Rate [Right Pulse Oximeter] Respiratory Rate 18 Blood Pressure 99/59 L Blood Pressure [Ri ght Arm] Blood Pressure [Ri ght Upper Arm] 99/66 Pulse Oximetry 99 100 Oxygen Delivery Me thod Room Air 05/13/24 10:15 05/13/24 10:30 05/13/24 10:31 Temperature Pulse Rate 92 93 94 Pulse Rate [Pulse Oximeter] Pulse Rate [Right Pulse Oximeter] Respiratory Rate Blood Pressure 95/62 Blood Pressure [Ri ght Arm] Blood Pressure [Ri ght Upper Arm] Pulse Oximetry 99 100 100 Oxygen Delivery Me thod 05/13/24 10:45 05/13/24 11:00 05/13/24 11:01 Temperature Pulse Rate 94 95 95 Pulse Rate [Pulse Oximeter] Pulse Rate [Right Pulse Oximeter] Respiratory Rate Blood Pressure 101/63 Blood Pressure [Ri ght Arm] Blood Pressure [Ri ght Upper Arm] Pulse Oximetry 100 99 99 Oxygen Delivery Me thod 05/13/24 11:15 05/13/24 11:58 05/13/24 11:59 Temperature Pulse Rate 95 104 H 102 H Pulse Rate [Pulse Oximeter] Pulse Rate [Right Pulse Oximeter] Respiratory Rate Blood Pressure 117/65 Blood Pressure [Ri ght Arm] Blood Pressure [Ri ght Upper Arm] Pulse Oximetry 99 100 100 Oxygen Delivery Me thod 05/13/24 12:00 05/13/24 12:01 05/13/24 12:02 Temperature Pulse Rate 108 H 103 H 100 Pulse Rate [Pulse Oximeter] Pulse Rate [Right Pulse Oximeter] Respiratory Rate 16 Blood Pressure 104/72 Blood Pressure [Ri ght Arm] Blood Pressure [Ri ght Upper Arm] Pulse Oximetry 100 100 100 Oxygen Delivery Me thod 05/13/24 12:15 05/13/24 12:30 05/13/24 12:31 Temperature Pulse Rate 101 H 102 H 102 H Pulse Rate [Pulse Oximeter] Pulse Rate [Right Pulse Oximeter] Respiratory Rate Blood Pressure 107/66 Blood Pressure [Ri ght Arm] Blood Pressure [Ri ght Upper Arm] Pulse Oximetry 99 100 100 Oxygen Delivery Me thod 05/13/24 12:45 05/13/24 13:00 05/13/24 13:01 Temperature Pulse Rate 98 98 97 Pulse Rate [Pulse Oximeter] Pulse Rate [Right Pulse Oximeter] Respiratory Rate Blood Pressure 93/59 L Blood Pressure [Ri ght Arm] Blood Pressure [Ri ght Upper Arm] Pulse Oximetry 100 100 100 Oxygen Delivery Me thod 05/13/24 13:49 05/13/24 13:49 05/13/24 15:00 Temperature 98.0 F 99.1 F Pulse Rate Pulse Rate [Pulse Oximeter] Pulse Rate [Right Pulse Oximeter] 95 90 Respiratory Rate 16 16 16 Blood Pressure Blood Pressure [Ri ght Arm] 99/63 98/57 L Blood Pressure [Ri ght Upper Arm] Pulse Oximetry 97 97 98 Oxygen Delivery Me thod Room Air Room Air Room Air 05/13/24 19:57 05/14/24 00:11 05/14/24 03:00 Temperature 98.2 F 98.9 F 98.1 F Pulse Rate Pulse Rate [Pulse Oximeter] Pulse Rate [Right Pulse Oximeter] 91 82 90 Respiratory Rate 16 16 16 Blood Pressure Blood Pressure [Ri ght Arm] 98/61 98/58 L 101/55 L Blood Pressure [Ri ght Upper Arm] Pulse Oximetry 95 98 98 Oxygen Delivery Me thod Room Air Room Air Room Air 05/14/24 08:15 Temperature 98.9 F Pulse Rate Pulse Rate [Pulse Oximeter] Pulse Rate [Right Pulse Oximeter] 98 Respiratory Rate 18 Blood Pressure Blood Pressure [Ri ght Arm] 98/57 L Blood Pressure [Ri ght Upper Arm] Pulse Oximetry 95 Oxygen Delivery Me thod Room Air Results Labs Labs: Abnormal lab results 05/13/24 05/13/24 05/14/24 Range/Units 11:10 11:40 05:49 WBC 12.95 H (4.50-11.00) K/uL RBC 3.31 L 2.77 L (4.00-5.20) m/uL Hgb 10.4 L 8.7 L (12.0-16.0) gm/dL Hct 32.0 L 27.2 L (33.0-51.0) % RDW Coeff of Jumana 18.6 H 18.8 H (11.5-15.5) % Neut % (Auto) 94.3 H 92.6 H (42.0-72.0) % Lymph % (Auto) 3.6 L 4.1 L (20-44) % Neut # (Auto) 12.20 H 10.20 H (1.7-7.0) K/uL Lymph # (Auto) 0.50 L 0.50 L (0.90-2.90) K/uL Potassium 3.5 L 3.2 L (3.6-5.1) mmol/L BUN 32 H (7-30) mg/dL Glucose 159 H (60-115) mg/dL C-Reactive Protein 18.6 H 24.3 H (0.5-1.0) mg/dL Urine Appearance Slightly Cloudy A (Clear) Urine Protein 2+ A (Negative) Urine Blood 2+ A (Negative) Ur Leukocyte Esterase Trace A (Negative) Amorphous Sediment Moderate A (None) Urine Bacteria Moderate A (None) Urine Mucus Moderate A (None) Diabetes panel 05/13/24 05/14/24 Range/Units 11:10 05:49 Sodium 136 138 (135-149) mmol/L Potassium 3.5 L 3.2 L (3.6-5.1) mmol/L Chloride 106 110 (96-114) mmol/L Carbon Dioxide 22 21 (20-32) mmol/L BUN 32 H 29 (7-30) mg/dL Creatinine 1.5 1.0 (0.5-1.5) mg/dL Glucose 159 H 90 (60-115) mg/dL Calcium 9.4 8.8 (8.4-10.6) mg/dL AST 20 (12-35) U/L ALT 14 (4-35) U/L Alkaline Phosphatase 73 (40-150) U/L Total Protein 6.2 (6.0-8.3) g/dL Albumin 3.3 (3.3-5.0) g/dL Thyroid panel 05/13/24 Range/Units 11:10 TSH 3.430 (0.270-4.20) uIU/mL Calcium panel 05/13/24 05/14/24 Range/Units 11:10 05:49 Calcium 9.4 8.8 (8.4-10.6) mg/dL Albumin 3.3 (3.3-5.0) g/dL Pituitary panel 05/13/24 05/14/24 Range/Units 11:10 05:49 Sodium 136 138 (135-149) mmol/L Potassium 3.5 L 3.2 L (3.6-5.1) mmol/L Chloride 106 110 (96-114) mmol/L Carbon Dioxide 22 21 (20-32) mmol/L BUN 32 H 29 (7-30) mg/dL Creatinine 1.5 1.0 (0.5-1.5) mg/dL Glucose 159 H 90 (60-115) mg/dL Calcium 9.4 8.8 (8.4-10.6) mg/dL TSH 3.430 (0.270-4.20) uIU/mL Adrenal panel 05/13/24 05/14/24 Range/Units 11:10 05:49 Sodium 136 138 (135-149) mmol/L Potassium 3.5 L 3.2 L (3.6-5.1) mmol/L Chloride 106 110 (96-114) mmol/L Carbon Dioxide 22 21 (20-32) mmol/L BUN 32 H 29 (7-30) mg/dL Creatinine 1.5 1.0 (0.5-1.5) mg/dL Glucose 159 H 90 (60-115) mg/dL Calcium 9.4 8.8 (8.4-10.6) mg/dL Total Bilirubin 1.5 (0.1-1.5) mg/dL AST 20 (12-35) U/L ALT 14 (4-35) U/L Alkaline Phosphatase 73 (40-150) U/L Total Protein 6.2 (6.0-8.3) g/dL Albumin 3.3 (3.3-5.0) g/dL All other labs normal. Progress Note:A&P Assessment and plan (1) Peristomal hernia: Status: Acute Assessment and Plan: Patient with a large, known peristomal hernia in the left lower quadrant. She had an end colostomy placed in 2020 for obstruction secondary to rectal cancer with evidence of metastatic disease. She has been maintained on palliative chemotherapy. She has a large peristomal hernia which has been present for several years. On admission to the emergency department a CT scan demonstrated dilated fluid-filled small bowel loops with some mild inflammatory changes in her peristomal hernia. This is tender with manipulation and unable to be reduced, however her abdomen is nondistended, soft with no guarding or rebound. No overlying erythema or induration. No current concern for bowel ischemia, findings could represent an ileus versus early bowel obstruction. She has not had any colostomy output since admission. Would recommend continued conservative management at this time. Patient with an overall decline in health. Question whether her hernia is symptomatic at baseline and bothering her enough to contribute to her poor p.o. intake. Patient is a poor historian and unsure if she has pain normally at the hernia site. When asked if she would be open to an operation if clinically indicated the patient is unsure about whether she wants to go through another surgery. -NPO, IV fluids -encourage ambulation -could consider NG tube if develops nausea and vomiting, no indication at this time All other cares per hospitalist. Please call the on-call surgeon with any acute clinical changes.
--- NOTE | 2024-05-14 12:30 | P.IMPN_ITS ---
Progress Note: A&P Assessment and plan (1) Bowel obstruction: Problem details: Initial concern for bowel obstruction but patient has been making stool and herniated does not appear to be incarcerated or obstructed at this time Status: Acute (2) Peristomal hernia: Problem details: Uncertain whether this is stable chronic or causing new obstructive symptoms. General surgery consult. Status: Acute (3) Anorexia: Problem details: Very poor appetite due to? Concern for malnutrition Status: Acute (4) Acute kidney injury: Problem details: I suspect this is due to poor oral intake as well as possible acute illness or sepsis. Status: Acute (5) Weakness: Problem details: Due to current illness acute and chronic. Ongoing evaluation and treatment with therapy. Status: Acute (6) Sepsis: Problem details: Suspected: Patient has hypotension and tachycardia and altered mental status and acute kidney injury. No definite sign of infection at this point. Will provide fluid resuscitation and monitor. So far responding to fluid resuscitation without antibiotics. If further signs or symptoms of infection such as fever obtained cultures and initiate broad-spectrum antibiotic coverage. Status: Acute (7) Discharge planning issues: Problem details: Patient appears to need more assistance than she is getting in her independent living. Will continue to evaluate her recovery from current illness her response to therapy and have elementary school social worker discussed with family ongoing options for support and supervision. Status: Acute (8) Confusion: Problem details: Suspect possible underlying dementia as confusion has been present for about a month or longer according to her daughter. Ongoing assessment of this as well as evaluation for underlying illness causing a metabolic encephalopathy Status: Acute (9) Disorders of fluid, electrolyte, and acid-base balance: Problem details: Patient reports being thirsty today. Will give additional bolus. Low potassium today. will supplement with IV. Status: Acute (10) Malnutrition: Problem details: Poor oral intake for at least a few days. Weight down 5 kg/10% in 2 months Status: Acute Plan Continue in-hospital for monitoring of bowel obstruction, parastomal hernia, SELVIN, total time spent today is 50 minutes discussing with patient, family, surgery, nursing ongoing management of multiple problems noted above. Subjective Date Seen: 05/14/24 Interval history: Angle Kennedy is a 84 year old female with ongoing treatment for metastatic colon cancer admitted through the emergency department with weakness, confusion, poor appetite and falls at home. She is brought in by her son Chicho from [place] and her daughter Dania from [place] were visiting for the holiday. Dania has noted that she has had increased confusion and weakness. She was taken to a clinic yesterday to evaluate for possible UTI. She was started on Keflex for this. She is not having any definite urinary symptoms. She did not have any fever. She seemed more confused and weaker and a UTI was suspected by the family. She has had a very poor appetite with poor oral intake. Family has noted that is a big problem in the last couple days and uncertain how much she is eating prior to that. Chicho is staying with her and during the night last night she fell around 1:00 a.m.. He came to help for and did not note any injury at that time. She was able to walk back to her room with his assistance. She also had a fall 2 nights ago again without any definite injury. She has a left-sided colostomy [place] [address] Avendano. 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 Her daughter ganseh hinks that that his increased in size recently. She has not had vomiting. During the night last night her colostomy bag came off and she had spilled stool all over. She is not aware of diarrhea or blood in her stool. She reports no pain in her hernia but it is tender when I palpate She is receiving treatment with capecitabine for her colon cancer. Common side effects with this include neutropenia, diarrhea, palmar plantar erythrodysesthesia. It is not clear that she is having any of these side effects though chart notes indicate possible hand and foot syndrome. Patient indicates that she sometimes feels that the trouble of her oncology care is not worth it. She has not yet verbalized a desire to give up on cancer care which appears to be providing palliation for her. She does not know what medication she is taking. She is independent in managing her medications. 05/14/2024: Patient reports her abdomen is about the same today. She does want to eat. She has been NPO because of concern about a bowel obstruction. She has had no stool output in her bag overnight. Family notes that she is more alert, back to her normal self. Therapy felt that she moved well in the hallway Exam Narrative: Exam Narrative: She is alert pleasant and cooperative. Speech is normal in she is oriented to her circumstances. Respirations are clear to auscultation. Cardiovascular: S1, S2, regular rate and rhythm. Abdomen: Bowel sounds diminished. Abdomen is soft. She still has moderate tenderness around her parastomal hernia. No peritonitis. Extremities without edema. Const: Vital Signs, click to edit/add: Vital Signs - 24 hr 05/13/24 12:31 05/13/24 12:45 05/13/24 13:00 Temperature Pulse Rate 102 H 98 98 Pulse Rate [Right Pulse Oximeter] Respiratory Rate Blood Pressure 107/66 Blood Pressure [Ri ght Arm] Pulse Oximetry 100 100 100 Oxygen Delivery Me thod 05/13/24 13:01 05/13/24 13:49 05/13/24 13:49 Temperature 98.0 F Pulse Rate 97 Pulse Rate [Right Pulse Oximeter] 95 Respiratory Rate 16 16 Blood Pressure 93/59 L Blood Pressure [Ri ght Arm] 99/63 Pulse Oximetry 100 97 97 Oxygen Delivery Me thod Room Air Room Air 05/13/24 15:00 05/13/24 19:57 05/14/24 00:11 Temperature 99.1 F 98.2 F 98.9 F Pulse Rate Pulse Rate [Right Pulse Oximeter] 90 91 82 Respiratory Rate 16 16 16 Blood Pressure Blood Pressure [Ri ght Arm] 98/57 L 98/61 98/58 L Pulse Oximetry 98 95 98 Oxygen Delivery Me thod Room Air Room Air Room Air 05/14/24 03:00 05/14/24 08:15 05/14/24 12:27 Temperature 98.1 F 98.9 F Pulse Rate Pulse Rate [Right Pulse Oximeter] 90 98 90 Respiratory Rate 16 18 18 Blood Pressure Blood Pressure [Ri ght Arm] 101/55 L 98/57 L 112/62 Pulse Oximetry 98 95 96 Oxygen Delivery Me thod Room Air Room Air Room Air Documenting provider has reviewed patient's vital signs: yes Labs Labs: Laboratory Results - last 24 hr 05/13/24 05/13/24 05/13/24 11:10 14:44 16:11 WBC RBC Hgb Hct MCV MCH MCHC RDW Coeff of Jumana Plt Count Neut % (Auto) Lymph % (Auto) Maverick % (Auto) Eos % (Auto) Baso % (Auto) Neut # (Auto) Lymph # (Auto) Maverick # (Auto) Eos # (Auto) Baso # (Auto) Abs Immat Gran (auto) Imm/Tot Granulo (auto) Sodium Potassium Chloride Carbon Dioxide Anion Gap BUN Creatinine Estimated Creat Clear Estimated GFR Glucose Lactate 0.8 Calcium C-Reactive Protein TSH 3.430 Lab Acknowledgement Test Added 05/14/24 05:49 WBC 10.99 RBC 2.77 L Hgb 8.7 L Hct 27.2 L MCV 98 MCH 31 MCHC 32 RDW Coeff of Jumana 18.8 H Plt Count 222 Neut % (Auto) 92.6 H Lymph % (Auto) 4.1 L Maverick % (Auto) 3.0 Eos % (Auto) 0.0 Baso % (Auto) 0.1 Neut # (Auto) 10.20 H Lymph # (Auto) 0.50 L Maverick # (Auto) 0.30 Eos # (Auto) 0.00 Baso # (Auto) 0.01 Abs Immat Gran (auto) 0.02 Imm/Tot Granulo (auto) 0.2 Sodium 138 Potassium 3.2 L Chloride 110 Carbon Dioxide 21 Anion Gap 7 BUN 29 Creatinine 1.0 Estimated Creat Clear 30.84 Estimated GFR 55 Glucose 90 Lactate Calcium 8.8 C-Reactive Protein 24.3 H TSH Lab Acknowledgement
[2024-05-14] MEDS: LACTATED RINGERS 500 ML 500 ML IV (13:10)
[2024-05-14] MEDS: ENOXAPARIN 30 MG/0.3ML INJ SUBCUT (15:09)
--- NOTE | 2024-05-14 15:36 | PC.NURSE ---
Shift Summary: Patient pleasant and cooperative. Up with 1-2 assist, walker and gait belt. Vitals stable, BP soft this morning. Got bolus, see JUL. Denied pain most of shift until around 1400, stated left abdomen had some pain however denied need for medication. Appears comfortable in recliner watching TV. NPO, no output in ostomy bag, updated no new orders. Abdomen tender and distended at start of shift, appears the same at end of shift.
--- NOTE | 2024-05-14 15:42 | PC.SOCIAL ---
Discharge planning: Met with pt and family at their request regarding questions they had about discharge options. Disucssed option of discharge to SNF, Assisted living or home with attendant care or skilled home care. Answered questions on all of these options, including questions about insurance coverage and complications of pot being on an expensive cancer medication. Emailed resource lists on car rental service attendant care, Assisted living, enhanced assisted living and fpc options to jag Najera at [email or web address] and she planned to forward these resources to the multiple family members involved with pt's planning. networker to follow up as needed.
[2024-05-14] MEDS: ACETAMINOPHEN 325 MG TABLET 650 MG PO (19:03)
--- NOTE | 2024-05-14 22:22 | PC.NURSE ---
[id number]: Patient pleasant. A&O to self, , and place, with forgetfulness and confusion. A1/walker/GB. NPO diet. Denies N/V. BS very hypoactive. No gas or stool in ostomy. General surgeon aware and confirms continuing conservative management.
[2024-05-15 07:10] LABS: Chloride* 111 mmol/L (96-114); Potassium* 3.5 mmol/L (3.6-5.1); Sodium* 140 mmol/L (135-149)
[2024-05-15 07:11] LABS: Basophils Percent Auto 0.1 % (0.0-3.0); Hematocrit 30.6 % (33.0-51.0); Hemoglobin* 9.6 gm/dL (12.0-16.0); Immature Granulocytes Pct Auto 0.2 %; Lymphocytes Percent Auto 3.9 % (20-44); Mean Corpuscular HGB Conc 31 gm/dL (32-36); Mean Corpuscular Hemoglobin 31 pg (26-34); Mean Corpuscular Volume 99 fL (80-100); Monocytes Percent Auto 3.5 % (0.0-11.0); Neutrophils Percent Auto 92.3 % (42.0-72.0); Platelet Count* 218 K/uL (140-440); RDW Coefficient of Variation % 18.6 % (11.5-15.5); Red Blood Count 3.09 m/uL (4.00-5.20); White Blood Count* 11.21 K/uL (4.50-11.00)
[2024-05-15 07:12] LABS: Slide Review Reflex No
[2024-05-15 07:13] LABS: Anion Gap 9 mEq/L (7-15); Blood Urea Nitrogen* 18 mg/dL (7-30); Carbon Dioxide* 20 mmol/L (20-32); Creatinine* 0.7 mg/dL (0.5-1.5); Est. Creatinine Clearance* 30.84; Estimated Glomerular Filt Rate 85 ml/min
[2024-05-15 07:14] LABS: Calcium* 8.5 mg/dL (8.4-10.6); Glucose* 80 mg/dL (60-115)
--- NOTE | 2024-05-15 07:28 | PC.NURSE ---
Pt alert, oriented and vitally stable. Pt appears to be resting throughout shift. Abdomen on stoma side distended, soft, though tender. Ostomy had small amount of bm into bag. Pt uses call light appropriately, Pt brief changed once throughout shift, otherwise dry. Pt appears to be resting, call light within reach.?
[2024-05-15 08:11] VITALS: BP 105/65; PULSE 97; RESP 22; TEMP 37.1; O2SAT 96
[2024-05-15 08:54] LABS: Lactate* 0.6 mmol/L (0.5-1.9)
[2024-05-15] MEDS: LACTATED RINGERS 1000 ML 1,000 ML 75 ML IV (09:35)
[2024-05-15 09:40] VITALS: BMI 19.8
--- NOTE | 2024-05-15 09:46 | P.GSPN_ITS ---
Subjective Subjective Date Seen: 05/15/24 Interval history: Patient was evaluated yesterday afternoon. At that time she had some increase in pain and swelling at the hernia site. Overnight this swelling has gone down slightly, although ?she feels like there is still fluid in her hernia?. She does think that the pain is improved compared to yesterday. She has a very small amount of stool within her back. She denies feeling hungry, no nausea or vomiting. She has been ambulating with physical therapy. Exam Narrative: Exam Narrative: General: Frail, nontoxic Abdomen: Soft, some tenderness of the hernia side with palpation. This is improved compared to yesterday. Ostomy bag in place, stoma is pink. Small amount of liquid stool. Const: Vital Signs, click to edit/add: Vital Signs - 24 hr 05/14/24 12:27 05/14/24 15:58 05/14/24 18:58 Temperature 99.2 F 99.8 F H 99.9 F H Pulse Rate [Right Pulse Oximeter] 90 90 100 Respiratory Rate 18 20 20 Blood Pressure [Ri ght Arm] 112/62 105/61 109/60 Pulse Oximetry 96 94 95 Oxygen Delivery Me thod Room Air Room Air Room Air 05/14/24 19:03 05/14/24 20:12 05/14/24 20:13 Temperature 99.9 F H 99.3 F 99.3 F Pulse Rate [Right Pulse Oximeter] Respiratory Rate Blood Pressure [Ri ght Arm] Pulse Oximetry Oxygen Delivery Me thod 05/14/24 23:00 05/14/24 23:00 05/15/24 08:11 Temperature 97.6 F 98.7 F Pulse Rate [Right Pulse Oximeter] 83 83 97 Respiratory Rate 16 16 22 Blood Pressure [Ri ght Arm] 92/61 105/65 Pulse Oximetry 98 96 Oxygen Delivery Me thod Room Air 05/15/24 08:11 Temperature Pulse Rate [Right Pulse Oximeter] 97 Respiratory Rate 22 Blood Pressure [Ri ght Arm] Pulse Oximetry Oxygen Delivery Me thod Labs/Imaging Labs Labs: WBC 11.2, CRP 23 Imaging Imaging: No new imaging Progress Note:A&P Assessment and plan (1) Peristomal hernia: Status: Acute Assessment and Plan: Patient with a large, known peristomal hernia in the left lower quadrant. She had an end colostomy placed in 2020 for obstruction secondary to rectal cancer with evidence of metastatic disease. She has been maintained on palliative chemotherapy. She has a large peristomal hernia which has been present for several years. Concern for now a developing bowel obstruction within her peristomal hernia. Compared to yesterday her pain has slightly improved, although she is refining still operator with deep palpation of the hernia sac. In particular she complains of pain on the left side. Her stoma had a very small amount of stool output overnight. Patient is still at risk for needing to go to the OR emergently, however at this time I would recommend continuing conservative management. Patient is very frail with an overall decline in her health, making surgery high risk. -NPO, IV fluids -encourage ambulation -could consider NG tube if develops nausea and vomiting, no indication at this time All other cares per hospitalist. Please call the on-call surgeon with any acute clinical changes.
[2024-05-15 11:16] VITALS: BP 107/58; PULSE 92; RESP 20; TEMP 37.1; O2SAT 98
[2024-05-15] MEDS: 5 % DEXTROSE IN LAC RINGER'S 1,000 ML 75 ML IV (13:27)
--- NOTE | 2024-05-15 13:59 | PC.SOCIAL ---
Addendum entered and electronically signed by KOKI Caputo 05/15/24 15:16: Discharge planning: sorting livestock worker spoke with pt's daughter this afternoon via phone in regard to the update of the referral to [facility] in [place] and pt's daughter also shared that the family would be fine with the pt going off of the medication for cancer while she is completing short-term rehab, if needed, as they recognize that the pt will benefit from the short-term rehab stay. sorting livestock worker also informed Gwendolyn at [facility] of this update. Social work to follow-up as needed. Addendum entered and electronically signed by KOKI Caputo 05/15/24 14:11: Discharge planning: Gwendolyn at [facility] called this worker and shared that the pt's referral looks good, even with the medication that the pt is on for colon cancer(Gwendolyn said they can take that and that it is not too expensive); however, Gwendolyn shared that there is special handling that has to be used with that medication and she just needs to verify with nursing that that is okay with them and they are not in the office today for her to ask, so she can follow back up with this worker on Saturday when the nurse that she needs to speak to is back in the office. sorting livestock worker will update the pt and her family and the provider/charge nurse on duty. Social work to follow-up as needed. Original Note: Discharge planning: sorting livestock worker met with pt and her daughter, Carlita, today in her room. Pt is being recommended for short-term rehab at discharge. Pt lives in [place] and would like to go to [facility] in [place] for short-term rehab. sorting livestock worker talked to Gwendolyn at [facility] who shared that they do have openings right now for TCU and they do take pt's [employer] insurance. sorting livestock worker sent a referral to [facility] via secure email. Social work to follow-up as needed.
[2024-05-15 15:00] VITALS: BP 120/69; PULSE 92; RESP 16; TEMP 37; O2SAT 98
[2024-05-15] MEDS: ENOXAPARIN 30 MG/0.3ML INJ SUBCUT (15:03)
--- NOTE | 2024-05-15 15:39 | P.IMPN_ITS ---
Progress Note: A&P Assessment and plan (1) Peristomal hernia: Problem details: Uncertain whether this is stable chronic or causing new obstructive symptoms. General surgery consult. Status: Acute (2) Bowel obstruction: Problem details: Initial concern for bowel obstruction but patient has been making stool and herniated does not appear to be incarcerated or obstructed at this time. General surgery to consult Status: Acute (3) Confusion: Problem details: Suspect possible underlying dementia as confusion has been present for about a month or longer according to her daughter. Ongoing assessment of this as well as evaluation for underlying illness causing a metabolic encephalopathy. Improved today Status: Acute (4) Anorexia: Problem details: Very poor appetite due to? Concern for malnutrition. Status: Acute (5) Acute kidney injury: Problem details: I suspect this is due to poor oral intake as well as possible acute illness or sepsis. He improved Status: Acute (6) Weakness: Problem details: Due to current illness acute and chronic. Ongoing evaluation and treatment with therapy. Status: Acute (7) Sepsis: Problem details: Suspected: Patient has hypotension and tachycardia and altered mental status and acute kidney injury. No definite sign of infection at this point. Will provide fluid resuscitation and monitor. So far responding to fluid resuscitation without antibiotics. If further signs or symptoms of infection such as fever obtained cultures and initiate broad-spectrum antibiotic coverage. Status: Acute (8) Discharge planning issues: Problem details: Patient appears to need more assistance than she is getting in her independent living. Will continue to evaluate her recovery from current illness her response to therapy and have geriatric social worker discussed with family ongoing optio ns for support and supervision. Status: Acute (9) Disorders of fluid, electrolyte, and acid-base balance: Problem details: Patient reports being thirsty today. Will give additional bolus. Low potassium today. will supplement with IV. Improved Status: Acute (10) Malnutrition: Problem details: Poor oral intake for at least a few days. Weight down 5 kg/10% in 2 months. 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 Held while NPO Status: Acute (12) Frailty syndrome in geriatric patient: Problem details: Due to multiple comorbidities and frailty patient is a poor surgical candidate and may also be a poor candidate to continue to live independently Status: Acute Plan Continue in-hospital for monitoring of possible small-bowel obstruction related to parastomal hernia. Total time spent today is 40 minutes in coordination of care and discussion with patient, family, other providers and staff ongoing plan of care Subjective Date Seen: 05/15/24 Interval history: Angle Kennedy is a 84 year old female with ongoing treatment for metastatic colon cancer admitted through the emergency department with weakness, confusion, poor appetite and falls at home. She is brought in by her son Chicho from [employer] and her daughter Dania from [place] were visiting for the holiday. Dania has noted that she has had increased confusion and weakness. She was taken to a clinic yesterday to evaluate for possible UTI. She was started on Keflex for this. She is not having any definite urinary symptoms. She did not have any fever. She seemed more confused and weaker and a UTI was suspected by the family. She has had a very poor appetite with poor oral intake. Family has noted that is a big problem in the last couple days and uncertain how much she is eating prior to that. Chicho is staying with her and during the night last night she fell around 1:00 a.m.. He came to help for and did not note any injury at that time. She was able to walk back to her room with his assistance. She also had a fall 2 nights ago again without any definite injury. She has a left-sided colostomy placed in [place] [address] Avendano. She has devel oped a parastomal hernia which has been present for years. Her daughter thinks that that his increased in size recently. She has not had vomiting. During the night last night her colostomy bag came off and she had spilled stool all over. She is not aware of diarrhea or blood in her stool. She reports no pain in her hernia but it is tender when I palpate She is receiving treatment with capecitabine for her colon cancer. Common side effects with this include neutropenia, diarrhea, palmar plantar erythrodysesthesia. It is not clear that she is having any of these side effects though chart notes indicate possible hand and foot syndrome. Patient indicates that she sometimes feels that the trouble of her oncology care is not worth it. She has not yet verbalized a desire to give up on cancer care which appears to be providing palliation for her. She does not know what medication she is taking. She is independent in managing her medications. 05/14/2024: Patient reports her abdomen is about the same today. She does want to eat. She has been NPO because of concern about a bowel obstruction. She has had no stool output in her bag overnight. Family notes that she is more alert, back to her normal self. Therapy felt that she moved well in the hallway 05/15/2024: Patient reports feeling a little better today. Abdominal pain is a little better. She has had very small amount in her colostomy bag overnight. No new concerns Exam Narrative: Exam Narrative: She is alert and appears in no distress. Respirations are clear to auscultation. Cardiovascular: S1, S2, regular rate and rhythm. Abdomen: Bowel sounds are present. Abdomen is soft with still [id number] tenderness around her parastomal hernia. Small amount of stool in the stoma bag Const: Vital Signs, click to edit/add: Vital Signs - 24 hr 05/14/24 15:58 05/14/24 18:58 05/14/24 19:03 Temperature 99.8 F H 99.9 F H 99.9 F H Pulse Rate [Right Pulse Oximeter] 90 100 Respiratory Rate 20 20 Blood Pressure [Le ft Arm]] Blood Pressure [Ri ght Arm] 105/61 109/60 Pulse Oximetry 94 95 Oxygen Delivery Me thod Room Air Room Air 05/14/24 20:12 05/14/24 20:13 05/14/24 23:00 Temperature 99.3 F 99.3 F 97.6 F Pulse Rate [Right Pulse Oximeter] 83 Respiratory Rate 16 Blood Pressure [Le ft Arm]] Blood Pressure [Ri ght Arm] 92/61 Pulse Oximetry 98 Oxygen Delivery Me thod 05/14/24 23:00 05/15/24 08:11 05/15/24 08:11 Temperature 98.7 F Pulse Rate [Right Pulse Oximeter] 83 97 97 Respiratory Rate 16 22 22 Blood Pressure [Le ft Arm]] Blood Pressure [Ri ght Arm] 105/65 Pulse Oximetry 96 Oxygen Delivery Me thod Room Air 05/15/24 11:16 05/15/24 15:00 05/15/24 15:00 Temperature 98.7 F 98.6 F Pulse Rate [Right Pulse Oximeter] 92 92 92 Respiratory Rate 20 16 16 Blood Pressure [Le ft Arm]] 107/58 L 120/69 Blood Pressure [Ri ght Arm] Pulse Oximetry 98 98 Oxygen Delivery Me thod Room Air Room Air Documenting provider has reviewed patient's vital signs: yes Labs Labs: Laboratory Results - last 24 hr 05/15/24 05:49 WBC 11.21 H RBC 3.09 L Hgb 9.6 L Hct 30.6 L MCV 99 MCH 31 MCHC 31 L RDW Coeff of Jumana 18.6 H Plt Count 218 Neut % (Auto) 92.3 H Lymph % (Auto) 3.9 L [place] % (Auto) 3.5 Eos % (Auto) 0.0 Baso % (Auto) 0.1 Neut # (Auto) 10.30 H Lymph # (Auto) 0.40 L [place] # (Auto) 0.40 Eos # (Auto) 0.00 Baso # (Auto) 0.00 Abs Immat Gran (auto) 0.00 Imm/Tot Granulo (auto) 0.2 Sodium 140 Potassium 3.5 L Chloride 111 Carbon Dioxide 20 Anion Gap 9 BUN 18 Creatinine 0.7 Estimated Creat Clear 30.84 Estimated GFR 85 Glucose 80 Lactate 0.6 Calcium 8.5 C-Reactive Protein 23.0 H
--- NOTE | 2024-05-15 18:01 | PC.NURSE ---
End of Shift [id number]: Patient pleasant and cooperative, only oriented to self. Patient vitally stable, lungs clear, BS hypoactive this afternoon. LR running at 75. Patient denies pain but does have tenderness when palpating hernia with more force, no pain medication given this shift. Ostomy bag is a two piece system with a gas vent, patient does appear to be passing gas as room smells like stool at times and bag is not full of gas nor is there more stool output. Ostomy bag contains liquid stool that is currently the same amount as it appeared this morning, not enough to empty. Patient is 1 assist/walker, and has been up in chair majority of day. Patient urinating well.
[2024-05-15 20:00] VITALS: BP 127/70; PULSE 101; RESP 18; TEMP 36.8; O2SAT 97
[2024-05-15 22:50] VITALS: BP 111/72; PULSE 93; RESP 16; TEMP 36.6; O2SAT 96
[2024-05-16 02:15] VITALS: BP 108/57; PULSE 96; RESP 16; TEMP 36.8; O2SAT 98
[2024-05-16] MEDS: 5 % DEXTROSE IN LAC RINGER'S 1,000 ML 75 ML IV ×2 (02:22→16:06)
[2024-05-16 06:46] LABS: Lactate* 0.7 mmol/L (0.5-1.9)
--- NOTE | 2024-05-16 06:53 | PC.NURSE ---
Pt is oriented to self only. Afebrile. Pt denies pain, chest pain, SOB, and N/V. Pt has had no output of stool throughout night, bowel sounds are hypoactive but pt is passing gas. Pt is up A1 with walker and gait belt, voiding and tolerating an NPO diet. ?
[2024-05-16 06:57] LABS: Basophils Absolute Auto 0.01 K/uL (0.00-0.30); Basophils Percent Auto 0.1 % (0.0-3.0); Hematocrit 29.1 % (33.0-51.0); Hemoglobin* 9.2 gm/dL (12.0-16.0); Immature Granulocytes Abs Auto 0.06 K/uL (0.00-0.30); Immature Granulocytes Pct Auto 0.6 %; Lymphocytes Percent Auto 5.2 % (20-44); Mean Corpuscular HGB Conc 32 gm/dL (32-36); Mean Corpuscular Hemoglobin 31 pg (26-34); Mean Corpuscular Volume 98 fL (80-100); Monocytes Percent Auto 5.8 % (0.0-11.0); Neutrophils Percent Auto 88.3 % (42.0-72.0); Platelet Count* 238 K/uL (140-440); RDW Coefficient of Variation % 18.6 % (11.5-15.5); Red Blood Count 2.98 m/uL (4.00-5.20); White Blood Count* 10.24 K/uL (4.50-11.00)
[2024-05-16 06:59] LABS: Slide Review Reflex No
[2024-05-16 07:10] LABS: Chloride* 111 mmol/L (96-114); Potassium* 3.1 mmol/L (3.6-5.1); Sodium* 139 mmol/L (135-149)
[2024-05-16 07:13] LABS: Creatinine* 0.5 mg/dL (0.5-1.5); Est. Creatinine Clearance* 31.04; Estimated Glomerular Filt Rate 92 ml/min
[2024-05-16 07:14] LABS: Anion Gap 3 mEq/L (7-15); Blood Urea Nitrogen* 11 mg/dL (7-30); Carbon Dioxide* 25 mmol/L (20-32); Glucose* 143 mg/dL (60-115)
[2024-05-16 07:29] LABS: C Reactive Protein* 18.2 mg/dL (0.5-1.0)
[2024-05-16 07:34] VITALS: BP 115/65; PULSE 87; RESP 22; TEMP 36.6; O2SAT 92
--- NOTE | 2024-05-16 09:47 | PM.GSPN ---
Subjective Subjective Date Seen: 05/16/24 Interval history: Patient is more confused this morning, remains oriented to self. She denies any abdominal pain during my examination. Her peristomal hernia is soft, nontender. Stoma is pink, viable and a small amount of stool it is in her ostomy bag. She has been passing gas since yesterday. Patient does have a vented ostomy bag, which makes evaluation of quantity of gas difficult to determine. Patient denies any nausea or vomiting. She is feeling very thirsty this morning. Exam Narrative: Exam Narrative: General: Alert and oriented, frail in appearance Abdomen: Soft, nondistended and nontender. Peristomal hernia non reducible, nontender with deep palpation. Stoma is pink in appearance with small amount of liquid stool in bag. Const: Vital Signs, click to edit/add: Vital Signs - 24 hr 05/15/24 11:16 05/15/24 15:00 05/15/24 15:00 Temperature 98.7 F 98.6 F Pulse Rate [Right Pulse Oximeter] 92 92 92 Respiratory Rate 20 16 16 Blood Pressure [Le ft Arm]] 107/58 L 120/69 Blood Pressure [Ri ght Arm] Pulse Oximetry 98 98 Oxygen Delivery Me thod Room Air Room Air 05/15/24 20:00 05/15/24 22:50 05/15/24 22:50 Temperature 98.3 F 97.8 F Pulse Rate [Right Pulse Oximeter] 101 H 93 93 Respiratory Rate 18 16 Blood Pressure [Le ft Arm]] 127/70 111/72 Blood Pressure [Ri ght Arm] Pulse Oximetry 97 96 Oxygen Delivery Me thod Room Air Room Air 05/16/24 02:15 05/16/24 07:34 05/16/24 07:34 Temperature 98.3 F 98 F Pulse Rate [Right Pulse Oximeter] 96 87 87 Respiratory Rate 16 22 22 Blood Pressure [Le ft Arm]] 108/57 L Blood Pressure [Ri ght Arm] 115/65 Pulse Oximetry 98 92 Oxygen Delivery Me thod Room Air Room Air Labs/Imaging Labs Labs: No leukocytosis. CRP is trending down (18) Progress Note:A&P Assessment and plan (1) Peristomal hernia: Status: Acute Assessment and Plan: Patient with a large, known peristomal hernia in the left lower quadrant. She had an end colostomy placed in 2020 for obstruction secondary to rectal cancer with evidence of metastatic disease. She has been maintained on palliative chemotherapy. She has a large peristomal hernia which has been present for several years. Patient with a questionable developing bowel obstruction within her peristomal hernia, this does appear to have resolved with conservative management. Her hernia is very soft, nontender with palpation and appears to be back at patient's baseline. She does have gas in her ostomy bag any small amount of liquid stool. Okay to start with clear liquids and advanced diet as tolerated. Could consider some oral laxatives, such as senna. Patient's daughter was called and updated regarding the plan. Unsure how symptomatic patient is regarding her hernia on a daily basis and if this is contributing to her overall decline with poor p.o. intake. Patient is a poor historian with some increased confusion during this hospital stay. No recommendations for surgery at this time. All other cares per hospitalist. Please call the on-call surgeon with any acute clinical changes.
[2024-05-16] MEDS: SENNOSIDES/DOCUSATE TABLET 1 TAB PO ×2 (10:33→20:49)
[2024-05-16 11:50] VITALS: BP 112/69; PULSE 86; RESP 22; TEMP 37.1; O2SAT 97
--- NOTE | 2024-05-16 12:09 | P.IMPN_ITS ---
Progress Note: A&P Assessment and plan (1) Peristomal hernia: Problem details: Uncertain whether this is stable chronic or causing new obstructive symptoms. General surgery following Status: Acute (2) Bowel obstruction: Problem details: Initial concern for bowel obstruction but patient has been making stool and hernia does not appear to be incarcerated or obstructed at this time General surgery consulted, following 05/16 okay to slowly advance diet, starting with clears. Recommending starting a stool softener. Continue to encourage ambulation. 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 Held while NPO - will restart with improved oral intake Status: Acute (4) Confusion: Problem details: Suspect possible underlying dementia as confusion has been present for about a month or longer according to her daughter. Ongoing assessment of this as well as evaluation for underlying illness causing a metabolic encephalopathy. Monitoring Status: Acute (5) Anorexia: Problem details: Very poor appetite due to? Concern for malnutrition. Nutrition consulted -> severe protein-calorie malnutrition based on weight loss and inadequate energy intake Status: Acute (6) Malnutrition: Problem details: Poor oral intake for at least a few days. Weight down 5 kg/10% in 2 months. Nutrition evaluated Status: Acute (7) Acute kidney injury: Problem details: I suspect this is due to poor oral intake as well as possible acute illness or sepsis Creatinine improved to 0.5 Status: Resolved (8) Disorders of fluid, electrolyte, and acid-base balance: Problem details: Patient reports being thirsty today. Will give additional bolus. Low potassium today. will supplement with IV. Improved 05/16 potassium remains low at 3.1, will supplement with further IV replacement until tolerating orals Status: Acute (9) Weakness: Problem details: Due to current illness acute and chronic. Ongoing evaluation and treatment with therapy. Status: Acute (10) Frailty syndrome in geriatric patient: Problem details: Due to multiple comorbidities and frailty patient is a poor surgical candidate and may also be a poor candidate to continue to live independently Status: Acute (11) Discharge planning issues: Problem details: Patient appears to need more assistance than she is getting in her independent living. Will continue to evaluate her recovery from current illness her response to therapy and have social human services assistants discussed with family ongoing options for support and supervision. Possible placement planned for Friday 05/18 - social media designer in contact with [facility] Status: Acute (12) Sepsis: Problem details: Suspected: Patient has hypotension and tachycardia and altered mental status and acute kidney injury. No definite sign of infection at this point. Will provide fluid resuscitation and monitor. So far responding to fluid resuscitation without antibiotics. Blood culture NGTD. Urine culture mixed Gram-positive stephy. CRP downtrending. If further signs or symptoms of infection such as fever obtained cultures and initiate broad-spectrum antibiotic coverage. Status: Resolved Time Spent With Patient Total time spent: Total time spent caring for the patient today was 45 minutes. This includes time spent for the visit reviewing the chart, time spent during the visit, time spent after the visit and documentation and planning in coordination of care. Subjective Date Seen: 05/16/24 Interval history: Patient is seen lying in bed this morning. Tearful at times. Remains confused, concerned that the doctors are working together and wondering whether not she will have surgery. Passing gas. General surgery has been following her with no plan for surgical intervention at this time. Currently denies headache. Denies abdominal pain. No recent nausea or vomiting. Exam Narrative: Exam Narrative: PHYSICAL EXAM General: Pleasant, tearful at times, conversant, NAD Cardiovascular: RRR, S1S2. No pitting edema Pulmonary: CTA bilaterally without rhonchi, rales, expiratory wheezes. No dyspnea Abdominal: Soft, nondistended, NTTP, ostomy with small amount of air Neurological: Alert, remains confused, cranial nerves intact, no focal findings Extremities: No gross joint deformity or swelling. AROMI. Neurovascularly intact Skin: Warm, dry. Const: Vital Signs, click to edit/add: Vital Signs - 24 hr 05/15/24 15:00 05/15/24 15:00 05/15/24 20:00 Temperature 98.6 F 98.3 F Pulse Rate [Right Pulse Oximeter] 92 92 101 H Respiratory Rate 16 16 18 Blood Pressure [Le ft Arm]] 120/69 127/70 Blood Pressure [Ri ght Arm] Pulse Oximetry 98 97 Oxygen Delivery Me thod Room Air Room Air 05/15/24 22:50 05/15/24 22:50 05/16/24 02:15 Temperature 97.8 F 98.3 F Pulse Rate [Right Pulse Oximeter] 93 93 96 Respiratory Rate 16 16 Blood Pressure [Le ft Arm]] 111/72 108/57 L Blood Pressure [Ri ght Arm] Pulse Oximetry 96 98 Oxygen Delivery Me thod Room Air Room Air 05/16/24 07:34 05/16/24 07:34 05/16/24 11:50 Temperature 98 F 98.7 F Pulse Rate [Right Pulse Oximeter] 87 87 86 Respiratory Rate 22 22 22 Blood Pressure [Le ft Arm]] Blood Pressure [Ri ght Arm] 115/65 112/69 Pulse Oximetry 92 97 Oxygen Delivery Me thod Room Air Room Air Labs Labs: Laboratory Results - last 24 hr 05/16/24 06:02 WBC 10.24 RBC 2.98 L Hgb 9.2 L Hct 29.1 L MCV 98 MCH 31 MCHC 32 RDW Coeff of Jumana 18.6 H Plt Count 238 Neut % (Auto) 88.3 H Lymph % (Auto) 5.2 L [place] % (Auto) 5.8 Eos % (Auto) 0.0 Baso % (Auto) 0.1 Neut # (Auto) 9.00 H Lymph # (Auto) 0.50 L [place] # (Auto) 0.60 Eos # (Auto) 0.00 Baso # (Auto) 0.01 Abs Immat Gran (auto) 0.06 Imm/Tot Granulo (auto) 0.6 Sodium 139 Potassium 3.1 L Chloride 111 Carbon Dioxide 25 Anion Gap 3 L BUN 11 Creatinine 0.5 Estimated Creat Clear 31.04 Estimated GFR 92 Glucose 143 H Lactate 0.7 Calcium 8.0 L C-Reactive Protein 18.2 H
[2024-05-16] MEDS: POTASSIUM CHLORIDE 10 MEQ/100 ML PIGGYBACK 100 MEQ IVPB ×4 (12:49→17:34)
[2024-05-16] MEDS: 0.9 % SODIUM CHLORIDE 250 ml IV (12:50)
[2024-05-16] MEDS: ENOXAPARIN 30 MG/0.3ML INJ SUBCUT (14:14)
[2024-05-16 15:45] VITALS: BP 111/62; PULSE 86; RESP 22; TEMP 37.1; O2SAT 97
--- NOTE | 2024-05-16 17:41 | PC.NURSE ---
Addendum entered by Charlotte Echeverria RN 05/16/24 17:51: correction: Patient has LR running at 75, and has also had 4 infusions of potassium. Original Note: End of Shift [id number]: Patient pleasant and cooperative, oriented to self. Patient vitally stable, lungs clear, BS WNL, IV SL and intact. Patient denies pain. Ostomy back contains liquid stool but not enough to empty, nothing emptied this shift. Patient has been tolerating fluids consuming two jello's and cream of chicken soup. Patient is 1 assist/walker. Patient has been up in chair and took to walks. Patient urinating well.
[2024-05-16 20:46] VITALS: BP 111/62; BP 114/68; PULSE 80; RESP 18; TEMP 36.6; O2SAT 94
[2024-05-16 23:00] VITALS: BP 99/66; PULSE 92; RESP 16; TEMP 36.4; O2SAT 96
[2024-05-17] VITALS (7 sets, daily range): BP systolic 107–126; BP diastolic 61–79; PULSE 82–93; RESP 16–22; TEMP 36.6–37.2; O2SAT 96–99
[2024-05-17] MEDS: 5 % DEXTROSE IN LAC RINGER'S 1,000 ML 75 ML IV (05:01)
--- NOTE | 2024-05-17 06:27 | PC.NURSE ---
Pt is oriented to self only. Afebrile. Pt denies pain, chest pain, SOB, and N/V. Bowel sounds continue to be hypoactive but pt had had 125ml?output of brown liquid stool and is passing gas. Pt is up A1/SBA with walker and gait belt, voiding and tolerating a full liquid diet. ?
[2024-05-17 07:08] LABS: Basophils Absolute Auto 0.01 K/uL (0.00-0.30); Basophils Percent Auto 0.1 % (0.0-3.0); Hematocrit 30.1 % (33.0-51.0); Hemoglobin* 9.5 gm/dL (12.0-16.0); Immature Granulocytes Abs Auto 0.16 K/uL (0.00-0.30); Immature Granulocytes Pct Auto 1.7 %; Lymphocytes Percent Auto 5.2 % (20-44); Mean Corpuscular HGB Conc 32 gm/dL (32-36); Mean Corpuscular Hemoglobin 31 pg (26-34); Mean Corpuscular Volume 98 fL (80-100); Monocytes Percent Auto 7.2 % (0.0-11.0); Neutrophils Percent Auto 85.8 % (42.0-72.0); Platelet Count* 243 K/uL (140-440); RDW Coefficient of Variation % 18.6 % (11.5-15.5); Red Blood Count 3.08 m/uL (4.00-5.20); White Blood Count* 9.63 K/uL (4.50-11.00)
[2024-05-17 07:12] LABS: Slide Review Reflex No
[2024-05-17 07:28] LABS: Chloride* 109 mmol/L (96-114); Potassium* 3.2 mmol/L (3.6-5.1); Sodium* 137 mmol/L (135-149)
[2024-05-17 07:31] LABS: Anion Gap 5 mEq/L (7-15); Blood Urea Nitrogen* 5 mg/dL (7-30); Carbon Dioxide* 23 mmol/L (20-32); Creatinine* 0.6 mg/dL (0.5-1.5); Est. Creatinine Clearance* 31.04; Estimated Glomerular Filt Rate 88 ml/min; Glucose* 129 mg/dL (60-115)
[2024-05-17 07:32] LABS: Calcium* 7.7 mg/dL (8.4-10.6)
[2024-05-17] MEDS: SENNOSIDES/DOCUSATE TABLET 1 TAB PO ×2 (08:48→20:50)
--- NOTE | 2024-05-17 10:36 | PM.GSPN ---
Subjective Subjective Date Seen: 05/17/24 Interval history: Patient ate some eggs, toast and coffee this morning. Denies any abdominal pain or nausea. No pain at her hernia site. She feels ?like she always does?. She continues to have gas in her ostomy bag, very minimal stool. Overall doing well. Exam Narrative: Exam Narrative: General: Alert and oriented, no acute distress Abdomen: Soft, nontender nondistended. Nontender a peristomal hernia. Ostomy with small amount of liquid stool and gas in bag. Const: Vital Signs, click to edit/add: Vital Signs - 24 hr 05/16/24 11:50 05/16/24 15:45 05/16/24 15:45 Temperature 98.7 F 98.8 F Pulse Rate [Right Pulse Oximeter] 86 86 86 Respiratory Rate 22 22 22 Blood Pressure [Le ft Arm]] 111/62 Blood Pressure [Ri ght Arm] 112/69 Pulse Oximetry 97 97 Oxygen Delivery Me thod Room Air Room Air 05/16/24 20:46 05/16/24 23:00 05/17/24 01:46 Temperature 97.9 F 97.6 F 97.9 F Pulse Rate [Right Pulse Oximeter] 80 92 89 Respiratory Rate 18 16 16 Blood Pressure [Le ft Arm]] 111/62 116/73 Blood Pressure [Ri ght Arm] 114/68 99/66 Pulse Oximetry 94 96 96 Oxygen Delivery Me thod Room Air Room Air Room Air 05/17/24 08:45 05/17/24 08:45 Temperature 98.3 F Pulse Rate [Right Pulse Oximeter] 84 84 Respiratory Rate 20 20 Blood Pressure [Le ft Arm]] Blood Pressure [Ri ght Arm] 107/64 Pulse Oximetry 98 Oxygen Delivery Me thod Room Air Labs/Imaging Labs Labs: No leukocytosis. Progress Note:A&P Assessment and plan (1) Peristomal hernia: Status: Acute Assessment and Plan: Patient with a large, known peristomal hernia in the left lower quadrant. She had an end colostomy placed in 2020 for obstruction secondary to rectal cancer with evidence of metastatic disease. She has been maintained on palliative chemotherapy. She has a large peristomal hernia which has been present for several years. Patient with a questionable developing bowel obstruction within her peristomal hernia, this does appear to have resolved with conservative management. Patient is tolerating a regular diet and continues to pass a copious amount of gas. Would recommend oral laxatives, currently on senna daily. Spoke with the daughter yesterday. In regards to the patient's hernia she states that she does not complain of it on a daily basis. She has no pain today during my examination. Continue with no recommendations for surgery at this time. All other cares per hospitalist. Surgery to sign off, please call with any acute clinical changes or need for re-evaluation.
[2024-05-17 10:52] LABS: Appearance Urine Slightly Cloudy (Clear); Bilirubin Urine Negative (Negative); Blood Urine 1+ (Negative); Color Urine Yellow (Yellow); Glucose Urine Negative (Negative); Ketones Urine Negative (Negative); Leukocyte Esterase Urine Trace (Negative); Nitrite Urine Negative (Negative); Protein Urine 1+ (Negative); Specific Gravity Urine 1.015 (1.000-1.030); pH Urine 7.5 (5.0-8.5)
--- NOTE | 2024-05-17 11:12 | P.IMPN_ITS ---
Progress Note: A&P Assessment and plan (1) Peristomal hernia: Problem details: Uncertain whether this is stable chronic or causing new obstructive symptoms. General surgery following Status: Acute (2) Bowel obstruction: Problem details: Initial concern for bowel obstruction but patient has been making stool and hernia does not appear to be incarcerated or obstructed at this time General surgery consulted, following 05/16 okay to slowly advance diet, starting with clears. Recommending starting a stool softener. Okay for laxative as needed. Continue to encourage ambulation. Will restart oral home medications which had been held when tolerating orals - ordered for 05/18 05/17 successfully tolerating advancement in diet, regular at this time, without increased pain, nausea/vomiting. 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 Held while NPO - will restart with improved oral intake - ordered to restart 05/18 Status: Acute (4) Confusion: Problem details: Suspect possible underlying dementia as confusion has been present for about a month or longer according to her daughter. Ongoing assessment of this as well as evaluation for underlying illness causing a metabolic encephalopathy. Monitoring - stable Status: Acute (5) Anorexia: Problem details: Very poor appetite due to? Concern for malnutrition. Nutrition consulted -> severe protein-calorie malnutrition based on weight loss and inadequate energy intake Status: Acute (6) Malnutrition: Problem details: Poor oral intake for at least a few days. Weight down 5 kg/10% in 2 months. Nutrition evaluated Status: Acute (7) Acute kidney injury: Problem details: I suspect this is due to poor oral intake as well as possible acute illness or sepsis Creatinine improved to 0.5 Status: Resolved (8) Disorders of fluid, electrolyte, and acid-base balance: Problem details: Patient reports being thirsty today. Will give additional bolus. Low potassium today. will supplement with IV. Improved 05/16 potassium remains low at 3.1, will supplement with further IV replacement until tolerating orals 05/17 potassium 3.2 - continue IV replacement, restart oral supplement 05/18 Status: Acute (9) Weakness: Problem details: Due to current illness acute and chronic. Ongoing evaluation and treatment with therapy Status: Acute (10) Frailty syndrome in geriatric patient: Problem details: Due to multiple comorbidities and frailty patient is a poor surgical candidate and may also be a poor candidate to continue to live independently flight attendant inflight services assisting Status: Acute (11) Discharge planning issues: Problem details: Patient appears to need more assistance than she is getting in her independent living. Will continue to evaluate her recovery from current illness her response to therapy and have social media marketing manager discussed with family ongoing options for support and supervision. Possible placement planned for Friday 05/18 - certified social workers in health care in contact with [facility] in [place] Status: Acute (12) Sepsis: Problem details: Suspected: Patient has hypotension and tachycardia and altered mental status and acute kidney injury. No definite sign of infection at this point. Will provide fluid resuscitation and monitor. So far responding to fluid resuscitation without antibiotics. Blood culture NGTD. Urine culture mixed Gram-positive stephy. CRP downtrending. If further signs or symptoms of infection such as fever obtained cultures and initiate broad-spectrum antibiotic coverage. Status: Resolved (13) Abnormal urine: Problem details: 05/17 staff noted urine to be malodorous, discolored. Asymptomatic otherwise. UA/UC ordered Status: Acute Time Spent With Patient Total time spent: Total time spent caring for the patient today was 45 minutes. This includes time spent for the visit reviewing the chart, time spent during the visit, time spent after the visit and documentation and planning in coordination of care. Subjective Date Seen: 05/17/24 Interval history: Patient is seen sitting up in a chair this morning. Reports feeling better this morning than yesterday. Still tearful at times, frustrated with changes in aging. Has been tolerating advancement in diet, having eaten scrambled eggs and toast this morning without pain or nausea/vomiting. Is hopeful about this. Continues to pass gas. Loose stool in ostomy. Awaiting placement, possibly [facility] on 05/18/2024. Exam Narrative: Exam Narrative: PHYSICAL EXAM General: Pleasant, tearful at times, conversant, NAD Cardiovascular: RRR, S1S2. No pitting edema Pulmonary: CTA bilaterally without rhonchi, rales, expiratory wheezes. No dyspnea Abdominal: Soft, nondistended, NTTP, ostomy with small amount of gas, dark stool Neurological: Alert, remains confused, cranial nerves intact, no focal findings Extremities: No gross joint deformity or swelling. AROMI. Neurovascularly intact Skin: Warm, dry. Const: Vital Signs, click to edit/add: Vital Signs - 24 hr 05/16/24 11:50 05/16/24 15:45 05/16/24 15:45 Temperature 98.7 F 98.8 F Pulse Rate [Right Pulse Oximeter] 86 86 86 Respiratory Rate 22 22 22 Blood Pressure [Le ft Arm]] 111/62 Blood Pressure [Ri ght Arm] 112/69 Pulse Oximetry 97 97 Oxygen Delivery Me thod Room Air Room Air 05/16/24 20:46 05/16/24 23:00 05/17/24 01:46 Temperature 97.9 F 97.6 F 97.9 F Pulse Rate [Right Pulse Oximeter] 80 92 89 Respiratory Rate 18 16 16 Blood Pressure [Le ft Arm]] 111/62 116/73 Blood Pressure [Ri ght Arm] 114/68 99/66 Pulse Oximetry 94 96 96 Oxygen Delivery Me thod Room Air Room Air Room Air 05/17/24 08:45 05/17/24 08:45 05/17/24 11:00 Temperature 98.3 F 98.4 F Pulse Rate [Right Pulse Oximeter] 84 84 82 Respiratory Rate 20 20 22 Blood Pressure [Le ft Arm]] Blood Pressure [Ri ght Arm] 107/64 110/62 Pulse Oximetry 98 98 Oxygen Delivery Me thod Room Air Room Air Labs Labs: Laboratory Results - last 24 hr 05/17/24 05:52 WBC 9.63 RBC 3.08 L Hgb 9.5 L Hct 30.1 L MCV 98 MCH 31 MCHC 32 RDW Coeff of Jumana 18.6 H Plt Count 243 Neut % (Auto) 85.8 H Lymph % (Auto) 5.2 L [place] % (Auto) 7.2 Eos % (Auto) 0.0 Baso % (Auto) 0.1 Neut # (Auto) 8.30 H Lymph # (Auto) 0.50 L [place] # (Auto) 0.70 Eos # (Auto) 0.00 Baso # (Auto) 0.01 Abs Immat Gran (auto) 0.16 Imm/Tot Granulo (auto) 1.7 Sodium 137 Potassium 3.2 L Chloride 109 Carbon Dioxide 23 Anion Gap 5 L BUN 5 L Creatinine 0.6 Estimated Creat Clear 31.04 Estimated GFR 88 Glucose 129 H Calcium 7.7 L
[2024-05-17 11:16] LABS: Bacteria Urine Few
[2024-05-17] MEDS: POTASSIUM CHLORIDE 10 MEQ/100 ML PIGGYBACK 100 MEQ IVPB ×4 (11:42→15:34)
[2024-05-17] MEDS: ENOXAPARIN 30 MG/0.3ML INJ SUBCUT (14:19)
--- NOTE | 2024-05-17 19:28 | PC.NURSE ---
End of Shift [id number]: Patient pleasant and cooperative, oriented to self. Patient vitally stable, lungs clear, BS WNL, IV SL. Patient denies pain and nausea. Ambulates SBA w/walker. Ostomy not emptied this shift. Patient tolerating regular diet, eating toast and eggs for breakfast, pizza for lunch, and yogurt and cinnamon for dinner. Patient urinating well. Patient reported feeling a lot better than when she first got here.
[2024-05-17] MEDS: SODIUM CHLORIDE 0.9 % (FLUSH) 10 ML SYRINGE 5 ML IVF (20:50)
[2024-05-18] VITALS (8 sets, daily range): BP systolic 112–120; BP diastolic 70–77; PULSE 82–92; RESP 16–20; TEMP 36.4–37.2; O2SAT 96–98
--- NOTE | 2024-05-18 06:31 | PC.NURSE ---
Pt is oriented to self only. Afebrile. Pt denies pain, chest pain, SOB, and N/V. Bowel sounds are active,?pt is passing gas, pt has stool in colostomy bag but not enough to measure. Pt is up A1/SBA with walker and gait belt, voiding and tolerating a reg diet. ?
[2024-05-18 06:52] LABS: Basophils Percent Auto 0.1 % (0.0-3.0); Eosinophils Percent Auto 0.1 % (0.0-7.0); Hematocrit 29.6 % (33.0-51.0); Hemoglobin* 9.4 gm/dL (12.0-16.0); Immature Granulocytes Pct Auto 1.6 %; Lymphocytes Percent Auto 5.9 % (20-44); Mean Corpuscular HGB Conc 32 gm/dL (32-36); Mean Corpuscular Hemoglobin 31 pg (26-34); Mean Corpuscular Volume 97 fL (80-100); Monocytes Percent Auto 7.3 % (0.0-11.0); Platelet Count* 248 K/uL (140-440); RDW Coefficient of Variation % 18.6 % (11.5-15.5); Red Blood Count 3.05 m/uL (4.00-5.20)
[2024-05-18 06:53] LABS: Slide Review Reflex No
[2024-05-18 07:01] LABS: Chloride* 112 mmol/L (96-114); Potassium* 3.4 mmol/L (3.6-5.1); Sodium* 138 mmol/L (135-149)
[2024-05-18 07:04] LABS: Creatinine* 0.6 mg/dL (0.5-1.5); Est. Creatinine Clearance* 31.04; Estimated Glomerular Filt Rate 88 ml/min
--- NOTE | 2024-05-18 07:04 | PC.NURSE ---
Pt is oriented to self only. Afebrile. Pt denies pain, chest pain, SOB, and N/V. Bowel sounds are active,?pt is passing gas, pt has stool in colostomy bag but not enough to mesure. Pt is up A1/SBA with walker and gait belt, voiding and tolerating a full liquid diet. ?
[2024-05-18 07:05] LABS: Anion Gap 4 mEq/L (7-15); Blood Urea Nitrogen* 9 mg/dL (7-30); Calcium* 8.2 mg/dL (8.4-10.6); Carbon Dioxide* 22 mmol/L (20-32); Glucose* 98 mg/dL (60-115)
[2024-05-18] MEDS: SENNOSIDES/DOCUSATE TABLET 1 TAB PO ×2 (08:56→21:23)
[2024-05-18] MEDS: POTASSIUM CHLORIDE 10 MEQ CAPSULE ER 20 MEQ PO (08:56)
[2024-05-18] MEDS: AMLODIPINE 10 MG TABLET PO (08:57)
[2024-05-18] MEDS: SODIUM CHLORIDE 0.9 % (FLUSH) 10 ML SYRINGE 5 ML IVF ×2 (08:57→21:24)
[2024-05-18] MEDS: lisinopriL 20 MG TABLET PO ×2 (08:57→21:23)
--- NOTE | 2024-05-18 10:56 | PC.SOCIAL ---
Addendum entered by KOKI Caputo 05/18/24 15:29: Discharge planning: Pre-admission screening completed and sent to Gwendolyn via secure email. [id number]. Social work to follow-up as needed. Addendum entered by KOKI Caputo 05/18/24 11:16: Discharge planning: The provider on duty is fine with the pt discharging to [facility] tomorrow 05/19. piece dye worker updated pt's daughter, Carlita, via phone. Social work to follow-up as needed. Original Note: Discharge planning: piece dye worker spoke with Gwendolyn at [facility] this morning whom shared that because the medication that the pt is on for chemo is excreted through her urine, [facility] would need the pt to not take the medication while she is at [facility] for short-term rehab. piece dye worker spoke to pt's daughter, Carlita, again and she said that the family was fine with that. They would like to accept the bed. [facility] also shared that they are not able to accept the pt until tomorrow(Saturday) due to nursing staff issues today. piece dye worker is checking with the provider on duty to see if this is an acceptable plan. Pt's daughter, Carlita, will be able to transport the pt to [facility] tomorrow. Social work to follow-up as needed.
[2024-05-18] MEDS: ENOXAPARIN 30 MG/0.3ML INJ SUBCUT (14:32)
--- NOTE | 2024-05-18 14:48 | P.IMPN_ITS ---
Progress Note: A&P Assessment and plan (1) Peristomal hernia: Problem details: Uncertain whether this is stable chronic or causing new obstructive symptoms. General surgery has signed off Status: Acute (2) Bowel obstruction: Problem details: Initial concern for bowel obstruction but patient has been making stool and hernia does not appear to be incarcerated or obstructed at this time General surgery consulted, following 05/16 okay to slowly advance diet, starting with clears. Recommending starting a stool softener. Okay for laxative as needed. Continue to encourage ambulation. Will restart oral home medications which had been held when tolerating orals - ordered for 05/18 As of 05/17 successfully tolerating advancement in diet, regular at this time, without increased pain, nausea/vomiting. 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 Held while NPO - will restart with improved oral intake - ordered to restart 05/18 [facility] will accept patient but because this medication is excreted through the urine, they will only take her if this medication is held. Patient and family in agreement with holding this medication during rehab. Status: Acute (4) Confusion: Problem details: Suspect possible underlying dementia as confusion has been present for about a month or longer according to her daughter. Ongoing assessment of this as well as evaluation for underlying illness causing a metabolic encephalopathy. Monitoring - stable Status: Acute (5) Anorexia: Problem details: Very poor appetite due to? Concern for malnutrition. Nutrition consulted -> severe protein-calorie malnutrition based on weight loss and inadequate energy intake Status: Acute (6) Malnutrition: Problem details: Poor oral intake for at least a few days. Weight down 5 kg/10% in 2 months. Nutrition evaluated Status: Acute (7) Acute kidney injury: Problem details: I suspect this is due to poor oral intake as well as possible acute illness or sepsis Creatinine improved to 0.5 Status: Resolved (8) Disorders of fluid, electrolyte, and acid-base balance: Problem details: Patient reports being thirsty today. Will give additional bolus. Low potassium today. will supplement with IV. Improved 05/16 potassium remains low at 3.1, will supplement with further IV replacement until tolerating orals 05/17 potassium 3.2 - continue IV replacement, restart oral supplement 05/18 - continuing to improve Status: Acute (9) Weakness: Problem details: Due to current illness acute and chronic. Ongoing evaluation and treatment with therapy Status: Acute (10) Frailty syndrome in geriatric patient: Problem details: Due to multiple comorbidities and frailty patient is a poor surgical candidate and may also be a poor candidate to continue to live independently conference services coordinator assisting Status: Acute (11) Discharge planning issues: Problem details: Patient appears to need more assistance than she is getting in her independent living. Will continue to evaluate her recovery from current illness her resp onse to therapy and have protective services social worker discussed with family ongoing options for support and supervision. Accepted by [facility] in [place] for transfer on 05/19 - will need to hold chemo medication during stay Status: Acute (12) Sepsis: Problem details: Suspected: Patient has hypotension and tachycardia and altered mental status and acute kidney injury. No definite sign of infection at this point. Will provide fluid resuscitation and monitor. So far responding to fluid resuscitation without antibiotics. Blood culture NGTD. Urine culture mixed Gram-positive stephy. CRP downtrending. If further signs or symptoms of infection such as fever obtained cultures and initiate broad-spectrum antibiotic coverage. Status: Resolved (13) Abnormal urine: Problem details: 05/17 staff noted urine to be malodorous, discolored. Asymptomatic otherwise. UA/UC ordered - UC growing > 100,000 mixed Gram-positive stephy. Defer antibiotics. Encourage increased fluid intake Status: Acute Plan Transfer to [facility] on 05/19 Time Spent With Patient Total time spent: Total time spent caring for the patient today was 45 minutes. This includes time spent for the visit reviewing the chart, time spent during the visit, time spent after the visit and documentation and planning in coordination of care. Subjective Date Seen: 05/18/24 Interval history: Patient is seen sitting up in a chair this morning. Reports feeling better. No headache or dizziness. Denies chest pain or shortness of breath. Tolerating regular diet x2 days without increased pain, nausea, vomiting. Awaiting discharge to SNF. Exam Narrative: Exam Narrative: PHYSICAL EXAM General: Pleasant, remains tearful at times, conversant, NAD Cardiovascular: RRR, S1S2. No pitting edema Pulmonary: CTA bilaterally without rhonchi, rales, expiratory wheezes. No dyspnea Abdominal: Soft, nondistended, NTTP, ostomy with small amount of gas, dark stool Neurological: Alert, remains mildly confused, cranial nerves intact, no focal findings Extremities: No gross joint deformity or swelling. AROMI. Neurovascularly intact Skin: Warm, dry. Const: Vital Signs, click to edit/add: Vital Signs - 24 hr 05/17/24 14:50 05/17/24 14:51 05/17/24 20:46 Temperature 99 F 97.8 F Pulse Rate [Right Pulse Oximeter] 86 86 93 Respiratory Rate 20 20 18 Blood Pressure [Le ft Arm]] Blood Pressure [Ri ght Arm] 117/69 109/61 Pulse Oximetry 99 97 Oxygen Delivery Me thod Room Air Room Air 05/17/24 22:52 05/18/24 00:35 05/18/24 05:45 Temperature 98.2 F Pulse Rate [Right Pulse Oximeter] 90 Respiratory Rate 16 16 16 Blood Pressure [Le ft Arm]] Blood Pressure [Ri ght Arm] 126/79 Pulse Oximetry 96 Oxygen Delivery Me thod Room Air 05/18/24 07:00 05/18/24 07:00 05/18/24 14:15 Temperature 97.6 F 98.2 F Pulse Rate [Right Pulse Oximeter] 89 89 89 Respiratory Rate 16 16 20 Blood Pressure [Le ft Arm]] 120/77 Blood Pressure [Ri ght Arm] 112/73 Pulse Oximetry 97 98 Oxygen Delivery Me thod Room Air Room Air Labs Labs: Laboratory Results - last 24 hr 05/18/24 06:01 WBC 12.70 H RBC 3.05 L Hgb 9.4 L Hct 29.6 L MCV 97 MCH 31 MCHC 32 RDW Coeff of Jumana 18.6 H Plt Count 248 Neut % (Auto) 85.0 H Lymph % (Auto) 5.9 L [place] % (Auto) 7.3 Eos % (Auto) 0.1 Baso % (Auto) 0.1 Neut # (Auto) 10.80 H Lymph # (Auto) 0.70 L [place] # (Auto) 0.90 Eos # (Auto) 0.00 Baso # (Auto) 0.00 Abs Immat Gran (auto) 0.20 Imm/Tot Granulo (auto) 1.6 Sodium 138 Potassium 3.4 L Chloride 112 Carbon Dioxide 22 Anion Gap 4 L BUN 9 Creatinine 0.6 Estimated Creat Clear 31.04 Estimated GFR 88 Glucose 98 Calcium 8.2 L
--- NOTE | 2024-05-18 14:57 | NUTR.NU ---
RDN attempted to follow-up with patient, however she was not available on multiple attempts today. Diet advanced to Regular. Meal intakes adequate at 50%+. Weight has been stable since admit. Plan for patient to discharge to SNF tomorrow. RDN will attempt to visit at later date.
[2024-05-19 03:00] VITALS: RESP 18
[2024-05-19 06:00] VITALS: RESP 16
--- NOTE | 2024-05-19 06:16 | PC.NURSE ---
End of shift report [id number]: Pleasant and cooperative with cares. Denies any pain this shift. Bowel sounds active, small amount of liquid stool in bag. Denies any nausea or vomiting. Shower Enclosure Installer offered to assist patient into gown for bed, patient declined stating she wanted to keep her current clothes on. Restful night vitals, patients respirations 15-17 throughout the night.
[2024-05-19 07:06] LABS: Hematocrit 30.4 % (33.0-51.0); Hemoglobin* 9.5 gm/dL (12.0-16.0); Mean Corpuscular HGB Conc 31 gm/dL (32-36); Mean Corpuscular Hemoglobin 30 pg (26-34); Mean Corpuscular Volume 97 fL (80-100); Platelet Count* 260 K/uL (140-440); Red Blood Count 3.15 m/uL (4.00-5.20); White Blood Count* 12.04 K/uL (4.50-11.00)
[2024-05-19 07:08] LABS: Slide Review Reflex No
[2024-05-19 07:45] VITALS: BP 92/69; PULSE 100; RESP 16; TEMP 36.8; O2SAT 99
[2024-05-19 09:06] VITALS: BP 110/69; PULSE 90; O2SAT 98
[2024-05-19] MEDS: POTASSIUM CHLORIDE 10 MEQ CAPSULE ER 20 MEQ PO (09:08)
[2024-05-19] MEDS: SENNOSIDES/DOCUSATE TABLET 1 TAB PO (09:08)
[2024-05-19] MEDS: lisinopriL 20 MG TABLET PO (09:08)
[2024-05-19] MEDS: AMLODIPINE 10 MG TABLET PO (09:08)
[2024-05-19] MEDS: SODIUM CHLORIDE 0.9 % (FLUSH) 10 ML SYRINGE 5 ML IVF (09:08)
--- NOTE | 2024-05-19 10:03 | PM.DS1 ---
DS: Providers Provider Date Seen: 05/19/24 Date of admission: 05/13/24 14:35 Primary care physician: Darlene Murray PA-C Admitting Clinician: Sudhir Goldberg MD Consults: 05/13/24 14:34 Consult to Physician [CONS] Urgent Comment: Consulting Provider: Isaura Avendano Has provider been notified: Yes 05/13/24 14:37 Consult to Occupational Therapy [CONS] Routine Comment: Reason(s) for OT Consult:: Evaluate and Treat Any Restrictions?:: No Restrictions Consult to Physical Therapy [CONS] Routine Comment: Reason(s) for PT Consult:: Evaluate and Treat Any Restrictions?:: No Restrictions Consult to Medical Lab Specialist [CONS] Routine Comment: Reason for Consult:: Discharge Planning Needs Attending Physician on discharge: PARI Lopez PA-C [facility] Date of Discharge: 05/19/24 DS: Diagnosis Discharge Diagnosis (1) Peristomal hernia: Status: Acute Problem details: Uncertain whether this is stable chronic or causing new obstructive symptoms. General surgery has signed off Continue ostomy cares at discharge (2) Bowel obstruction: Status: Acute Problem details: Initial concern for bowel obstruction but patient has been making stool and hernia does not appear to be incarcerated or obstructed at this time General surgery consulted, following 05/16 okay to slowly advance diet, starting with clears. Recommending starting a stool softener. Okay for laxative as needed. Continue to encourage ambulation. Will restart oral home medications which had been held when tolerating orals - ordered for 05/18 As of 05/17 successfully tolerating advancement in diet, regular at this time, without increased pain, nausea/vomiting. 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 Held while NPO - will restart with improved oral intake - ordered to restart 05/18 [facility] will accept patient but because this medication is excreted through the urine, they will only take her if this medication is held. Patient and family in agreement with holding this medication during rehab. (4) Confusion: Status: Acute Problem details: Suspect possible underlying dementia as confusion has been present for about a month or longer according to her daughter. Ongoing assessment of this as well as evaluation for underlying illness causing a metabolic encephalopathy. Monitoring - stable (5) Anorexia: Status: Acute Problem details: Very poor appetite due to? Concern for malnutrition. Nutrition consulted -> severe protein-calorie malnutrition based on weight loss and inadequate energy intake Outpatient follow-up with Nutrition (6) Malnutrition: Status: Acute Problem details: Poor oral intake for at least a few days. Weight down 5 kg/10% in 2 months. Nutrition evaluated (7) Acute kidney injury: Status: Resolved Problem details: I suspect this is due to poor oral intake as well as possible acute illness or sepsis Creatinine improved to 0.5. Stable (8) Disorders of fluid, electrolyte, and acid-base balance: Status: Acute Problem details: Patient reports being thirsty today. Will give additional bolus. Low potassium today. will supplement with IV. Improved 05/16 potassium remains low at 3.1, will supplement with further IV replacement until tolerating orals 05/17 potassium 3.2 - continue IV replacement, restart oral supplement 05/18 - continuing to improve Stable, continue oral replacement. Outpatient follow-up with PCP. (9) Weakness: Status: Acute Problem details: Due to current illness acute and chronic. Ongoing evaluation and treatment with therapy Continue acute rehab at discharge (10) Frailty syndrome in geriatric patient: Status: Acute Problem details: Due to multiple comorbidities and frailty patient is a poor surgical candidate and may also be a poor candidate to continue to live independently nutrition services assistant assisting (11) Discharge planning issues: Status: Acute Problem details: Patient appears to need more assistance than she is getting in her independent living. Will continue to evaluate her recovery from current illness her response to therapy and have social work msw discussed with family ongoing options for support and supervision. Accepted by [facility] for transfer on 05/19 - will need to hold chemo medication during stay (12) Sepsis: Status: Resolved Problem details: Suspected: Patient has hypotension and tachycardia and altered mental status and acute kidney injury. No definite sign of infection at this point. Will provide fluid resuscitation and monitor. So far responding to fluid resuscitation without antibiotics. Blood culture NGTD. Urine culture mixed Gram-positive stephy. CRP downtrending. If further signs or symptoms of infection such as fever obtained cultures and initiate broad-spectrum antibiotic coverage. Resolved prior to discharge (13) Abnormal urine: Status: Acute Problem details: 05/17 staff noted urine to be malodorous, discolored. Asymptomatic otherwise. UA/UC ordered - UC growing > 100,000 mixed Gram-positive stephy. Defer antibiotics. DS: Summary Hospital Course Hospital Course: Course of care and details as noted above. Remainder of chronic medical comorbidities were monitored and managed with home medications. Status at Discharge Functional status at discharge: uses cane/walker Overall status at discharge: patient is progressing back to baseline Time Spent with Patient Time attestation: Total time spent providing and/or coordinating discharge services: Time spent: Greater than 30 minutes Exam Narrative: Exam Narrative: PHYSICAL EXAM General: Pleasant, conversant, NAD Cardiovascular: RRR Pulmonary: No dyspnea Neurological: Alert, answering questions appropriately Skin: Warm, dry. Const: Vital Signs, click to edit/add: Vital Signs - 24 hr 05/18/24 14:15 05/18/24 15:00 05/18/24 15:00 Temperature 98.2 F 98.2 F Pulse Rate [Right Pulse Oximeter] 89 89 89 Respiratory Rate 20 20 20 Blood Pressure [Le ft Arm]] 120/77 120/77 Pulse Oximetry 98 98 Oxygen Delivery Me thod Room Air Room Air 05/18/24 19:00 05/18/24 23:00 05/18/24 23:00 Temperature 97.9 F 98.9 F Pulse Rate [Right Pulse Oximeter] 92 82 82 Respiratory Rate 16 16 16 Blood Pressure [Le ft Arm]] 114/70 117/71 Pulse Oximetry 97 96 Oxygen Delivery Me thod Room Air Room Air 05/18/24 23:30 05/19/24 03:00 05/19/24 06:00 Temperature Pulse Rate [Right Pulse Oximeter] Respiratory Rate 16 18 16 Blood Pressure [Le ft Arm]] Pulse Oximetry Oxygen Delivery Me thod 05/19/24 07:45 05/19/24 09:06 Temperature 98.2 F Pulse Rate [Right Pulse Oximeter] 100 90 Respiratory Rate 16 Blood Pressure [Le ft Arm]] 92/69 110/69 Pulse Oximetry 99 98 Oxygen Delivery Me thod Room Air DS: Data Data Completed and Pending Labs on day of discharge: Labs from last 24 hours 05/19/24 05:57 WBC 12.04 H RBC 3.15 L Hgb 9.5 L Hct 30.4 L MCV 97 MCH 30 MCHC 31 L Plt Count 260 Discharge Plan Discharge Disposition: [facility] Date of Admission: 05/13/24 14:35 Attending Provider on Discharge: Vanna Huerta Consulting Providers: Isaura Avendano Primary Care Provider: Darlene Murray Condition: Stable Discharge Medications: Continued calcium carbonate 600 mg calcium (1,500 mg) tablet 600 mg PO QDAY cholecalciferol (vitamin D3) 25 mcg (1,000 unit) capsule 25 mcg PO QDAY amlodipine 10 mg tablet 10 mg PO QDAY Qty: 90 3RF lisinopril 20 mg tablet 20 mg PO BID Qty: 180 3RF acetaminophen 325 mg capsule 325 mg PO Q6H PRN Rx Instructions: 1-2 tabs every 4 hrs as needed cetirizine 10 mg tablet 10 mg PO DAILY PRN multivitamin Tablet 1 tab PO DAILY Rx Instructions: Centrum Adults bisacodyl 5 mg tablet 5 mg PO BID potassium chloride 20 mEq tablet extended release 20 meq PO QDAY Qty: 7 0RF alendronate 70 mg tablet 70 mg PO QWEEK Qty: 12 3RF Held capecitabine 500 mg tablet 1,500 mg PO BID Qty: 84 3RF Hold Instructions: Resume on 06/02/24. Resume TBD. Patient and family agree to hold this medication while in TCU. To resume when discharged from short term stay. Rx Instructions: Take 3 tablets in the morning and 3 tablets in the evening; 1 week on and 1 week off. Discontinued cephalexin 500 mg capsule 500 mg PO BID 5 Days Qty: 10 0RF Discharge Orders: Discharge Order (Routine); Ordered 05/19/24 Ordered By: Vanna Huerta Additional Instructions: Patient will hold capecitabine while in TCU stay and resume when discharged. Follow up with Oncology. Activity Level: Activity as Tolerated Activity Detail: Per PT/OT Discharge Diet: Regular Follow Up Appointments: Darlene Murray PA-C [Primary Care Provider] - Forms: [facility] Info Instructions Ostomy Care: Peristomal cares Admit to: SNF Discharge Potential: Good Length of Stay: <30 days Can use facility standing orders?: Yes Code Status: DNR Rehab Potential: Good Therapy: Physical Therapy and Occupational Therapy Therapy Orders: Evaluate and Treat Oxygen: No Urinary Catheter: No Orders are good >30 days: No Signature: PARI Lopez PA-C [facility]
--- NOTE | 2024-05-19 10:25 | NUTR.NU ---
RDN attempted to visit with patient again related to weight loss, however she was resting and not arousable. Patient is to discharge to SNF today.
--- NOTE | 2024-05-19 10:56 | PC.NURSE ---
Nurse to nurse report given to Pepper at [facility]. All quesitons answered.
--- NOTE | 2024-05-19 11:05 | PC.NURSE ---
Patient discharged to [facility]. Daughter transported. all questions answered. All belongings sent with patient. Ostomy appliance changed this morning.
--- NOTE | 2024-05-19 12:03 | PC.SOCIAL ---
Discharge planning: dope and fabric worker provided pt and her daughter, Carlita, with a copy of the Important Message from Medicare form and explained the hospital discharge appeal process if they are not in agreement with their discharge plan. Pt and her daughter are in agreement with the discharge plan and have no plans to appeal their discharge. Discharge orders were secure emailed to Gwendolyn at [facility] this morning. Pt's daughter will transport the pt to [facility]. Social work to follow-up as needed.
== END 2024-05-19 11:06 | DRG 393 ==
LOC: ED 12:38 → MEDSURG 13:03
PROVIDERS: Physician Assistant; Admitting Provider Family Medicine; Emergency Provider Family Medicine; PCP Physician Assistant Medical; Visit Provider Family Medicine
DX: K43.3 Parastomal hernia with obstruction, without gangrene (principal); A41.9 Sepsis, unspecified organism; E43 Unspecified severe protein-calorie malnutrition; C18.7 Malignant neoplasm of sigmoid colon; C78.7 Secondary malignant neoplasm of liver and intrahepatic bile duct; C77.5 Secondary and unspecified malignant neoplasm of intrapelvic lymph nodes; K94.03 Colostomy malfunction; N17.9 Acute kidney failure, unspecified; F05 Delirium due to known physiological condition; R82.998 Other abnormal findings in urine; Z90.5 Acquired absence of kidney; E87.8 Other disorders of electrolyte and fluid balance, not elsewhere classified; E87.6 Hypokalemia; Z68.20 Body mass index [BMI] 20.0-20.9, adult; F03.90 Unspecified dementia, unspecified severity, without behavioral disturbance, psychotic disturbance, mood disturbance, and anxiety; Z91.81 History of falling
CPT/HCPCS: 36415; 70450; 74177; 80048; 80076; 81001; 81003; 83605; 83690; 84443; 84484; 85025; 85027; 86140; 87040; 87086; 87631; 93005; 94761; 97110; 97112; 97116; 97162; 97166; 97530; 97535; 99284; 99285; A9270; J1650; J3480; J7050; J7120; Q9967

== ENCOUNTER 2024-05-27 17:36 | Observation (INO) | payer MEDICARE, SELFPAY ==
[2024-05-27] VITALS (13 sets, daily range): BP systolic 97–105; BP diastolic 57–65; PULSE 85–97; RESP 16–18; TEMP 36.6–37.3; O2SAT 95–98; BMI 18.9; BMI 20.1
--- OUTSIDE RECORDS SUMMARY | 2024-05-27 17:38 | XMS_ITS | Clinical Summary ---
Author Organization [facility] Address [place], [place] [address] Care Team Providers Care Bus Mechanic Name Role Phone Pcp, No Primary Care Provider Unavailabl e Allergies Active Allergy Reactions Criticality Noted Date Comments Ragweed Pollen Other - Describe In Comment Field Low 07/18/2023 Medications amLODIPine (NORVASC) 5 mg tablet 01/04/2021 Active lisinopriL (PRINIVIL; ZESTRIL) 20 mg tablet 03/02/2021 Active Active Problems No known active problems Encounters Date Type Department Care Team Description 03/19/2024 9:40 AM CDT Office Visit [facility] [address] [place] [address] Mayur Escudero MD Musculoskeletal Problem (Follow up bilateral knee pain ) 03/19/2024 Travel from Last 3 Months Family History [...] Paying Living Expenses Not on file 05/11/2021 Comments Unknown Sex and Gender Information Value Date Recorded Sex Assigned at Not on file 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 Gender Identity Not on file Sexual Orientation [...] Care Team (Late st Contact Info) Description 07/20/2024 1:20 PM BOOKKEEPING SERVICE SALES AGENT Office Visit [facility] [address] [place] [address] Mayur Escudero MD [address] [place] [address] Health Maintenance Due Date Last Done Comments Tdap 1950 Depression screening for age 12+ 1951 BMI (ht and wt on same day) for age 18+ 1957 Tetanus booster 1959 Pneumococcal series for age 50+ (1 of 1 - PCV) 1989 Zoster (shingles) series for age 50+ (1 of 2) 1989 DEXA/DXA scan for age 65+ 2004 Medicare Wellness for age 65+ 2004 RSV vaccine for adults or (1 - 1-dose 75+ series) 2014 Influenza for age 65+ 01/19/2024 COVID-19 vaccine series Completed 02/04/20 24, 02/21/2023, 02/12/2022, Additional history exists Insurance MEDICARE RR PART B HB ONLY AARP PB ONLY MEDICARE RR PART B PB ONLY Advance Directives Documents on File Type Date Recorded Patient Managing Manager Expl anation Healthcare Directive 04/20/2011 SIGNED - 11/08/2005 Care Teams Bus Mechanic Relationship Specialty Start Date End Date Lorena John PCP - General 05/01/23
--- OUTSIDE RECORDS SUMMARY | 2024-05-27 17:38 | XMS_ITS | Clinical Summary ---
Author Organization [facility] Address [address] [place] [address] Care Team Providers Care Structural Shop Helper Name Role Phone Unavailable Primary Care Provider Unavailabl e Source Comments Patient records contain information from all sites at [facility]. For routine questions regarding patient records, call [phone] during business hours, M-F 8:00 AM - 5:00 PM Central Time. 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 Gender Identity Not on file Sexual Orientation [...] 3-dose series) 1999 COVID-19 Vaccine ( season) 2024 02/21/2023, 02/12/2022, 08/22/2021, Additional history exists Influenza Vaccine (#1) 2024 , 02/12/2022, 02/21/2021, Additional history exists Depression Screening (Annual PHQ-2) 05/20/2024 Fall Risk Screen (Annual) 05/20/2024 RSV vaccine - (32-36 weeks) or 60+ years Completed 02/21/2023 Pneumococcal vaccine (50+ years) Completed 03/11/2023, 02/27/2016 Zoster Vaccines Completed [...] CT Body (03/06/2024 10:15 AM CDT) Narrative [facility] - 03/09/2024 4:40 PM CDT This order [...] MR Body (03/06/2024 9:25 AM CDT) Narrative [facility] - 03/09/2024 4:37 PM CDT This order [...] Date Last Indicated Protective Environment 04/23/2023 Insurance [facility]
--- OUTSIDE RECORDS SUMMARY | 2024-05-27 17:38 | XMS_ITS | Referral Summary ---
Author Organization [facility] Address [address] [place] [address] Care Team Providers Care Mgmt Consultant Name Role Phone Unavailable Primary Care Provider Unavailabl e Source Comments Patient records contain information from all sites at [facility]. For routine questions regarding patient records, call [phone] during business hours, M-F 8:00 AM - 5:00 PM Central Time. Record requests for emergency care only can be directed to [phone] at any time.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
--- OUTSIDE RECORDS SUMMARY | 2024-05-27 17:38 | XMS_ITS ---
Author Organization [facility] Address [address] [place] [address] Care Team Providers Care Access Registrar Name Role Phone Unavailable Unavailable Unavailable Surgery Details Not on file Complications Check Surgery Details section. Procedure Estimated Blood Loss Check Surgery Details section. Procedure Findings Check Surgery Details section. Procedure Specimens Taken Check Surgery Details section.
--- OUTSIDE RECORDS SUMMARY | 2024-05-27 17:38 | XMS_ITS ---
Author Organization [facility] Address [address] [place] [address] Care Team Providers Care Wound Care Coordinator Name Role Phone Unavailable Primary Care [...] Treated Prescribed Fraction Dose Prescribed Total Dose [id number] 06/05/2023 6 5 of 5 500 cGy 2,500 cGy Reference Point Last Treated On Elapsed Days Session Dose Total Dose [id number] 06/05/2023 6 500 cGy 2,500 cGy
--- NOTE | 2024-05-27 18:11 | CRLHL7_ITS ---
For Patients: As a result of the Century Cures Act, medical imaging exams and procedure reports are released immediately into your electronic medical record. You may view this report before your referring provider. If you have questions, please contact your health care provider. INDICATION: Passing little amount of stool in the ostomy bag. History of colon cancer TECHNIQUE: CT Abdomen and pelvis with i.v. contrast. Coronal and sagittal reformats were obtained. CONTRAST: 54 mL Isovue 370 COMPARISON: 05/13/2024 FINDINGS: Lower chest: Unremarkable. Liver: There is a hypodense lesion in the subcapsular liver in segment 5 that has increased in size since prior exam and now measures 3 cm. There is stable ill-defined 1 cm hypodensity is seen in segment 7. There is a stable cyst measuring 4 mm in the left lateral segment of the liver. Spleen: Unremarkable. Pancreas: Unremarkable. Gallbladder: A tiny calcified gallstone is noted. Kidney: The patient is status post right nephrectomy. A small cyst is present in the upper pole of the left kidney measuring 1 cm. Adrenal: Unremarkable. Bowel: Moderate distention of the ascending colon and transverse colon is noted to the level of the ostomy where there is a parastomal hernia containing dilated segments of colon which may be causing obstruction of the colostomy. 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 Heterogeneous severe wall thickening of the sigmoid colon is present with a masslike structure measuring 4.5 cm extending along the right aspect of the sigmoid. The appearance is similar to prior examination and may correspond to the patient`s known primary malignancy. The appendix is not identified. Vascular: Unremarkable. Lymph: Unremarkable. Peritoneum: Unremarkable. No pneumoperitoneum is seen. No significant ascites is noted. Pelvis: Unremarkable. Soft tissue: Unremarkable. Bone: Moderate dextroscoliosis is noted with associated facet arthritis and degenerative disc disease. IMPRESSIONS: 1. Moderate distention of the ascending colon and transverse colon is noted to the level of the ostomy where there is a parastomal hernia containing dilated segments of colon which may be causing obstruction of the colostomy. 2. There is a hypodense lesion in the subcapsular liver in segment 5 that has increased in size since prior exam and now measures 3 cm. This may represent viable metastasis in a site of previous liver ablation. 3. Heterogeneous severe wall thickening of the sigmoid colon is present with a masslike structure measuring 4.5 cm extending along the right aspect of the sigmoid. The appearance is similar to prior examination and may correspond to the patient`s known primary malignancy. Dictated by Rex Crane MD @ 05/27/2024 7:20:22 PM Please note that all CT scans at this facility use dose modulation, iterative reconstruction, and/or weight-based dosing when appropriate to reduce radiation dose to as low as reasonably achievable. Dictated by: Rex Crane MD @ 05/27/2024 19:20:28 (Electronically Signed)
[2024-05-27 18:37] LABS: Basophils Percent Auto 0.2 % (0.0-3.0); Eosinophils Percent Auto 0.1 % (0.0-7.0); Hematocrit 30.1 % (33.0-51.0); Hemoglobin* 9.5 gm/dL (12.0-16.0); Immature Granulocytes Pct Auto 0.6 %; Lymphocytes Percent Auto 5.8 % (20-44); Mean Corpuscular HGB Conc 32 gm/dL (32-36); Mean Corpuscular Hemoglobin 30 pg (26-34); Mean Corpuscular Volume 94 fL (80-100); Monocytes Percent Auto 5.9 % (0.0-11.0); Neutrophils Percent Auto 87.4 % (42.0-72.0); Platelet Count* 406 K/uL (140-440); Red Blood Count 3.19 m/uL (4.00-5.20); White Blood Count* 15.11 K/uL (4.50-11.00)
[2024-05-27 18:49] LABS: Chloride* 103 mmol/L (96-114)
[2024-05-27 18:50] LABS: Potassium* 4.4 mmol/L (3.6-5.1); Sodium* 134 mmol/L (135-149)
[2024-05-27 18:52] LABS: Creatinine* 0.9 mg/dL (0.5-1.5); Estimated Glomerular Filt Rate 63 ml/min
[2024-05-27 18:53] LABS: Anion Gap 3 mEq/L (7-15); Blood Urea Nitrogen* 24 mg/dL (7-30); Calcium* 9.4 mg/dL (8.4-10.6); Carbon Dioxide* 28 mmol/L (20-32); Glucose* 131 mg/dL (60-115)
[2024-05-27 18:58] LABS: Slide Review Reflex No
--- NOTE | 2024-05-27 19:13 | ED_ITS ---
<Statement entered by Jeny Guerrier MD - 05/27/24 21:19> Did not contribute to this document, no billing HPI - General Adult General Date Seen: 05/27/24 Chief complaint: Constipation Stated complaint: constipation Time Seen by Provider: 05/27/24 17:40 Source: EMS Mode of arrival: EMS History of Present Illness HPI narrative: Patient is an 84-year-old patient with dementia presenting to the emergency department via EMS for concern of possible bowel obstruction. Recently transferred to [facility] 4 days ago. Has only had a small hard bowel movement since then. Staff there were concerned she could have a bowel obstruction as she recently was discharged for possible bowel obstruction. No surgery was done due to her rather frail appearance. She did improve and was discharged. Was stable at that time. Was initially tender palpation. No longer tender. Patient states she feels fine. No other concerns noted Related Data Home Medications ?Medication ?Instructions ?Recorded ?Confirmed acetaminophen 325 mg capsule 325 mg PO Q6H PRN 11/27/21 05/11/24 cetirizine 10 mg tablet 10 mg PO DAILY PRN 11/27/21 05/11/24 multivitamin 1 tab PO DAILY 11/27/21 05/11/24 calcium carbonate 600 mg PO QDAY 04/02/23 05/11/24 cholecalciferol (vitamin D3) 25 25 mcg PO QDAY 04/29/23 05/11/24 mcg (1,000 unit) capsule bisacodyl 5 mg tablet 5 mg PO BID 01/14/24 05/11/24 Previous Rx's ?Medication ?Instructions ?Recorded amlodipine 10 mg tablet 10 mg PO QDAY #90 tabs 09/09/23 lisinopril 20 mg tablet 20 mg PO BID #180 tabs 09/09/23 capecitabine 500 mg tablet 1,500 mg (3 x 500 mg) PO BID #84 02/18/24 tabs potassium chloride 20 mEq 20 meq PO QDAY #7 tabs 04/02/24 tablet,extended release alendronate 70 mg tablet 70 mg PO QWEEK #12 tabs 05/06/24 Allergies Allergy/AdvReac Type Severity Reaction Status Date / Time ragweed pollen Allergy Mild Sneezing Verified 05/27/24 18:55 Review of Systems Status of ROS: Reports: unobtainable due to mental status PFSH [facility] Medical History Abnormal urine ?R82.90 - Unspecified abnormal findings in urine (ICD-10) Frailty syndrome in geriatric patient ?R54 - Age-related physical debility (ICD-10) Weakness ?R53.1 - Weakness (ICD-10) Acute kidney injury ?N17.9 - Acute kidney failure, unspecified (ICD-10) Peristomal hernia ?K46.9 - Unspecified abdominal hernia without obstruction or gangrene (ICD- 10) Confusion ?R41.0 - Disorientation, unspecified (ICD-10) Acute UTI ?N39.0 - Urinary tract infection, site not specified (ICD-10) 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 - Localized skin eruption due to drugs and medicaments taken internally (ICD-10) Urinary tract infection ?N39.0 - Urinary tract infection, site not specified (ICD-10) Surgical History History of nephrectomy ?Z90.5 - Acquired absence of kidney (ICD-10) History of bowel resection ?Z90.49 - Acquired absence of other specified parts of digestive tract (ICD- 10) History of creation of ostomy ?Z93.9 - Artificial opening status, unspecified (ICD-10) Family History Mother Diabetes Brother Diabetes Social History Narrative: [facility] [place]. She lives near her daughter Sobia. Sobia is healthcare power of corporate attorney and closest support person. Code status is DNR. Other children include Mehul from [place], Dania from [place] and Paco from [place]. She does not smoke or drink alcohol. Health care directive on file- Health care directive completed on 11/08/2005. Reviewed and sent for scanning 12/29/2019. 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 What is your current living situation?: I presently have a place to live Problems where you live: no known problems Problems where you live details: none known In the past 12 months, utilities in danger of being shut off: no In past 12 months, lack of transportation kept you from medical appts, meetings, work, or getting things needed for daily living: no In the past 12 mos, have been you worried that your food would run out before you had money to buy more?: never true In the past 12 mos, the food you bought just didn't last and you didn't have money to buy more?: never true Smoking Status: Never smoker How often do you have a drink containing alcohol: never AUDIT-C Alcohol total score: 0 Non-prescribed substance use: denies use How often does anyone, including family, friends and others, physically hurt you : never How often does anyone, including family, friends and others, insult or talk down to you: never How often does anyone, including family, friends and others, threaten you with harm: never How often does anyone, including family, friends and others, scream or curse at you: never Exam Narrative: Exam Narrative: Const: Well-nourished, Well-developed, in no distress Eyes: PERRL, no conjunctival injection, and symmetrical lids HENT: Atraumatic external nose and ears. Moist mucous membranes. Neck: Symmetric, trachea midline, No thyromegaly. CVS: RRR, No murmurs or gallops. Peripheral pulses 2+ and equal in all extremities RESP: Unlabored respiratory effort. Clear to auscultation bilaterally. GI: Ostomy bag noted with distension unlikely hernia right underneath ostomy bag. I do smell bowel gas and there is a small amount of stool in the ostomy bag. No tenderness noted to abdomen MSK:Extremities w/o deformity, Normal Active ROM Skin: Warm, Dry. No rashes or lesions. Neuro: Normal Muscle tone, No focal neurological deficits. Psych: Awake, Alert, & Oriented to self only Const: Vital Signs, click to edit/add: Vital Signs - 24 hr 05/27/24 17:41 05/27/24 17:46 05/27/24 17:47 Temperature 99.1 F Pulse Rate 96 97 Pulse Rate [Right Pulse Oximeter] 95 Respiratory Rate 18 Blood Pressure 97/57 L Blood Pressure [Le ft Upper Arm] 97/57 L Pulse Oximetry 97 97 97 Oxygen Delivery Me thod Room Air 05/27/24 17:51 05/27/24 18:00 05/27/24 18:15 Temperature Pulse Rate 96 96 93 Pulse Rate [Right Pulse Oximeter] Respiratory Rate Blood Pressure 105/60 Blood Pressure [Le ft Upper Arm] Pulse Oximetry 96 97 95 Oxygen Delivery Me thod 05/27/24 18:30 05/27/24 18:56 05/27/24 19:00 Temperature Pulse Rate 91 85 88 Pulse Rate [Right Pulse Oximeter] Respiratory Rate Blood Pressure Blood Pressure [Le ft Upper Arm] Pulse Oximetry 96 98 96 Oxygen Delivery Me thod 05/27/24 20:34 05/27/24 20:45 Temperature Pulse Rate 91 90 Pulse Rate [Right Pulse Oximeter] Respiratory Rate Blood Pressure Blood Pressure [Le ft Upper Arm] Pulse Oximetry 96 97 Oxygen Delivery Me thod Course Vital Signs Vital signs: Initial Vital Signs Temperature 99.1 F 05/27/24 17:41 Temperature Source Temporal Artery Scan 05/27/24 17:41 Pulse Rate 95 05/27/24 17:41 Pulse Rhythm Regular 05/27/24 17:41 Respiratory Rate 18 05/27/24 17:41 Blood Pressure 97/57 L 05/27/24 17:41 Blood Pressure Mean 70 05/27/24 17:41 Blood Pressure Position Supine 05/27/24 17:41 Pulse Oximetry 97 05/27/24 17:41 Oxygen Delivery Method Room Air 05/27/24 17:41 Vital Signs Temperature 99.1 F 05/27/24 17:41 Pulse Rate 95 05/27/24 17:41 Respiratory Rate 18 05/27/24 17:41 Blood Pressure 97/57 L 05/27/24 17:41 Pulse Oximetry 97 05/27/24 17:41 Oxygen Delivery Method Room Air 05/27/24 17:41 Temperature 99.1 F 05/27/24 17:41 Pulse Rate 90 05/27/24 20:45 Respiratory Rate 18 05/27/24 17:41 Blood Pressure 105/60 05/27/24 17:51 Pulse Oximetry 97 05/27/24 20:45 Oxygen Delivery Method Room Air 05/27/24 17:41 Medical Decision Making MDM Narrative Medical decision making narrative: Patient is an 84-year-old female presenting to the emergency department for abdominal distention and concern for bowel obstruction. She has only had 1 small RO hard stool at her long term over the past 4 days. Is not having any pain and no tenderness around the ostomy site. She likely has a vented ostomy bag as I do smell bowel gas. This is reassuring. Will do a CT scan though to look for signs of obstruction. Also order CBC and BMP. CBC came elevated at 15.11. Previous white blood cell count was in the 12 range. Not sure why this is elevated. Could be related to her being a cancer patient and does not mean she has infection. Procalcitonin within normal limits along with lactate. CRP is elevated but is actually lower than previously. CT scan did show possible small bowel obstruction but considering the area is nontender and I do smell bowel gas coming through her vented ostomy bag along with a smear of stool within the bag seems less likely there is an obstruction. I did speak to the on-call general surgeon, Dr. Avendano, she states concerning the patient does have this elevated white blood cell count reassuring not completely positive the patient has a obstruction not she does think the safest option is to monitor the patient overnight. The patient's daughter who, were spoke to on the phone, is agreeable to this plan. Patient accepted to the hospitalist service. Did order blood cultures as she does meet SIRS criteria. Of note there is also an enlarged hypodense lesion of the liver that is larger than previous exam. This may represent metastasis. Lab Data Labs: Lab Results 05/27/24 05/27/24 05/27/24 Range/Units 18:27 19:36 20:20 WBC 15.11 H (4.50-11.00) K/uL RBC 3.19 L (4.00-5.20) m/uL Hgb 9.5 L (12.0-16.0) gm/dL Hct 30.1 L (33.0-51.0) % MCV 94 (80-100) fL MCH 30 (26-34) pg MCHC 32 (32-36) gm/dL RDW Coeff of Jumana 18.0 H (11.5-15.5) % Plt Count 406 (140-440) K/uL Neut % (Auto) 87.4 H (42.0-72.0) % Lymph % (Auto) 5.8 L (20-44) % [place] % (Auto) 5.9 (0.0-11.0) % Eos % (Auto) 0.1 (0.0-7.0) % Baso % (Auto) 0.2 (0.0-3.0) % Neut # (Auto) 13.20 H (1.7-7.0) K/uL Lymph # (Auto) 0.90 (0.90-2.90) K/uL [place] # (Auto) 0.90 (0.00-0.90) K/UL Eos # (Auto) 0.00 (0.00-0.50) K/uL Baso # (Auto) 0.00 (0.00-0.30) K/uL Abs Immat Gran (auto) 0.10 (0.00-0.30) K/uL Imm/Tot Granulo (auto) 0.6 % Sodium 134 L (135-149) mmol/L Potassium 4.4 (3.6-5.1) mmol/L Chloride 103 (96-114) mmol/L Carbon Dioxide 28 (20-32) mmol/L Anion Gap 3 L (7-15) mEq/L BUN 24 (7-30) mg/dL Creatinine 0.9 (0.5-1.5) mg/dL Estimated Creat Clear 32.40 Estimated GFR 63 ml/min Glucose 131 H (60-115) mg/dL Lactate 1.1 (0.5-1.9) mmol/L Calcium 9.4 (8.4-10.6) mg/dL C-Reactive Protein 13.5 H (0.5-1.0) mg/dL Procalcitonin 0.23 (<0.50) ng/mL Lab Acknowledgement New Spec Needed Imaging Data CT scan abdomen pelvis: Attestation: I have reviewed the pertinent imaging results. Radiologist's impression: 1. Moderate distention of the ascending colon and transverse colon is noted to the level of the ostomy where there is a parastomal hernia containing dilated segments of colon which may be causing obstruction of the colostomy. 2. There is a hypodense lesion in the subcapsular liver in segment 5 that has increased in size since prior exam and now measures 3 cm. This may represent viable metastasis in a site of previous liver ablation. 3. Heterogeneous severe wall thickening of the sigmoid colon is present with a masslike structure measuring 4.5 cm extending along the right aspect of the sigmoid. The appearance is similar to prior examination and may correspond to the patient`s known primary malignancy. Dictated by Rex Crane MD @ 05/27/2024 7:20:22 PM Discharge Plan Discharge Clinical Impression: Small bowel obstruction Leukocytosis Qualifiers: Leukocytosis type: unspecified Qualified Code(s): D72.829 - Elevated white blood cell count, unspecified Patient Disposition: Admitted As Observation Condition: Stable
--- OUTSIDE RECORDS SUMMARY | 2024-05-27 19:17 | XMS_ITS ---
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 Past Plans No past plan information found. Radiation Treatments * Plan Last Treated On Elapsed Days Fractions Treated Prescribed Fraction Dose Prescribed Total Dose [id number] 06/05/2023 6 5 of 5 500 cGy 2,500 cGy Reference Point Last Treated On Elapsed Days Session Dose Total Dose [id number] 06/05/2023 6 500 cGy 2,500 cGy
--- OUTSIDE RECORDS SUMMARY | 2024-05-27 19:17 | XMS_ITS | Clinical Summary ---
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 Name Role Phone Pcp, No Primary Care Provider Unavailabl e Allergies Active Allergy Reactions Criticality Noted Date Comments Ragweed Pollen Other - Describe In Comment Field Low 07/18/2023 Medications amLODIPine (NORVASC) 5 mg tablet 01/04/2021 Active lisinopriL (PRINIVIL; ZESTRIL) 20 mg tablet 03/02/2021 Active Active Problems No known active problems Encounters Date Type Department Care Team Description 03/19/2024 9:40 AM CDT Office Visit [facility] [address] [place] [address] Mayur Escudero MD Musculoskeletal Problem (Follow up [...] on file 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
--- OUTSIDE RECORDS SUMMARY | 2024-05-27 19:17 | XMS_ITS | Clinical Summary ---
Author Organization [facility] Address [address] [place] [address] Care Team Providers Care Branch Sales And Service Representative Name Role Phone Unavailable Primary Care Provider Unavailabl e Source Comments Patient records contain information from all sites at [facility]. For routine questions regarding patient records, call [phone] during business hours, M-F 8:00 AM - 5:00 PM Central Time. 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 MEDICARE
--- OUTSIDE RECORDS SUMMARY | 2024-05-27 19:17 | XMS_ITS | Referral Summary ---
Author Organization [facility] Address [address] [place] [address] Care Team Providers Care Director Call Name Role Phone Unavailable Primary Care Provider Unavailabl e Source Comments Patient records contain information from all sites at [facility]. For routine questions regarding patient records, call [phone] during business hours, M-F 8:00 AM - 5:00 PM Central Time. 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
--- OUTSIDE RECORDS SUMMARY | 2024-05-27 19:17 | XMS_ITS ---
Author Organization [facility] Address [address] [place] [address] Care Team Providers Care Account Supervisor Name Role Phone Unavailable Unavailable Unavailable Surgery Details Not on file Complications Check Surgery Details section. Procedure Estimated Blood Loss Check Surgery Details section. Procedure Findings Check Surgery Details section. Procedure Specimens Taken Check Surgery Details section.
[2024-05-27 19:44] LABS: Lab Add On Test New Spec Needed
[2024-05-27 20:15] LABS: Procalcitonin* 0.23 ng/mL (<0.50)
[2024-05-27 20:22] LABS: C Reactive Protein* 13.5 mg/dL (0.5-1.0)
[2024-05-27 20:25] LABS: Lactate Sepsis w/Reflex* 1.1 mmol/L (0.5-1.9)
--- NOTE | 2024-05-27 21:19 | P.IMHP_ITS ---
Hospitalist- H&P: HPI History of Present Illness Date Seen: 05/27/24 Chief complaint: constipation Narrative: Angle Kennedy is a 84 year old female with past medical history of hypertension, hyperlipidemia, and history of colorectal cancer that was treated with surgery and chemotherapy with patient having an ostomy since that time. Patient presents with constipation and her presentation is concerning for bowel obstruction. ED contacted Dr. Avendano from General surgery who accepts the patient and will re-evaluate her tomorrow for the need of surgery. Of note, patient was admitted recently to [facility] for a similar complaint and was discharged on May 19 2024, at that time patient was evaluated for surgery but it was held as patient showed improvement at that time. Denies fever, nausea or vomiting, abdominal pain, cough or urinary symptoms. At the ED, WBCs elevated at 15.11.? Previous white blood cell count was in the 12 range.? Procalcitonin within normal limits along with lactate.? CRP is elevated but is actually lower than previously. CT abd/pelvis showed: Moderate distention of the ascending colon and transverse colon is noted to the level of the ostomy where there is a parastomal hernia containing dilated segments of colon which may be causing obstruction of the colostomy. There is a hypodense lesion in the subcapsular liver in segment 5 that has increased in size since prior exam and now measures 3 cm. This may represent viable metastasis in a site of previous liver ablation. Heterogeneous severe wall thickening of the sigmoid colon is present with a masslike structure measuring 4.5 cm extending along the right aspect of the sigmoid. The appearance is similar to prior examination and may correspond to the patient`s known primary malignancy. Review of Systems Status of ROS: Reports: 6 or more systems reviewed and unremarkable except as noted in History and below [facility] Medical History Abnormal urine ?R82.90 - Unspecified abnormal findings in urine (ICD-10) Frailty syndrome in geriatric patient ?R54 - Age-related physical debility (ICD-10) Weakness ?R53.1 - Weakness (ICD-10) Acute kidney injury ?N17.9 - Acute kidney failure, unspecified (ICD-10) Peristomal hernia ?K46.9 - Unspecified abdominal hernia without obstruction or gangrene (ICD- 10) Confusion ?R41.0 - Disorientation, unspecified (ICD-10) Acute UTI ?N39.0 - Urinary tract infection, site not specified (ICD-10) 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 - Localized skin eruption due to drugs and medicaments taken internally (ICD-10) Urinary tract infection ?N39.0 - Urinary tract infection, site not specified (ICD-10) Surgical History History of nephrectomy ?Z90.5 - Acquired absence of kidney (ICD-10) History of bowel resection ?Z90.49 - Acquired absence of other specified parts of digestive tract (ICD- 10) History of creation of ostomy ?Z93.9 - Artificial opening status, unspecified (ICD-10) Family History Mother Diabetes Brother Diabetes Social History Narrative: She lives in a [facility] in [place]. She lives near her daughter Sobia. Sobia is healthcare power of banking attorney and closest support person. Code status is DNR. Other children include Mehul from [place], Dania from [place] and Paco from [place]. She does not smoke or drink alcohol. Health care directive on file- Health care directive completed on 11/08/2005. Reviewed and sent for scanning 12/29/2019. 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 What is your current living situation?: I presently have a place to live Problems where you live: no known problems Problems where you live details: none known In the past 12 months, utilities in danger of being shut off: no In past 12 months, lack of transportation kept you from medical appts, meetings, work, or getting things needed for daily living: no In the past 12 mos, have been you worried that your food would run out before you had money to buy more?: never true In the past 12 mos, the food you bought just didn't last and you didn't have money to buy more?: never true Smoking Status: Never smoker How often do you have a drink containing alcohol: never AUDIT-C Alcohol total score: 0 Non-prescribed substance use: denies use How often does anyone, including family, friends and others, physically hurt you : never How often does anyone, including family, friends and others, insult or talk down to you: never How often does anyone, including family, friends and others, threaten you with harm: never How often does anyone, including family, friends and others, scream or curse at you: never Meds Home Medications and Allergies Home Medications ?Medication ?Instructions ?Recorded ?Confirmed ?Type acetaminophen 325 mg capsule 325 mg PO Q6H PRN 11/27/21 05/11/24 History cetirizine 10 mg tablet 10 mg PO DAILY PRN 11/27/21 05/11/24 History multivitamin 1 tab PO DAILY 11/27/21 05/11/24 History calcium carbonate 600 mg PO QDAY 04/02/23 05/11/24 History cholecalciferol (vitamin D3) 25 25 mcg PO QDAY 04/29/23 05/11/24 History mcg (1,000 unit) capsule bisacodyl 5 mg tablet 5 mg PO BID 01/14/24 05/11/24 History Allergies Allergy/AdvReac Type Severity Reaction Status Date / Time ragweed pollen Allergy Mild Sneezing Verified 05/27/24 18:55 Exam Narrative: Exam Narrative: Physical exam GENERAL: Frail elderly, no acute distress. HEAD AND NECK: Atraumatic, normocephalic CARDIOVASCULAR: RRR. Normal S1, S2. No murmurs. RESPIRATORY: Clear to auscultation B/L. Good air entry B/L. No wheezes or rhonchi. GASTROINTESTINAL: Rt sided abdominal swelling. Not tender to palpation. Ostomy in place. No guarding or rigidity. NEUROLOGY: Alert, awake. Normal speech. PSYCH: Normal mood, normal affect. Const: Vital Signs, click to edit/add: Vital Signs - 24 hr 05/27/24 17:41 05/27/24 17:46 05/27/24 17:47 Temperature 99.1 F Pulse Rate 96 97 Pulse Rate [Right Pulse Oximeter] 95 Respiratory Rate 18 Blood Pressure 97/57 L Blood Pressure [Le ft Upper Arm] 97/57 L Pulse Oximetry 97 97 97 Oxygen Delivery Me thod Room Air 05/27/24 17:51 05/27/24 18:00 05/27/24 18:15 Temperature Pulse Rate 96 96 93 Pulse Rate [Right Pulse Oximeter] Respiratory Rate Blood Pressure 105/60 Blood Pressure [Le ft Upper Arm] Pulse Oximetry 96 97 95 Oxygen Delivery Me thod 05/27/24 18:30 05/27/24 18:56 05/27/24 19:00 Temperature Pulse Rate 91 85 88 Pulse Rate [Right Pulse Oximeter] Respiratory Rate Blood Pressure Blood Pressure [Le ft Upper Arm] Pulse Oximetry 96 98 96 Oxygen Delivery Hi thod 05/27/24 20:34 05/27/24 20:45 Temperature Pulse Rate 91 90 Pulse Rate [Right Pulse Oximeter] Respiratory Rate Blood Pressure Blood Pressure [Le ft Upper Arm] Pulse Oximetry 96 97 [facility] - H&[facility]: Result Labs Labs: Short CBC 05/27/24 Range/Units 18:27 WBC 15.11 H (4.50-11.00) K/uL Hgb 9.5 L (12.0-16.0) gm/dL Hct 30.1 L (33.0-51.0) % Plt Count 406 (140-440) K/uL BMP 05/27/24 18:27 Sodium 134 L Potassium 4.4 Chloride 103 Carbon Dioxide 28 BUN 24 Creatinine 0.9 Glucose 131 H Calcium 9.[address] scan - abdomen: Radiologist's impression: INDICATION: Passing little amount of stool in the ostomy bag. History of colon cancer TECHNIQUE: CT Abdomen and pelvis with i.v. contrast. Coronal and sagittal reformats were obtained. CONTRAST: 54 mL Isovue 370 COMPARISON: 05/13/2024 FINDINGS: Lower chest: Unremarkable. Liver: There is a hypodense lesion in the subcapsular liver in segment 5 that has increased in size since prior exam and now measures 3 cm. There is stable ill-defined 1 cm hypodensity is seen in segment 7. There is a stable cyst measuring 4 mm in the left lateral segment of the liver. Spleen: Unremarkable. Pancreas: Unremarkable. Gallbladder: A tiny calcified gallstone is noted. Kidney: The patient is status post right nephrectomy. A small cyst is present in the upper pole of the left kidney measuring 1 cm. Adrenal: Unremarkable. Bowel: Moderate distention of the ascending colon and transverse colon is noted to the level of the ostomy where there is a parastomal hernia containing dilated segments of colon which may be causing obstruction of the colostomy. 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 Heterogeneous severe wall thickening of the sigmoid colon is present with a masslike structure measuring 4.5 cm extending along the right aspect of the sigmoid. The appearance is similar to prior examination and may correspond to the patient`s known primary malignancy. The appendix is not identified. Vascular: Unremarkable. Lymph: Unremarkable. Peritoneum: Unremarkable. No pneumoperitoneum is seen. No significant ascites is noted. Pelvis: Unremarkable. Soft tissue: Unremarkable. Bone: Moderate dextroscoliosis is noted with associated facet arthritis and degenerative disc disease. IMPRESSIONS: 1. Moderate distention of the ascending colon and transverse colon is noted to the level of the ostomy where there is a parastomal hernia containing dilated segments of colon which may be causing obstruction of the colostomy. 2. There is a hypodense lesion in the subcapsular liver in segment 5 that has increased in size since prior exam and now measures 3 cm. This may represent viable metastasis in a site of previous liver ablation. 3. Heterogeneous severe wall thickening of the sigmoid colon is present with a masslike structure measuring 4.5 cm extending along the right aspect of the sigmoid. The appearance is similar to prior examination and may correspond to the patient`s known primary malignancy. Dictated by Rex Crane MD @ 05/27/2024 7:20:22 PM Please note that all CT scans at this facility use dose modulation, iterative reconstruction, and/or weight-based dosing when appropriate to reduce radiation dose to as low as reasonably achievable. Dictated by: Rex Crane MD @ 05/27/2024 19:20:28 Assessment and Plan Assessment and plan (1) Small bowel obstruction: Problem comment: NPO Gen Sx consulted Status: Acute (2) Leukocytosis: Problem comment: Monitor WBCs, holding Abx for now. ED ordered blood cultures as she meets SIRS criteria. F/up Bl Cx. UA on 05/17 was WNL, consider repeating urinalysis if WBCs continue to trend up as pt has Hx of UTIs. ? 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 Held while NPO - will restart with improved oral intake. During her last admission, [facility] mentioned they will only take her if this medication is held. Patient and family agreed on holding this medication during rehab. Status: Acute Plan As above Total Time Spent Total Time Spent: Time spent: Today I spent 75 minutes seeing the patient, discussing the patient with ER staff, reviewing Expanse and EPIC notes/diagnostics, discussing the care plan with our care time that includes social work, PT/OT, pharmacy, RT, chcf and documenting my impressions and plan in the medical record.
[2024-05-28] VITALS: BP 95/59; PULSE 89; RESP 16; TEMP 36.8; O2SAT 96
[2024-05-28 02:59] VITALS: BP 92/52; PULSE 80; RESP 18; TEMP 36.4; O2SAT 98
[2024-05-28] MEDS: 0.9 % SODIUM CHLORIDE 500 ML 500 ML IV (03:20)
[2024-05-28 05:30] VITALS: BP 94/52
[2024-05-28] MEDS: 0.9 % SODIUM CHLORIDE 1000 ml 1,000 ML 100 ML IV (05:57)
--- NOTE | 2024-05-28 06:53 | PC.NURSE ---
End of shift [id number]: alert to self. pt in and out of sleep throughout the night. At one point pt was quite teary and kept repeating just let me go. technical publications writer sat with pt until she fell back to sleep. soft BPs. provider updated. see orders. up w/ SBA and walker. tolerates well. no output in ostomy. bed alarm in place.
[2024-05-28 07:09] LABS: Basophils Percent Auto 0.2 % (0.0-3.0); Eosinophils Percent Auto 0.3 % (0.0-7.0); Hematocrit 27.9 % (33.0-51.0); Hemoglobin* 8.8 gm/dL (12.0-16.0); Immature Granulocytes Pct Auto 0.7 %; Lymphocytes Percent Auto 5.6 % (20-44); Mean Corpuscular HGB Conc 32 gm/dL (32-36); Mean Corpuscular Hemoglobin 30 pg (26-34); Mean Corpuscular Volume 95 fL (80-100); Monocytes Percent Auto 8.3 % (0.0-11.0); Neutrophils Percent Auto 84.9 % (42.0-72.0); Platelet Count* 356 K/uL (140-440); RDW Coefficient of Variation % 17.9 % (11.5-15.5); Red Blood Count 2.93 m/uL (4.00-5.20); White Blood Count* 13.42 K/uL (4.50-11.00)
[2024-05-28 07:16] LABS: Albumin* 2.6 g/dL (3.3-5.0); Chloride* 109 mmol/L (96-114); Slide Review Reflex No; Sodium* 139 mmol/L (135-149)
[2024-05-28 07:17] LABS: Potassium* 3.9 mmol/L (3.6-5.1)
[2024-05-28 07:19] LABS: Alanine Aminotransferase* 17 U/L (4-35); Alkaline Phosphatase* 117 U/L (40-150); Anion Gap 5 mEq/L (7-15); Aspartate Amino Transferase* 20 U/L (12-35); Bilirubin Total* 0.7 mg/dL (0.1-1.5); Blood Urea Nitrogen* 17 mg/dL (7-30); Calcium* 8.7 mg/dL (8.4-10.6); Carbon Dioxide* 25 mmol/L (20-32); Creatinine* 0.8 mg/dL (0.5-1.5); Est. Creatinine Clearance* 29.53; Estimated Glomerular Filt Rate 72 ml/min; Glucose* 94 mg/dL (60-115); Magnesium* 2.1 mg/dL (1.5-2.6); Total Protein* 5.6 g/dL (6.0-8.3)
--- NOTE | 2024-05-28 10:59 | REH.OT ---
Per nursing, therapy does not need to evaluate at this time as pt will return back to [facility] w/ discussion of transitioning to comfort cares.
--- NOTE | 2024-05-28 11:13 | PM.DS1 ---
DS: Providers Provider Date Seen: 05/28/24 Date of admission: 05/27/24 21:05 Primary care physician: Darlene Murray PA-C Admitting Clinician: Jeny Guerrier MD Consults: 05/27/24 22:14 Consult to Occupational Therapy [CONS] Routine Comment: Reason(s) for OT Consult:: Evaluate and Treat Any Restrictions?:: No Restrictions Consult to Physical Therapy [CONS] Routine Comment: Reason(s) for PT Consult:: Evaluate and Treat Any Restrictions?:: No Restrictions Consult to Physician [CONS] Routine Comment: Consulting Provider: Isaura Avendano Has provider been notified: Yes Consult to General Scrap Worker [CONS] Routine Comment: Reason for Consult:: Social Service Consult Attending Physician on discharge[facility]: 05/28/24 DS: Diagnosis Discharge Diagnosis (1) Small bowel obstruction: Status: Acute Problem details: NPO Gen Sx consulted Discussed with General Surgery, Dr. Avendano. Stable since previous hospitalization. Nonsurgical management. Recommending more aggressive bowel regimen, oral senna, continuing laxatives, magnesium. Okay to discharge back to SNF for care conference today from surgical specialty standpoint with increased bowel cares. (2) Leukocytosis: Status: Acute Problem details: Monitor WBCs, holding Abx for now. ED ordered blood cultures as she meets SIRS criteria. F/up Bl Cx. UA on 05/17 was WNL, consider repeating urinalysis if WBCs continue to trend up as pt has Hx of UTIs. ? WBC trending down without intervention of antibiotics. Previously > 12 during last hospitalization. No new symptomatology. Denies UTI symptoms. Afebrile. No further workup prior to discharge. Outpatient follow-up. (3) Peristomal hernia: Status: Acute Problem details: Continue ostomy cares Discussed with family and patient, importance of SNF familiarizing team with hernia and ostomy cares. They will discuss this during care conference this afternoon. (4) Hypertension: Status: Chronic Problem details: Pt's BP is soft Hold BP meds Patient and family have made decision to discontinue home antihypertensives. They will discuss this during care conference this afternoon as well. 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 Held while NPO - will restart with improved oral intake. During her last admission, [facility] mentioned they will only take her if this medication is held. Patient and family agreed on holding this medication during rehab. Discussed with patient and family. Daughter reports CEA number has been trending up. CT from yesterday shows liver lesion enlarged since previous CT on 05/13/24. Decision has been made to discontinue capecitabine. They will discuss this during the care conference this afternoon. DS: Summary Hospital Course Hospital Course: Readmitted, stable CT findings per general surgery. Increasing bowel cares. Return to SNF. Course of care and details as noted above. Care conference 05/28/2024 to discuss further goals of care. Stopping usual home medications, including capecitabine. Remainder of chronic medical comorbidities were monitored and managed with home medications. Status at Discharge Functional status at discharge: independent ambulation Overall status at discharge: patient is back to baseline Time Spent with Patient Time attestation: Total time spent providing and/or coordinating discharge services: Time spent: Greater than 30 minutes Exam Narrative: Exam Narrative: PHYSICAL EXAM General: Pleasant, conversant, NAD Cardiovascular: RRR Pulmonary: No dyspnea Neurological: Alert, answering questions appropriately Skin: Warm, dry. Const: Vital Signs, click to edit/add: Vital Signs - 24 hr 05/27/24 17:41 05/27/24 17:46 05/27/24 17:47 Temperature 99.1 F Pulse Rate 96 97 Pulse Rate [Left P ulse Oximeter] Pulse Rate [Right Pulse Oximeter] 95 Respiratory Rate 18 Blood Pressure 97/57 L Blood Pressure [Le ft Upper Arm] 97/57 L Blood Pressure [Ri ght Arm] Pulse Oximetry 97 97 97 [facility] 05/27/24 17:51 05/27/24 18:00 05/27/24 18:15 Temperature Pulse Rate 96 96 93 Pulse Rate [Left P ulse Oximeter] Pulse Rate [Right Pulse Oximeter] Respiratory Rate Blood Pressure 105/60 Blood Pressure [Le ft Upper Arm] Blood Pressure [Ri ght Arm] Pulse Oximetry 96 97 95 Oxygen Delivery Me thod 05/27/24 18:30 05/27/24 18:56 05/27/24 19:00 Temperature Pulse Rate 91 85 88 Pulse Rate [Left P ulse Oximeter] Pulse Rate [Right Pulse Oximeter] Respiratory Rate Blood Pressure Blood Pressure [Le ft Upper Arm] Blood Pressure [Ri ght Arm] Pulse Oximetry 96 98 96 Oxygen Delivery Me thod 05/27/24 20:34 05/27/24 20:45 05/27/24 21:26 Temperature 97.8 F Pulse Rate 91 90 Pulse Rate [Left P ulse Oximeter] 87 Pulse Rate [Right Pulse Oximeter] Respiratory Rate 16 Blood Pressure Blood Pressure [Le ft Upper Arm] Blood Pressure [Ri ght Arm] 100/65 Pulse Oximetry 96 97 97 Oxygen Delivery Me thod Room Air 05/27/24 23:00 05/28/24 00:00 05/28/24 02:59 Temperature 98.3 F 97.5 F L Pulse Rate 85 Pulse Rate [Left P ulse Oximeter] 89 80 Pulse Rate [Right Pulse Oximeter] Respiratory Rate 16 18 Blood Pressure Blood Pressure [Le ft Upper Arm] Blood Pressure [Ri ght Arm] 95/59 L 92/52 L Pulse Oximetry 96 98 Oxygen Delivery Md thod Room Air Room Air 05/28/24 05:30 Temperature Pulse Rate Pulse Rate [Left P ulse Oximeter] Pulse Rate [Right Pulse Oximeter] Respiratory Rate Blood Pressure Blood Pressure [Le ft Upper Arm] Blood Pressure [Ri ght Arm] 94/52 L Pulse Oximetry Oxygen Delivery Me thod DS: Data Data Completed and Pending Labs on day of discharge: Labs from last 24 hours 05/28/24 05/27/24 05/27/24 06:36 20:20 19:36 WBC 13.42 H RBC 2.93 L Hgb 8.8 L Hct 27.9 L MCV 95 MCH 30 MCHC 32 RDW Coeff of Jumana 17.9 H Plt Count 356 Neut % (Auto) 84.9 H Lymph % (Auto) 5.6 L Perkins % (Auto) 8.3 Eos % (Auto) 0.3 Baso % (Auto) 0.2 Neut # (Auto) 11.40 H Lymph # (Auto) 0.80 L Perkins # (Auto) 1.10 H Eos # (Auto) 0.00 Baso # (Auto) 0.00 Abs Immat Gran (auto) 0.10 Imm/Tot Granulo (auto) 0.7 Sodium 139 Potassium 3.9 Chloride 109 Carbon Dioxide 25 Anion Gap 5 L BUN 17 Creatinine 0.8 Estimated Creat Clear 29.53 Estimated GFR 72 Glucose 94 Lactate 1.1 Calcium 8.7 Magnesium 2.1 Total Bilirubin 0.7 AST 20 ALT 17 Alkaline Phosphatase 117 C-Reactive Protein Total Protein 5.6 L Albumin 2.6 L Procalcitonin Lab Acknowledgement New Spec Needed POC Creatinine 05/27/24 18:27 WBC 15.11 H RBC 3.19 L Hgb 9.5 L Hct 30.1 L MCV 94 MCH 30 MCHC 32 RDW Coeff of Jumana 18.0 H Plt Count 406 Neut % (Auto) 87.4 H Lymph % (Auto) 5.8 L Perkins % (Auto) 5.9 Eos % (Auto) 0.1 Baso % (Auto) 0.2 Neut # (Auto) 13.20 H Lymph # (Auto) 0.90 Perkins # (Auto) 0.90 Eos # (Auto) 0.00 Baso # (Auto) 0.00 Abs Immat Gran (auto) 0.10 Imm/Tot Granulo (auto) 0.6 Sodium 134 L Potassium 4.4 Chloride 103 Carbon Dioxide 28 Anion Gap 3 L BUN 24 Creatinine 0.9 Estimated Creat Clear 32.40 Estimated GFR 63 Glucose 131 H Lactate Calcium 9.4 Magnesium Total Bilirubin AST ALT Alkaline Phosphatase C-Reactive Protein 13.5 H Total Protein Albumin Procalcitonin 0.23 Lab Acknowledgement POC Creatinine Pending Imaging CT abdomen pelvis: Attestation: I have reviewed the pertinent imaging results. Radiologist's impression: COMPARISON: 05/13/2024 FINDINGS: Lower chest: Unremarkable. Liver: There is a hypodense lesion in the subcapsular liver in segment 5 that has increased in size since prior exam and now measures 3 cm. There is stable ill-defined 1 cm hypodensity is seen in segment 7. There is a stable cyst measuring 4 mm in the left lateral segment of the liver. Spleen: Unremarkable. Pancreas: Unremarkable. Gallbladder: A tiny calcified gallstone is noted. Kidney: The patient is status post right nephrectomy. A small cyst is present in the upper pole of the left kidney measuring 1 cm. Adrenal: Unremarkable. Bowel: Moderate distention of the ascending colon and transverse colon is noted to the level of the ostomy where there is a parastomal hernia containing dilated segments of colon which may be causing obstruction of the colostomy. 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 Heterogeneous severe wall thickening of the sigmoid colon is present with a masslike structure measuring 4.5 cm extending along the right aspect of the sigmoid. The appearance is similar to prior examination and may correspond to the patient`s known primary malignancy. The appendix is not identified. Vascular: Unremarkable. Lymph: Unremarkable. Peritoneum: Unremarkable. No pneumoperitoneum is seen. No significant ascites is noted. Pelvis: Unremarkable. Soft tissue: Unremarkable. Bone: Moderate dextroscoliosis is noted with associated facet arthritis and degenerative disc disease. IMPRESSIONS: 1. Moderate distention of the ascending colon and transverse colon is noted to the level of the ostomy where there is a parastomal hernia containing dilated segments of colon which may be causing obstruction of the colostomy. 2. There is a hypodense lesion in the subcapsular liver in segment 5 that has increased in size since prior exam and now measures 3 cm. This may represent viable metastasis in a site of previous liver ablation. 3. Heterogeneous severe wall thickening of the sigmoid colon is present with a masslike structure measuring 4.5 cm extending along the right aspect of the sigmoid. The appearance is similar to prior examination and may correspond to the patient`s known primary malignancy. Discharge Plan Discharge Disposition: [facility] Date of Admission: 05/27/24 21:05 Attending Provider on Discharge: Vanna Huerta Consulting Providers: Isaura Avendano Primary Care Provider: Darlene Murray Condition: Stable Anticipated Discharge Date/Time: 05/28/24 10:57 Discharge Medications: New sennosides-docusate sodium [Senna with Docusate Sodium] 8.6-50 mg tablet 2 tab-cap PO DAILY Qty: 60 0RF Continued acetaminophen 325 mg capsule 650 mg PO Q6H PRN bisacodyl 5 mg tablet 5 mg PO BID Changed magnesium hydroxide [Milk of Magnesia] 400 mg/5 mL suspension 30 ml PO DAILY Qty: 3000 0RF Rx Instructions: Daily until regular stooling, then prn Discontinued calcium carbonate 600 mg calcium (1,500 mg) tablet 600 mg PO DAILY cholecalciferol (vitamin D3) 25 mcg (1,000 unit) capsule 25 mcg PO DAILY lisinopril 20 mg tablet 20 mg PO BID Qty: 180 3RF capecitabine 500 mg tablet 1,500 mg PO BID Qty: 84 3RF Rx Instructions: Take 3 tablets in the morning and 3 tablets in the evening; 1 week on and 1 week off. amlodipine 10 mg tablet 10 mg PO DAILY potassium chloride 20 mEq tablet extended release 20 meq PO DAILY cetirizine 10 mg tablet 10 mg PO DAILY PRN multivitamin Tablet 1 tab PO DAILY Rx Instructions: Centrum Adults alendronate 70 mg tablet 70 mg PO QWEEK Qty: 12 3RF Discharge Orders: Discharge Order (Routine); Ordered 05/28/24 Ordered By: Vanna Huerta Additional Instructions: Discharged with increased bowel regimen as above. Continue to monitor, medication management with facility provider. Important to document daily ostomy cares. Familiarize staff with peristomal hernia. Care conference this afternoon at 1:30 p.m. Patient and family electing to stop usual home medications - including capecitabine, as above. Further plan of care to be determined during conference. Activity Level: Activity as Tolerated Discharge Diet: Regular Follow Up Appointments: Darlene Murray PA-C [Primary Care Provider] - Forms: [facility] Info Instructions Ostomy Care: Thorough documenting of daily ostomy cares Admit to: SNF Discharge Potential: Good Length of Stay: <30 days Can use facility standing orders?: Yes Code Status: Full Code Rehab Potential: Fair Therapy: Physical Therapy and Occupational Therapy Therapy Orders: Evaluate and Treat Oxygen: No Urinary Catheter: No Hospice Evaluate and Admit: TBD Orders are good >30 days: No Signature: PARI Lopez PA-[facility] Hospitalist
--- NOTE | 2024-05-28 11:55 | NUTR.NU ---
Nutrition Screen related to nursing referral for weight loss and eating poorly. Height 60, weight 100.4 lbs, BMI 20.1. Patient admit last night with SBO, history of colon cancer and ostomy. Patient with discharge orders to return to [facility] and care conference this afternoon. Recent admit and nutrition assessment documentation 05/15/24. Diet NPO. Not appropriate for visit/intervention at this time.
--- NOTE | 2024-05-28 12:39 | P.GSCN_ITS ---
History of Present Illness Consult details Date Seen: 05/28/24 Consult date: 05/28/24 Narrative: Patient is here this morning with her daughter. She was admitted from the assisted for reports of no stool output from her ostomy. The daughter in her are upset that they are back care. She denies any abdominal pain. She has had no nausea or vomiting. She has no pain at the hernia site. She does report that there has been passage of gas and stool. The daughter wonders if the assisted just did not have appropriate documentation of that. The patient is very frail in appearance and has expressed a desire to stop some treatments. There is a care conference at the assisted scheduled for today at 1:30 o'clock.. The daughter states that at this time her mom does not want to continue with chemotherapy or high blood pressure medications. She also states that she would not want surgery should she need it. She has continued to have poor p.o. intake but this is secondary to appetite. She reports no desire to eat. Review of Systems Status of ROS: Reports: 10 or more systems reviewed and unremarkable except as noted in History and below [facility] Medical History Abnormal urine ?R82.90 - Unspecified abnormal findings in urine (ICD-10) Frailty syndrome in geriatric patient ?R54 - Age-related physical debility (ICD-10) Weakness ?R53.1 - Weakness (ICD-10) Acute kidney injury ?N17.9 - Acute kidney failure, unspecified (ICD-10) Peristomal hernia ?K46.9 - Unspecified abdominal hernia without obstruction or gangrene (ICD- 10) Confusion ?R41.0 - Disorientation, unspecified (ICD-10) Acute UTI ?N39.0 - Urinary tract infection, site not specified (ICD-10) 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 - Localized skin eruption due to drugs and medicaments taken internally (ICD-10) Urinary tract infection ?N39.0 - Urinary tract infection, site not specified (ICD-10) Surgical History History of nephrectomy ?Z90.5 - Acquired absence of kidney (ICD-10) History of bowel resection ?Z90.49 - Acquired absence of other specified parts of digestive tract (ICD- 10) History of creation of ostomy ?Z93.9 - Artificial opening status, unspecified (ICD-10) Family History Mother Diabetes Brother Diabetes Social History Narrative: [facility] [place]. She lives near her daughter Sobia. Sobia is healthcare power of county attorney and closest support person. Code status is DNR. Other children include Mehul from [place], Dania from [place] and Paco from [place]. She does not smoke or drink alcohol. Health care directive on file- Health care directive completed on 11/08/2005. Reviewed and sent for scanning 12/29/2019. 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 What is your current living situation?: I presently have a place to live Problems where you live: no known problems Problems where you live details: N/A In the past 12 months, utilities in danger of being shut off: no In past 12 months, lack of transportation kept you from medical appts, meetings, work, or getting things needed for daily living: no In the past 12 mos, have been you worried that your food would run out before you had money to buy more?: never true In the past 12 mos, the food you bought just didn't last and you didn't have money to buy more?: never true Smoking Status: Never smoker How often do you have a drink containing alcohol: never AUDIT-C Alcohol total score: 0 Non-prescribed substance use: denies use How often does anyone, including family, friends and others, physically hurt you : never How often does anyone, including family, friends and others, insult or talk down to you: never How often does anyone, including family, friends and others, threaten you with harm: never How often does anyone, including family, friends and others, scream or curse at you: never service: No Meds Home Medications and Allergies Home Medications ?Medication ?Instructions ?Recorded ?Confirmed ?Type acetaminophen 325 mg capsule 650 mg PO Q6H PRN 11/27/21 05/28/24 History bisacodyl 5 mg tablet 5 mg PO BID 01/14/24 05/28/24 History Allergies Allergy/AdvReac Type Severity Reaction Status Date / Time ragweed pollen Allergy Mild Sneezing Verified 05/27/24 18:55 Exam Narrative: Exam Narrative: General: Alert and oriented, no acute distress. Very frail appearance. Respiratory: Equal breath rise bilaterally, maintained on room air CV: Well perfused Abdomen: Soft, nontender to palpation. Peristomal hernia is partially reducible, much smaller and softer in appearance than her last hospitalization. Ostomy bag in place with a small amount of stool output and presence of gas. Positive bowel sounds during examination. Const: Vital Signs, click to edit/add: Vital Signs - 24 hr 05/27/24 17:41 05/27/24 17:46 05/27/24 17:47 Temperature 99.1 F Pulse Rate 96 97 Pulse Rate [Left P ulse Oximeter] Pulse Rate [Right Pulse Oximeter] 95 Respiratory Rate 18 Blood Pressure 97/57 L Blood Pressure [Le ft Upper Arm] 97/57 L Blood Pressure [Ri ght Arm] Pulse Oximetry 97 97 97 [facility] 05/27/24 17:51 05/27/24 18:00 05/27/24 18:15 Temperature Pulse Rate 96 96 93 Pulse Rate [Left P ulse Oximeter] Pulse Rate [Right Pulse Oximeter] Respiratory Rate Blood Pressure 105/60 Blood Pressure [Le ft Upper Arm] Blood Pressure [Ri ght Arm] Pulse Oximetry 96 97 95 Oxygen Delivery Me thod 05/27/24 18:30 05/27/24 18:56 05/27/24 19:00 Temperature Pulse Rate 91 85 88 Pulse Rate [Left P ulse Oximeter] Pulse Rate [Right Pulse Oximeter] Respiratory Rate Blood Pressure Blood Pressure [Le ft Upper Arm] Blood Pressure [Ri ght Arm] Pulse Oximetry 96 98 96 Oxygen Delivery Me thod 05/27/24 20:34 05/27/24 20:45 05/27/24 21:26 Temperature 97.8 F Pulse Rate 91 90 Pulse Rate [Left P ulse Oximeter] 87 Pulse Rate [Right Pulse Oximeter] Respiratory Rate 16 Blood Pressure Blood Pressure [Le ft Upper Arm] Blood Pressure [Ri ght Arm] 100/65 Pulse Oximetry 96 97 97 [facility] 05/27/24 23:00 05/28/24 00:00 05/28/24 02:59 Temperature 98.3 F 97.5 F L Pulse Rate 85 Pulse Rate [Left P ulse Oximeter] 89 80 Pulse Rate [Right Pulse Oximeter] Respiratory Rate 16 18 Blood Pressure Blood Pressure [Le ft Upper Arm] Blood Pressure [Ri ght Arm] 95/59 L 92/52 L Pulse Oximetry 96 98 Oxygen Delivery Me thod Room Air Room Air 05/28/24 05:30 Temperature Pulse Rate Pulse Rate [Left P ulse Oximeter] Pulse Rate [Right Pulse Oximeter] Respiratory Rate Blood Pressure Blood Pressure [Le ft Upper Arm] Blood Pressure [Ri ght Arm] 94/52 L Pulse Oximetry Oxygen Delivery Me thod Results Labs Labs: Abnormal lab results 05/27/24 05/28/24 Range/Units 18:27 06:36 WBC 15.11 H 13.42 H (4.50-11.00) K/uL RBC 3.19 L 2.93 L (4.00-5.20) m/uL Hgb 9.5 L 8.8 L (12.0-16.0) gm/dL Hct 30.1 L 27.9 L (33.0-51.0) % RDW Coeff of Jumana 18.0 H 17.9 H (11.5-15.5) % Neut % (Auto) 87.4 H 84.9 H (42.0-72.0) % Lymph % (Auto) 5.8 L 5.6 L (20-44) % Neut # (Auto) 13.20 H 11.40 H (1.7-7.0) K/uL Lymph # (Auto) 0.80 L (0.90-2.90) K/uL [place] # (Auto) 1.10 H (0.00-0.90) K/UL Sodium 134 L (135-149) mmol/L Anion Gap 3 L 5 L (7-15) mEq/L Glucose 131 H (60-115) mg/dL C-Reactive Protein 13.5 H (0.5-1.0) mg/dL Total Protein 5.6 L (6.0-8.3) g/dL Albumin 2.6 L (3.3-5.0) g/dL Diabetes panel 05/27/24 05/28/24 Range/Units 18:27 06:36 Sodium 134 L 139 (135-149) mmol/L Potassium 4.4 3.9 (3.6-5.1) mmol/L Chloride 103 109 (96-114) mmol/L Carbon Dioxide 28 25 (20-32) mmol/L BUN 24 17 (7-30) mg/dL Creatinine 0.9 0.8 (0.5-1.5) mg/dL Glucose 131 H 94 (60-115) mg/dL Calcium 9.4 8.7 (8.4-10.6) mg/dL AST 20 (12-35) U/L ALT 17 (4-35) U/L Alkaline Phosphatase 117 (40-150) U/L Total Protein 5.6 L (6.0-8.3) g/dL Albumin 2.6 L (3.3-5.0) g/dL Calcium panel 05/27/24 05/28/24 Range/Units 18:27 06:36 Calcium 9.4 8.7 (8.4-10.6) mg/dL Albumin 2.6 L (3.3-5.0) g/dL Pituitary panel 05/27/24 05/28/24 Range/Units 18:27 06:36 Sodium 134 L 139 (135-149) mmol/L Potassium 4.4 3.9 (3.6-5.1) mmol/L Chloride 103 109 (96-114) mmol/L Carbon Dioxide 28 25 (20-32) mmol/L BUN 24 17 (7-30) mg/dL Creatinine 0.9 0.8 (0.5-1.5) mg/dL Glucose 131 H 94 (60-115) mg/dL Calcium 9.4 8.7 (8.4-10.6) mg/dL Adrenal panel 05/27/24 05/28/24 Range/Units 18:27 06:36 Sodium 134 L 139 (135-149) mmol/L Potassium 4.4 3.9 (3.6-5.1) mmol/L Chloride 103 109 (96-114) mmol/L Carbon Dioxide 28 25 (20-32) mmol/L BUN 24 17 (7-30) mg/dL Creatinine 0.9 0.8 (0.5-1.5) mg/dL Glucose 131 H 94 (60-115) mg/dL Calcium 9.4 8.7 (8.4-10.6) mg/dL Total Bilirubin 0.7 (0.1-1.5) mg/dL AST 20 (12-35) U/L ALT 17 (4-35) U/L Alkaline Phosphatase 117 (40-150) U/L Total Protein 5.6 L (6.0-8.3) g/dL Albumin 2.6 L (3.3-5.0) g/dL All other labs normal. Progress Note:A&P Assessment and plan (1) Frailty syndrome in geriatric patient: Status: Acute Plan Patient was admitted from the emergency department for reports from the assisted of no output into her ostomy. Patient denies this claim and daughter states that she has had stool and gas. Her exam is improved compared to her last hospitalization with no concern for distention or pain. Her peristomal hernia is partially reducible and nontender with palpation. CT scan was performed, there is decreased inflammation within the hernia sac compared to the last CT imaging, no fluid within the hernia sac no current concerns for an obstruction within the hernia. No surgical intervention recommended at this time and patient states she would not wanted should she need it. This is reasonable given her overall frailty and general decline in the last several months. Okay for a regular diet. Would recommend increasing patient's oral laxatives. It was recommended that she take 2 tablets senna twice daily and milk of MiraLax daily. Okay to adjust as needed in response to output from the ostomy. Okay to discharge from a surgery perspective.
--- NOTE | 2024-05-28 14:02 | PC.NURSE ---
Discharge: Patient pleasant and cooperative, A&O. VSS, afebrile. Discharge instructions provided, all questions answered. IV removed with tip intact.
[2024-06-11 13:55] LABS: Creatinine, Point-of-Care* 1.1 mg/dl (0.6-1.3)
== END 2024-05-28 12:51 ==
LOC: ED 20:36 → MEDSURG 21:06
PROVIDERS: Admitting Provider Student in an Organized Health Care Education/Training Program; Emergency Provider Student in an Organized Health Care Education/Training Program; PCP Physician Assistant Medical; Visit Provider Student in an Organized Health Care Education/Training Program
DX: D72.829 Elevated white blood cell count, unspecified (principal); K56.609 Unspecified intestinal obstruction, unspecified as to partial versus complete obstruction; K46.9 Unspecified abdominal hernia without obstruction or gangrene; I10 Essential (primary) hypertension; C18.9 Malignant neoplasm of colon, unspecified
CPT/HCPCS: 36415; 74177; 80048; 80053; 82565; 83605; 83735; 84145; 85025; 86140; 87040; 87081; 96360; 99285; G0378; J7030; Q9967